=== PATIENT | male | born 1950 | race Caucasian/White ===

== ENCOUNTER 2023-10-15 12:12 | Inpatient (IN) | payer MEDICARE ==
[2023-10-15] MEDS: SUCCINYLCHOLINE CHLORIDE 200 MG/10 ML VIAL IV STA (12:20)
[2023-10-15] MEDS: MIDAZOLAM 1 MG/ML 5 ML VIAL IV STA (12:20)
--- NOTE | 2023-10-15 12:31 | ED ---
General Adult HPI - General Chief complaint: Altered Mental Status Stated complaint: Unresponsive Time Seen by Provider: 10/15/23 12:12 Source: patient, RN notes reviewed, old records reviewed Mode of arrival: EMS - History of Present Illness Initial comments: This is a 72-year-old male who presents emergency department the past medical history significant for diabetes and no further history is currently available at this time. went out for a jog and came back to find her unresponsive with agonal breathing. When EMS arrived the patient continued to have agonal breathing intubated him and did an EKG which they thought showed a STEMI. Patient is unable to give any history and family is not yet here. - Related Data Allergies Allergy/AdvReac Type Severity Reaction Status Date / Time Unable to Assess Allergy Verified 10/15/23 12:22 Review of Systems ROS Statement: Those systems with pertinent positive or pertinent negative responses have been documented in the HPI. ROS Other: All systems not noted in ROS Statement are negative. Past Medical History Past Medical History: No Reported History History of Any Multi-Drug Resistant Organisms: Unobtainable Past Surgical History: No Surgical Hx Reported Past Psychological History: Unable to Obtain Smoking Status: Unknown if ever smoked Past Alcohol Use History: None Reported Past Drug Use History: None Reported General Exam - General Exam Comments Initial Comments: GENERAL: Patient is well-developed and well-nourished. Patient is nontoxic and well- hydrated is currently intubated and occasionally vomiting ENT: Neck is soft and supple. No significant lymphadenopathy is noted. Oropharynx is clear. Moist mucous membranes. Neck has full range of motion without eliciting any pain. EYES: The sclera were anicteric and conjunctiva were pink and moist. Extraocular movements were intact and pupils were equal round and reactive to light. Eyelids were unremarkable. PULMONARY: Patient is occasionally having an agonal breath while being bagged. I listened to the breath sounds they were before and I believe the patient had the esophagus intubated at this point CARDIOVASCULAR: Patient is tachycardic at 120 beats a minute SKIN: Skin is clear with no lesions or rashes and otherwise unremarkable. NEUROLOGIC: Patient is unresponsive MUSCULOSKELETAL: Normal extremities with adequate strength and full range of motion. PSYCHIATRIC: Unable to assess Course Vital Signs 10/15/23 10/15/23 10/15/23 12:19 12:30 12:34 Temperature 97.5 F L Pulse Rate 131 H 110 H Respiratory 14 18 Rate Blood Pressure 168/114 137/90 O2 Sat by Pulse 99 99 Oximetry Procedures - Intubation Sedative: Versed Mg Given: 5 Paralytic: Succinylcholine Mg Given: 100 Laryngoscope: Barnes Size: 4 ET Tube Size: 7.5 ET Tube Uncuffed: No Tube Secured Location: teeth Tube Placement Confirmation: visualized tube passing through cords, equal breath sounds bilaterally, no breath sounds over epigastrium, confirmation by capnometry Intubation Complications: unable to intubate Medical Decision Making - Medical Decision Making Initial EKG was interpreted by myself but EKG shows sinus rhythm at 135 bpm NE interval is 200 QRS is 98 QT interval 374 QTc is 453. There is some ST segment elevation in 1 and aVL as well as V2 possible elevation in V4 V5. Repeat EKG will be done. I had a repeat EKG was done secondary to the noise on the first EKG. EKG is interpreted by myself EKG shows sinus tachycardia 123 bpm parable 164 QRS 106 QT interval 3 4 QTc is 413. Patient has ST segment ovation in 1 and aVL as well as V2 V4 and V5 and V6 Was pt. sent in by a medical professional or institution (, PA, PHYSICIAN UNDERWRITER, urgent care, hospital, or snf...) When possible be specific @ -No Did you speak to anyone other than the patient for history (EMS, parent, family, police, friend...)? What history was obtained from this source @ -EMS gave us all the history patient was unable to give any family was not yet here Did you review nursing and triage notes (agree or disagree)? Why? @ -I reviewed and agree with nursing and triage notes Were old charts reviewed (outside hosp., previous admission, EMS record, old EKG, old radiological studies, urgent care reports/EKG's, snf records)? Report findings @ -No old charts were reviewed Differential Diagnosis (chest pain, altered mental status, abdominal pain women, abdominal pain men, vaginal bleeding, weakness, fever, dyspnea, syncope, headache, dizziness, GI bleed, back pain, seizure, CVA, palpatations, mental health, musculoskeletal)? @ -Differential Dyspnea: Coronary syndrome, arrhythmia, tamponade, asthma, COPD, pulmonary embolism, pneumonia, pneumothorax, pulmonary effusion, anaphylaxis, diabetic ketoacidosis, flailed chest, pulmonary contusion, diaphragmatic rupture, anemia, neuromuscular, this is not meant to be an all-inclusive list. EKG interpreted by me (3pts min.). @ -As above X-rays interpreted by me (1pt min.). @ -X-ray showed placement of the ET tube and some edema more so on the left side of the chest CT interpreted by me (1pt min.). @ -None done U/S interpreted by me (1pt. min.). @ -None done What testing was considered but not performed or refused? (CT, X-rays, U/S, labs)? Why? @ -None What meds were considered but not given or refused? Why? @ -None Did you discuss the management of the patient with other professionals (professionals i.e. , PA, PHYSICIAN UNDERWRITER, lab, RT, psych nurse, psychotherapist social worker, program schedule clerk, teacher, health promotion officer, telehealth case manager)? Give summary @ -I spoke with Dr. Nair and he is going to take the patient to the catheterization lab Was smoking cessation discussed for >3mins.? @ -No Was critical care preformed (if so, how long)? @ -35 minutes Were there social determinants of health that impacted care today? How? (Homelessness, low income, unemployed, alcoholism, drug addiction, transportation, low edu. Level, literacy, decrease access to med. care, detention, rehab)? @ -No Was there de-escalation of care discussed even if they declined (Discuss DNR or withdrawal of care, Hospice)? DNR status @ -No What co-morbidities impacted this encounter? (DM, HTN, Smoking, COPD, CAD, Cancer, CVA, ARF, Chemo, Hep., AIDS, mental health diagnosis, sleep apnea, morbid obesity)? @ -None Was patient admitted / discharged? Hospital course, mention meds given and route, prescriptions, significant lab abnormalities, going to OR and other pertinent info. @ -Arrived unresponsive and being intubated bagged. I listened to what sounds like the patient's tube may became displaced so I reintubated the patient and h is lung sounds are much improved at this point. Family eventually arrived and stated he is a diabetic with interstitial lung disease from RA and he also has infection of the left foot that has recently been closed and has been on antibiotics through PICC line. Patient also vomited while in the emergency department he was suctioned out in the ED. I intubated the patient with Versed and succinylcholine Undiagnosed new problem with uncertain prognosis? @ -No Drug Therapy requiring intensive monitoring for toxicity (Heparin, Nitro, Insulin, Cardizem)? @ -No Were any procedures done? @ -No Diagnosis/symptom? @ -STEMI Acute, or Chronic, or Acute on Chronic? @ -Acute Uncomplicated (without systemic symptoms) or Complicated (systemic symptoms)? @ -Complicated Side effects of treatment? @ -No Exacerbation, Progression, or Severe Exacerbation? @ -No Poses a threat to life or true yes this can lead to poor perfusion and endorgan dysfunction dily function? How? (Chest pain, USA, VT, pneumonia, PE, COPD, DKA, ARF, appy, cholecystitis, CVA, Diverticulitis, Homicidal, Suicidal, threat to staff... and all critical care pts) @ -No Critical Care Time Critical Care Time: Yes Total Critical Care Time: 35 Disposition Clinical Impression: STEMI (ST elevation myocardial infarction) Disposition: ADMITTED IP TO THIS HOSP Referrals: None,Stated [Primary Care Provider] - 1-2 days Time of Disposition: 12:47
[2023-10-15] MEDS ORDERED: HEPARIN SODIUM 1,000 UN/ML (10ML VL) ONE (12:45)
[2023-10-15 12:52] LABS: INR 1.1 (<1.2); Partial Thromboplastin Time 24.5 sec (22.0-30.0); Prothrombin Time 11.5 sec (10.0-12.5)
[2023-10-15 12:59] LABS: ALT 25 U/L (4-49); AST 42 U/L (17-59); African American GFR (CKD) >90 (>60 ml/min/1.73 sqM); Albumin 3.9 g/dL (3.5-5.0); Alkaline Phosphatase 122 U/L (38-126); Anion Gap 10 mmol/L; Blood Urea Nitrogen 26 mg/dL (9-20); Calcium 9.1 mg/dL (8.4-10.2); Carbon Dioxide 21 mmol/L (22-30); Chloride 109 mmol/L (98-107); Glucose 165 mg/dL (74-99); Non-African American GFR(CKD) >90 (>60 ml/min/1.73 sqM); Potassium 3.8 mmol/L (3.5-5.1); Sodium 140 mmol/L (137-145); Total Protein 7.4 g/dL (6.3-8.2)
[2023-10-15] MEDS: LIDOCAINE 2% (PF) 20 MG/ML 10 ML AMP SQ ONE (13:00)
[2023-10-15 13:01] LABS: Basophils # (A) 0.1 k/uL (0-0.2); Basophils % (A) 1 %; Eosinophils # (A) 0.4 k/uL (0-0.7); Eosinophils % (A) 5 %; HCT 49.3 % (39.0-53.0); Lymphocytes % (A) 22 %; MCH 30.5 pg (25.0-35.0); MCHC 34.4 g/dL (31.0-37.0); MCV 88.6 fL (80.0-100.0); Mean Platelet Volume 8.1; Monocytes # (A) 0.7 k/uL (0-1.0); Monocytes % (A) 8 %; Neutrophils # (A) 5.4 k/uL (1.3-7.7); Neutrophils % (A) 61 %; Platelet Count 215 k/uL (150-450); Poikilocytosis Slight; RBC 5.57 m/uL (4.30-5.90); RDW 15.7 % (11.5-15.5); WBC 8.7 k/uL (3.8-10.6)
[2023-10-15] MEDS: ASPIRIN 300 MG SUPP RECTAL STA (13:03)
[2023-10-15] MEDS ORDERED: RX INFO: IV CONTRAST WAS GIVEN 1 EACH MISC MISCELLANE PRN ×2 (13:16→15:31)
--- NOTE | 2023-10-15 13:21 | P.PCN ---
Date of Procedure: 10/15/23 Operative Findings: CARDIAC CATHETERIZATION PERFORMING PHYSICIAN: Sp Nair MD, RPVI PROCEDURE PERFORMED: 1. Selective right and left coronary angiogram 2. Left heart catheterization 3. Ultrasound-guided access of the right radial artery INDICATION: EKG changes concerning for ST segment elevation myocardial infarction in this 72-year-old gentleman who had cardiopulmonary arrest COMPLICATION: None APPROACH: Right radial artery LEVEL OF SEDATION: Moderate with a sedation length of 14 minutes PROCEDURE DESCRIPTION: After obtaining an informed consent, the patient was brought to cardiac cathode builder. Local anesthesia was performed using lidocaine subcutaneously. The right radial artery was cannulated using Seldinger technique, the guidewire passed easily, following that we advanced a 5-Croatian sheath dilator assembly, the wire and dilator were removed and sheath was flushed. Following that, 2 mg of verapamil along with 5000 unit heparin were given. Selective right and left coronary angiogram using a 6-Croatian JR4 and JL 3.5 catheters. Following that we did left heart catheterization using 6-Croatian pigtail catheter. The procedure was completed there was no complication. SELECTIVE CORONARY ANGIOGRAM: The right coronary artery: Large-caliber vessel and a dominant vessel and appears to be angiographically normal Left main: Is angiographically normal The left circumflex: Large-caliber vessel nondominant vessel and appears to be angiographically normal gives rise into a large OM which appears to be normal The left anterior descending artery: Large-caliber vessel. The LAD is angiographically normal and gives rise into a large diagonal branch which seems to be normal HEMODYNAMICS: LVEDP was 10 to 12 mmHg with no gradient was identified across aortic valve CONCLUSION: 1. Normal coronary angiogram 2. Normal left-sided filling pressure POSTPROCEDURE MANAGEMENT: Medical treatment Rule out intracranial bleeding. Please note that the patient was not given heparin during the cardiac procedure Rule out pulmonary embolism Obtain an echocardiogram with Doppler Further recommendation to follow
--- NOTE | 2023-10-15 13:24 | P.CRDCN ---
History of Present Illness Consult date: 10/15/23 History of present illness: The patient is a 72-year-old gentleman who arrived to the emergency department intubated by ambulance after he was found to have agonal breathing by ambulance. The history was taken from the chart. The patient does have diabetes. No history of coronary artery disease or congestive heart failure or cardiac arrhythmia and never seen a head animal trainer before according to the family. The patient was in his usual state of health till this morning when his left home and went outside and came back and found the patient unresponsive. Lj johnston was called and the patient was found to be agonal breathing and he was intubated and brought to the emergency department. The EKG showed finding consistent with ST segment elevation myocardial infarction and with that being said he was brought emergently to the cardiac Human Resources Office Manager where he underwent a heart catheterization and that revealed normal coronaries with normal left-sided filling pressure with the procedure was performed from right radial approach. Please note that the patient was not given any heparin in the cardiac Human Resources Office Manager during the procedure. Stat echo is in process to be done. CT scan of the brain without contrast is in process to be down to rule out intracranial bleeding. D- dimer also was ordered to rule out pulmonary embolism and the patient has been sedentary after recent foot surgery was performed with unknown details at this point. The examination is remarkable for stable vital signs besides tachycardia and diminished breathing sounds bilaterally and no edema was noted in the lower extremities Assessment Change in mental status with unknown etiology at this point Abnormal EKG concerning for ST segment elevation myocardial infarction Normal coronary angiogram on recent heart catheterization Multiple comorbid conditions Plan Rule out intracranial bleeding Rule out pulmonary embolism Obtain a CT scan of the brain Obtain D-dimer and echocardiogram Follow-up with the patient Past Medical History Past Medical History: No Reported History History of Any Multi-Drug Resistant Organisms: Unobtainable Past Surgical History: No Surgical Hx Reported Past Psychological History: Unable to Obtain Smoking Status: Unknown if ever smoked Past Alcohol Use History: None Reported Past Drug Use History: None Reported Medications and Allergies Allergies Allergy/AdvReac Type Severity Reaction Status Date / Time Unable to Assess Allergy Verified 10/15/23 12:22 Physical Exam Vitals: Vital Signs Temp Pulse Resp BP Pulse Ox 10/15/23 12:43 67 16 149/95 98 10/15/23 12:34 97.5 F L 10/15/23 12:30 110 H 18 137/90 99 06/03/24 12:19 131 H 14 168/114 99 Intake and Output 10/14/23 10/15/23 10/15/23 22:59 06:59 14:59 Other: Weight 77.3 kg Results 10/15/23 12:30 10/15/23 12:30 Cardiac Enzymes 10/15/23 Range/Units 12:30 AST 42 (17-59) U/L Coagulation 10/15/23 Range/Units 12:30 PT 11.5 (10.0-12.5) sec APTT 24.5 (22.0-30.0) sec CBC 10/15/23 Range/Units 12:30 WBC 8.7 (3.8-10.6) k/uL RBC 5.57 (4.30-5.90) m/uL Hgb 17.0 (13.0-17.5) gm/dL Hct 49.3 (39.0-53.0) % Plt Count 215 (150-450) k/uL Comprehensive Metabolic Panel 10/15/23 Range/Units 12:30 Sodium 140 (137-145) mmol/L Potassium 3.8 (3.5-5.1) mmol/L Chloride 109 H (98-107) mmol/L Carbon Dioxide 21 L (22-30) mmol/L BUN 26 H (9-20) mg/dL Creatinine 0.57 L (0.66-1.25) mg/dL Glucose 165 H (74-99) mg/dL Calcium 9.1 (8.4-10.2) mg/dL AST 42 (17-59) U/L ALT 25 (4-49) U/L Alkaline Phosphatase 122 (38-126) U/L Total Protein 7.4 (6.3-8.2) g/dL Albumin 3.9 (3.5-5.0) g/dL Current Medications Generic Name Dose Route Start Last Admin Trade Name Freq PRN Reason Stop Dose Admin Sodium Chloride 1,000 mls @ 75 mls/hr 10/15/23 13:30 Saline 0.9% IV 10/15/23 18:31 .[id number] GERARDO Miscellaneous Information 1 each 10/15/23 13:16 Rx Info: Iv Contrast Was Given 1 Each Misc MISCELLANE 10/17/23 13:17 DAILY PRN Per Protocol Intake and Output 10/14/23 10/15/23 10/15/23 22:59 06:59 14:59 Other: Weight 77.3 kg Patient Weight 10/16/23 06:59 Weight 77.3 kg 10/15/23 12:30 10/15/23 12:30
[2023-10-15 13:54] LABS: Glucose,Whole Blood 197 mg/dL (70-110)
[2023-10-15 14:45] LABS: Allen Test Performed? Yes
--- NOTE | 2023-10-15 14:54 | CT ---
EXAMINATION TYPE: CT brain wo con CT DLP: 1069 mGycm, Automated exposure control for dose reduction was used. DATE OF EXAM: 10/15/2023 1:47 PM COMPARISON: None. CLINICAL INDICATION:Male, 72 years old with history of r/o ic bleed, R/O ic BLEED TECHNIQUE: Brain: Axial CT images of the brain were obtained with coronal and sagittal reformats created and rev iewed. Contrast used: None. Oral contrast used: None. FINDINGS: Brain: Extra-axial spaces: No abnormal extra-axial fluid collections. Ventricular system: Within normal limits Cerebral parenchyma: No acute intraparenchymal hemorrhage or mass effect. The jean baptiste-white junction is well differentiated. Scattered hypoattenuating areas are seen within the white matter suggesting chr onic microangiopathy. Cerebellum: Unremarkable. Mass effect: No evidence of midline shift. Intracranial vasculature: unremarkable Soft tissues: Normal. Calvarium/osseous structures: No depressed skull fracture. Paranasal sinuses and mastoid air cells: Mild scattered paranasal sinus disease. Visualized orbits: Orbital contents are intact. IMPRESSION: No acute intracranial process. Age-related chronic microangiopathy
[2023-10-15] MEDS: NITROGLYCERIN OINT 1 INCH/GM PACKET TOPICAL STA (14:56)
[2023-10-15] MEDS: SODIUM CHLORIDE 0.9% 500 ML 500 ML IV STA (14:57)
[2023-10-15 14:58] LABS: ABG HCO3 21 mmol/L (21-25); ABG Oxygen Saturation 99.9 % (94-97); ABG PCO2 35 mmHg (35-45); ABG PH 7.38 (7.35-7.45); ABG TCO2 22 mmol/L (19-24)
[2023-10-15 15:03] LABS: ABG PO2 >420 mmHg (83-108)
[2023-10-15] MEDS ORDERED: NALOXONE 0.4 MG/ML 1 ML VIAL IV PRN (15:06)
--- NOTE | 2023-10-15 15:21 | XR ---
EXAMINATION TYPE: XR chest 1V portable DATE OF EXAM: 10/15/2023 2:46 PM CLINICAL INDICATION:Male, 72 years old with history of post intubation; [facility] COMPARISON: None TECHNIQUE: XR chest 1V portable Frontal view of the chest. FINDINGS: Lungs/Pleura: There is no evidence of pleural effusion, focal consolidation, or pneumothorax. Pulmonary vascularity: Unremarkable. Heart/mediastinum: Cardiomediastinal silhouette is enlarged. Musculoskeletal: No acute osseous pathology. Other findings: None Lines/Tubes: Endotracheal tube in high position consider advancement 6 cm for optimal placement. Nasogastric tube terminating in the distal esophagus. Consider advancement of 8 cm for optimal placem ent. IMPRESSION: 1. Endotracheal tube in high position consider advancement 6 cm for optimal placement. 2. Nasogastric tube terminating in the distal esophagus. Consider advancement of [address] acement. 3. Cardiomegaly.
[2023-10-15] MEDS: SODIUM CHLORIDE 0.9% 1,000 ML IV SCH (15:24)
--- NOTE | 2023-10-15 15:43 | XR ---
EXAMINATION TYPE: XR chest 1V DATE OF EXAM: 10/15/2023 3:35 PM CLINICAL INDICATION:Male, 72 years old with history of ET tube placement; [facility] COMPARISON: Chest radiographs from same day TECHNIQUE: XR chest 1V Frontal view of the chest. FINDINGS: Lungs/Pleura: Prominent interstitial lung markings are seen scattered throughout the lungs with teodoro ening of the diaphragm and increased lucency of the lung apices. No evidence of focal consolidation, pneumothorax or pleural effusion. Pulmonary vascularity: Unremarkable. Heart/mediastinum: Cardiomediastinal silhouette is enlarged and stable. Musculoskeletal: No acute osseous pathology. Other findings: None Lines/Tubes: Endotracheal tube with distal tip 8.8 cm above the alexys. Nasogastric tube with side-port projecting over the distal esophagus. IMPRESSION: Advancement of 5.0 cm endotracheal tuber 9 cm per nasogastric tube recommended.
--- NOTE | 2023-10-15 15:55 | P.CNPUL ---
History of Present Illness Consult date: 10/15/23 Requesting physician: Anthony Javier Reason for consult: other (Ventilator/critical care management) Chief complaint: Unresponsiveness History of present illness: This is a 72-year-old male patient with a history of pulmonary fibrosis maintained on Ofev in the outpatient setting. He was found by his earlier today to be unresponsive and agonal breathing. EMS was called and he was int ubated in the field. EKG showed possible ST segment elevation myocardial infarction. He was brought in through the emergency room and directly to the Face Hardener. He was found to have normal coronary arteries. He was admitted to the intensive care unit. He is currently intubated on the mechanical ventilator and assist-control mode at a rate of 14, tidal volume 600, FiO2 50% and a PEEP of 5. Arterial blood gases revealed a PaO2 of greater than 420, pCO2 of 35 and a pH of 7.38. CT scan of the brain showed no acute abnormalities. Echocardiogram is pending. Chest x-ray revealed endotracheal tube in a high position. Being repositioned. Nasogastric tube in the esophagus. Cardiomegaly. No pleural effusion, focal consolidation or pneumothorax. White count 8.7. Hemoglobin 17.0. Platelets 215. D-dimer 2.58. Sodium 140. Potassium 3.8. Bicarb 21. BUN 26. Creatinine 0.57. Glucose 165. Troponin 0.047. Review of Systems ROS unobtainable: due to endotracheal tube Past Medical History Past Medical History: No Reported History History of Any Multi-Drug Resistant Organisms: Unobtainable Past Surgical History: No Surgical Hx Reported Past Psychological History: Unable to Obtain Smoking Status: Unknown if ever smoked Past Alcohol Use History: None Reported Past Drug Use History: None Reported Medications and Allergies Allergies Allergy/AdvReac Type Severity Reaction Status Date / Time Unable to Assess Allergy Verified 10/15/23 12:22 Physical Exam Vitals: Vital Signs Temp Pulse Resp BP Pulse Ox FiO2 10/15/23 15:18 50 10/15/23 15:16 50 10/15/23 15:05 50 10/15/23 15:00 101 H 20 97 50 10/15/23 14:45 107 H 19 93/66 96 10/15/23 14:30 110 H 20 108/77 98 10/15/23 14:26 100 10/15/23 14:15 112 H 16 117/81 97 10/15/23 14:00 94.5 F L 112 H 20 120/84 98 100 10/15/23 13:50 100 10/15/23 12:43 67 16 149/95 98 10/15/23 12:34 97.5 F L 10/15/23 12:30 110 H 18 137/90 99 10/15/23 12:19 131 H 14 168/114 99 Intake and Output 10/15/23 10/15/23 10/15/23 06:59 14:59 22:59 Other: Weight 77.3 kg GENERAL EXAM: Intubated, sedated 72-year-old male patient, in no apparent distress. HEAD: Normocephalic. EYES: Sluggish reaction of pupils, equal size. NOSE: Clear with pink turbinates. THROAT: No erythema or exudates. NECK: No masses, no JVD. CHEST: No chest wall deformity. LUNGS: Equal air entry with no crackles, wheeze, rhonchi or dullness. CVS: S1 and S2 normal with no audible murmur, regular rhythm. ABDOMEN: No hepatosplenomegaly, normal bowel sounds, no guarding or rigidity. SPINE: No scoliosis or deformity SKIN: No rashes CENTRAL NERVOUS SYSTEM: Sedated, tone is normal in all 4 extremities. EXTREMITIES: There is no peripheral edema. No clubbing, no cyanosis. Peripheral pulses are intact. Results - Laboratory Findings CBC and BMP: 10/15/23 12:30 10/15/23 12:30 ABG ABG pH 7.38 (7.35-7.45) 10/15/23 14:47 ABG pCO2 35 mmHg (35-45) 10/15/23 14:47 ABG pO2 >420 mmHg (83-108) H 10/15/23 14:47 ABG O2 Saturation 99.9 % (94-97) H 10/15/23 14:47 PT/INR, D-dimer PT 11.5 sec (10.0-12.5) 10/15/23 12:30 INR 1.1 (<1.2) 10/15/23 12:30 D-Dimer 2.58 mg/L FEU (<0.60) H 10/15/23 12:30 Abnormal lab findings: Abnormal Labs 10/15/23 10/15/23 10/15/23 12:30 12:30 12:30 RDW 15.7 H D-Dimer ABG pO2 ABG O2 Saturation Chloride 109 H Carbon Dioxide 21 L BUN 26 H Creatinine 0.57 L Glucose 165 H POC Glucose (mg/dL) Troponin I 0.047 H* 10/15/23 10/15/23 10/15/23 12:30 13:52 14:47 RDW D-Dimer 2.58 H ABG pO2 >420 H ABG O2 Saturation 99.9 H Chloride Carbon Dioxide BUN Creatinine Glucose POC Glucose (mg/dL) 197 H Troponin I - Diagnostic Findings Chest x-ray: image reviewed Assessment and Plan Assessment: Unresponsiveness with agonal breathing of unclear etiology, cardiac catheterization revealed normal coronary arteries. Suspect pulmonary embolism with elevated D-dimer History of pulmonary fibrosis on Ofev in the outpatient setting Unable to obtain any other information at this time Plan: The patient was seen and evaluated Chest x-ray, cardiac cath report, ABGs, labs and medications reviewed CT scan of the brain without acute abnormalities Elevated D-dimer, suspect pulmonary embolism Initiate a heparin drip Propofol for sedation Add DuoNeb inhalations every [address] angiogram of the chest tomorrow as the patient had contrast today We will continue to follow and make further recommendations based on his clinical status I have personally seen and examined the patient, performed the documentation and the assessment and plan as written. Number of minutes spent on the visit: 20.
--- NOTE | 2023-10-15 16:56 | P.HPIM ---
History of Present Illness H&P Date: 10/15/23 Chief Complaint: Altered mental status 72-year-old male with medical history of idiopathic pulmonary fibrosis on Ofev, diabetes type 2, osteomyelitis status post recent right toe amputation on Zosyn, hypertension, hyperlipidemia presented for evaluation of altered mental status. Patient's provides history as patient was obtunded and intubated and route to the emergency room. For my understanding, patient has been feeling increased headache over the last couple days, today started to complain of increased weakness and dizziness, then had an episode of unresponsiveness, for which the called the ambulance which brought the patient into the hospital. Accordtyler ng to ER documentation, the patient demonstrated evidence of agonal breathing and therefore was bagged for ventilation on the way to the emergency room. Upon arrival, patient was afebrile, 168/114, heart rate 131, 99% with [id number]. CBC was unremarkable. Basic metabolic panel showed chloride of 109, CO2 of 21, BUN of 26, creatinine 1.57. Liver function test were unremarkable. Troponins 0.047. Coags were unremarkable. D-dimer was elevated 2.58. EKG demonstrated atrial fibrillation with RVR as well as ST elevation in the lateral leads with reciprocal changes in the inferior leads. Based on these findings, cardiology was notified and a code STEMI was called, patient was taken emergently to the [employer] [facility] but was found to have normal coronary arteries. Subsequently was transferred to the intensive care unit, intubated. He underwent brain CT to rule out hemorrhagic stroke which was negative, pulmonology was consulted and neurology was consulted. Review of systems could not be completed due to patient's obtundation General: intubated, sedated HEENT: normocephalic, atraumatic, no tracheal deviation Respiratory: symmetric chest rise, no cyanosis, ventilator dependent CVS: perfusing all extremities, no distal gangrene, no pitting edema GI: soft, ND : no SPT, no CVAT, rutledge is present Neuro: sedated, withdraws to pain in all 4 extremities, more so on the left than right, pupils are equal and reactive to light, gaze is to the left, cough and gag are present Labs and imaging as above Assessment/plan: Acute encephalopathy, etiology is not yet specified Left gaze deviation Elevated D-dimer -Patient was admitted to the intensive care unit, intubated -Pulmonology was consulted -Continue propofol -They would like to rule out pulmonary embolism with a CT angiography of the chest -Neurology was consulted -Brain CT reviewed as above -CT head and neck angiography -Aspirin was started -Discussed with neurology and, pulmonology, Plavix was considered, but not star dae because patient was in atrial fibrillation with RVR and heparin drip was started over concern for pulmonary embolism Elevated troponin Paroxysmal atrial fibrillation with RVR, new onset -Echocardiogram was ordered -Continue heparin drip -Rhythm has returned to sinus without the use of AV rosina blocking agents, rate is controlled Recent right great toe amputation Osteomyelitis -Continue Zosyn 3.375 g every 8 hours per home dosing -ID consult -Blood cultures Idiopathic pulmonary fibrosis -Defer the reinitiation of Rinvoq and Ofev to the pulmonology team Diabetes type 2 -Sliding scale insulin Hypertension Hyperlipidemia Rheumatoid arthritis -Remaining home meds reviewed and reconciled Patient is full code is next of kin Past Medical History Past Medical History: No Reported History Additional Past Medical History / Comment(s): inerstial lung disease History of Any Multi-Drug Resistant Organisms: Unobtainable Past Surgical History: No Surgical Hx Reported Additional Past Surgical History / Comment(s): left total knee. left greater toe amputation 1 month ago-osteomylitis. Past Anesthesia/Blood Transfusion Reactions: No Reported Reaction Past Psychological History: Unable to Obtain Smoking Status: Unknown if ever smoked Past Alcohol Use History: None Reported Past Drug Use History: None Reported Medications and Allergies Home Medications Medication Instructions Recorded Confirmed Type Acetaminophen Tab [Tylenol] 650 mg PO Q8H PRN 10/15/23 10/15/23 History Empagliflozin [Jardiance] 25 mg PO HS 10/15/23 10/15/23 History Glimepiride [Amaryl] 4 mg PO DAILY 10/15/23 10/15/23 History HYDROcodone/APAP 5-325MG [[place] 1 tab PO Q4HR PRN 10/15/23 10/15/23 History 5-325] Insulin Aspart [NovoLOG Flexpen] See Protocol SQ ACHS 10/15/23 10/15/23 History Leflunomide [Arava] 20 mg PO DAILY 10/15/23 10/15/23 History Losartan [Cozaar] 50 mg PO DAILY 10/15/23 10/15/23 History Naproxen [Naprosyn] 500 mg PO BID 10/15/23 10/15/23 History Nintedanib Esylate [Ofev] 150 mg PO BID 10/15/23 10/15/23 History Piperacillin-Tazobactam [Zosyn] 4.5 gm IVPB Q8H 10/15/23 10/15/23 History Simvastatin [Zocor] 40 mg PO HS 10/15/23 10/15/23 History Upadacitinib [Rinvoq] 15 mg PO DAILY 10/15/23 10/15/23 History metFORMIN HCL 1,000 mg PO BID 10/15/23 10/15/23 History Allergies Allergy/AdvReac Type Severity Reaction Status Date / Time No Known Allergies Allergy Unverified 10/15/23 16:41 Physical Exam Osteopathic Statement: *. No significant issues noted on an osteopathic structural exam other than those noted in the History and Physical/Consult. Vitals: Vital Signs Temp Pulse Resp BP Pulse Ox FiO2 10/15/23 15:18 50 10/15/23 15:16 50 10/15/23 15:05 50 10/15/23 15:00 101 H 20 97 50 10/15/23 14:45 107 H 19 93/66 96 10/15/23 14:30 110 H 20 108/77 98 10/15/23 14:26 100 10/15/23 14:15 112 H 16 117/81 97 10/15/23 14:00 94.5 F L 112 H 20 120/84 98 100 10/15/23 13:50 100 10/15/23 12:43 67 16 149/95 98 10/15/23 12:34 97.5 F L 10/15/23 12:30 110 H 18 137/90 99 10/15/23 12:19 131 H 14 168/114 99 Intake and Output 10/15/23 10/15/23 10/15/23 06:59 14:59 22:59 Other: Weight 77.3 kg Results CBC & Chem 7: 10/15/23 12:30 10/15/23 12:30 Labs: Abnormal Lab Results - Last 24 Hours (Table) 10/15/23 10/15/23 10/15/23 Range/Units 12:30 12:30 12:30 RDW 15.7 H (11.5-15.5) % D-Dimer (<0.60) mg/L FEU ABG pO2 (83-108) mmHg ABG O2 Saturation (94-97) % Chloride 109 H (98-107) mmol/L Carbon Dioxide 21 L (22-30) mmol/L BUN 26 H (9-20) mg/dL Creatinine 0.57 L (0.66-1.25) mg/dL Glucose 165 H (74-99) mg/dL POC Glucose (mg/dL) (70-110) mg/dL Troponin I 0.047 H* (0.000-0.034) ng/mL 10/15/23 10/15/23 10/15/23 Range/Units 12:30 13:52 14:47 RDW (11.5-15.5) % D-Dimer 2.58 H (<0.60) mg/L FEU ABG pO2 >420 H (83-108) mmHg ABG O2 Saturation 99.9 H (94-97) % Chloride (98-107) mmol/L Carbon Dioxide (22-30) mmol/L BUN (9-20) mg/dL Creatinine (0.66-1.25) mg/dL Glucose (74-99) mg/dL POC Glucose (mg/dL) 197 H (70-110) mg/dL Troponin I (0.000-0.034) ng/mL Thrombosis Risk Factor Assmnt - Choose All That Apply Each Risk Factor Represents 2 Points: Age 61-74 years Thrombosis Risk Factor Assessment Total Risk Factor Score: 2 Thrombosis Risk Factor Assessment Level: Low Risk
[2023-10-15] MEDS: HEPARIN SOD,PORK IN 0.45% NACL 25,000 UNIT in 0.45% NACL 1 250ML.BAG IV SCH (17:23)
[2023-10-15] MEDS: PIPERACILLIN-TAZOBACTAM 3.375 GM in SODIUM CHLORIDE 0.9% 100 ML IVPB SCH (17:37)
--- NOTE | 2023-10-15 17:45 | CA ---
Transthoracic Echo Report Name: Antonio Quiroz Age: 72 Gender: M : 1950 Exam Date: 10/15/2023 13:39 Exam Location: [facility] Ht (in): 72 Wt (lb): 170 Ordering Physician: Jovi Fish MD Attending/Referring Phys: Senior Clinical Data Coordinator Kari Ceron RDCS Procedure CPT: Indications: r/o PE Cardiac Hx: Technical Quality: Good Contrast 1: Total Dose (mL): Contrast 2: Total Dose (mL): MEASUREMENTS (Male / Female) Normal Values 2D ECHO LV Diastolic Diameter PLAX 4.4 cm 4.2 - 5.9 / 3.9 - 5.3 cm LV Systolic Diameter PLAX 3.5 cm IVS Diastolic Thickness 1.0 cm 0.6 - 1.0 / 0.6 - 0.9 cm LVPW Diastolic Thickness 0.9 cm 0.6 - 1.0 / 0.6 - 0.9 cm LV Relative Wall Thickness 0.4 RV Internal Dim ED PLAX 3.7 cm LA Systolic Diameter LX 3.9 cm 3.0 - 4.0 / 2.7 - 3.8 cm LV Diastolic Volume MOD BP 57.4 cm??? 67 - 155 / 56 - 104 cm??? LV Systolic Volume MOD BP 42.3 cm??? 22 - 58 / 19 - 49 cm??? LV Ejection Fraction MOD BP 26.3 % >= 55 % LV Cardiac Index MOD BP 929.7 cm???/min???m??? LV Diastolic Volume MOD 4C 89.0 cm??? LV Systolic Volume MOD 4C 55.3 cm??? LV Ejection Fraction MOD 4C 37.9 % LV Cardiac Index MOD 4C 2076.4 cm???/min???m??? LV Diastolic Length 4C 7.8 cm LV Systolic Length 4C 7.4 cm LV Diastolic Volume MOD 2C 79.2 cm??? LV Systolic Volume MOD 2C 52.2 cm??? LV Ejection Fraction MOD 2C 34.1 % LV Cardiac Index MOD 2C 1662.9 cm???/min???m??? LV Diastolic Length 2C 7.8 cm LV Systolic Length 2C 7.2 cm LA Volume 41.7 cm??? 18 - 58 / 22 - 52 cm??? LA Volume Index 21.1 cm???/m??? 16 - 28 cm???/m??? M-MODE Aortic Root Diameter MM 3.6 cm MV E Point Septal Separation 1.6 cm AV Cusp Separation MM 1.8 cm DOPPLER AV Peak Velocity 103.1 cm/s AV Peak Gradient 4.3 mmHg TR Peak Velocity 356.0 cm/s TR Peak Gradient 50.7 mmHg Right Ventricular Systolic Press 55.7 mmHg FINDINGS Left Ventricle Left ventricular ejection fraction is estimated at 25-30 %. Severely decreased left ventricular ejection fraction. Left ventricular cavity size normal. Left ventricular wall thickness normal. Only basel campbell jerry. Right Ventricle Mild right ventricular dilatation. Severe pulmonary hypertension. Right ventricular systolic pressure estimated at 56 mm hg. Right Atrium Normal right atrial size. No right atrial thrombus or mass seen. Left Atrium Normal left atrial size. No left atrial thrombus or mass present. Mitral Valve Structurally normal mitral valve. No mitral stenosis, regurgitation or prolapse. Aortic Valve Trileaflet aortic valve. No aortic valve stenosis or regurgitation. Tricuspid Valve Structurally normal tricuspid valve. Mild tricuspid regurgitation. Pulmonic Valve Structurally normal pulmonic valve. No pulmonic regurgitation. Pericardium No pericardial or pleural effusion. Aorta Normal size aortic root and proximal ascending aorta. CONCLUSIONS Severe LV systolic dysfunction with an ejection fraction of 25-30% severe hypokinesis involving the apex only base of the ventricle is moving Severe pulmonary hypertension Previewed by: Dr. Erwin Franco MD (Electronically Signed) Final Date: 15 October 2023 17:44
[2023-10-15] MEDS: INSULIN ASPART (NovoLOG) 100 UNIT/ML VIAL SQ SCH (17:46)
[2023-10-15 17:47] LABS: Glucose,Whole Blood 170 mg/dL (70-110)
[2023-10-15] MEDS: IPRATROPIUM-ALBUTEROL 3 ML NEB INHALATION SCH (17:51)
--- NOTE | 2023-10-15 20:23 | P.CNNES ---
History of Present Illness Consult date: 10/15/23 Requesting physician: Anthony Javier Reason for Consult: ams History of Present Illness: This is a 72-year-old gentleman with history of rheumatoid arthritis, pulmonary fibrosis, diabetes mellitus, osteomyelitis who presented emergency department for unresponsiveness and agonal breathing. Patient's is at bedside who provides some of the history. She stated that today around 1045 patient was sitting and he notified her that he was not feeling well and then all of a sudden he became unresponsive on the chair. She stated that he has been complaining of a headache recently. She denies any history of stroke or seizure that he has in the past. She stated that the patient has leg jerks at nighttime and the assumed that he had restless leg syndrome. No further jerking that the noticed over the head or proximal extremities. This seems EMS as a result of his agonal breathing intubated him in the field. He had EKG which showed possible ST segment elevation myocardial infarction. He was taken directly into the cardiac cath from the ED. He is on IV propofol. To the nurse he had body jerk and was mostly shoulder that she noticed. Initially when he came to our facility. It seems the patient had cardiac cath in our facility and was normal. He was started on drip for concern of pulmonary embolism ruled out According to the she feels he is on new medication for his rheumatoid arthritis, Rinvoq. He had recent left toe amputation since was infected. Some of the workup during this hospital visit consisted of: White blood cells 8.7 thousand Opponent is 0.047 Initial serum glucose is 165. 2D echo is reported as severe left ventricular systolic dysfunction with ejection fraction of 25 to 30%. Severe hypokinesis involving the apex only the base of the ventricle is improving. Severe pulmonary hypertension. Cardiac cath is reported as normal coronary angiogram. Normal left sided filling pressure. Rule out intracranial bleed. Pulmonary embolism. CT of the head is reported as no acute intracranial process. I personally reviewed the CT and agree there is no acute or subacute process. Review of Systems Limited but the positive and negative as per HPI. Past Medical History Past Medical History: No Reported History Additional Past Medical History / Comment(s): inerstial lung disease History of Any Multi-Drug Resistant Organisms: Unobtainable Past Surgical History: No Surgical Hx Reported Additional Past Surgical History / Comment(s): left total knee. left greater toe amputation 1 month ago-osteomylitis. Past Anesthesia/Blood Transfusion Reactions: No Reported Reaction Past Psychological History: Unable to Obtain Smoking Status: Unknown if ever smoked Past Alcohol Use History: None Reported Past Drug Use History: None Reported Medications and Allergies Home Medications Medication Instructions Recorded Confirmed Type Acetaminophen Tab [Tylenol] 650 mg PO Q8H PRN 10/15/23 10/15/23 History Empagliflozin [Jardiance] 25 mg PO HS 10/15/23 10/15/23 History Glimepiride [Amaryl] 4 mg PO DAILY 10/15/23 10/15/23 History HYDROcodone/APAP 5-325MG [[place] 1 tab PO Q4HR PRN 10/15/23 10/15/23 History 5-325] Insulin Aspart [NovoLOG Flexpen] See Protocol SQ ACHS 10/15/23 10/15/23 History Leflunomide [Arava] 20 mg PO DAILY 10/15/23 10/15/23 History Losartan [Cozaar] 50 mg PO DAILY 10/15/23 10/15/23 History Naproxen [Naprosyn] 500 mg PO BID 10/15/23 10/15/23 History Nintedanib Esylate [Ofev] 150 mg PO BID 10/15/23 10/15/23 History Piperacillin-Tazobactam [Zosyn] 4.5 gm IVPB Q8H 10/15/23 10/15/23 History Simvastatin [Zocor] 40 mg PO HS 10/15/23 10/15/23 History Upadacitinib [Rinvoq] 15 mg PO DAILY 10/15/23 10/15/23 History metFORMIN HCL 1,000 mg PO BID 10/15/23 10/15/23 History Allergies Allergy/AdvReac Type Severity Reaction Status Date / Time No Known Allergies Allergy Unverified 10/15/23 16:41 Physical Examination - Vital Signs Vital Signs: Vital Signs Temp Pulse Resp BP Pulse Ox FiO2 10/15/23 19:00 100 19 96/66 98 10/15/23 18:45 99 21 102/68 96 10/15/23 18:30 99 22 107/69 96 10/15/23 18:15 97 20 98/68 98 10/15/23 18:00 98.2 F 96 20 94/59 97 10/15/23 17:51 98 10/15/23 17:45 112 H 18 82/61 97 10/15/23 17:30 113 H 23 97 10/15/23 17:15 111 H 18 75/45 96 10/15/23 17:00 92 19 83/60 96 10/15/23 16:45 99 20 88/62 96 10/15/23 16:30 102 H 18 93/66 95 10/15/23 16:15 104 H 20 100/68 96 10/15/23 16:00 96.8 F L 104 H 14 100/69 96 50 10/15/23 15:45 102 H 15 89/64 95 10/15/23 15:30 102 H 18 83/59 96 10/15/23 15:18 50 10/15/23 15:16 50 10/15/23 15:15 102 H 21 80/48 96 10/15/23 15:05 50 10/15/23 15:00 101 H 20 97 50 10/15/23 14:45 107 H 19 93/66 96 10/15/23 14:30 110 H 20 108/77 98 10/15/23 14:26 100 10/15/23 14:15 112 H 16 117/81 97 10/15/23 14:00 94.5 F L 112 H 20 120/84 98 100 10/15/23 13:50 100 10/15/23 12:43 67 16 149/95 98 10/15/23 12:34 97.5 F L 10/15/23 12:30 110 H 18 137/90 99 10/15/23 12:19 131 H 14 168/114 99 Intake and Output 10/15/23 10/15/23 10/15/23 06:59 14:59 22:59 Intake Total 1440.351 Output Total 750 Balance 690.351 Intake: IV 1400 Piperacillin-Tazobactam 3 100 .375 gm In Sodium Chloride 0.9% 100 ml @ 25 mls/hr IVPB Q8H [facility] Rx#: [id number] Sodium Chloride 0.9% 1, 1300 000 ml @ 75 mls/hr IV . [id number] [facility] Rx#:[id number] Intake, IV Titration 40.351 Amount propofoL 1,000 mg In 40.351 Empty Bag 1 bag @ 15 MCG/ KG/MIN 6.957 mls/hr IV . [id number] [facility] Rx#:[id number] Output: Urine 750 Other: Voiding Method Indwelling Catheter Weight 77.3 kg General: Lying in bed and is not in acute distress. Respiratory: Intubated on ventilator. Neuro: Limited. Is on IV Propofol 30mg/kg/min Patient is comatose. Pupils are 3-4mm and reactive to light. Does not appear to have facial weakness. Strength: Decrease tone throughout. Reflex: Is 1+ Has left foot is wrapped in gauze. Results - Laboratory Findings CBC and BMP: 10/15/23 12:30 10/15/23 12:30 Abnormal Lab Findings: Abnormal Labs 10/15/23 10/15/23 10/15/23 12:30 12:30 12:30 RDW 15.7 H D-Dimer ABG pO2 ABG O2 Saturation Chloride 109 H Carbon Dioxide 21 L BUN 26 H Creatinine 0.57 L Glucose 165 H POC Glucose (mg/dL) Troponin I 0.047 H* 10/15/23 10/15/23 10/15/23 12:30 13:52 14:47 RDW D-Dimer 2.58 H ABG pO2 >420 H ABG O2 Saturation 99.9 H Chloride Carbon Dioxide BUN Creatinine Glucose POC Glucose (mg/dL) 197 H Troponin I 10/15/23 17:45 RDW D-Dimer ABG pO2 ABG O2 Saturation Chloride Carbon Dioxide BUN Creatinine Glucose POC Glucose (mg/dL) 170 H Troponin I Assessment and Plan Assessment: This is a 72-year-old gentleman who was found unresponsive at home by his . Also he was having agonal breathing. He was complaining of not feeling well and headache recently per the . The results EMS arrived and they intubated him because of his respiratory distress. EKG was reported as possible ST segment myocardial infarction with minimal elevated troponin. He was taken for cardiac cath and was normal. CT of the head was unremarkable for any acute process. 2D echo showed severe left ventricular systolic dysfunction with ejection fraction of 25 to 30%. Severe hypokinesis involving the apex only the base of the ventricle is improving. Severe pulmonary hypertension. Nurse she felt the patient is having body jerks. Episode of unresponsiveness unknown exact etiology. Unsure if patient had hypoxic encephalopathy. CT of the head is unremarkable for any acute process Episode of body jerks rule out seizure Heart failure with ejection fraction of 25 to 30% Severe pulmonary hypertension History of pulmonary fibrosis History of rheumatoid arthritis History of diabetes mellitus History of osteomyelitis and had left toe amputation Plan: I started the patient on Keppra 500 mg twice daily because of body jerks. Will obtain an EEG tomorrow CT angiography of the head and neck is ordered by the primary team is pending Patient is on aspirin 81 mg and the patient received aspirin 300 suppository in the ED. Currently on heparin drip for concern of questionable pulmonary embolism Will defer the rest of the medical management to primary and other specialists. Plan discussed with the patient's was at bedside and his nurse. Thank you for the consultation. Time with Patient: Greater than 30
[2023-10-15] MEDS: levETIRAcetam IV 500 MG/5 ML VIAL IVP STA (21:54)
[2023-10-15] MEDS: CHLORHEXIDINE GLUCONATE 15 ML CUP MUCOUS MEM SCH (22:06)
[2023-10-15] MEDS: ATORVASTATIN 80 MG TAB PO SCH (22:07)
[2023-10-15] MEDS: LORazepam 1 MG/0.5 ML VIAL IV STA (22:14)
[2023-10-16 00:07] LABS: Glucose,Whole Blood 174 mg/dL (70-110)
[2023-10-16] MEDS: LORazepam 1 MG/0.5 ML VIAL IV PRN (00:15)
[2023-10-16] MEDS: HYDROmorphone 0.5 MG/0.5 ML SYRINGE IVP STA (01:41)
[2023-10-16] MEDS: NOREPINEPHRINE 4 MG in SODIUM CHLORIDE 0.9% 250 ML IV SCH (04:12)
[2023-10-16 05:15] LABS: ABG HCO3 17 mmol/L (21-25); ABG Oxygen Saturation 94.7 % (94-97); ABG PCO2 40 mmHg (35-45); ABG PH 7.24 (7.35-7.45); ABG PO2 102 mmHg (83-108); ABG TCO2 18 mmol/L (19-24); Allen Test Performed? Yes
[2023-10-16 07:02] LABS: Glucose,Whole Blood 270 mg/dL (70-110)
[2023-10-16 07:20] LABS: Basophils % (A) 0 %; Eosinophils % (A) 0 %; HCT 51.2 % (39.0-53.0); HGB 15.7 gm/dL (13.0-17.5); Hypochromasia Marked; Lymphocytes # (A) 0.4 k/uL (1.0-4.8); Lymphocytes % (A) 2 %; MCH 29.1 pg (25.0-35.0); MCHC 30.6 g/dL (31.0-37.0); Monocytes # (A) 1.5 k/uL (0-1.0); Monocytes % (A) 8 %; Neutrophils # (A) 17.1 k/uL (1.3-7.7); Neutrophils % (A) 89 %; Platelet Count 248 k/uL (150-450); Poikilocytosis Slight; RBC 5.37 m/uL (4.30-5.90); RDW 15.9 % (11.5-15.5); WBC 19.2 k/uL (3.8-10.6)
[2023-10-16 07:23] LABS: MCV 95.3 fL (80.0-100.0)
[2023-10-16 07:34] LABS: African American GFR (CKD) 73 (>60 ml/min/1.73 sqM); Anion Gap 16 mmol/L; Blood Urea Nitrogen 32 mg/dL (9-20); Calcium 8.3 mg/dL (8.4-10.2); Carbon Dioxide 15 mmol/L (22-30); Chloride 112 mmol/L (98-107); Glucose 258 mg/dL (74-99); Non-African American GFR(CKD) 64 (>60 ml/min/1.73 sqM); Potassium 4.3 mmol/L (3.5-5.1); Sodium 143 mmol/L (137-145)
--- NOTE | 2023-10-16 09:11 | XR ---
EXAMINATION TYPE: XR chest 1V portable DATE OF EXAM: 10/16/2023 5:41 AM CLINICAL INDICATION:Male, 72 years old with history of Tube placement; [facility] COMPARISON: Chest radiograph from one day prior. TECHNIQUE: XR chest 1V portable Frontal view of the chest. FINDINGS: Lungs/Pleura: Prominent interstitial lung markings are seen scattered throughout the lungs with teodoro ening of the diaphragm and increased lucency of the lung apices. No evidence of focal consolidation, pneumothorax or pleural effusion. Pulmonary vascularity: Unremarkable. Heart/mediastinum: Cardiomediastinal silhouette is enlarged and stable. Musculoskeletal: No acute osseous pathology. Other findings: None Lines/Tubes: Endotracheal tube with distal tip 8.8 cm above the alexys. Nasogastric tube with side-port projecting over the distal esophagus. IMPRESSION: 1. Satisfactory positioning of the nasogastric and endotracheal tubes. 2. Cardiomegaly with pulmonary vascular congestion.
[2023-10-16] MEDS: levETIRAcetam IV 500 MG/5 ML VIAL IVP SCH (09:21)
[2023-10-16] MEDS: PANTOPRAZOLE 40 MG/10 ML VIAL IV SCH (09:21)
[2023-10-16] MEDS: HYDROmorphone 1 MG/ML 1 ML SYRINGE IVP SCH (09:22)
[2023-10-16] MEDS: ASPIRIN 81 MG PO SCH (09:22)
--- NOTE | 2023-10-16 10:56 | P.PN ---
Subjective Progress Note Date: 10/16/23 This is a 72-year-old male patient with a history of pulmonary fibrosis maintained on Ofev in the outpatient setting. He was found by his earlier today to be unresponsive and agonal breathing. EMS was called and he was intubated in the field. EKG showed possible ST segment elevation myocardial inf arction. He was brought in through the emergency room and directly to the [facility]. He was found to have normal coronary arteries. He was admitted to the intensive care unit. He is currently intubated on the mechanical ventilator and assist-control mode at a rate of 14, tidal volume 600, FiO2 50% and a PEEP of 5. Arterial blood gases revealed a PaO2 of greater than 420, pCO2 of 35 and a pH of 7.38. CT scan of the brain showed no acute abnormalities. Echocardiogram is pending. Chest x-ray revealed endotracheal tube in a high position. Being repositioned. Nasogastric tube in the esophagus. Cardiomegaly. No pleural effusion, focal consolidation or pneumothorax. White count 8.7. Hemoglobin 17.0. Platelets 215. D-dimer 2.58. Sodium 140. Potassium 3.8. Bicarb 21. BUN 26. Creatinine 0.57. Glucose 165. Troponin 0.047. The patient is seen today October 16, 2023 in follow-up on the regular medical floor. He remains intubated on the mechanical ventilator. Currently on assist- control mode with a rate of 14, tidal volume 600, FiO2 50% and a PEEP of 5. Morning blood gases revealed a PaO2 of 102, pCO2 40 and a pH of 7.24. He is on propofol at 40 mcg/kg/min. Norepinephrine at 0.09 mcg/kg/min. Heparin drip per weight-based protocol. Saline at 75 MLS per hour. He is continued on Zosyn via PICC line that he had been receiving at home following a left great toe amputati on. Chest x-ray shows satisfactory position in the nasogastric and endotracheal tubes. There is cardiomegaly with pulmonary vascular congestion. Echocardiogram revealed severely impaired left ventricular systolic function with ejection fraction of 25 to 30%. Severe pulmonary hypertension. White count 19.2. Hemoglobin 15.7. Platelets 248. Sodium 143. Potassium 4.3. Bicarb 15. Anion gap 16. BUN 32. Creatinine 1.16. Glucose 258. His current temperature is 102.1. He is tachycardic 130s. The plan is for CT angiogram of the chest today to rule out pulmonary embolism. CT angiogram of the head and neck is pending as well. Objective - Vital Signs Vital signs: Vital Signs Temp 102.1 F H 10/16/23 08:45 Pulse 125 H 10/16/23 09:45 Resp 23 10/16/23 09:45 BP 108/65 10/16/23 09:45 Pulse Ox 98 10/16/23 09:45 FiO2 50 10/16/23 08:06 Intake & Output 10/15/23 10/16/23 10/16/23 18:59 06:59 18:59 Intake Total 2348.907 0845.989 516.835 Output Total 675 750 280 Balance 690.351 473.989 236.835 Weight 77.3 kg 88.9 kg Intake: IV 1325 1010 235 Invasive Line 5 10 10 Piperacillin-Tazobactam 3 100 100 .375 gm In Sodium Chloride 0.9% 100 ml @ 25 mls/hr IVPB Q8H [facility] Rx#: [id number] Sodium Chloride 0.9% 1, 1225 900 225 000 ml @ 75 mls/hr IV . [id number] [facility] Rx#:[id number] Intake, IV Titration 40.351 213.989 281.835 Amount Heparin Sod,Pork in 0.45% 191.781 NaCl 25,000 unit In 0.45 % NaCl 1 250ml.bag @ 18 UNITS/KG/HR 13.914 mls/hr IV .[id number] [facility] Rx#: [id number] Norepinephrine 4 mg In 56.566 Sodium Chloride 0.9% 250 ml @ 0.03 MCG/KG/MIN 10. 161 mls/hr IV .Q24H [facility] Rx#:[id number] propofoL 1,000 mg In 40.351 157.423 90.054 Empty Bag 1 bag @ 15 MCG/ KG/MIN 6.957 mls/hr IV . [id number] [facility] Rx#:[id number] Output: Urine 675 750 280 Other: Voiding Method Indwelling Catheter Indwelling Catheter Indwelling Catheter - Exam GENERAL EXAM: Intubated, sedated 72-year-old male patient. Febrile. HEAD: Normocephalic. EYES: Sluggish reaction of pupils, equal size. NOSE: Clear with pink turbinates. THROAT: No erythema or exudates. NECK: No masses, no JVD. CHEST: No chest wall deformity. LUNGS: Equal air entry with bilateral scattered rhonchi, crackles in the posterior bases. CVS: S1 and S2 normal with no audible murmur, regular rhythm. Tachycardic ABDOMEN: No hepatosplenomegaly, normal bowel sounds, no guarding or rigidity. SPINE: No scoliosis or deformity SKIN: No rashes CENTRAL NERVOUS SYSTEM: Sedated, tone is normal in all 4 extremities. EXTREMITIES: Amputation of the left great toe, dressing in place, there is no peripheral edema. No clubbing, no cyanosis. Peripheral pulses are intact. - Labs CBC & Chem 7: 10/16/23 06:05 10/16/23 06:05 Labs: Abnormal Lab Results - Last 24 Hours (Table) 10/15/23 10/15/23 10/15/23 Range/Units 12:30 12:30 12:30 WBC (3.8-10.6) k/uL MCHC (31.0-37.0) g/dL RDW 15.7 H (11.5-15.5) % Neutrophils # (1.3-7.7) k/uL Lymphocytes # (1.0-4.8) k/uL Monocytes # (0-1.0) k/uL APTT (22.0-30.0) sec D-Dimer (<0.60) mg/L FEU ABG pH (7.35-7.45) ABG pO2 (83-108) mmHg ABG HCO3 (21-25) mmol/L ABG Total CO2 (19-24) mmol/L ABG O2 Saturation (94-97) % Chloride 109 H (98-107) mmol/L Carbon Dioxide 21 L (22-30) mmol/L BUN 26 H (9-20) mg/dL Creatinine 0.57 L (0.66-1.25) mg/dL Glucose 165 H (74-99) mg/dL POC Glucose (mg/dL) (70-110) mg/dL Plasma Lactic Acid Garcia (0.7-2.0) mmol/L Calcium (8.4-10.2) mg/dL Troponin I 0.047 H* (0.000-0.034) ng/mL 10/15/23 10/15/23 10/15/23 Range/Units 12:30 13:52 14:47 WBC (3.8-10.6) k/uL MCHC (31.0-37.0) g/dL RDW (11.5-15.5) % Neutrophils # (1.3-7.7) k/uL Lymphocytes # (1.0-4.8) k/uL Monocytes # (0-1.0) k/uL APTT (22.0-30.0) sec D-Dimer 2.58 H (<0.60) mg/L FEU ABG pH (7.35-7.45) ABG pO2 >420 H (83-108) mmHg ABG HCO3 (21-25) mmol/L ABG Total CO2 (19-24) mmol/L ABG O2 Saturation 99.9 H (94-97) % Chloride (98-107) mmol/L Carbon Dioxide (22-30) mmol/L BUN (9-20) mg/dL Creatinine (0.66-1.25) mg/dL Glucose (74-99) mg/dL POC Glucose (mg/dL) 197 H (70-110) mg/dL Plasma Lactic Acid Garcia (0.7-2.0) mmol/L Calcium (8.4-10.2) mg/dL Troponin I (0.000-0.034) ng/mL 10/15/23 10/15/23 10/16/23 Range/Units 17:45 23:49 00:05 WBC (3.8-10.6) k/uL MCHC (31.0-37.0) g/dL RDW (11.5-15.5) % Neutrophils # (1.3-7.7) k/uL Lymphocytes # (1.0-4.8) k/uL Monocytes # (0-1.0) k/uL APTT 56.9 H (22.0-30.0) sec D-Dimer (<0.60) mg/L FEU ABG pH (7.35-7.45) ABG pO2 (83-108) mmHg ABG HCO3 (21-25) mmol/L ABG Total CO2 (19-24) mmol/L ABG O2 Saturation (94-97) % Chloride (98-107) mmol/L Carbon Dioxide (22-30) mmol/L BUN (9-20) mg/dL Creatinine (0.66-1.25) mg/dL Glucose (74-99) mg/dL POC Glucose (mg/dL) 170 H 174 H (70-110) mg/dL Plasma Lactic Acid Garcia (0.7-2.0) mmol/L Calcium (8.4-10.2) mg/dL Troponin I (0.000-0.034) ng/mL 10/16/23 10/16/23 10/16/23 Range/Units 04:58 06:05 06:05 WBC 19.2 H (3.8-10.6) k/uL MCHC 30.6 L (31.0-37.0) g/dL RDW 15.9 H (11.5-15.5) % Neutrophils # 17.1 H (1.3-7.7) k/uL Lymphocytes # 0.4 L (1.0-4.8) k/uL Monocytes # 1.5 H (0-1.0) k/uL APTT (22.0-30.0) sec D-Dimer (<0.60) mg/L FEU ABG pH 7.24 L (7.35-7.45) ABG pO2 (83-108) mmHg ABG HCO3 17 L (21-25) mmol/L ABG Total CO2 18 L (19-24) mmol/L ABG O2 Saturation (94-97) % Chloride 112 H (98-107) mmol/L Carbon Dioxide 15 L (22-30) mmol/L BUN 32 H (9-20) mg/dL Creatinine (0.66-1.25) mg/dL Glucose 258 H (74-99) mg/dL POC Glucose (mg/dL) (70-110) mg/dL Plasma Lactic Acid Garcia (0.7-2.0) mmol/L Calcium 8.3 L (8.4-10.2) mg/dL Troponin I (0.000-0.034) ng/mL 10/16/23 10/16/23 10/16/23 Range/Units 06:05 07:01 09:25 WBC (3.8-10.6) k/uL MCHC (31.0-37.0) g/dL RDW (11.5-15.5) % Neutrophils # (1.3-7.7) k/uL Lymphocytes # (1.0-4.8) k/uL Monocytes # (0-1.0) k/uL APTT 82.0 H (22.0-30.0) sec D-Dimer (<0.60) mg/L FEU ABG pH (7.35-7.45) ABG pO2 (83-108) mmHg ABG HCO3 (21-25) mmol/L ABG Total CO2 (19-24) mmol/L ABG O2 Saturation (94-97) % Chloride (98-107) mmol/L Carbon Dioxide (22-30) mmol/L BUN (9-20) mg/dL Creatinine (0.66-1.25) mg/dL Glucose (74-99) mg/dL POC Glucose (mg/dL) 270 H (70-110) mg/dL Plasma Lactic Acid Garcia 5.8 H* (0.7-2.0) mmol/L Calcium (8.4-10.2) mg/dL Troponin I (0.000-0.034) ng/mL Assessment and Plan Assessment: Unresponsiveness with agonal breathing of unclear etiology, cardiac catheterization revealed normal coronary arteries. Suspect pulmonary embolism with elevated D-dimer. Initiated on a heparin drip. CT angiogram pending Hypotension requiring pressor support Severely impaired left ventricular systolic function with ejection fraction 20 to 25% Severe pulmonary hypertension Febrile illness, remains on Zosyn. Procalcitonin pending Leukocytosis Tachycardia History of pulmonary fibrosis on Ofev in the outpatient setting Recent amputation of the left great toe, was on Zosyn via PICC line in the outpatient setting Plan: The patient was seen and evaluated Chest x-ray, ABGs, labs and medications reviewed Decrease tidal volume to 500 Check a procalcitonin Check a proBNP Check lactic acid Continue Zosyn Echocardiogram reviewed CT angiogram of the chest pending CT angiogram of the head and neck pending Continue heparin drip We will continue to follow and make further recommendations based on his clinical status I have personally seen and examined the patient, performed the documentation and the assessment and plan as written. Number of minutes spent on the visit: 15.
--- NOTE | 2023-10-16 11:05 | P.PN ---
Subjective Progress Note Date: 10/16/23 Hospital Course: 72-year-old male with medical history of idiopathic pulmonary fibrosis on Ofev, diabetes type 2, osteomyelitis status post recent right toe amputation on Zosyn, hypertension, hyperlipidemia presented for evaluation of altered mental status. According to ER documentation, the patient demonstrated evidence of agonal breathing and therefore was bagged for ventilation on the way to the emergency room. Upon arrival, patient was afebrile, 168/114, heart rate 131, 99% with [id number]. CBC was unremarkable. Basic metabolic panel showed chloride of 109, CO2 of 21, BUN of 26, creatinine 1.57. Liver function test were unremarkable. Troponins 0.047. Coags were unremarkable. D-dimer was elevated 2.58. EKG demonstrated atrial fibrillation with RVR as well as ST elevation in the lateral leads with reciprocal changes in the inferior leads. Based on these findings, cardiology was notified and a code STEMI was called, patient was taken emergently to the [facility] but was found to have normal coronary arteries. Subsequently was transferred to the intensive care unit, intubated. He underwent brain CT to rule out hemorrhagic stroke which was negative, pulmonology was consulted and neurology was consulted. Patient remains intubated and mechanically ventilated. Also hypotensive, requiring vasopressors as well as broad-spectrum antibiotics. Echocardiogram showed LVEF 25 to 30% with severe hypokinesis involving the apex, severe pulmonary hypertension. Subjective: Patient seen and examined at bedside. No acute events overnight. Remains intubated, mechanically ventilated, sedated on propofol. Maintained on heparin drip. Also on Levophed. Very minimal NG output, making adequate urine, no bowel movements. Pertinent positives and negatives as discussed above, a complete review of systems was performed and all other systems are negative. Vitals Signs Reviewed. General: Intubated and sedated Derm: Warm, dry, left foot covered in dressing Head: Atraumatic, normocephalic, symmetric Eyes: Pupils equal and reactive Mouth: No lip lesion, mucus membranes moist Cardiovascular: S1S2 irregular and tachycardic, no murmur Lungs: Bilateral rhonchi, intubated mechanically ventilated Abdominal: Soft, nondistended Ext: No gross muscle atrophy, no edema, no contractures Neuro: Sedated Psych: Unable to assess Data Reviewed Today: Pertinent Labs: WBC 19.2, hemoglobin 15.7, platelet 248, pH 7.24, pCO2 40, pO2 102, sodium 143, potassium 4.3, bicarb 15, anion gap 16, creatinine 1.16, lactate 5.8, glucose range between 1 74-2 70, proBNP 4800 Imaging: Chest x-ray independently interpreted, interstitial opacities similar to yesterday, indicative of fibrosis. Assessment and Plan: Patient is critically ill, needs close monitoring. Unspecified circulatory shock, sepsis versus obstructive Nonischemic systolic cardiomyopathy, EF 25 to 30% Acute metabolic encephalopathy Acute hypoxic respiratory failure History of pulmonary fibrosis Recent left great toe amputation secondary to osteomyelitis, on Zosyn via PICC line outpatient setting Metabolic acidosis, lactic acidosis Acute kidney injury, likely ATN -Continue to wean vasopressors -Neurology following, pending EEG, currently on Keppra 1000 mg IV every 12 hours for possible seizure-like activity -CTA head and neck and CT angiogram of the chest pending -Pulmonology note reviewed, concern for possible PE, patient currently [place] treated with heparin drip -Also on IV Zosyn 3.375 g every 8 hours, ID has been consulted -Acidosis likely in the setting of circulatory shock -Continue to monitor urine output Elevated troponin Paroxysmal atrial fibrillation with RVR, new onset -Continue aspirin 81 mg, atorvastatin 80 mg -Cardiac cath report showed normal coronary angiogram, normal left-sided filling pressures Type 2 diabetes -Hold oral antidiabetics -Continue sliding scale insulin every 6 hours, monitor for hypoglycemia History of hypertension-hold antihypertensives Dyslipidemia-continue atorvastatin Rheumatoid arthritis DVT ppx: Heparin drip Code status: Full code Anticipated discharge place: Pending clinical course Anticipated discharge time: pending clinical course Objective - Vital Signs Vital signs: Vital Signs Temp 102.1 F H 10/16/23 08:45 Pulse 125 H 10/16/23 10:45 Resp 15 10/16/23 10:45 BP 95/61 10/16/23 10:45 Pulse Ox 96 10/16/23 10:45 FiO2 50 10/16/23 08:06 Intake & Output 10/15/23 10/16/23 10/16/23 18:59 06:59 18:59 Intake Total 2182.482 6591.989 591.835 Output Total 675 750 350 Balance 690.351 473.989 241.835 Weight 77.3 kg 88.9 kg Intake: IV 1325 1010 310 Invasive Line 5 10 10 Piperacillin-Tazobactam 3 100 100 .375 gm In Sodium Chloride 0.9% 100 ml @ 25 mls/hr IVPB Q8H [facility] Rx#: [id number] Sodium Chloride 0.9% 1, 1225 900 300 000 ml @ 75 mls/hr IV . [id number] [facility] Rx#:[id number] Intake, IV Titration 40.351 213.989 281.835 Amount Heparin Sod,Pork in 0.45% 191.781 NaCl 25,000 unit In 0.45 % NaCl 1 250ml.bag @ 18 UNITS/KG/HR 13.914 mls/hr IV .[id number] [facility] Rx#: [id number] Norepinephrine 4 mg In 56.566 Sodium Chloride 0.9% 250 ml @ 0.03 MCG/KG/MIN 10. 161 mls/hr IV .Q24H [facility] Rx#:[id number] propofoL 1,000 mg In 40.351 157.423 90.054 Empty Bag 1 bag @ 15 MCG/ KG/MIN 6.957 mls/hr IV . [id number] [facility] Rx#:[id number] Output: Urine 675 750 350 Other: Voiding Method Indwelling Catheter Indwelling Catheter Indwelling Catheter - Labs CBC & Chem 7: 10/16/23 06:05 10/16/23 06:05 Labs: Abnormal Lab Results - Last 24 Hours (Table) 10/15/23 10/15/23 10/15/23 Range/Units 12:30 12:30 12:30 WBC (3.8-10.6) k/uL MCHC (31.0-37.0) g/dL RDW 15.7 H (11.5-15.5) % Neutrophils # (1.3-7.7) k/uL Lymphocytes # (1.0-4.8) k/uL Monocytes # (0-1.0) k/uL APTT (22.0-30.0) sec D-Dimer (<0.60) mg/L FEU ABG pH (7.35-7.45) ABG pO2 (83-108) mmHg ABG HCO3 (21-25) mmol/L ABG Total CO2 (19-24) mmol/L ABG O2 Saturation (94-97) % Chloride 109 H (98-107) mmol/L Carbon Dioxide 21 L (22-30) mmol/L BUN 26 H (9-20) mg/dL Creatinine 0.57 L (0.66-1.25) mg/dL Glucose 165 H (74-99) mg/dL POC Glucose (mg/dL) (70-110) mg/dL Plasma Lactic Acid Garcia (0.7-2.0) mmol/L Calcium (8.4-10.2) mg/dL Troponin I 0.047 H* (0.000-0.034) ng/mL 10/15/23 10/15/23 10/15/23 Range/Units 12:30 13:52 14:47 WBC (3.8-10.6) k/uL MCHC (31.0-37.0) g/dL RDW (11.5-15.5) % Neutrophils # (1.3-7.7) k/uL Lymphocytes # (1.0-4.8) k/uL Monocytes # (0-1.0) k/uL APTT (22.0-30.0) sec D-Dimer 2.58 H (<0.60) mg/L FEU ABG pH (7.35-7.45) ABG pO2 >420 H (83-108) mmHg ABG HCO3 (21-25) mmol/L ABG Total CO2 (19-24) mmol/L ABG O2 Saturation 99.9 H (94-97) % Chloride (98-107) mmol/L Carbon Dioxide (22-30) mmol/L BUN (9-20) mg/dL Creatinine (0.66-1.25) mg/dL Glucose (74-99) mg/dL POC Glucose (mg/dL) 197 H (70-110) mg/dL Plasma Lactic Acid Garcia (0.7-2.0) mmol/L Calcium (8.4-10.2) mg/dL Troponin I (0.000-0.034) ng/mL 10/15/23 10/15/23 10/16/23 Range/Units 17:45 23:49 00:05 WBC (3.8-10.6) k/uL MCHC (31.0-37.0) g/dL RDW (11.5-15.5) % Neutrophils # (1.3-7.7) k/uL Lymphocytes # (1.0-4.8) k/uL Monocytes # (0-1.0) k/uL APTT 56.9 H (22.0-30.0) sec D-Dimer (<0.60) mg/L FEU ABG pH (7.35-7.45) ABG pO2 (83-108) mmHg ABG HCO3 (21-25) mmol/L ABG Total CO2 (19-24) mmol/L ABG O2 Saturation (94-97) % Chloride (98-107) mmol/L Carbon Dioxide (22-30) mmol/L BUN (9-20) mg/dL Creatinine (0.66-1.25) mg/dL Glucose (74-99) mg/dL POC Glucose (mg/dL) 170 H 174 H (70-110) mg/dL Plasma Lactic Acid Garcia (0.7-2.0) mmol/L Calcium (8.4-10.2) mg/dL Troponin I (0.000-0.034) ng/mL 10/16/23 10/16/23 10/16/23 Range/Units 04:58 06:05 06:05 WBC 19.2 H (3.8-10.6) k/uL MCHC 30.6 L (31.0-37.0) g/dL RDW 15.9 H (11.5-15.5) % Neutrophils # 17.1 H (1.3-7.7) k/uL Lymphocytes # 0.4 L (1.0-4.8) k/uL Monocytes # 1.5 H (0-1.0) k/uL APTT (22.0-30.0) sec D-Dimer (<0.60) mg/L FEU ABG pH 7.24 L (7.35-7.45) ABG pO2 (83-108) mmHg ABG HCO3 17 L (21-25) mmol/L ABG Total CO2 18 L (19-24) mmol/L ABG O2 Saturation (94-97) % Chloride 112 H (98-107) mmol/L Carbon Dioxide 15 L (22-30) mmol/L BUN 32 H (9-20) mg/dL Creatinine (0.66-1.25) mg/dL Glucose 258 H (74-99) mg/dL POC Glucose (mg/dL) (70-110) mg/dL Plasma Lactic Acid Garcia (0.7-2.0) mmol/L Calcium 8.3 L (8.4-10.2) mg/dL Troponin I (0.000-0.034) ng/mL 10/16/23 10/16/23 10/16/23 Range/Units 06:05 07:01 09:25 WBC (3.8-10.6) k/uL MCHC (31.0-37.0) g/dL RDW (11.5-15.5) % Neutrophils # (1.3-7.7) k/uL Lymphocytes # (1.0-4.8) k/uL Monocytes # (0-1.0) k/uL APTT 82.0 H (22.0-30.0) sec D-Dimer (<0.60) mg/L FEU ABG pH (7.35-7.45) ABG pO2 (83-108) mmHg ABG HCO3 (21-25) mmol/L ABG Total CO2 (19-24) mmol/L ABG O2 Saturation (94-97) % Chloride (98-107) mmol/L Carbon Dioxide (22-30) mmol/L BUN (9-20) mg/dL Creatinine (0.66-1.25) mg/dL Glucose (74-99) mg/dL POC Glucose (mg/dL) 270 H (70-110) mg/dL Plasma Lactic Acid Garcia 5.8 H* (0.7-2.0) mmol/L Calcium (8.4-10.2) mg/dL Troponin I (0.000-0.034) ng/mL
[2023-10-16 11:30] LABS: Glucose,Whole Blood 249 mg/dL (70-110)
[2023-10-16] MEDS: ACETAMINOPHEN TAB 325 MG TAB PO PRN (11:34)
[2023-10-16] MEDS: INSULIN ASPART (NovoLOG) 100 UNIT/ML VIAL SQ SCH (14:13)
--- NOTE | 2023-10-16 14:58 | P.PN ---
Subjective Progress Note Date: 10/16/23 I am following-up the patient and yesterday at night, I was notified by the ICU nurse that the patient was having body jerks that were more frequent therefore the patient was given Ativan 2 mg as well as the patient was loaded on Keppra 1500 mg once and Keppra was increased from 500mg bid to 1000mg bid. I was notified by the nurse that patient is not having body jerks but is having agonal breathing. Objective - Vital Signs Vital signs: Vital Signs Temp 102.1 F H 10/16/23 08:45 Pulse 114 H 10/16/23 14:11 Resp 15 10/16/23 10:45 BP 95/61 10/16/23 10:45 Pulse Ox 96 10/16/23 10:45 FiO2 50 10/16/23 11:10 Intake & Output 10/15/23 10/16/23 10/16/23 18:59 06:59 18:59 Intake Total 1431.457 2697.989 750.054 Output Total 675 750 350 Balance 690.351 473.989 400.054 Weight 77.3 kg 88.9 kg 88.9 kg Intake: IV 1325 1010 310 Invasive Line 5 10 10 Piperacillin-Tazobactam 3 100 100 .375 gm In Sodium Chloride 0.9% 100 ml @ 25 mls/hr IVPB Q8H G[facility]ARDO Rx#: [id number] Sodium Chloride 0.9% 1, 1225 900 300 000 ml @ 75 mls/hr IV . [id number] G[facility]O Rx#:[id number] Intake, IV Titration 40.351 213.989 440.054 Amount Heparin Sod,Pork in 0.45% 250.000 NaCl 25,000 unit In 0.45 % NaCl 1 250ml.bag @ 18 UNITS/KG/HR 13.914 mls/hr IV .[id number] G[facility]O Rx#: [id number] Norepinephrine 4 mg In 56.566 Sodium Chloride 0.9% 250 ml @ 0.03 MCG/KG/MIN 10. 161 mls/hr IV .Q24H [facility]O Rx#:[id number] propofoL 1,000 mg In 40.351 157.423 190.054 Empty Bag 1 bag @ 15 MCG/ KG/MIN 6.957 mls/hr IV . [id number] [facility]O Rx#:[id number] Output: Urine 675 750 350 Other: Voiding Method Indwelling Catheter Indwelling Catheter Indwelling Catheter - Exam General: Lying in bed and is not in acute distress. Respiratory: Intubated on ventilator. Neuro: Limited. Is on IV Propofol. Patient is comatose. Pupils are 1mm. Does not appear to have facial weakness. Strength: Decrease tone throughout. Reflex: Is 1+ Has left foot is wrapped in gauze. Some of the workup during this hospital visit consisted of: White blood cells 8.7 thousand Opponent is 0.047 Initial serum glucose is 165. 2D echo is reported as severe left ventricular systolic dysfunction with ejection fraction of 25 to 30%. Severe hypokinesis involving the apex only the base of the ventricle is improving. Severe pulmonary hypertension. Cardiac cath is reported as normal coronary angiogram. Normal left sided filling pressure. Rule out intracranial bleed. Pulmonary embolism. CT of the head is reported as no acute intracranial process. I personally reviewed the CT and agree there is no acute or subacute process. - Labs CBC & Chem 7: 10/16/23 06:05 10/16/23 06:05 Labs: Abnormal Lab Results - Last 24 Hours (Table) 10/15/23 10/15/23 10/15/23 Range/Units 14:47 17:45 23:49 WBC (3.8-10.6) k/uL MCHC (31.0-37.0) g/dL RDW (11.5-15.5) % Neutrophils # (1.3-7.7) k/uL Lymphocytes # (1.0-4.8) k/uL Monocytes # (0-1.0) k/uL APTT 56.9 H (22.0-30.0) sec ABG pH (7.35-7.45) ABG pO2 >420 H (83-108) mmHg ABG HCO3 (21-25) mmol/L ABG Total CO2 (19-24) mmol/L ABG O2 Saturation 99.9 H (94-97) % Chloride (98-107) mmol/L Carbon Dioxide (22-30) mmol/L BUN (9-20) mg/dL Glucose (74-99) mg/dL POC Glucose (mg/dL) 170 H (70-110) mg/dL Plasma Lactic Acid Garcia (0.7-2.0) mmol/L Calcium (8.4-10.2) mg/dL 10/16/23 10/16/23 10/16/23 Range/Units 00:05 04:58 06:05 WBC 19.2 H (3.8-10.6) k/uL MCHC 30.6 L (31.0-37.0) g/dL RDW 15.9 H (11.5-15.5) % Neutrophils # 17.1 H (1.3-7.7) k/uL Lymphocytes # 0.4 L (1.0-4.8) k/uL Monocytes # 1.5 H (0-1.0) k/uL APTT (22.0-30.0) sec ABG pH 7.24 L (7.35-7.45) ABG pO2 (83-108) mmHg ABG HCO3 17 L (21-25) mmol/L ABG Total CO2 18 L (19-24) mmol/L ABG O2 Saturation (94-97) % Chloride (98-107) mmol/L Carbon Dioxide (22-30) mmol/L BUN (9-20) mg/dL Glucose (74-99) mg/dL POC Glucose (mg/dL) 174 H (70-110) mg/dL Plasma Lactic Acid Garcia (0.7-2.0) mmol/L Calcium (8.4-10.2) mg/dL 10/16/23 10/16/23 10/16/23 Range/Units 06:05 06:05 07:01 WBC (3.8-10.6) k/uL MCHC (31.0-37.0) g/dL RDW (11.5-15.5) % Neutrophils # (1.3-7.7) k/uL Lymphocytes # (1.0-4.8) k/uL Monocytes # (0-1.0) k/uL APTT 82.0 H (22.0-30.0) sec ABG pH (7.35-7.45) ABG pO2 (83-108) mmHg ABG HCO3 (21-25) mmol/L ABG Total CO2 (19-24) mmol/L ABG O2 Saturation (94-97) % Chloride 112 H (98-107) mmol/L Carbon Dioxide 15 L (22-30) mmol/L BUN 32 H (9-20) mg/dL Glucose 258 H (74-99) mg/dL POC Glucose (mg/dL) 270 H (70-110) mg/dL Plasma Lactic Acid Garcia (0.7-2.0) mmol/L Calcium 8.3 L (8.4-10.2) mg/dL 10/16/23 10/16/23 10/16/23 Range/Units 09:25 11:27 13:55 WBC (3.8-10.6) k/uL MCHC (31.0-37.0) g/dL RDW (11.5-15.5) % Neutrophils # (1.3-7.7) k/uL Lymphocytes # (1.0-4.8) k/uL Monocytes # (0-1.0) k/uL APTT 82.6 H (22.0-30.0) sec ABG pH (7.35-7.45) ABG pO2 (83-108) mmHg ABG HCO3 (21-25) mmol/L ABG Total CO2 (19-24) mmol/L ABG O2 Saturation (94-97) % Chloride (98-107) mmol/L Carbon Dioxide (22-30) mmol/L BUN (9-20) mg/dL Glucose (74-99) mg/dL POC Glucose (mg/dL) 249 H (70-110) mg/dL Plasma Lactic Acid Garcia 5.8 H* (0.7-2.0) mmol/L Calcium (8.4-10.2) mg/dL 10/16/23 Range/Units 13:55 WBC (3.8-10.6) k/uL MCHC (31.0-37.0) g/dL RDW (11.5-15.5) % Neutrophils # (1.3-7.7) k/uL Lymphocytes # (1.0-4.8) k/uL Monocytes # (0-1.0) k/uL APTT (22.0-30.0) sec ABG pH (7.35-7.45) ABG pO2 (83-108) mmHg ABG HCO3 (21-25) mmol/L ABG Total CO2 (19-24) mmol/L ABG O2 Saturation (94-97) % Chloride (98-107) mmol/L Carbon Dioxide (22-30) mmol/L BUN (9-20) mg/dL Glucose (74-99) mg/dL POC Glucose (mg/dL) (70-110) mg/dL Plasma Lactic Acid Garcia 3.1 H* (0.7-2.0) mmol/L Calcium (8.4-10.2) mg/dL Assessment and Plan Assessment: This is a 72-year-old gentleman who was found unresponsive at home by his . Also he was having agonal breathing. He was complaining of not feeling well and headache recently per the . The results EMS arrived and they intubated him because of his respiratory distress. EKG was reported as possible ST segment myocardial infarction with minimal elevated troponin. He was taken for cardiac cath and was normal. CT of the head was unremarkable for any acute process. 2D echo showed severe left ventricular systolic dysfunction with ejection fraction of 25 to 30%. Severe hypokinesis involving the apex only the base of the ventricle is improving. Severe pulmonary hypertension. Nurse she felt the patient is having body jerks. Episode of unresponsiveness unknown exact etiology. Unsure if patient had hypoxic encephalopathy. CT of the head is unremarkable for any acute process Recurrent Episode of body jerks unsure if due myoclonic jerks from hypoxia. Cannot rule out seizure. Preliminary routine EEG is negative for seizure or discharges. Heart failure with ejection fraction of 25 to 30% Severe pulmonary hypertension History of pulmonary fibrosis History of rheumatoid arthritis History of diabetes mellitus History of osteomyelitis and had left toe amputation Plan: Patient was started on Keppra during this admission and currently on Keppra 1gm bid. Is on Ativan PRN. CT angiography of the head and neck is ordered by the primary team is pending Patient is on aspirin 81 mg and the patient received aspirin 300 suppository in the ED. Currently on heparin drip for concern of questionable pulmonary embolism Will defer the rest of the medical management to primary and other specialists. Plan discussed with the patient's was at bedside, primary team and his nurse. Will continue to follow. Time with Patient: Less than 30
[2023-10-16 15:08] LABS: ABG Base Excess -9.9 mmol/L
--- NOTE | 2023-10-16 15:27 | CT ---
EXAMINATION TYPE: CT angio chest CT DLP: 572.7 mGycm, Automated exposure control for dose reduction was used. DATE OF EXAM: 10/16/2023 2:02 PM COMPARISON: Chest radiograph from same day. CLINICAL INDICATION:Male, 72 years old with history of rule out PE; PE TECHNIQUE/CONTRAST: CTA scan of the thorax is performed with IV Contrast, patient injected with 100 mL of Isovue 370, MIP images are created and reviewed these are created on a separate workstation.. FINDINGS: Pulmonary Artery: There is no evidence for a filling defect within the pulmonary vasculature to sugge st acute pulmonary embolism. The pulmonary artery is of normal size. Lungs/Pleura: Airspace disease most pronounced in the lower lobes and left greater than right. Pulmon kristi vascular congestion with trace bilateral pleural effusions. Airway: Large airways are patent. Endotracheal tube terminating above the alexys. Heart: The heart is mildly enlarged for size. Mild coronary artery atherosclerosis. Vasculature: No evidence of aortic aneurysm. Scattered atherosclerosis of the arterial vasculature. T he ascending and descending thoracic aorta within normal limits for size. Mediastinum: No gross evidence of adenopathy. Musculoskeletal: No acute osseous abnormalities Soft Tissues/lymph nodes: Unremarkable. Lower neck: No significant findings. Upper Abdomen: Nasogastric tube terminating below the diaphragm in the stomach. IMPRESSION: 1. No evidence of pulmonary embolism. 2. Congestive heart failure with pulmonary vascular congestion, cardiomegaly and pulmonary edema. 3. Airspace opacities correlate for superimposed left lower lung airspace disease. 4. Appropriate placement of the endotracheal nasogastric tubes.
--- NOTE | 2023-10-16 15:44 | CT ---
EXAMINATION TYPE: CT angio head neck CT DLP: 1817.2 mGycm, Automated exposure control for dose reduction was used. DATE OF EXAM: 10/16/2023 2:01 PM COMPARISON: 10/15/2023. CLINICAL INDICATION:Male, 72 years old with history of AMS, r/o dissection, LVO; PHH, AMS, r/o dissec tion, LVO TECHNIQUE: Axially acquired helical CT angiogram of the head and neck was obtained with contrast. Axi al images are supplemented with 3D reconstructions and MIP images which were post-processed at an in dependent workstation. NASCET criteria used. Contrast used:65 mL of Isovue 370 with IV Contrast, Oral contrast used: None. FINDINGS: CTA HEAD: No evidence of acute intracranial hemorrhage, mass effect, or midline shift. The ventricles, sulci, a nd cisterns are unremarkable. Vasogenic edema in the posterior aspect of the patient's cerebrum inclu ding the occipital lobes, parietal lobes and to lesser extent the right frontal lobe. Findings are is new from earlier in the day prior. The visualized portions of the internal carotid arteries, middle cerebral arteries, anterior cerebral arteries, and posterior cerebral arteries are patent. Paucity of vessels in the areas of vasogenic e archie described above. The basilar and vertebral arteries are patent. CTA NECK: Right Carotid System: The common carotid artery and external carotid artery are patent. The carotid bifurcation demonstrate s no evidence of hemodynamically significant stenosis. The remaining portions of the internal carotid artery demonstrate normal size without significant narrowing. Left Carotid System: The common carotid artery and external carotid artery are patent. The carotid bifurcation demonstrate s no evidence of hemodynamically significant stenosis. The remaining portions of the internal carotid artery demonstrate normal size without significant narrowing. Vertebral arteries are patent without evidence hemodynamically significant stenosis. There is a three-vessel aortic arch. The origins of the great vessels are patent. No evidence of hemo dynamically significant stenosis. Upper thorax: Airspace disease in the left lung. Cardiomegaly. No evidence of filling defect in pulmo nary arterial vasculature. Please see dedicated CT thorax for findings. Endotracheal nasogastric tube s in appropriate position. IMPRESSION: 1. 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 Not seen on prior C T. 2. No evidence of dissection of the cervical internal carotid arteries or vertebral arteries or any evidence of significant stenosis at the carotid bifurcations. 3. No evidence of intracranial high-grade stenosis or intracranial aneurysm.
[2023-10-16 18:26] LABS: Glucose,Whole Blood 131 mg/dL (70-110)
--- NOTE | 2023-10-16 21:39 | EEG ---
ELECTROENCEPHALOGRAM REPORT CLINICAL HISTORY: This is a 72-year-old gentleman, who was unresponsive at home and is having body jerks. The video EEG is obtained to evaluate for seizure epileptiform activity. RELEVANT MEDICATIONS: 1. IV Keppra. 2. Ativan. 3. IV propofol. EEG TYPE: A routine 21-channel EEG with video using the 10/20 electrode placement system. DESCRIPTION: The patient is intubated on a ventilator. The background consists of low voltage of 0.5 to 1.5 hertz delta activity and is hard to assess the background because of the moderate diffuse myogenic artifact. There is no appreciable focal slowing. As stated above, there is moderate to severe diffuse myogenic artifact. Interictal and ictal is none appreciated, but again there is limitation because of the artifact. ACTIVATION PROCEDURE: Photic stimulation, again, there is limitation, but no appreciable photic driving or abnormality during the photic stimulation. Hyperventilation is not performed. CLINICAL INTERPRETATION: This is an abnormal routine EEG. The background slowing is suggestive of severe encephalopathy. Otherwise, there is no focal slowing, epileptiform discharge, or seizure on the EEG. Clinical correlation is recommended. MMODL / IJN: [id number] /
--- NOTE | 2023-10-16 22:05 | P.CONS ---
History of Present Illness - Reason for Consult Consult date: 10/16/23 Osteomyelitis Requesting physician: Anthony Javier - Chief Complaint Unresponsive x 1 day - History of Present Illness Patient is a 72-year-old male past medical history significant for pulmonary fibrosis, type 2 diabetes mellitus right big toe diabetic foot i nfection with underlying osteomyelitis s/p amputation at [facility] and currently has been on Zosyn patient has been brought into the hospital yesterday however the patient was planing of feeling weak did have an episode of unresponsiveness for the called EMS and the patient was brought in the patient on arrival to the ER was noticed with abdominal breathing he was bagged and intubated and subsequently has been admitted to the ICU patient on presentation to the hospital was afebrile however he did spike a fever of 102.1 F this morning patient was tachycardic currently on the vent to 50% no significant purulent secretions through the ED has been reported by the nursing staff been reported patient to have white count of 8.7 on admission is up to 19.2 today creatinine has been normal liver enzymes are normal patient has been maintained on Zosyn infectious disease was consulted for the management of her by therapy most information has been obtained and the patient is currently intubated on the vent and cannot provide any history Review of Systems Positive points has been mentioned in HPI complete review could not be obtained because patient intubated on the vent Past Medical History Past Medical History: No Reported History Additional Past Medical History / Comment(s): inerstial lung disease History of Any Multi-Drug Resistant Organisms: Unobtainable Past Surgical History: No Surgical Hx Reported Additional Past Surgical History / Comment(s): left total knee. left greater toe amputation 1 month ago-osteomylitis. Past Anesthesia/Blood Transfusion Reactions: No Reported Reaction Past Psychological History: Unable to Obtain Smoking Status: Unknown if ever smoked Past Alcohol Use History: None Reported Past Drug Use History: None Reported Medications and Allergies Home Medications Medication Instructions Recorded Confirmed Type Acetaminophen Tab [Tylenol] 650 mg PO Q8H PRN 10/15/23 10/15/23 History Empagliflozin [Jardiance] 25 mg PO HS 10/15/23 10/15/23 History Glimepiride [Amaryl] 4 mg PO DAILY 10/15/23 10/15/23 History HYDROcodone/APAP 5-325MG [Blue 1 tab PO Q4HR PRN 10/15/23 10/15/23 History 5-325] Insulin Aspart [NovoLOG Flexpen] See Protocol SQ ACHS 10/15/23 10/15/23 History Leflunomide [Arava] 20 mg PO DAILY 10/15/23 10/15/23 History Losartan [Cozaar] 50 mg PO DAILY 10/15/23 10/15/23 History Naproxen [Naprosyn] 500 mg PO BID 10/15/23 10/15/23 History Nintedanib Esylate [Ofev] 150 mg PO BID 10/15/23 10/15/23 History Piperacillin-Tazobactam [Zosyn] 4.5 gm IVPB Q8H 10/15/23 10/15/23 History Simvastatin [Zocor] 40 mg PO HS 10/15/23 10/15/23 History Upadacitinib [Rinvoq] 15 mg PO DAILY 10/15/23 10/15/23 History metFORMIN HCL 1,000 mg PO BID 10/15/23 10/15/23 History Allergies Allergy/AdvReac Type Severity Reaction Status Date / Time No Known Allergies Allergy Unverified 10/15/23 16:41 Physical Exam Vitals: Vital Signs Temp Pulse Resp BP Pulse Ox FiO2 10/16/23 11:10 50 10/16/23 10:45 125 H 15 95/61 96 10/16/23 10:30 126 H 16 91/56 96 10/16/23 10:15 128 H 16 95/56 95 10/16/23 10:00 126 H 14 85/55 95 10/16/23 09:45 125 H 23 108/65 98 10/16/23 09:30 129 H 24 106/63 97 10/16/23 09:15 130 H 19 103/62 97 10/16/23 09:00 130 H 25 H 104/61 98 10/16/23 08:52 128 H 10/16/23 08:45 102.1 F H 129 H 24 92/58 98 10/16/23 08:38 129 H 10/16/23 08:30 129 H 25 H 94/58 97 10/16/23 08:15 130 H 25 H 92/61 97 10/16/23 08:06 50 10/16/23 08:00 129 H 25 H 100/58 97 24 07:56 50 10/16/23 07:55 50 10/16/23 07:45 130 H 23 97/64 98 10/16/23 07:30 130 H 24 101/61 97 10/16/23 07:15 128 H 23 92/58 97 10/16/23 07:00 130 H 20 83/50 94 L 10/16/23 06:45 129 H 23 84/57 96 10/16/23 06:30 129 H 22 86/55 96 10/16/23 06:15 130 H 20 85/56 95 10/16/23 06:00 131 H 22 88/54 97 10/16/23 05:45 130 H 20 80/58 96 10/16/23 05:30 130 H 21 82/52 96 10/16/23 05:15 131 H 20 88/53 96 10/16/23 05:00 131 H 21 70/57 95 10/16/23 04:45 134 H 21 78/53 95 10/16/23 04:30 134 H 20 73/48 95 10/16/23 04:15 133 H 19 78/50 95 10/16/23 04:00 98.8 F 130 H 19 78/49 95 50 10/16/23 03:45 130 H 19 81/52 95 24 03:34 50 10/16/23 03:32 130 H 10/16/23 03:30 131 H 18 79/51 95 10/16/23 03:15 133 H 18 78/52 95 10/16/23 03:00 134 H 20 81/50 94 L 10/16/23 02:45 137 H 19 80/54 95 10/16/23 02:30 137 H 19 84/53 95 10/16/23 02:15 137 H 19 82/53 95 10/16/23 02:00 134 H 20 79/49 95 10/16/23 01:45 135 H 23 90/59 96 10/16/23 01:30 134 H 24 93/59 96 10/16/23 01:15 135 H 24 94/61 96 10/16/23 01:00 135 H 25 H 97/62 96 10/16/23 00:45 134 H 25 H 102/62 97 10/16/23 00:30 130 H 25 H 102/66 97 10/16/23 00:15 126 H 26 H 94/64 95 10/16/23 00:08 124 H 10/16/23 00:02 50 10/16/23 00:00 123 H 37 H 104/64 98 50 10/15/23 23:55 122 H 29 H 98 10/15/23 23:54 122 H 10/15/23 23:45 122 H 27 H 104/66 97 10/15/23 23:30 122 H 27 H 108/64 97 10/15/23 23:15 121 H 23 103/65 97 10/15/23 23:00 117 H 26 H 109/65 96 10/15/23 22:45 117 H 27 H 109/66 95 10/15/23 22:30 116 H 28 H 105/65 97 10/15/23 22:15 111 H 28 H 107/62 97 10/15/23 22:00 111 H 28 H 101/64 96 10/15/23 21:45 111 H 29 H 107/70 97 10/15/23 21:30 109 H 28 H 102/67 97 10/15/23 21:15 107 H 28 H 105/67 97 10/15/23 21:00 106 H 28 H 106/69 98 10/15/23 20:45 105 H 27 H 105/65 97 10/15/23 20:30 102 H 26 H 99/66 97 10/15/23 20:28 101 H 10/15/23 20:21 50 10/15/23 20:17 102 H 10/15/23 20:15 101 H 27 H 111/68 97 10/15/23 20:00 98.2 F 100 28 H 105/63 99 50 10/15/23 19:45 115 H 21 93/66 97 10/15/23 19:30 116 H 26 H 97/63 97 10/15/23 19:15 100 23 103/68 96 10/15/23 19:00 100 19 96/66 98 10/15/23 18:45 99 21 102/68 96 10/15/23 18:30 99 22 107/69 96 10/15/23 18:15 97 20 98/68 98 10/15/23 18:00 98.2 F 96 20 94/59 97 10/15/23 17:51 98 10/15/23 17:45 112 H 18 82/61 97 06/03/24 17:30 113 H 23 97 10/15/23 17:15 111 H 18 75/45 96 10/15/23 17:00 92 19 83/60 96 10/15/23 16:45 99 20 88/62 96 10/15/23 16:30 102 H 18 93/66 95 10/15/23 16:15 104 H 20 100/68 96 10/15/23 16:00 96.8 F L 104 H 14 100/69 96 50 10/15/23 15:45 102 H 15 89/64 95 10/15/23 15:30 102 H 18 83/59 96 10/15/23 15:18 50 10/15/23 15:16 50 10/15/23 15:15 102 H 21 80/48 96 10/15/23 15:05 50 10/15/23 15:00 101 H 20 97 50 10/15/23 14:45 107 H 19 93/66 96 10/15/23 14:30 110 H 20 108/77 98 10/15/23 14:26 100 10/15/23 14:15 112 H 16 117/81 97 10/15/23 14:00 94.5 F L 112 H 20 120/84 98 100 10/15/23 13:50 100 10/15/23 12:43 67 16 149/95 98 10/15/23 12:34 97.5 F L 10/15/23 12:30 110 H 18 137/90 99 10/15/23 12:19 131 H 14 168/114 99 Intake and Output 10/15/23 10/16/23 10/16/23 22:59 06:59 14:59 Intake Total 1703.383 885.957 591.835 Output Total 1000 425 350 Balance 703.383 460.957 241.835 Intake: IV 1625 710 310 Invasive Line 5 10 10 Piperacillin-Tazobactam 3 100 100 .375 gm In Sodium Chloride 0.9% 100 ml @ 25 mls/hr IVPB Q8H [facility] Rx#: [id number] Sodium Chloride 0.9% 1, 1525 600 300 000 ml @ 75 mls/hr IV . [id number] [facility] Rx#:[id number] Intake, IV Titration 78.383 175.957 281.835 Amount Heparin Sod,Pork in 0.45% 191.781 NaCl 25,000 unit In 0.45 % NaCl 1 250ml.bag @ 18 UNITS/KG/HR 13.914 mls/hr IV .[id number] [facility] Rx#: [id number] Norepinephrine 4 mg In 56.566 Sodium Chloride 0.9% 250 ml @ 0.03 MCG/KG/MIN 10. 161 mls/hr IV .Q24H [facility] Rx#:[id number] propofoL 1,000 mg In 78.383 119.391 90.054 Empty Bag 1 bag @ 15 MCG/ KG/MIN 6.957 mls/hr IV . [id number] [facility] Rx#:[id number] Output: Urine 1000 425 350 Other: Voiding Method Indwelling Catheter Indwelling Catheter Indwelling Catheter Weight 88.9 kg GENERAL DESCRIPTION: Elderly male intubated on the vent HEENT: Shows Pallor , no scleral icterus. Oral mucous membrane is dry. NECK: Trachea central, no thyromegaly. LUNGS: Unlabored breathing. Decreased breath sounds at the base HEART: S1, S2, regular rate and rhythm. No loud murmur ABDOMEN: Soft, no tenderness , guarding or rigidity, no organomegaly EXTREMITIES: Left big toe potation site wound is currently healed with no swelling redness or drainage SKIN: No rash, no masses palpable. NEUROLOGICAL: The patient is sedated on the vent Results CBC & Chem 7: 10/24/23 05:35 10/24/23 04:42 Labs: Abnormal Lab Results - Last 24 Hours (Table) 10/15/23 10/15/23 10/15/23 Range/Units 12:30 12:30 12:30 WBC (3.8-10.6) k/uL MCHC (31.0-37.0) g/dL RDW 15.7 H (11.5-15.5) % Neutrophils # (1.3-7.7) k/uL Lymphocytes # (1.0-4.8) k/uL Monocytes # (0-1.0) k/uL APTT (22.0-30.0) sec D-Dimer (<0.60) mg/L FEU ABG pH (7.35-7.45) ABG pO2 (83-108) mmHg ABG HCO3 (21-25) mmol/L ABG Total CO2 (19-24) mmol/L ABG O2 Saturation (94-97) % Chloride 109 H (98-107) mmol/L Carbon Dioxide 21 L (22-30) mmol/L BUN 26 H (9-20) mg/dL Creatinine 0.57 L (0.66-1.25) mg/dL Glucose 165 H (74-99) mg/dL POC Glucose (mg/dL) (70-110) mg/dL Plasma Lactic Acid Garcia (0.7-2.0) mmol/L Calcium (8.4-10.2) mg/dL Troponin I 0.047 H* (0.000-0.034) ng/mL 10/15/23 10/15/23 10/15/23 Range/Units 12:30 13:52 14:47 WBC (3.8-10.6) k/uL MCHC (31.0-37.0) g/dL RDW (11.5-15.5) % Neutrophils # (1.3-7.7) k/uL Lymphocytes # (1.0-4.8) k/uL Monocytes # (0-1.0) k/uL APTT (22.0-30.0) sec D-Dimer 2.58 H (<0.60) mg/L FEU ABG pH (7.35-7.45) ABG pO2 >420 H (83-108) mmHg ABG HCO3 (21-25) mmol/L ABG Total CO2 (19-24) mmol/L ABG O2 Saturation 99.9 H (94-97) % Chloride (98-107) mmol/L Carbon Dioxide (22-30) mmol/L BUN (9-20) mg/dL Creatinine (0.66-1.25) mg/dL Glucose (74-99) mg/dL POC Glucose (mg/dL) 197 H (70-110) mg/dL Plasma Lactic Acid Garcia (0.7-2.0) mmol/L Calcium (8.4-10.2) mg/dL Troponin I (0.000-0.034) ng/mL 10/15/23 10/15/23 10/16/23 Range/Units 17:45 23:49 00:05 WBC (3.8-10.6) k/uL MCHC (31.0-37.0) g/dL RDW (11.5-15.5) % Neutrophils # (1.3-7.7) k/uL Lymphocytes # (1.0-4.8) k/uL Monocytes # (0-1.0) k/uL APTT 56.9 H (22.0-30.0) sec D-Dimer (<0.60) mg/L FEU ABG pH (7.35-7.45) ABG pO2 (83-108) mmHg ABG HCO3 (21-25) mmol/L ABG Total CO2 (19-24) mmol/L ABG O2 Saturation (94-97) % Chloride (98-107) mmol/L Carbon Dioxide (22-30) mmol/L BUN (9-20) mg/dL Creatinine (0.66-1.25) mg/dL Glucose (74-99) mg/dL POC Glucose (mg/dL) 170 H 174 H (70-110) mg/dL Plasma Lactic Acid Garcia (0.7-2.0) mmol/L Calcium (8.4-10.2) mg/dL Troponin I (0.000-0.034) ng/mL 10/16/23 10/16/23 10/16/23 Range/Units 04:58 06:05 06:05 WBC 19.2 H (3.8-10.6) k/uL MCHC 30.6 L (31.0-37.0) g/dL RDW 15.9 H (11.5-15.5) % Neutrophils # 17.1 H (1.3-7.7) k/uL Lymphocytes # 0.4 L (1.0-4.8) k/uL Monocytes # 1.5 H (0-1.0) k/uL APTT (22.0-30.0) sec D-Dimer (<0.60) mg/L FEU ABG pH 7.24 L (7.35-7.45) ABG pO2 (83-108) mmHg ABG HCO3 17 L (21-25) mmol/L ABG Total CO2 18 L (19-24) mmol/L ABG O2 Saturation (94-97) % Chloride 112 H (98-107) mmol/L Carbon Dioxide 15 L (22-30) mmol/L BUN 32 H (9-20) mg/dL Creatinine (0.66-1.25) mg/dL Glucose 258 H (74-99) mg/dL POC Glucose (mg/dL) (70-110) mg/dL Plasma Lactic Acid Garcia (0.7-2.0) mmol/L Calcium 8.3 L (8.4-10.2) mg/dL Troponin I (0.000-0.034) ng/mL 10/16/23 10/16/23 10/16/23 Range/Units 06:05 07:01 09:25 WBC (3.8-10.6) k/uL MCHC (31.0-37.0) g/dL RDW (11.5-15.5) % Neutrophils # (1.3-7.7) k/uL Lymphocytes # (1.0-4.8) k/uL Monocytes # (0-1.0) k/uL APTT 82.0 H (22.0-30.0) sec D-Dimer (<0.60) mg/L FEU ABG pH (7.35-7.45) ABG pO2 (83-108) mmHg ABG HCO3 (21-25) mmol/L ABG Total CO2 (19-24) mmol/L ABG O2 Saturation (94-97) % Chloride (98-107) mmol/L Carbon Dioxide (22-30) mmol/L BUN (9-20) mg/dL Creatinine (0.66-1.25) mg/dL Glucose (74-99) mg/dL POC Glucose (mg/dL) 270 H (70-110) mg/dL Plasma Lactic Acid Garcia 5.8 H* (0.7-2.0) mmol/L Calcium (8.4-10.2) mg/dL Troponin I (0.000-0.034) ng/mL Assessment and Plan (1) Leukocytosis Status: Acute Code(s): D72.829 - ELEVATED WHITE BLOOD CELL COUNT, UNSPECIFIED SNOMED Code(s): 245709722 (2) Pneumonia Status: Acute Code(s): J18.9 - PNEUMONIA, UNSPECIFIED ORGANISM SNOMED Code(s): 303239937 (3) Sepsis Status: Acute Code(s): A41.9 - SEPSIS, UNSPECIFIED ORGANISM SNOMED Code(s): 61193547 Plan: 1patient presented to hospital with sepsis in this patient who did have a fever elevated white count tachycardia with concern for possible aspiration pneumonitis in this patient who currently was getting treatment for the right big toe diabetic foot infection status post amputation with the patient being on a good gram-negative coverage more likely dealing with gram-positive pathogen 2-we will obtain sputum for Gram stain culture 3-continue Zosyn and Zyvox for gram-positive coverage We will follow on clinical condition and cultures to further adjust medication if needed Thank you for this consultation we will follow the patient along with you Dictation was produced using [employer] dictation software. please excuse any grammatical, word or spelling errors. Time with Patient: Greater than 30
[2023-10-16] MEDS: LINEZOLID 600 MG in DEXTROSE/WATER 1 300ML.BAG IVPB SCH (22:28)
[2023-10-16 23:57] LABS: Glucose,Whole Blood 196 mg/dL (70-110)
--- NOTE | 2023-10-17 00:58 | P.PCN ---
Date of Procedure: 10/17/23 Preoperative Diagnosis: Acute hypoxemic ventilator dependent respiratory failure; hypotension Postoperative Diagnosis: Acute hypoxemic ventilator dependent respiratory failure; hypotension Procedure(s) Performed: Insertion of a left wrist radial arterial line Indications for Procedure: Continuous blood pressure monitoring and frequent blood draws Description of Procedure: Informed consent was obtained, and a procedural timeout was performed . The patient was placed in supine position. The left radial region was prepared in a sterile fashion, and a sterile drape was applied. The left radial artery was palpated, easily cannulated, and a guidewire was placed. A Cook catheter was inserted over the guidewire, and the guidewire was removed. There was good arterial blood flow, good arterial waveform, and no complications. The line was secured with using a 3-0 silk suture.
[2023-10-17 05:16] LABS: African American GFR (CKD) >90 (>60 ml/min/1.73 sqM); Anion Gap 6 mmol/L; Blood Urea Nitrogen 28 mg/dL (9-20); Calcium 7.9 mg/dL (8.4-10.2); Carbon Dioxide 21 mmol/L (22-30); Chloride 116 mmol/L (98-107); Glucose 145 mg/dL (74-99); Non-African American GFR(CKD) >90 (>60 ml/min/1.73 sqM); Potassium 3.7 mmol/L (3.5-5.1); Sodium 143 mmol/L (137-145)
[2023-10-17 05:27] LABS: Glucose,Whole Blood 146 mg/dL (70-110)
[2023-10-17 05:33] LABS: Anisocytosis Slight; Basophils # (A) 0.1 k/uL (0-0.2); Basophils % (A) 0 %; Eosinophils % (A) 0 %; HCT 41.6 % (39.0-53.0); HGB 13.3 gm/dL (13.0-17.5); Lymphocytes # (A) 1.7 k/uL (1.0-4.8); Lymphocytes % (A) 11 %; MCH 28.9 pg (25.0-35.0); MCHC 32.1 g/dL (31.0-37.0); Mean Platelet Volume 8.5; Monocytes % (A) 6 %; Neutrophils # (A) 12.7 k/uL (1.3-7.7); Neutrophils % (A) 81 %; Platelet Count 181 k/uL (150-450); Poikilocytosis Slight; RBC 4.61 m/uL (4.30-5.90); RDW 16.1 % (11.5-15.5); WBC 15.6 k/uL (3.8-10.6)
[2023-10-17 05:37] LABS: MCV 90.2 fL (80.0-100.0)
[2023-10-17 05:56] LABS: ABG Base Excess -1.5 mmol/L; ABG HCO3 24 mmol/L (21-25); ABG Oxygen Saturation 99.5 % (94-97); ABG PCO2 41 mmHg (35-45); ABG PH 7.37 (7.35-7.45); ABG PO2 195 mmHg (83-108); ABG TCO2 25 mmol/L (19-24); Allen Test Performed? Yes
--- NOTE | 2023-10-17 08:15 | XR ---
EXAMINATION TYPE: XR chest 1V portable DATE OF EXAM: 10/17/2023 5:19 AM CLINICAL INDICATION:Male, 72 years old with history of Tube placement; COMPARISON: Chest radiographs from 10/16/2023 TECHNIQUE: XR chest 1V portable Frontal view of the chest. FINDINGS: Lungs/Pleura: Multifocal airspace opacities. No evidence of pneumothorax or pleural effusion. Pulmonary vascularity: Unremarkable. Heart/mediastinum: Cardiomediastinal silhouette is enlarged and stable. Musculoskeletal: No acute osseous pathology. Other findings: None Lines/Tubes: Endotracheal tube with distal tip 3.3 cm above the alexys. Nasogastric tube with side-port projecting over the distal esophagus. IMPRESSION: 1. Satisfactory positioning of the nasogastric and endotracheal tubes. 2. Multifocal airspace opacities similar to prior.
[2023-10-17] MEDS ORDERED: Potassium Replacement Protocol 1 EACH MISC MISCELLANE PRN (08:40)
[2023-10-17] MEDS: POTASSIUM BICARBONATE/CIT AC 20 MEQ TABLET.EFF NG-TUBE SCH (08:56)
[2023-10-17] MEDS: ENOXAPARIN 40 MG/0.4 ML SYRINGE SQ SCH (09:43)
[2023-10-17 10:47] LABS: Appearance,Urine Clear (Clear); Bilirubin,Urine Negative (Negative); Blood,Urine Small (Negative); Color,Urine Light Yellow; Glucose,Urine (UA) 4+ (Negative); Leukocyte Esterase,Urine Negative (Negative); Mucus,Urine Rare /hpf; Nitrite,Urine Negative (Negative); PH, Urine 5.5 (5.0-8.0); Protein,Urine Trace (Negative); RBC,Urine 2 /hpf (0-5); Specific Gravity,Urine 1.038 (1.001-1.035); Urobilinogen,Urine <2.0 mg/dL (<2.0); WBC,Urine 2 /hpf (0-5)
--- NOTE | 2023-10-17 11:27 | P.PN ---
Subjective Progress Note Date: 10/17/23 This is a 72-year-old male patient with a history of pulmonary fibrosis maintained on Ofev in the outpatient setting. He was found by his earlier today to be unresponsive and agonal breathing. EMS was called and he was intubated in the field. EKG showed possible ST segment elevation myocardial inf arction. He was brought in through the emergency room and directly to the Practice Advisor. He was found to have normal coronary arteries. He was admitted to the intensive care unit. He is currently intubated on the mechanical ventilator and assist-control mode at a rate of 14, tidal volume 600, FiO2 50% and a PEEP of 5. Arterial blood gases revealed a PaO2 of greater than 420, pCO2 of 35 and a pH of 7.38. CT scan of the brain showed no acute abnormalities. Echocardiogram is pending. Chest x-ray revealed endotracheal tube in a high position. Being repositioned. Nasogastric tube in the esophagus. Cardiomegaly. No pleural effusion, focal consolidation or pneumothorax. White count 8.7. Hemoglobin 17.0. Platelets 215. D-dimer 2.58. Sodium 140. Potassium 3.8. Bicarb 21. BUN 26. Creatinine 0.57. Glucose 165. Troponin 0.047. The patient is seen today October 16, 2023 in follow-up on the regular medical floor. He remains intubated on the mechanical ventilator. Currently on assist- control mode with a rate of 14, tidal volume 600, FiO2 50% and a PEEP of 5. Morning blood gases revealed a PaO2 of 102, pCO2 40 and a pH of 7.24. He is on propofol at 40 mcg/kg/min. Norepinephrine at 0.09 mcg/kg/min. Heparin drip per weight-based protocol. Saline at 75 MLS per hour. He is continued on Zosyn via PICC line that he had been receiving at home following a left great toe amputati on. Chest x-ray shows satisfactory position in the nasogastric and endotracheal tubes. There is cardiomegaly with pulmonary vascular congestion. Echocardiogram revealed severely impaired left ventricular systolic function with ejection fraction of 25 to 30%. Severe pulmonary hypertension. White count 19.2. Hemoglobin 15.7. Platelets 248. Sodium 143. Potassium 4.3. Bicarb 15. Anion gap 16. BUN 32. Creatinine 1.16. Glucose 258. His current temperature is 102.1. He is tachycardic 130s. The plan is for CT angiogram of the chest today to rule out pulmonary embolism. CT angiogram of the head and neck is pending as well. The patient is seen today October 17, 2023 in follow-up on the regular medical floor. He remains intubated on mechanical ventilator. Currently on assist- control mode at a rate of 14, tidal volume 500, FiO2 50% and a PEEP of 5. Peak pressures 37. Plateau pressure 19. Continues with some increased airway resistance. Arterial blood gases revealed a PaO2 of 195, pCO2 41 and a pH of 7.37. He is sedated on propofol at 60 mcg/kg/min. Norepinephrine 90 (micro grams per minute. Normal saline at KVO. He is being nourished with vital AF at 20 MLS per hour with a goal of 47 MLS per hour. He is on antibiotics in the form of Zosyn and Zyvox. CT angiogram ruled out pulmonary embolism. Procalcitonin 0.42. He is continued on bronchodilators. Chest x-ray reveals multifocal airspace opacities. Sputum culture with Ana. Blood cultures pending. White count 15.6. Hemoglobin 13.3. Platelets 181. Sodium 143. Potassium 3.7. Bicarb 21. BUN 28. Creatinine 0.74. Glucose 145. Objective - Vital Signs Vital signs: Vital Signs Temp 101.3 F H 10/17/23 08:00 Pulse 100 10/17/23 10:00 Resp 8 L 10/17/23 10:00 BP 101/52 10/17/23 02:00 Pulse Ox 99 10/17/23 10:00 FiO2 40 10/17/23 09:11 Intake & Output 10/16/23 10/17/23 10/17/23 18:59 06:59 18:59 Intake Total 2357.051 9931.291 286.918 Output Total 1305 970 305 Balance 462.291 203.291 -18.082 Weight 88.9 kg 86.9 kg Intake: IV 935 125 109 Invasive Line 5 10 Piperacillin-Tazobactam 3 175 125 100 .375 gm In Sodium Chloride 0.9% 100 ml @ 25 mls/hr IVPB Q8H [facility] Rx#: [id number] Pressure Bag 9 Sodium Chloride 0.9% 1, 750 000 ml @ 75 mls/hr IV . [id number] [facility] Rx#:[id number] Intake, IV Titration 802.291 808.291 77.918 Amount Heparin Sod,Pork in 0.45% 314.803 NaCl 25,000 unit In 0.45 % NaCl 1 250ml.bag @ 18 UNITS/KG/HR 13.914 mls/hr IV .[id number] [facility] Rx#: [id number] Linezolid 600 mg In 300 Dextrose/Water 1 300ml. bag @ 150 mls/hr IVPB Q12HR [facility] Rx#:[id number] Norepinephrine 4 mg In 197.434 254.000 Sodium Chloride 0.9% 250 ml @ 0.03 MCG/KG/MIN 10. 161 mls/hr IV .Q24H [facility] Rx#:[id number] propofoL 1,000 mg In 290.054 254.291 77.918 Empty Bag 1 bag @ 15 MCG/ KG/MIN 6.957 mls/hr IV . [id number] [facility] Rx#:[id number] Tube Feeding 30 150 100 Other 90 Output: Urine 1305 970 305 Other: Voiding Method Indwelling Catheter Indwelling Catheter Indwelling Catheter ABP, PAP, CO, CI - Last Documented Arterial Blood Pressure 102/52 - Exam GENERAL EXAM: Intubated, sedated 72-year-old male patient. HEAD: Normocephalic. EYES: Sluggish reaction of pupils, equal size. NOSE: Clear with pink turbinates. THROAT: No erythema or exudates. NECK: No masses, no JVD. CHEST: No chest wall deformity. LUNGS: Equal air entry with bilateral scattered rhonchi, crackles in the posterior bases. CVS: S1 and S2 normal with no audible murmur, regular rhythm. Tachycardic ABDOMEN: No hepatosplenomegaly, normal bowel sounds, no guarding or rigidity. SPINE: No scoliosis or deformity SKIN: No rashes CENTRAL NERVOUS SYSTEM: Sedated, tone is normal in all 4 extremities. EXTREMITIES: Amputation of the left great toe, dressing in place, there is no peripheral edema. No clubbing, no cyanosis. Peripheral pulses are intact. - Labs CBC & Chem 7: 10/17/23 04:46 10/17/23 04:46 Labs: Abnormal Lab Results - Last 24 Hours (Table) 10/16/23 10/16/23 10/16/23 Range/Units 09:25 11:27 13:55 WBC (3.8-10.6) k/uL RDW (11.5-15.5) % Neutrophils # (1.3-7.7) k/uL APTT 82.6 H (22.0-30.0) sec ABG pO2 (83-108) mmHg ABG Total CO2 (19-24) mmol/L ABG O2 Saturation (94-97) % Chloride (98-107) mmol/L Carbon Dioxide (22-30) mmol/L BUN (9-20) mg/dL Glucose (74-99) mg/dL POC Glucose (mg/dL) 249 H (70-110) mg/dL Plasma Lactic Acid Garcia (0.7-2.0) mmol/L Calcium (8.4-10.2) mg/dL Procalcitonin 0.42 H (0.02-0.09) ng/mL 10/16/23 10/16/23 10/16/23 Range/Units 13:55 16:53 18:25 WBC (3.8-10.6) k/uL RDW (11.5-15.5) % Neutrophils # (1.3-7.7) k/uL APTT (22.0-30.0) sec ABG pO2 (83-108) mmHg ABG Total CO2 (19-24) mmol/L ABG O2 Saturation (94-97) % Chloride (98-107) mmol/L Carbon Dioxide (22-30) mmol/L BUN (9-20) mg/dL Glucose (74-99) mg/dL POC Glucose (mg/dL) 131 H (70-110) mg/dL Plasma Lactic Acid Garcia 3.1 H* 4.0 H* (0.7-2.0) mmol/L Calcium (8.4-10.2) mg/dL Procalcitonin (0.02-0.09) ng/mL 10/16/23 10/16/23 10/17/23 Range/Units 19:33 23:56 04:46 WBC 15.6 H (3.8-10.6) k/uL RDW 16.1 H (11.5-15.5) % Neutrophils # 12.7 H (1.3-7.7) k/uL APTT (22.0-30.0) sec ABG pO2 (83-108) mmHg ABG Total CO2 (19-24) mmol/L ABG O2 Saturation (94-97) % Chloride (98-107) mmol/L Carbon Dioxide (22-30) mmol/L BUN (9-20) mg/dL Glucose (74-99) mg/dL POC Glucose (mg/dL) 196 H (70-110) mg/dL Plasma Lactic Acid Garcia 3.4 H* (0.7-2.0) mmol/L Calcium (8.4-10.2) mg/dL Procalcitonin (0.02-0.09) ng/mL 10/17/23 10/17/23 10/17/23 Range/Units 04:46 05:26 05:50 WBC (3.8-10.6) k/uL RDW (11.5-15.5) % Neutrophils # (1.3-7.7) k/uL APTT (22.0-30.0) sec ABG pO2 195 H (83-108) mmHg ABG Total CO2 25 H (19-24) mmol/L ABG O2 Saturation 99.5 H (94-97) % Chloride 116 H (98-107) mmol/L Carbon Dioxide 21 L (22-30) mmol/L BUN 28 H (9-20) mg/dL Glucose 145 H (74-99) mg/dL POC Glucose (mg/dL) 146 H (70-110) mg/dL Plasma Lactic Acid Garcia (0.7-2.0) mmol/L Calcium 7.9 L (8.4-10.2) mg/dL Procalcitonin (0.02-0.09) ng/mL Microbiology - Last 24 Hours (Table) 10/16/23 00:05 Gram Stain - Preliminary Sputum Sputum Culture - Preliminary Ana albicans 10/15/23 18:11 Blood Culture - Preliminary Blood Assessment and Plan Assessment: Unresponsiveness with agonal breathing of unclear etiology, cardiac catheterization revealed normal coronary arteries. Pulmonary embolism ruled out. Heparin drip discontinued. Hypotension requiring pressor support Severely impaired left ventricular systolic function with ejection fraction 20 to 25% Severe pulmonary hypertension Febrile illness, suspect underlying pneumonia. Procalcitonin 0.42 Leukocytosis Tachycardia History of pulmonary fibrosis on Ofev in the outpatient setting Recent amputation of the left great toe, was on Zosyn via PICC line in the outpatient setting Plan: The patient was seen and evaluated Chest x-ray, ABGs, labs and medications reviewed Decrease FiO2 to 40% Continue Zosyn and Zyvox Heparin for DVT prophylaxis Continue bronchodilators Plan for daily interruption of sedation and spontaneous breathing trial We will continue to follow and make further recommendations based on his clinical status I have personally seen and examined the patient, performed the documentation and the assessment and plan as written. Number of minutes spent on the visit: 15.
[2023-10-17 11:37] LABS: Ketones,Urine 2+ (Negative)
[2023-10-17 12:03] LABS: Glucose,Whole Blood 205 mg/dL (70-110)
--- NOTE | 2023-10-17 13:57 | P.PN ---
Subjective Progress Note Date: 10/17/23 Hospital Course: 72-year-old male with medical history of idiopathic pulmonary fibrosis on Ofev, diabetes type 2, osteomyelitis status post recent right toe amputation on Zosyn, hypertension, hyperlipidemia presented for evaluation of altered mental status. According to ER documentation, the patient demonstrated evidence of agonal breathing and therefore was bagged for ventilation on the way to the emergency room. Upon arrival, patient was afebrile, 168/114, heart rate 131, 99% with [id number]. CBC was unremarkable. Basic metabolic panel showed chloride of 109, CO2 of 21, BUN of 26, creatinine 1.57. Liver function test were unremarkable. Troponins 0.047. Coags were unremarkable. D-dimer was elevated 2.58. EKG demonstrated atrial fibrillation with RVR as well as ST elevation in the lateral leads with reciprocal changes in the inferior leads. Based on these findings, cardiology was notified and a code STEMI was called, patient was taken emergently to the [facility] but was found to have normal coronary arteries. Subsequently was transferred to the intensive care unit, intubated. He underwent brain CT to rule out hemorrhagic stroke which was negative, pulmonology was consulted and neurology was consulted. Patient remains intubated and mechanically ventilated. Also hypotensive, requiring vasopressors as well as broad-spectrum antibiotics. Echocardiogram showed LVEF 25 to 30% with severe hypokinesis involving the apex, severe pulmonary hypertension. CTA chest did not show any acute PE. Heparin drip discontinued. CTA head showed vasogenic edema in the posterior aspects of occipital lobes and parietal of the lesser extent right frontal lobe concerning for PRES. patient continued on IV antibiotics and on vasopressors. Subjective: Patient seen and examined at bedside. No acute events overnight. Remains intubated, mechanically ventilated, sedated on propofol. Making adequate urine, heparin drip discontinued. Pertinent positives and negatives as discussed above, a complete review of systems was performed and all other systems are negative. Vitals Signs Reviewed. General: Intubated and sedated Derm: Warm, dry, left foot covered in dressing Head: Atraumatic, normocephalic, symmetric Eyes: Pupils equal and reactive Mouth: No lip lesion, mucus membranes moist Cardiovascular: S1S2 irregular and tachycardic, no murmur Lungs: Bilateral rhonchi, intubated mechanically ventilated Abdominal: Soft, nondistended Ext: No gross muscle atrophy, no edema, no contractures Neuro: Sedated Psych: Unable to assess Data Reviewed Today: Pertinent Labs: WBC 15.6, bicarb 21, creatinine 0.74, blood sugars range between 1 45-2 05, urinalysis shows negative nitrites and negative leukocyte esterase Imaging: CTA chest did not show any acute PE. Heparin drip discontinued. CTA head showed vasogenic edema in the posterior aspects of occipital lobes and p arietal of the lesser extent right frontal lobe concerning for PRES Assessment and Plan: Patient is critically ill, needs close monitoring. Unspecified circulatory shock, possibly septic shock Nonischemic systolic cardiomyopathy, EF 25 to 30% Acute metabolic encephalopathy, possible PRES Acute hypoxic respiratory failure History of pulmonary fibrosis Recent left great toe amputation secondary to osteomyelitis Metabolic acidosis, lactic acidosis, improving Acute kidney injury, likely ATN, improved -Continue to wean vasopressors -Neurology following, repeat CT head, currently on Keppra 1000 mg IV every 12 hours for possible seizure-like activity, consider LP -Discussed management with pulmonology, wean propofol, consider spontaneous breathing trial, heparin drip discontinued -ID following, patient on linezolid 600 mg IV every 12 hours, Zosyn 3.375 g IV every 8 hours Elevated troponin Paroxysmal atrial fibrillation with RVR, new onset -Continue aspirin 81 mg, atorvastatin 80 mg -Cardiac cath report showed normal coronary angiogram, normal left-sided filling pressures Type 2 diabetes -Hold oral antidiabetics -Continue sliding scale insulin every 6 hours, monitor for hypoglycemia History of hypertension-hold antihypertensives Dyslipidemia-continue atorvastatin Rheumatoid arthritis DVT ppx: SCDs Code status: Full code Anticipated discharge place: Pending clinical course Anticipated discharge time: pending clinical course Objective - Vital Signs Vital signs: Vital Signs Temp 99.5 F 10/17/23 11:30 Pulse 113 H 10/17/23 12:00 Resp 12 10/17/23 12:00 BP 101/52 10/17/23 02:00 Pulse Ox 99 10/17/23 12:00 FiO2 40 10/17/23 12:00 Intake & Output 10/16/23 10/17/23 10/17/23 18:59 06:59 18:59 Intake Total 3216.855 4404.291 893.257 Output Total 1305 970 530 Balance 462.291 203.291 363.257 Weight 88.9 kg 86.9 kg Intake: IV 935 125 115 Invasive Line 5 10 Piperacillin-Tazobactam 3 175 125 100 .375 gm In Sodium Chloride 0.9% 100 ml @ 25 mls/hr IVPB Q8H [facility] Rx#: [id number] Pressure Bag 15 Sodium Chloride 0.9% 1, 750 000 ml @ 75 mls/hr IV . [id number] [facility] Rx#:[id number] Intake, IV Titration 802.291 808.291 678.257 Amount Heparin Sod,Pork in 0.45% 314.803 NaCl 25,000 unit In 0.45 % NaCl 1 250ml.bag @ 18 UNITS/KG/HR 13.914 mls/hr IV .[id number] [facility] Rx#: [id number] Linezolid 600 mg In 300 300 Dextrose/Water 1 300ml. bag @ 150 mls/hr IVPB Q12HR [facility] Rx#:[id number] Norepinephrine 4 mg In 197.434 254.000 226.595 Sodium Chloride 0.9% 250 ml @ 0.03 MCG/KG/MIN 10. 161 mls/hr IV .Q24H [facility] Rx#:[id number] propofoL 1,000 mg In 290.054 254.291 151.662 Empty Bag 1 bag @ 15 MCG/ KG/MIN 6.957 mls/hr IV . [id number] [facility] Rx#:[id number] Tube Feeding 30 150 100 Other 90 Output: Urine 1305 970 530 Other: Voiding Method Indwelling Catheter Indwelling Catheter Indwelling Catheter ABP, PAP, CO, CI - Last Documented Arterial Blood Pressure 116/55 - Labs CBC & Chem 7: 10/17/23 04:46 10/17/23 04:46 Labs: Abnormal Lab Results - Last 24 Hours (Table) 10/16/23 10/16/23 10/16/23 Range/Units 09:25 13:55 13:55 WBC (3.8-10.6) k/uL RDW (11.5-15.5) % Neutrophils # (1.3-7.7) k/uL APTT 82.6 H (22.0-30.0) sec ABG pO2 (83-108) mmHg ABG Total CO2 (19-24) mmol/L ABG O2 Saturation (94-97) % Chloride (98-107) mmol/L Carbon Dioxide (22-30) mmol/L BUN (9-20) mg/dL Glucose (74-99) mg/dL POC Glucose (mg/dL) (70-110) mg/dL Plasma Lactic Acid Garcia 3.1 H* (0.7-2.0) mmol/L Calcium (8.4-10.2) mg/dL Procalcitonin 0.42 H (0.02-0.09) ng/mL Ur Specific [place] (1.001-1.035) Urine Protein (Negative) Urine Glucose (UA) (Negative) Urine Ketones (Negative) Urine Blood (Negative) Urine Mucus (None) /hpf 10/16/23 10/16/23 10/16/23 Range/Units 16:53 18:25 19:33 WBC (3.8-10.6) k/uL RDW (11.5-15.5) % Neutrophils # (1.3-7.7) k/uL APTT (22.0-30.0) sec ABG pO2 (83-108) mmHg ABG Total CO2 (19-24) mmol/L ABG O2 Saturation (94-97) % Chloride (98-107) mmol/L Carbon Dioxide (22-30) mmol/L BUN (9-20) mg/dL Glucose (74-99) mg/dL POC Glucose (mg/dL) 131 H (70-110) mg/dL Plasma Lactic Acid Garcia 4.0 H* 3.4 H* (0.7-2.0) mmol/L Calcium (8.4-10.2) mg/dL Procalcitonin (0.02-0.09) ng/mL Ur Specific [place] (1.001-1.035) Urine Protein (Negative) Urine Glucose (UA) (Negative) Urine Ketones (Negative) Urine Blood (Negative) Urine Mucus (None) /hpf 10/16/23 10/17/23 10/17/23 Range/Units 23:56 04:46 04:46 WBC 15.6 H (3.8-10.6) k/uL RDW 16.1 H (11.5-15.5) % Neutrophils # 12.7 H (1.3-7.7) k/uL APTT (22.0-30.0) sec ABG pO2 (83-108) mmHg ABG Total CO2 (19-24) mmol/L ABG O2 Saturation (94-97) % Chloride 116 H (98-107) mmol/L Carbon Dioxide 21 L (22-30) mmol/L BUN 28 H (9-20) mg/dL Glucose 145 H (74-99) mg/dL POC Glucose (mg/dL) 196 H (70-110) mg/dL Plasma Lactic Acid Garcia (0.7-2.0) mmol/L Calcium 7.9 L (8.4-10.2) mg/dL Procalcitonin (0.02-0.09) ng/mL Ur Specific [place] (1.001-1.035) Urine Protein (Negative) Urine Glucose (UA) (Negative) Urine Ketones (Negative) Urine Blood (Negative) Urine Mucus (None) /hpf 10/17/23 10/17/23 10/17/23 Range/Units 05:26 05:50 10:30 WBC (3.8-10.6) k/uL RDW (11.5-15.5) % Neutrophils # (1.3-7.7) k/uL APTT (22.0-30.0) sec ABG pO2 195 H (83-108) mmHg ABG Total CO2 25 H (19-24) mmol/L ABG O2 Saturation 99.5 H (94-97) % Chloride (98-107) mmol/L Carbon Dioxide (22-30) mmol/L BUN (9-20) mg/dL Glucose (74-99) mg/dL POC Glucose (mg/dL) 146 H (70-110) mg/dL Plasma Lactic Acid Garcia (0.7-2.0) mmol/L Calcium (8.4-10.2) mg/dL Procalcitonin (0.02-0.09) ng/mL Ur Specific [place] 1.038 H (1.001-1.035) Urine Protein Trace H (Negative) Urine Glucose (UA) 4+ H (Negative) Urine Ketones 2+ H (Negative) Urine Blood Small H (Negative) Urine Mucus Rare H (None) /hpf 10/17/23 Range/Units 12:02 WBC (3.8-10.6) k/uL RDW (11.5-15.5) % Neutrophils # (1.3-7.7) k/uL APTT (22.0-30.0) sec ABG pO2 (83-108) mmHg ABG Total CO2 (19-24) mmol/L ABG O2 Saturation (94-97) % Chloride (98-107) mmol/L Carbon Dioxide (22-30) mmol/L BUN (9-20) mg/dL Glucose (74-99) mg/dL POC Glucose (mg/dL) 205 H (70-110) mg/dL Plasma Lactic Acid Garcia (0.7-2.0) mmol/L Calcium (8.4-10.2) mg/dL Procalcitonin (0.02-0.09) ng/mL Ur Specific [place] (1.001-1.035) Urine Protein (Negative) Urine Glucose (UA) (Negative) Urine Ketones (Negative) Urine Blood (Negative) Urine Mucus (None) /hpf Microbiology - Last 24 Hours (Table) 10/16/23 00:05 Gram Stain - Preliminary Sputum Sputum Culture - Preliminary Ana albicans 10/15/23 18:11 Blood Culture - Preliminary Blood
--- NOTE | 2023-10-17 14:50 | CT ---
EXAMINATION TYPE: CT brain wo con CT DLP: 1122.4 mGycm, Automated exposure control for dose reduction was used. DATE OF EXAM: 10/17/2023 2:24 PM COMPARISON: CTA 10/16/2023 CT 10/15/2023. CLINICAL INDICATION:Male, 72 years old with history of confusion. has edema on recent CTA, ams TECHNIQUE: Brain: Axial CT images of the brain were obtained with coronal and sagittal reformats created and rev iewed. Contrast used: None. Oral contrast used: None. FINDINGS: Brain: Extra-axial spaces: No abnormal extra-axial fluid collections. Ventricular system: Within normal limits Cerebral parenchyma: There is now increasing areas of jean baptiste-white matter loss of differentiation which could be partially due to lack of contrast compared to prior CTA Angio 10/16/2023. No evidence for int racranial hemorrhage. Cerebellum: Unremarkable. Mass effect: No evidence of midline shift. Intracranial vasculature: unremarkable Soft tissues: Normal. Calvarium/osseous structures: No depressed skull fracture. Paranasal sinuses and mastoid air cells: Mild scattered paranasal sinus disease. Visualized orbits: Orbital contents are intact. IMPRESSION: Increasing loss of jean baptiste-white matter differentiation in the area of vasogenic edema the posterior occ ipital lobes and to lesser extent the parietal lobes. Findings could be due to lack of IV contrast. C onsider MRI to rule out stroke.
[2023-10-17 17:12] LABS: Glucose,Whole Blood 173 mg/dL (70-110)
--- NOTE | 2023-10-17 17:53 | P.PN ---
Subjective Progress Note Date: 10/17/23 I am following-up with patient and per nurse he was on IV Propofol 60mcg/kg/min earlier and has been held for 2.3 hours for weaning trial. He is also on Dilaudid for his respiratory issues. He had CTA head which showed possible PRES. He is having fever and spoke with primary team who feels possible aspiration pneumonia, his left toe infection. Objective - Vital Signs Vital signs: Vital Signs Temp 98.6 F 10/17/23 16:00 Pulse 103 H 10/17/23 17:00 Resp 19 10/17/23 17:00 BP 101/52 10/17/23 02:00 Pulse Ox 99 10/17/23 17:00 FiO2 40 10/17/23 16:00 Intake & Output 10/16/23 10/17/23 10/17/23 18:59 06:59 18:59 Intake Total 5334.626 4483.291 1038.257 Output Total 6651 949 2209 Balance 462.291 203.291 -121.743 Weight 88.9 kg 86.9 kg Intake: IV 935 125 260 Invasive Line 5 10 Piperacillin-Tazobactam 3 175 125 200 .375 gm In Sodium Chloride 0.9% 100 ml @ 25 mls/hr IVPB Q8H [facility] Rx#: [id number] Pressure Bag 60 Sodium Chloride 0.9% 1, 750 000 ml @ 75 mls/hr IV . [id number] [facility] Rx#:[id number] Intake, IV Titration 802.291 808.291 678.257 Amount Heparin Sod,Pork in 0.45% 314.803 NaCl 25,000 unit In 0.45 % NaCl 1 250ml.bag @ 18 UNITS/KG/HR 13.914 mls/hr IV .[id number] [facility] Rx#: [id number] Linezolid 600 mg In 300 300 Dextrose/Water 1 300ml. bag @ 150 mls/hr IVPB Q12HR [facility] Rx#:[id number] Norepinephrine 4 mg In 197.434 254.000 226.595 Sodium Chloride 0.9% 250 ml @ 0.03 MCG/KG/MIN 10. 161 mls/hr IV .Q24H [facility] Rx#:[id number] propofoL 1,000 mg In 290.054 254.291 151.662 Empty Bag 1 bag @ 15 MCG/ KG/MIN 6.957 mls/hr IV . [id number] [facility] Rx#:[id number] Tube Feeding 30 150 100 Other 90 Output: Urine 6284 207 8295 Other: Voiding Method Indwelling Catheter Indwelling Catheter Indwelling Catheter ABP, PAP, CO, CI - Last Documented Arterial Blood Pressure 123/60 - Exam General: Lying in bed and is not in acute distress. Respiratory: Intubated on ventilator. Neuro: Limited. IV Propofol 60mcg/kg/min is held for 2.3 hours. Is on Dilaudid Patient is comatose. Pupils are 1mm. Does not appear to have facial weakness. Strength: Decrease tone throughout. Reflex: Is 1+ Has left foot is wrapped in gauze. Some of the workup during this hospital visit consisted of: 2D echo is reported as severe left ventricular systolic dysfunction with ejection fraction of 25 to 30%. Severe hypokinesis involving the apex only the base of the ventricle is improving. Severe pulmonary hypertension. Cardiac cath is reported as normal coronary angiogram. Normal left sided filling pressure. Rule out intracranial bleed. Pulmonary embolism. CT of the head is reported as no acute intracranial process. I personally reviewed the CT and agree there is no acute or subacute process. CTA head and neck: Vasogenic edema in the posterior aspect of the occipital lobe and parietal a lesser extent right frontal concerning for posterior reversible encephalopathy syndrome. Not seen on prior CT. No evidence of dissection of cervical internal carotid artery or vertebral artery or any evidence of significant stenosis at the carotid bifurcation. No evidence of intracranial high-grade stenosis or intracranial aneurysm. I personally reviewed the CT and I do appreciate hypodensity predominantly over the posterior and it is also seen in the frontal and I cannot rule out stroke vs PRES. Routine EEG: Is abnormal. The background slowing is suggestive of severe encephalopathy. Otherwise there is no focal slowing, epileptiform discharges or seizure on the EEG. - Labs CBC & Chem 7: 10/17/23 04:46 10/17/23 04:46 Labs: Abnormal Lab Results - Last 24 Hours (Table) 10/16/23 10/16/23 10/16/23 Range/Units 18:25 19:33 23:56 WBC (3.8-10.6) k/uL RDW (11.5-15.5) % Neutrophils # (1.3-7.7) k/uL ABG pO2 (83-108) mmHg ABG Total CO2 (19-24) mmol/L ABG O2 Saturation (94-97) % Chloride (98-107) mmol/L Carbon Dioxide (22-30) mmol/L BUN (9-20) mg/dL Glucose (74-99) mg/dL POC Glucose (mg/dL) 131 H 196 H (70-110) mg/dL Plasma Lactic Acid Garcia 3.4 H* (0.7-2.0) mmol/L Calcium (8.4-10.2) mg/dL Ur Specific [place] (1.001-1.035) Urine Protein (Negative) Urine Glucose (UA) (Negative) Urine Ketones (Negative) Urine Blood (Negative) Urine Mucus (None) /hpf 10/17/23 10/17/23 10/17/23 Range/Units 04:46 04:46 05:26 WBC 15.6 H (3.8-10.6) k/uL RDW 16.1 H (11.5-15.5) % Neutrophils # 12.7 H (1.3-7.7) k/uL ABG pO2 (83-108) mmHg ABG Total CO2 (19-24) mmol/L ABG O2 Saturation (94-97) % Chloride 116 H (98-107) mmol/L Carbon Dioxide 21 L (22-30) mmol/L BUN 28 H (9-20) mg/dL Glucose 145 H (74-99) mg/dL POC Glucose (mg/dL) 146 H (70-110) mg/dL Plasma Lactic Acid Garcia (0.7-2.0) mmol/L Calcium 7.9 L (8.4-10.2) mg/dL Ur Specific [place] (1.001-1.035) Urine Protein (Negative) Urine Glucose (UA) (Negative) Urine Ketones (Negative) Urine Blood (Negative) Urine Mucus (None) /hpf 10/17/23 10/17/23 10/17/23 Range/Units 05:50 10:30 12:02 WBC (3.8-10.6) k/uL RDW (11.5-15.5) % Neutrophils # (1.3-7.7) k/uL ABG pO2 195 H (83-108) mmHg ABG Total CO2 25 H (19-24) mmol/L ABG O2 Saturation 99.5 H (94-97) % Chloride (98-107) mmol/L Carbon Dioxide (22-30) mmol/L BUN (9-20) mg/dL Glucose (74-99) mg/dL POC Glucose (mg/dL) 205 H (70-110) mg/dL Plasma Lactic Acid Garcia (0.7-2.0) mmol/L Calcium (8.4-10.2) mg/dL Ur Specific [place] 1.038 H (1.001-1.035) Urine Protein Trace H (Negative) Urine Glucose (UA) 4+ H (Negative) Urine Ketones 2+ H (Negative) Urine Blood Small H (Negative) Urine Mucus Rare H (None) /hpf 10/17/23 Range/Units 17:11 WBC (3.8-10.6) k/uL RDW (11.5-15.5) % Neutrophils # (1.3-7.7) k/uL ABG pO2 (83-108) mmHg ABG Total CO2 (19-24) mmol/L ABG O2 Saturation (94-97) % Chloride (98-107) mmol/L Carbon Dioxide (22-30) mmol/L BUN (9-20) mg/dL Glucose (74-99) mg/dL POC Glucose (mg/dL) 173 H (70-110) mg/dL Plasma Lactic Acid Garcia (0.7-2.0) mmol/L Calcium (8.4-10.2) mg/dL Ur Specific [place] (1.001-1.035) Urine Protein (Negative) Urine Glucose (UA) (Negative) Urine Ketones (Negative) Urine Blood (Negative) Urine Mucus (None) /hpf Microbiology - Last 24 Hours (Table) 10/16/23 00:05 Gram Stain - Preliminary Sputum Sputum Culture - Preliminary Ana albicans 10/15/23 18:11 Blood Culture - Preliminary Blood Assessment and Plan Assessment: This is a 72-year-old gentleman who was found unresponsive at home by his . Also he was having agonal breathing. He was complaining of not feeling well and headache recently per the . The results EMS arrived and they intubated him because of his respiratory distress. EKG was reported as possible ST segment myocardial infarction with minimal elevated troponin. He was taken for cardiac cath and was normal. CT of the head was unremarkable for any acute process. 2D echo showed severe left ventricular systolic dysfunction with ejection fraction of 25 to 30%. Severe hypokinesis involving the apex only the base of the ventricle is improving. Severe pulmonary hypertension. Nurse she felt the patient is having body jerks. Episode of unresponsiveness unknown exact etiology. Unsure if patient had hypoxic encephalopathy. CT of the head is unremarkable for any acute process initial presentation but on CTA concern for Posterior Reversible Encephalopathy Syndrome (PRES) but I cannot rule out stroke. Recurrent Episode of body jerks unsure if due myoclonic jerks from hypoxia. Routine EEG is severe encephalopathy but negative for seizure or discharges. His fever with leukocytosis is possible aspiration pneumonia vs ?in addition left toe osteomyelitis. Heart failure with ejection fraction of 25 to 30% Severe pulmonary hypertension History of pulmonary fibrosis History of rheumatoid arthritis History of diabetes mellitus History of osteomyelitis and had left toe amputation Plan: Patient was started on Keppra during this admission and currently on Keppra 1gm bid. Is on Ativan PRN. I will get repeat CT head today. Cannot obtain MRI since vent is not MRI Compatible. I will consult pain speciality team for lumbar puncture to rule out meningoene phalitis. I spoke with primary team and we agreed to hold off any antiviral or modification medication since felt fever could be due to aspiration pneumonia and ?left toe infection. Currently on Zosyn and Linezolid. I.D. on board. Patient is on aspirin 81 mg daily. Is on Lipitor 80mg qhs. Continue neuro checks. Cardiac monitoring Will defer the rest of the medical management to primary and other specialists. Plan discussed with the patient's was at bedside, primary team and his nurse. Will continue to follow. Time with Patient: Less than 30
[2023-10-17 21:37] LABS: Prothrombin Time 10.7 sec (10.0-12.5)
[2023-10-17 23:27] LABS: Glucose,Whole Blood 194 mg/dL (70-110)
[2023-10-18 04:38] LABS: Glucose,Whole Blood 175 mg/dL (70-110)
[2023-10-18 04:46] LABS: Anisocytosis Slight; Basophils % (A) 0 %; Eosinophils # (A) 0.2 k/uL (0-0.7); Eosinophils % (A) 2 %; HCT 38.7 % (39.0-53.0); HGB 12.2 gm/dL (13.0-17.5); Lymphocytes # (A) 0.6 k/uL (1.0-4.8); Lymphocytes % (A) 5 %; MCH 28.6 pg (25.0-35.0); MCHC 31.6 g/dL (31.0-37.0); MCV 90.3 fL (80.0-100.0); Mean Platelet Volume 9.7; Monocytes # (A) 0.8 k/uL (0-1.0); Monocytes % (A) 7 %; Neutrophils # (A) 9.8 k/uL (1.3-7.7); Neutrophils % (A) 85 %; Platelet Count 134 k/uL (150-450); RBC 4.29 m/uL (4.30-5.90); RDW 16.1 % (11.5-15.5); WBC 11.6 k/uL (3.8-10.6)
[2023-10-18 05:02] LABS: African American GFR (CKD) >90 (>60 ml/min/1.73 sqM); Anion Gap 4 mmol/L; Blood Urea Nitrogen 24 mg/dL (9-20); Carbon Dioxide 25 mmol/L (22-30); Chloride 113 mmol/L (98-107); Glucose 178 mg/dL (74-99); Magnesium 2.3 mg/dL (1.6-2.3); Non-African American GFR(CKD) >90 (>60 ml/min/1.73 sqM); Potassium 3.9 mmol/L (3.5-5.1); Sodium 142 mmol/L (137-145)
[2023-10-18] MEDS: POTASSIUM BICARBONATE/CIT AC 20 MEQ TABLET.EFF NG-TUBE SCH (06:13)
[2023-10-18 06:38] LABS: ABG Base Excess 3.5 mmol/L; ABG HCO3 28 mmol/L (21-25); ABG Oxygen Saturation 97.4 % (94-97); ABG PCO2 41 mmHg (35-45); ABG PH 7.44 (7.35-7.45); ABG PO2 176 mmHg (83-108); ABG TCO2 29 mmol/L (19-24); Allen Test Performed? Yes
--- NOTE | 2023-10-18 08:11 | XR ---
EXAMINATION TYPE: XR chest 1V portable DATE OF EXAM: 10/18/2023 4:57 AM CLINICAL INDICATION:Male, 72 years old with history of Tube placement; [facility] COMPARISON: Chest radiograph from one day prior. TECHNIQUE: XR chest 1V portable Frontal view of the chest. FINDINGS: Lungs/Pleura: Multifocal airspace opacities. No evidence of pneumothorax or pleural effusion. Pulmonary vascularity: Unremarkable. Heart/mediastinum: Cardiomediastinal silhouette is enlarged and stable. Musculoskeletal: No acute osseous pathology. Other findings: None Lines/Tubes: Endotracheal tube with distal tip 3.3 cm above the alexys. Nasogastric tube with side-port projecting over the distal esophagus. Right-sided PICC line with distal tip at the cavoatrial junction. IMPRESSION: 1. Satisfactory positioning of the nasogastric and endotracheal tubes. Appropriate placement of righ t PICC. Multifocal airspace opacities similar to prior. Correlate with serum BNP for pulmonary vascular conge stion.
--- NOTE | 2023-10-18 11:07 | P.PN ---
Subjective Progress Note Date: 10/18/23 This is a 72-year-old male patient with a history of pulmonary fibrosis maintained on Ofev in the outpatient setting. He was found by his earlier today to be unresponsive and agonal breathing. EMS was called and he was intubated in the field. EKG showed possible ST segment elevation myocardial inf arction. He was brought in through the emergency room and directly to the Visual [facility]. He was found to have normal coronary arteries. He was admitted to the intensive care unit. He is currently intubated on the mechanical ventilator and assist-control mode at a rate of 14, tidal volume 600, FiO2 50% and a PEEP of 5. Arterial blood gases revealed a PaO2 of greater than 420, pCO2 of 35 and a pH of 7.38. CT scan of the brain showed no acute abnormalities. Echocardiogram is pending. Chest x-ray revealed endotracheal tube in a high position. Being repositioned. Nasogastric tube in the esophagus. Cardiomegaly. No pleural effusion, focal consolidation or pneumothorax. White count 8.7. Hemoglobin 17.0. Platelets 215. D-dimer 2.58. Sodium 140. Potassium 3.8. Bicarb 21. BUN 26. Creatinine 0.57. Glucose 165. Troponin 0.047. The patient is seen today October 16, 2023 in follow-up on the regular medical floor. He remains intubated on the mechanical ventilator. Currently on assist- control mode with a rate of 14, tidal volume 600, FiO2 50% and a PEEP of 5. Morning blood gases revealed a PaO2 of 102, pCO2 40 and a pH of 7.24. He is on propofol at 40 mcg/kg/min. Norepinephrine at 0.09 mcg/kg/min. Heparin drip per weight-based protocol. Saline at 75 MLS per hour. He is continued on Zosyn via PICC line that he had been receiving at home following a left great toe amputati on. Chest x-ray shows satisfactory position in the nasogastric and endotracheal tubes. There is cardiomegaly with pulmonary vascular congestion. Echocardiogram revealed severely impaired left ventricular systolic function with ejection fraction of 25 to 30%. Severe pulmonary hypertension. White count 19.2. Hemoglobin 15.7. Platelets 248. Sodium 143. Potassium 4.3. Bicarb 15. Anion gap 16. BUN 32. Creatinine 1.16. Glucose 258. His current temperature is 102.1. He is tachycardic 130s. The plan is for CT angiogram of the chest today to rule out pulmonary embolism. CT angiogram of the head and neck is pending as well. The patient is seen today October 17, 2023 in follow-up on the regular medical floor. He remains intubated on mechanical ventilator. Currently on assist- control mode at a rate of 14, tidal volume 500, FiO2 50% and a PEEP of 5. Peak pressures 37. Plateau pressure 19. Continues with some increased airway resistance. Arterial blood gases revealed a PaO2 of 195, pCO2 41 and a pH of 7.37. He is sedated on propofol at 60 mcg/kg/min. Norepinephrine 90 (micro grams per minute. Normal saline at KVO. He is being nourished with vital AF at 20 MLS per hour with a goal of 47 MLS per hour. He is on antibiotics in the form of Zosyn and Zyvox. CT angiogram ruled out pulmonary embolism. Procalcitonin 0.42. He is continued on bronchodilators. Chest x-ray reveals multifocal airspace opacities. Sputum culture with Ana. Blood cultures pending. White count 15.6. Hemoglobin 13.3. Platelets 181. Sodium 143. Potassium 3.7. Bicarb 21. BUN 28. Creatinine 0.74. Glucose 145. The patient is seen today October 18, 2023 in follow-up on the regular medical floor. He remains intubated on the mechanical ventilator with current settings of assist-control mode at a rate of 14, tidal volume 500, FiO2 40% and a PEEP of 5. Morning blood gases revealed a PaO2 of 176, pCO2 41 and a pH of 7.44. He is being nourished with vital AF at 47 MLS per hour which is goal. Normal saline at KVO. He has been off sedation for approximately 24 hours now. He has very minimal response. He does grimace to painful stimuli. Follow-up CT scan of the brain revealed increasing loss of jean baptiste-white matter differentiation in the area of vasogenic edema the posterior occipital lobes and to a lesser extent the parietal lobes. The plan is for a lumbar puncture today. He remains on Zosyn and Zyvox. White count 11.6. Hemoglobin 12.2. Platelets 134. Sodium 142. Potassium 3.9. Bicarb 25. BUN 24. Creatinine 0.55. Glucose 178. Chest x-ray reveals multifocal airspace opacities. No evidence of pneumothorax or pleural effusion. PICC line in place. Endotracheal and nasogastric tubes in place. Lovenox for DVT prophylaxis, on hold for lumbar puncture. Objective - Vital Signs Vital signs: Vital Signs Temp 99.3 F 10/18/23 08:00 Pulse 103 H 10/18/23 10:00 Resp 26 H 10/18/23 10:00 BP 142/75 10/18/23 06:00 Pulse Ox 99 10/18/23 10:00 FiO2 30 10/18/23 10:00 Intake & Output 10/17/23 10/18/23 10/18/23 18:59 06:59 18:59 Intake Total 2676.949 2899 830 Output Total 1310 1425 670 Balance -216.824 -417 160 Weight 86 kg Intake: IV 263 436 612 Linezolid 600 mg In 300 500 Dextrose/Water 1 300ml. bag @ 150 mls/hr IVPB Q12HR [facility] Rx#:[id number] Piperacillin-Tazobactam 3 200 100 100 .375 gm In Sodium Chloride 0.9% 100 ml @ 25 mls/hr IVPB Q8H [facility] Rx#: [id number] Pressure Bag 63 36 12 Intake, IV Titration 730.176 Amount Linezolid 600 mg In 300 Dextrose/Water 1 300ml. bag @ 150 mls/hr IVPB Q12HR [facility] Rx#:[id number] Norepinephrine 4 mg In 322.111 Sodium Chloride 0.9% 250 ml @ 0.03 MCG/KG/MIN 10. 161 mls/hr IV .Q24H [facility] Rx#:[id number] propofoL 1,000 mg In 108.065 Empty Bag 1 bag @ 15 MCG/ KG/MIN 6.957 mls/hr IV . [id number] [facility] Rx#:[id number] Tube Feeding 100 482 188 Other 90 30 Output: Urine 1310 1425 670 Other: Voiding Method Indwelling Catheter Indwelling Catheter # Bowel Movements 1 ABP, PAP, CO, CI - Last Documented Arterial Blood Pressure 144/67 - Exam GENERAL EXAM: Intubated, 72-year-old male patient off sedation x 24 hours. Very minimal response to painful stimuli, grimaces. HEAD: Normocephalic. EYES: Sluggish reaction of pupils, equal size. NOSE: Clear with pink turbinates. THROAT: No erythema or exudates. NECK: No masses, no JVD. CHEST: No chest wall deformity. LUNGS: Equal air entry with bilateral scattered rhonchi, crackles in the posterior bases. CVS: S1 and S2 normal with no audible murmur, regular rhythm. Tachycardic ABDOMEN: No hepatosplenomegaly, normal bowel sounds, no guarding or rigidity. SPINE: No scoliosis or deformity SKIN: No rashes CENTRAL NERVOUS SYSTEM: Unresponsive, tone is normal in all 4 extremities. EXTREMITIES: Amputation of the left great toe, dressing in place, there is no peripheral edema. No clubbing, no cyanosis. Peripheral pulses are intact. - Labs CBC & Chem 7: 10/18/23 04:38 10/18/23 04:38 Labs: Abnormal Lab Results - Last 24 Hours (Table) 10/17/23 10/17/23 10/17/23 Range/Units 10:30 12:02 17:11 WBC (3.8-10.6) k/uL RBC (4.30-5.90) m/uL Hgb (13.0-17.5) gm/dL Hct (39.0-53.0) % RDW (11.5-15.5) % Plt Count (150-450) k/uL Neutrophils # (1.3-7.7) k/uL Lymphocytes # (1.0-4.8) k/uL ABG pO2 (83-108) mmHg ABG HCO3 (21-25) mmol/L ABG Total CO2 (19-24) mmol/L ABG O2 Saturation (94-97) % Chloride (98-107) mmol/L BUN (9-20) mg/dL Creatinine (0.66-1.25) mg/dL Glucose (74-99) mg/dL POC Glucose (mg/dL) 205 H 173 H (70-110) mg/dL Calcium (8.4-10.2) mg/dL Ur Specific [place] 1.038 H (1.001-1.035) Urine Protein Trace H (Negative) Urine Glucose (UA) 4+ H (Negative) Urine Ketones 2+ H (Negative) Urine Blood Small H (Negative) Urine Mucus Rare H (None) /hpf 10/17/23 10/18/23 10/18/23 Range/Units 23:25 04:37 04:38 WBC 11.6 H (3.8-10.6) k/uL RBC 4.29 L (4.30-5.90) m/uL Hgb 12.2 L (13.0-17.5) gm/dL Hct 38.7 L (39.0-53.0) % RDW 16.1 H (11.5-15.5) % Plt Count 134 L (150-450) k/uL Neutrophils # 9.8 H (1.3-7.7) k/uL Lymphocytes # 0.6 L (1.0-4.8) k/uL ABG pO2 (83-108) mmHg ABG HCO3 (21-25) mmol/L ABG Total CO2 (19-24) mmol/L ABG O2 Saturation (94-97) % Chloride (98-107) mmol/L BUN (9-20) mg/dL Creatinine (0.66-1.25) mg/dL Glucose (74-99) mg/dL POC Glucose (mg/dL) 194 H 175 H (70-110) mg/dL Calcium (8.4-10.2) mg/dL Ur Specific [place] (1.001-1.035) Urine Protein (Negative) Urine Glucose (UA) (Negative) Urine Ketones (Negative) Urine Blood (Negative) Urine Mucus (None) /hpf 10/18/23 10/18/23 Range/Units 04:38 06:37 WBC (3.8-10.6) k/uL RBC (4.30-5.90) m/uL Hgb (13.0-17.5) gm/dL Hct (39.0-53.0) % RDW (11.5-15.5) % Plt Count (150-450) k/uL Neutrophils # (1.3-7.7) k/uL Lymphocytes # (1.0-4.8) k/uL ABG pO2 176 H (83-108) mmHg ABG HCO3 28 H (21-25) mmol/L ABG Total CO2 29 H (19-24) mmol/L ABG O2 Saturation 97.4 H (94-97) % Chloride 113 H (98-107) mmol/L BUN 24 H (9-20) mg/dL Creatinine 0.55 L (0.66-1.25) mg/dL Glucose 178 H (74-99) mg/dL POC Glucose (mg/dL) (70-110) mg/dL Calcium 8.0 L (8.4-10.2) mg/dL Ur Specific [place] (1.001-1.035) Urine Protein (Negative) Urine Glucose (UA) (Negative) Urine Ketones (Negative) Urine Blood (Negative) Urine Mucus (None) /hpf Microbiology - Last 24 Hours (Table) 10/15/23 18:11 Blood Culture - Preliminary Blood 10/16/23 00:05 Gram Stain - Preliminary Sputum Sputum Culture - Preliminary Ana albicans Assessment and Plan Assessment: Unresponsiveness with agonal breathing of unclear etiology, cardiac catheterization revealed normal coronary arteries. Pulmonary embolism ruled out. Heparin drip discontinued. Off sedation and remains unresponsive. Lumbar puncture pending for today. Hypotension requiring pressor support, recovered Severely impaired left ventricular systolic function with ejection fraction 20 to 25% Severe pulmonary hypertension Febrile illness, suspect underlying pneumonia. Procalcitonin 0.42. Remains on Zosyn and Zyvox Leukocytosis Tachycardia History of pulmonary fibrosis on Ofev in the outpatient setting Recent amputation of the left great toe, was on Zosyn via PICC line in the outpatient setting Plan: The patient was seen and evaluated Chest x-ray, ABGs, labs and medications reviewed Decrease FiO2 to 30% Continue Zosyn and Zyvox Lovenox for DVT prophylaxis Continue bronchodilators Patient has been minimally responsive and off sedation x 24 hours Plan is for lumbar puncture today Prognosis is guarded We will continue to follow I have personally seen and examined the patient, performed the documentation and the assessment and plan as written. Number of minutes spent on the visit: 15.
--- NOTE | 2023-10-18 11:43 | P.PN ---
Subjective Progress Note Date: 10/18/23 Hospital Course: 72-year-old male with medical history of idiopathic pulmonary fibrosis on Ofev, diabetes type 2, osteomyelitis status post recent right toe amputation on Zosyn, hypertension, hyperlipidemia presented for evaluation of altered mental status. According to ER documentation, the patient demonstrated evidence of agonal breathing and therefore was bagged for ventilation on the way to the emergency room. Upon arrival, patient was afebrile, 168/114, heart rate 131, 99% with [id number]. CBC was unremarkable. Basic metabolic panel showed chloride of 109, CO2 of 21, BUN of 26, creatinine 1.57. Liver function test were unremarkable. Troponins 0.047. Coags were unremarkable. D-dimer was elevated 2.58. EKG demonstrated atrial fibrillation with RVR as well as ST elevation in the lateral leads with reciprocal changes in the inferior leads. Based on these findings, cardiology was notified and a code STEMI was called, patient was taken emergently to the [facility] but was found to have normal coronary arteries. Subsequently was transferred to the intensive care unit, intubated. He underwent brain CT to rule out hemorrhagic stroke which was negative, pulmonology was consulted and neurology was consulted. Patient remains intubated and mechanically ventilated. Also hypotensive, requiring vasopressors as well as broad-spectrum antibiotics. Echocardiogram showed LVEF 25 to 30% with severe hypokinesis involving the apex, severe pulmonary hypertension. CTA chest did not show any acute PE. Heparin drip discontinued. CTA head showed vasogenic edema in the posterior aspects of occipital lobes and parietal of the lesser extent right frontal lobe concerning for PRES. patient continued on IV antibiotics. Off of sedation, minimally responsive. Off of vasopressors. Subjective: Patient seen and examined at bedside. No acute events overnight. Remains intub ated, mechanically ventilated. Off of propofol, minimally responsive. Off of vasopressors. Pertinent positives and negatives as discussed above, a complete review of systems was performed and all other systems are negative. Vitals Signs Reviewed. General: Intubated and sedated Derm: Warm, dry, left foot covered in dressing Head: Atraumatic, normocephalic, symmetric Eyes: Pupils equal and reactive Mouth: No lip lesion, mucus membranes moist Cardiovascular: S1S2 irregular, no murmur Lungs: Bilateral rhonchi, intubated mechanically ventilated Abdominal: Soft, nondistended Ext: No gross muscle atrophy, no edema, no contractures Neuro: Does not respond to painful stimuli Psych: Unable to assess Data Reviewed Today: Pertinent Labs: WBC 11.6, hemoglobin 12.2, platelet 134, creatinine 0.55, magnesium 2.3, glucose range between 1 73-1 94 Imaging: Chest x-ray shows multifocal opacities, independently interpreted Assessment and Plan: Patient is critically ill, needs close monitoring. 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% Acute hypoxic respiratory failure History of pulmonary fibrosis Recent left great toe amputation secondary to osteomyelitis Metabolic acidosis, lactic acidosis, resolved Acute kidney injury, likely ATN, resolved -Neurology following, pending LP, currently on Keppra 1000 mg IV every 12 hours for possible seizure-like activity -Pulmonology note reviewed, continue current therapy -ID following, patient on linezolid 600 mg IV every 12 hours, Zosyn 3.375 g IV every 8 hours Elevated troponin Paroxysmal atrial fibrillation with RVR, new onset -Continue aspirin 81 mg, atorvastatin 80 mg -Cardiac cath report showed normal coronary angiogram, normal left-sided filling pressures Type 2 diabetes -Hold oral antidiabetics -Continue sliding scale insulin every 6 hours, monitor for hypoglycemia History of hypertension-hold antihypertensives Dyslipidemia-continue atorvastatin Rheumatoid arthritis DVT ppx: SCDs Code status: Full code Anticipated discharge place: Pending clinical course Anticipated discharge time: pending clinical course Objective - Vital Signs Vital signs: Vital Signs Temp 99.3 F 10/18/23 08:00 Pulse 103 H 10/18/23 10:00 Resp 26 H 10/18/23 10:00 BP 142/75 10/18/23 06:00 Pulse Ox 99 10/18/23 10:00 FiO2 30 10/18/23 10:00 Intake & Output 10/17/23 10/18/23 10/18/23 18:59 06:59 18:59 Intake Total 2159.631 9335 830 Output Total 1310 1425 670 Balance -216.824 -417 160 Weight 86 kg Intake: IV 263 436 612 Linezolid 600 mg In 300 500 Dextrose/Water 1 300ml. bag @ 150 mls/hr IVPB Q12HR [facility] Rx#:[id number] Piperacillin-Tazobactam 3 200 100 100 .375 gm In Sodium Chloride 0.9% 100 ml @ 25 mls/hr IVPB Q8H [facility] Rx#: [id number] Pressure Bag 63 36 12 Intake, IV Titration 730.176 Amount Linezolid 600 mg In 300 Dextrose/Water 1 300ml. bag @ 150 mls/hr IVPB Q12HR [facility] Rx#:[id number] Norepinephrine 4 mg In 322.111 Sodium Chloride 0.9% 250 ml @ 0.03 MCG/KG/MIN 10. 161 mls/hr IV .Q24H [facility] Rx#:[id number] propofoL 1,000 mg In 108.065 Empty Bag 1 bag @ 15 MCG/ KG/MIN 6.957 mls/hr IV . [id number] [facility] Rx#:[id number] Tube Feeding 100 482 188 Other 90 30 Output: Urine 1310 1425 670 Other: Voiding Method Indwelling Catheter Indwelling Catheter # Bowel Movements 1 ABP, PAP, CO, CI - Last Documented Arterial Blood Pressure 144/67 - Labs CBC & Chem 7: 10/18/23 04:38 10/18/23 04:38 Labs: Abnormal Lab Results - Last 24 Hours (Table) 10/17/23 10/17/23 10/17/23 Range/Units 12:02 17:11 23:25 WBC (3.8-10.6) k/uL RBC (4.30-5.90) m/uL Hgb (13.0-17.5) gm/dL Hct (39.0-53.0) % RDW (11.5-15.5) % Plt Count (150-450) k/uL Neutrophils # (1.3-7.7) k/uL Lymphocytes # (1.0-4.8) k/uL ABG pO2 (83-108) mmHg ABG HCO3 (21-25) mmol/L ABG Total CO2 (19-24) mmol/L ABG O2 Saturation (94-97) % Chloride (98-107) mmol/L BUN (9-20) mg/dL Creatinine (0.66-1.25) mg/dL Glucose (74-99) mg/dL POC Glucose (mg/dL) 205 H 173 H 194 H (70-110) mg/dL Calcium (8.4-10.2) mg/dL 10/18/23 10/18/23 10/18/23 Range/Units 04:37 04:38 04:38 WBC 11.6 H (3.8-10.6) k/uL RBC 4.29 L (4.30-5.90) m/uL Hgb 12.2 L (13.0-17.5) gm/dL Hct 38.7 L (39.0-53.0) % RDW 16.1 H (11.5-15.5) % Plt Count 134 L (150-450) k/uL Neutrophils # 9.8 H (1.3-7.7) k/uL Lymphocytes # 0.6 L (1.0-4.8) k/uL ABG pO2 (83-108) mmHg ABG HCO3 (21-25) mmol/L ABG Total CO2 (19-24) mmol/L ABG O2 Saturation (94-97) % Chloride 113 H (98-107) mmol/L BUN 24 H (9-20) mg/dL Creatinine 0.55 L (0.66-1.25) mg/dL Glucose 178 H (74-99) mg/dL POC Glucose (mg/dL) 175 H (70-110) mg/dL Calcium 8.0 L (8.4-10.2) mg/dL 10/18/23 Range/Units 06:37 WBC (3.8-10.6) k/uL RBC (4.30-5.90) m/uL Hgb (13.0-17.5) gm/dL Hct (39.0-53.0) % RDW (11.5-15.5) % Plt Count (150-450) k/uL Neutrophils # (1.3-7.7) k/uL Lymphocytes # (1.0-4.8) k/uL ABG pO2 176 H (83-108) mmHg ABG HCO3 28 H (21-25) mmol/L ABG Total CO2 29 H (19-24) mmol/L ABG O2 Saturation 97.4 H (94-97) % Chloride (98-107) mmol/L BUN (9-20) mg/dL Creatinine (0.66-1.25) mg/dL Glucose (74-99) mg/dL POC Glucose (mg/dL) (70-110) mg/dL Calcium (8.4-10.2) mg/dL Microbiology - Last 24 Hours (Table) 10/15/23 18:11 Blood Culture - Preliminary Blood 10/16/23 00:05 Gram Stain - Preliminary Sputum Sputum Culture - Preliminary Ana albicans
[2023-10-18 11:49] LABS: Glucose,Whole Blood 198 mg/dL (70-110)
[2023-10-18] MEDS: INSULIN ASPART (NovoLOG) 100 UNIT/ML VIAL SQ SCH (13:01)
--- NOTE | 2023-10-18 13:16 | P.PN ---
Subjective Progress Note Date: 10/18/23 I am following-up with patient and he is about the same. No improvement in his condition. Objective - Vital Signs Vital signs: Vital Signs Temp 99.3 F 10/18/23 08:00 Pulse 101 H 10/18/23 12:28 Resp 26 H 10/18/23 10:00 BP 142/75 10/18/23 06:00 Pulse Ox 99 10/18/23 10:00 FiO2 40 10/18/23 12:22 Intake & Output 10/17/23 10/18/23 10/18/23 18:59 06:59 18:59 Intake Total 7446.800 4898 1010 Output Total 1310 1425 1095 Balance -216.824 -417 -85 Weight 86 kg Intake: IV 263 436 621 Linezolid 600 mg In 300 500 Dextrose/Water 1 300ml. bag @ 150 mls/hr IVPB Q12HR [facility] Rx#:[id number] Piperacillin-Tazobactam 3 200 100 100 .375 gm In Sodium Chloride 0.9% 100 ml @ 25 mls/hr IVPB Q8H [facility] Rx#: [id number] Pressure Bag 63 36 21 Intake, IV Titration 730.176 Amount Linezolid 600 mg In 300 Dextrose/Water 1 300ml. bag @ 150 mls/hr IVPB Q12HR [facility] Rx#:[id number] Norepinephrine 4 mg In 322.111 Sodium Chloride 0.9% 250 ml @ 0.03 MCG/KG/MIN 10. 161 mls/hr IV .Q24H [facility] Rx#:[id number] propofoL 1,000 mg In 108.065 Empty Bag 1 bag @ 15 MCG/ KG/MIN 6.957 mls/hr IV . [id number] [facility] Rx#:[id number] Tube Feeding 100 482 329 Other 90 60 Output: Urine 1310 1425 1095 Other: Voiding Method Indwelling Catheter Indwelling Catheter # Bowel Movements 1 ABP, PAP, CO, CI - Last Documented Arterial Blood Pressure 144/67 - Exam General: Lying in bed and is not in acute distress. Respiratory: Intubated on ventilator. Neuro: Limited. Patient is comatose. Pupils are 1-2mm. Does not appear to have facial weakness. Strength: Decrease tone throughout. Reflex: Is 1+ Has left foot is wrapped in gauze. Some of the workup during this hospital visit consisted of: 2D echo is reported as severe left ventricular systolic dysfunction with ejection fraction of 25 to 30%. Severe hypokinesis involving the apex only the base of the ventricle is improving. Severe pulmonary hypertension. Cardiac cath is reported as normal coronary angiogram. Normal left sided filling pressure. Rule out intracranial bleed. Pulmonary embolism. CT of the head is reported as no acute intracranial process. I personally reviewed the CT and agree there is no acute or subacute process. CTA head and neck: Vasogenic edema in the posterior aspect of the occipital lobe and parietal a lesser extent right frontal concerning for posterior reversible encephalopathy syndrome. Not seen on prior CT. No evidence of dissection of cervical internal carotid artery or vertebral artery or any evidence of sig nificant stenosis at the carotid bifurcation. No evidence of intracranial high- grade stenosis or intracranial aneurysm. I personally reviewed the CT and I do appreciate hypodensity predominantly over the posterior and it is also seen in the frontal and I cannot rule out stroke vs PRES. Routine EEG: Is abnormal. The background slowing is suggestive of severe encephalopathy. Otherwise there is no focal slowing, epileptiform discharges or seizure on the EEG. Repeat CT head on 10/17/2023: Increasing loss of jean baptiste-white matter differentiation in area of vasogenic edema in the posterior occipital lobes and to lesser extent the parietal lobes. Finding could be due to lack of IV contrast. - Labs CBC & Chem 7: 10/18/23 04:38 10/18/23 04:38 Labs: Abnormal Lab Results - Last 24 Hours (Table) 10/17/23 10/17/23 10/18/23 Range/Units 17:11 23:25 04:37 WBC (3.8-10.6) k/uL RBC (4.30-5.90) m/uL Hgb (13.0-17.5) gm/dL Hct (39.0-53.0) % RDW (11.5-15.5) % Plt Count (150-450) k/uL Neutrophils # (1.3-7.7) k/uL Lymphocytes # (1.0-4.8) k/uL ABG pO2 (83-108) mmHg ABG HCO3 (21-25) mmol/L ABG Total CO2 (19-24) mmol/L ABG O2 Saturation (94-97) % Chloride (98-107) mmol/L BUN (9-20) mg/dL Creatinine (0.66-1.25) mg/dL Glucose (74-99) mg/dL POC Glucose (mg/dL) 173 H 194 H 175 H (70-110) mg/dL Calcium (8.4-10.2) mg/dL 10/18/23 10/18/23 10/18/23 Range/Units 04:38 04:38 06:37 WBC 11.6 H (3.8-10.6) k/uL RBC 4.29 L (4.30-5.90) m/uL Hgb 12.2 L (13.0-17.5) gm/dL Hct 38.7 L (39.0-53.0) % RDW 16.1 H (11.5-15.5) % Plt Count 134 L (150-450) k/uL Neutrophils # 9.8 H (1.3-7.7) k/uL Lymphocytes # 0.6 L (1.0-4.8) k/uL ABG pO2 176 H (83-108) mmHg ABG HCO3 28 H (21-25) mmol/L ABG Total CO2 29 H (19-24) mmol/L ABG O2 Saturation 97.4 H (94-97) % Chloride 113 H (98-107) mmol/L BUN 24 H (9-20) mg/dL Creatinine 0.55 L (0.66-1.25) mg/dL Glucose 178 H (74-99) mg/dL POC Glucose (mg/dL) (70-110) mg/dL Calcium 8.0 L (8.4-10.2) mg/dL 10/18/23 Range/Units 11:47 WBC (3.8-10.6) k/uL RBC (4.30-5.90) m/uL Hgb (13.0-17.5) gm/dL Hct (39.0-53.0) % RDW (11.5-15.5) % Plt Count (150-450) k/uL Neutrophils # (1.3-7.7) k/uL Lymphocytes # (1.0-4.8) k/uL ABG pO2 (83-108) mmHg ABG HCO3 (21-25) mmol/L ABG Total CO2 (19-24) mmol/L ABG O2 Saturation (94-97) % Chloride (98-107) mmol/L BUN (9-20) mg/dL Creatinine (0.66-1.25) mg/dL Glucose (74-99) mg/dL POC Glucose (mg/dL) 198 H (70-110) mg/dL Calcium (8.4-10.2) mg/dL Microbiology - Last 24 Hours (Table) 10/17/23 01:05 Blood Culture - Preliminary Blood 10/17/23 01:05 Blood Culture - Preliminary Blood 10/15/23 18:11 Blood Culture - Preliminary Blood 10/16/23 00:05 Gram Stain - Preliminary Sputum Sputum Culture - Preliminary Ana albicans Assessment and Plan Assessment: This is a 72-year-old gentleman who was found unresponsive at home by his . Also he was having agonal breathing. He was complaining of not feeling well and headache recently per the . The results EMS arrived and they intubated him because of his respiratory distress. EKG was reported as possible ST segment myocardial infarction with minimal elevated troponin. He was taken for cardiac cath and was normal. CT of the head was unremarkable for any acute process. 2D echo showed severe left ventricular systolic dysfunction with ejection fraction of 25 to 30%. Severe hypokinesis involving the apex only the base of the ventricle is improving. Severe pulmonary hypertension. Nurse she felt the patient is having body jerks. Episode of unresponsiveness unknown exact etiology. Unsure if patient had hypoxic encephalopathy. CT of the head is unremarkable for any acute process initial presentation but on CTA concern for Posterior Reversible Encephalopathy Syndrome (PRES) but I cannot rule out stroke. Recurrent Episode of body jerks unsure if due myoclonic jerks from hypoxia. Routine EEG is severe encephalopathy but negative for seizure or discharges. His fever with leukocytosis is possible aspiration pneumonia vs ?in addition left toe osteomyelitis. Heart failure with ejection fraction of 25 to 30% Severe pulmonary hypertension History of pulmonary fibrosis History of rheumatoid arthritis History of diabetes mellitus History of osteomyelitis and had left toe amputation Plan: Patient was started on Keppra during this admission and currently on Keppra 1gm bid. Is on Ativan PRN. Cannot obtain MRI since vent is not MRI Compatible. Pain specialist team is consulted for lumbar puncture to rule out meningo enephalitis. I spoke with primary team and we agreed to hold off any antiviral or modification medication since felt fever could be due to aspiration pneumonia and ?left toe infection. I spoke with I.D. team and feel seems more pneumonitis. Currently on Zosyn and Linezolid. I.D. on board. Patient is on aspirin 81 mg daily. Is on Lipitor 80mg qhs. Continue neuro checks. Cardiac monitoring Will defer the rest of the medical management to primary and other specialists. The primary team and myself had a lengthy discussion with patient and her sister about patient's condition and all questions were answered. Will continue to follow. I spent a total of 50 minutes patient's care. Time with Patient: Greater than 30
[2023-10-18] MEDS: levETIRAcetam IV 500 MG/5 ML VIAL IVP SCH (13:36)
[2023-10-18] MEDS: CLOPIDOGREL 75 MG TAB PO SCH (13:36)
--- NOTE | 2023-10-18 15:49 | P.PN ---
Subjective Progress Note Date: 10/17/23 Principal diagnosis: Reason for follow-up is sepsis, recent foot infection and osteomyelitis Patient is a 72-year-old male past medical history significant for pulmonary fibrosis, type 2 diabetes mellitus right big toe diabetic foot infection with underlying osteomyelitis s/p amputation at [facility] and currently has been on Zosyn patient has been brought into the hospital for evaluation of weakness unresponsiveness patient got intubated admitted to ICU ID consulted concerning for sepsis. On today's evaluation that is 10/17/2023, the patient did have a fever of 101.3 F this morning, patient remains to be intubated on the vent FiO2 currently at 40% no significant purulent secretions through the ET has been reported patient is requiring, patient requiring less pressor support since yesterday no diarrhea any other changes reported by the nursing staff. Patient white count is down to 15.6, creatinine 0.74 Objective - Vital Signs Vital signs: Vital Signs Temp 101.3 F H 10/17/23 08:00 Pulse 100 10/17/23 11:42 Resp 12 10/17/23 11:00 BP 101/52 10/17/23 02:00 Pulse Ox 99 10/17/23 11:00 FiO2 40 10/17/23 11:33 Intake & Output 10/16/23 10/17/23 10/17/23 18:59 06:59 18:59 Intake Total 5600.334 3408.291 593.257 Output Total 1305 970 530 Balance 462.291 203.291 63.257 Weight 88.9 kg 86.9 kg Intake: IV 935 125 115 Invasive Line 5 10 Piperacillin-Tazobactam 3 175 125 100 .375 gm In Sodium Chloride 0.9% 100 ml @ 25 mls/hr IVPB Q8H [facility] Rx#: [id number] Pressure Bag 15 Sodium Chloride 0.9% 1, 750 000 ml @ 75 mls/hr IV . [id number] [facility] Rx#:[id number] Intake, IV Titration 802.291 808.291 378.257 Amount Heparin Sod,Pork in 0.45% 314.803 NaCl 25,000 unit In 0.45 % NaCl 1 250ml.bag @ 18 UNITS/KG/HR 13.914 mls/hr IV .[id number] [facility] Rx#: [id number] Linezolid 600 mg In 300 Dextrose/Water 1 300ml. bag @ 150 mls/hr IVPB Q12HR [facility] Rx#:[id number] Norepinephrine 4 mg In 197.434 254.000 226.595 Sodium Chloride 0.9% 250 ml @ 0.03 MCG/KG/MIN 10. 161 mls/hr IV .Q24H [facility] Rx#:[id number] propofoL 1,000 mg In 290.054 254.291 151.662 Empty Bag 1 bag @ 15 MCG/ KG/MIN 6.957 mls/hr IV . [id number] [facility] Rx#:[id number] Tube Feeding 30 150 100 Other 90 Output: Urine 1305 970 530 Other: Voiding Method Indwelling Catheter Indwelling Catheter Indwelling Catheter ABP, PAP, CO, CI - Last Documented Arterial Blood Pressure 108/54 - Exam GENERAL DESCRIPTION: An elderly male intubated on the vent RESPIRATORY SYSTEM: Unlabored breathing , decreased breath sounds at bases HEART: S1 S2 regular rate and rhythm , ABDOMEN: Soft , no tenderness EXTREMITIES: Left foot is currently dressed no drainage on the dressing - Labs CBC & Chem 7: 10/18/23 04:38 10/18/23 04:38 Labs: Abnormal Lab Results - Last 24 Hours (Table) 10/16/23 10/16/23 10/16/23 Range/Units 09:25 13:55 13:55 WBC (3.8-10.6) k/uL RDW (11.5-15.5) % Neutrophils # (1.3-7.7) k/uL APTT 82.6 H (22.0-30.0) sec ABG pO2 (83-108) mmHg ABG Total CO2 (19-24) mmol/L ABG O2 Saturation (94-97) % Chloride (98-107) mmol/L Carbon Dioxide (22-30) mmol/L BUN (9-20) mg/dL Glucose (74-99) mg/dL POC Glucose (mg/dL) (70-110) mg/dL Plasma Lactic Acid Garcia 3.1 H* (0.7-2.0) mmol/L Calcium (8.4-10.2) mg/dL Procalcitonin 0.42 H (0.02-0.09) ng/mL Ur Specific [place] (1.001-1.035) Urine Protein (Negative) Urine Glucose (UA) (Negative) Urine Ketones (Negative) Urine Blood (Negative) Urine Mucus (None) /hpf 10/16/23 10/16/23 10/16/23 Range/Units 16:53 18:25 19:33 WBC (3.8-10.6) k/uL RDW (11.5-15.5) % Neutrophils # (1.3-7.7) k/uL APTT (22.0-30.0) sec ABG pO2 (83-108) mmHg ABG Total CO2 (19-24) mmol/L ABG O2 Saturation (94-97) % Chloride (98-107) mmol/L Carbon Dioxide (22-30) mmol/L BUN (9-20) mg/dL Glucose (74-99) mg/dL POC Glucose (mg/dL) 131 H (70-110) mg/dL Plasma Lactic Acid Garcia 4.0 H* 3.4 H* (0.7-2.0) mmol/L Calcium (8.4-10.2) mg/dL Procalcitonin (0.02-0.09) ng/mL Ur Specific [place] (1.001-1.035) Urine Protein (Negative) Urine Glucose (UA) (Negative) Urine Ketones (Negative) Urine Blood (Negative) Urine Mucus (None) /hpf 10/16/23 10/17/23 10/17/23 Range/Units 23:56 04:46 04:46 WBC 15.6 H (3.8-10.6) k/uL RDW 16.1 H (11.5-15.5) % Neutrophils # 12.7 H (1.3-7.7) k/uL APTT (22.0-30.0) sec ABG pO2 (83-108) mmHg ABG Total CO2 (19-24) mmol/L ABG O2 Saturation (94-97) % Chloride 116 H (98-107) mmol/L Carbon Dioxide 21 L (22-30) mmol/L BUN 28 H (9-20) mg/dL Glucose 145 H (74-99) mg/dL POC Glucose (mg/dL) 196 H (70-110) mg/dL Plasma Lactic Acid Garcia (0.7-2.0) mmol/L Calcium 7.9 L (8.4-10.2) mg/dL Procalcitonin (0.02-0.09) ng/mL Ur Specific [place] (1.001-1.035) Urine Protein (Negative) Urine Glucose (UA) (Negative) Urine Ketones (Negative) Urine Blood (Negative) Urine Mucus (None) /hpf 10/17/23 10/17/23 10/17/23 Range/Units 05:26 05:50 10:30 WBC (3.8-10.6) k/uL RDW (11.5-15.5) % Neutrophils # (1.3-7.7) k/uL APTT (22.0-30.0) sec ABG pO2 195 H (83-108) mmHg ABG Total CO2 25 H (19-24) mmol/L ABG O2 Saturation 99.5 H (94-97) % Chloride (98-107) mmol/L Carbon Dioxide (22-30) mmol/L BUN (9-20) mg/dL Glucose (74-99) mg/dL POC Glucose (mg/dL) 146 H (70-110) mg/dL Plasma Lactic Acid Garcia (0.7-2.0) mmol/L Calcium (8.4-10.2) mg/dL Procalcitonin (0.02-0.09) ng/mL Ur Specific [place] 1.038 H (1.001-1.035) Urine Protein Trace H (Negative) Urine Glucose (UA) 4+ H (Negative) Urine Ketones 2+ H (Negative) Urine Blood Small H (Negative) Urine Mucus Rare H (None) /hpf Microbiology - Last 24 Hours (Table) 10/16/23 00:05 Gram Stain - Preliminary Sputum Sputum Culture - Preliminary Naa albicans 10/15/23 18:11 Blood Culture - Preliminary Blood Assessment and Plan (1) Sepsis Current Visit: Yes Status: Acute Code(s): A41.9 - SEPSIS, UNSPECIFIED ORGANISM SNOMED Code(s): 82882999 (2) Leukocytosis Current Visit: Yes Status: Acute Code(s): D72.829 - ELEVATED WHITE BLOOD CELL COUNT, UNSPECIFIED SNOMED Code(s): 946300017 (3) Pneumonia Current Visit: Yes Status: Acute Code(s): J18.9 - PNEUMONIA, UNSPECIFIED O RGANISM SNOMED Code(s): 428225298 Plan: 1patient presented to hospital with sepsis in this patient who did have a fever elevated white count tachycardia with concern for possible aspiration pneumonitis in this patient who currently was getting treatment for the right big toe diabetic foot infection status post amputation with the patient being on a good gram-negative coverage more likely dealing with gram-positive pathogen 2-sputum culture currently growing Ana which is more likely colonizer 3-patient did have some improvement in the white count, to continue Zosyn and Zyvox while waiting for the culture to finalize Dictation was produced using [employer] dictation software. please excuse any grammatical, word or spelling errors. Time with Patient: Less than 30
--- NOTE | 2023-10-18 15:50 | P.PN ---
Subjective Progress Note Date: 10/18/23 Principal diagnosis: Reason for follow-up is sepsis, recent foot infection and osteomyelitis Patient is a 72-year-old male past medical history significant for pulmonary fibrosis, type 2 diabetes mellitus right big toe diabetic foot infection with underlying osteomyelitis s/p amputation at [facility] and currently has been on Zosyn patient has been brought into the hospital for evaluation of weakness unresponsiveness patient got intubated admitted to ICU ID consulted concerning for sepsis. On today's evaluation that is 10/18/2023, Patient did have resolution of his fever and is afebrile this morning, patient remains to be debated on the vent FiO2 stable at 40% no significant purulent secretions through the ET patient is currently off the pressor support since 2 PM yesterday, patient was noticed to have 2 large loose stool this morning by the nursing staff and stool for significant been sent. Patient white count is down to 11.6, creatinine 0.55 blood cultures so far pending sputum is growing Ana Objective - Vital Signs Vital signs: Vital Signs Temp 99.3 F 10/18/23 08:00 Pulse 101 H 10/18/23 13:00 Resp 26 H 10/18/23 10:00 BP 142/75 10/18/23 06:00 Pulse Ox 99 10/18/23 13:00 FiO2 40 10/18/23 12:22 Intake & Output 10/17/23 10/18/23 10/18/23 18:59 06:59 18:59 Intake Total 8256.770 2091 1010 Output Total 1310 1425 1095 Balance -216.824 -417 -85 Weight 86 kg Intake: IV 263 436 621 Linezolid 600 mg In 300 500 Dextrose/Water 1 300ml. bag @ 150 mls/hr IVPB Q12HR [facility] Rx#:[id number] Piperacillin-Tazobactam 3 200 100 100 .375 gm In Sodium Chloride 0.9% 100 ml @ 25 mls/hr IVPB Q8H [facility] Rx#: [id number] Pressure Bag 63 36 21 Intake, IV Titration 730.176 Amount Linezolid 600 mg In 300 Dextrose/Water 1 300ml. bag @ 150 mls/hr IVPB Q12HR [facility] Rx#:[id number] Norepinephrine 4 mg In 322.111 Sodium Chloride 0.9% 250 ml @ 0.03 MCG/KG/MIN 10. 161 mls/hr IV .Q24H [facility] Rx#:[id number] propofoL 1,000 mg In 108.065 Empty Bag 1 bag @ 15 MCG/ KG/MIN 6.957 mls/hr IV . [id number] [facility] Rx#:[id number] Tube Feeding 100 482 329 Other 90 60 Output: Urine 1310 1425 1095 Other: Voiding Method Indwelling Catheter Indwelling Catheter # Bowel Movements 1 ABP, PAP, CO, CI - Last Documented Arterial Blood Pressure 121/57 - Exam GENERAL DESCRIPTION: An elderly male intubated on the vent RESPIRATORY SYSTEM: Unlabored breathing , decreased breath sounds at bases HEART: S1 S2 regular rate and rhythm , ABDOMEN: Soft , no tenderness EXTREMITIES: Left foot is currently dressed no drainage on the dressing - Labs CBC & Chem 7: 10/18/23 04:38 10/18/23 04:38 Labs: Abnormal Lab Results - Last 24 Hours (Table) 10/17/23 10/17/23 10/18/23 Range/Units 17:11 23:25 04:37 WBC (3.8-10.6) k/uL RBC (4.30-5.90) m/uL Hgb (13.0-17.5) gm/dL Hct (39.0-53.0) % RDW (11.5-15.5) % Plt Count (150-450) k/uL Neutrophils # (1.3-7.7) k/uL Lymphocytes # (1.0-4.8) k/uL ABG pO2 (83-108) mmHg ABG HCO3 (21-25) mmol/L ABG Total CO2 (19-24) mmol/L ABG O2 Saturation (94-97) % Chloride (98-107) mmol/L BUN (9-20) mg/dL Creatinine (0.66-1.25) mg/dL Glucose (74-99) mg/dL POC Glucose (mg/dL) 173 H 194 H 175 H (70-110) mg/dL Calcium (8.4-10.2) mg/dL 10/18/23 10/18/23 10/18/23 Range/Units 04:38 04:38 06:37 WBC 11.6 H (3.8-10.6) k/uL RBC 4.29 L (4.30-5.90) m/uL Hgb 12.2 L (13.0-17.5) gm/dL Hct 38.7 L (39.0-53.0) % RDW 16.1 H (11.5-15.5) % Plt Count 134 L (150-450) k/uL Neutrophils # 9.8 H (1.3-7.7) k/uL Lymphocytes # 0.6 L (1.0-4.8) k/uL ABG pO2 176 H (83-108) mmHg ABG HCO3 28 H (21-25) mmol/L ABG Total CO2 29 H (19-24) mmol/L ABG O2 Saturation 97.4 H (94-97) % Chloride 113 H (98-107) mmol/L BUN 24 H (9-20) mg/dL Creatinine 0.55 L (0.66-1.25) mg/dL Glucose 178 H (74-99) mg/dL POC Glucose (mg/dL) (70-110) mg/dL Calcium 8.0 L (8.4-10.2) mg/dL 10/18/23 Range/Units 11:47 WBC (3.8-10.6) k/uL RBC (4.30-5.90) m/uL Hgb (13.0-17.5) gm/dL Hct (39.0-53.0) % RDW (11.5-15.5) % Plt Count (150-450) k/uL Neutrophils # (1.3-7.7) k/uL Lymphocytes # (1.0-4.8) k/uL ABG pO2 (83-108) mmHg ABG HCO3 (21-25) mmol/L ABG Total CO2 (19-24) mmol/L ABG O2 Saturation (94-97) % Chloride (98-107) mmol/L BUN (9-20) mg/dL Creatinine (0.66-1.25) mg/dL Glucose (74-99) mg/dL POC Glucose (mg/dL) 198 H (70-110) mg/dL Calcium (8.4-10.2) mg/dL Microbiology - Last 24 Hours (Table) 10/17/23 01:05 Blood Culture - Preliminary Blood 10/17/23 01:05 Blood Culture - Preliminary Blood 10/15/23 18:11 Blood Culture - Preliminary Blood 10/16/23 00:05 Gram Stain - Preliminary Sputum Sputum Culture - Preliminary Ana albicans Assessment and Plan (1) Diarrhea Current Visit: Yes Status: Acute Code(s): R19.7 - DIARRHEA, UNSPECIFIED SNOMED Code(s): 36683208 (2) Leukocytosis Current Visit: Yes Status: Acute Code(s): D72.829 - ELEVATED WHITE BLOOD CELL COUNT, UNSPECIFIED SNOMED Code(s): 520295947 (3) Pneumonia Current Visit: Yes Status: Acute Code(s): J18.9 - PNEUMONIA, UNSPECIFIED ORGANISM SNOMED Code(s): 198056791 Plan: 1patient presented to hospital with sepsis in this patient who did have a fever elevated white count tachycardia with concern for possible aspiration pneumonitis in this patient who currently was getting treatment for the right big toe diabetic foot infection status post amputation with the patient being on a good gram-negative coverage more likely dealing with gram-positive pathogen 2-sputum culture currently growing Ana which is more likely colonizer 3-patient did have some diarrhea stool for C. difficile has been requested clinically doubt C. difficile colitis and the patient white count improved results will be followed 3-patient did have resolution of the fever and improvement in the white count, to continue Zosyn and Zyvox at the bedside multiple question concern answered Dictation was produced using [email or web address] dictation software. please excuse any grammatical, word or spelling errors. Time with Patient: Less than 30
[2023-10-18 16:46] LABS: Glucose,Whole Blood 164 mg/dL (70-110)
--- NOTE | 2023-10-18 17:05 | XR ---
EXAMINATION TYPE: XR chest 1V portable DATE OF EXAM: 10/18/2023 Comparison: 10/18/2023 Clinical History: 72-year-old male post et tube exchange and OG placement Findings: ET tube satisfactory. NG tube courses below the diaphragm. Consider slight further advancement as the sidehole is above the GE junction level. Heart borderline in size. Diffuse interstitial opacities an d patchy opacities in the periphery of the mid and lower lung persists. Aeration may be slightly impr dulce at the lower lungs. Impression: 1. Consider slight further advancement of the NG tube as the side hole is at the GE junction level. 2. Diffuse interstitial opacities are similar. Patchy opacities in the periphery of the mid and lower lungs persist but with slightly improving aeration in the lower lungs.
[2023-10-18 18:22] LABS: Glucose,CSF 111 mg/dL (40-70)
[2023-10-18 18:36] LABS: Total Protein,CSF >600 mg/dL (12-60)
--- NOTE | 2023-10-18 18:37 | P.PN ---
Progress Note - Text Progress Note Date: 10/18/23 Date: 10/18/2023 Indication: Confusion, rule out meningoencephalitis Attending : Aba Palomo M.D. The procedure was described to the patient's . All the indications and potential side effects of the procedure were discussed in details (including but not limited to risk of bleeding, infection, nerve injury and post LP headache). Patient's was understanding, agreeable and all questions were answered. The patient was placed in the Left lateral decubitus position in a semi- position with help from the nursing staff. The area was cleansed and draped in usual sterile fashion. 1% lidocaine was used anesthetize the surrounding skin area. A 3.5-inch spinal needle was placed in the L3-L4 interspace. The first two tube were somewhat bloody but was much clearer on third tube. The opening pressure was noted to be 26cm H2O and closing pressure was 26cm H2O. Three tubes were filled with 2 mL of CSF. Total CSF taken out is 8ml. Estimated Blood Loss: 1ml. I was accompanied with the ICU nurse during this procedure.
[2023-10-18 19:53] LABS: Appearance,CSF Hazy; CSF Tube Number 3
[2023-10-18 19:58] LABS: Nucleated Cells, CSF 56 u/L (0-5); Red Blood Cell,CSF 5778 u/L (0-10)
[2023-10-18 20:11] LABS: Red Blood Cell, CSF Fresh 100 %
[2023-10-18 20:26] LABS: Glucose,Whole Blood 137 mg/dL (70-110)
--- NOTE | 2023-10-18 20:36 | PCN ---
PROCEDURE NOTE PROCEDURE: Intubation. PREOPERATIVE DIAGNOSIS: Failed endotracheal tube. POSTOPERATIVE DIAGNOSIS: Failed endotracheal tube. [employer] MANAGER: Dr. Palomo. DESCRIPTION OF PROCEDURE: The patient's procedure took place in room 256. We replaced the #7-1/2 defective endotracheal tube with a 7-1/2 endotracheal tube. We used the endotracheal tube stylet changer. The patient was placed on 100% oxygen while on the ventilator. He was adequately sedated. This stylet was placed through the old endotracheal tube. The balloon on the endotracheal tube was deflated. The old endotracheal tube was removed over the stylet. The new endotracheal tube 7-1/2 was placed over the stylet. There were excellent exhaled tidal volumes. The stylet was removed. The balloon on the new endotracheal tube was inflated. The patient was reconnected to the ventilator. Everything occurred without incident. There were no immediate problems or complications. A chest x-ray will be ordered just to check placement. MMODL / IJN: [id number] /
[2023-10-18] MEDS: ACYCLOVIR SODIUM 850 MG in SODIUM CHLORIDE 0.9% 250 ML IVPB SCH (21:28)
[2023-10-18] MEDS: ACYCLOVIR SODIUM IVPB SCH (22:16)
[2023-10-18] MEDS: SODIUM CHLORIDE 0.9% IVPB SCH (22:16)
[2023-10-18 23:27] LABS: T4, Free (Free Thyroxine) 2.68 ng/dL (0.78-2.19)
[2023-10-19 00:04] LABS: Glucose,Whole Blood 151 mg/dL (70-110)
[2023-10-19 05:10] LABS: Anisocytosis Slight; Basophils % (A) 0 %; Eosinophils # (A) 0.4 k/uL (0-0.7); Eosinophils % (A) 4 %; HCT 36.9 % (39.0-53.0); HGB 11.7 gm/dL (13.0-17.5); Lymphocytes # (A) 0.7 k/uL (1.0-4.8); Lymphocytes % (A) 8 %; MCHC 31.7 g/dL (31.0-37.0); MCV 91.3 fL (80.0-100.0); Mean Platelet Volume 9.2; Monocytes # (A) 0.7 k/uL (0-1.0); Monocytes % (A) 7 %; Neutrophils # (A) 7.2 k/uL (1.3-7.7); Neutrophils % (A) 79 %; Platelet Count 117 k/uL (150-450); RBC 4.05 m/uL (4.30-5.90); RDW 16.1 % (11.5-15.5); WBC 9.1 k/uL (3.8-10.6)
[2023-10-19 05:19] LABS: African American GFR (CKD) >90 (>60 ml/min/1.73 sqM); Blood Urea Nitrogen 25 mg/dL (9-20); Calcium 7.9 mg/dL (8.4-10.2); Carbon Dioxide 27 mmol/L (22-30); Glucose 138 mg/dL (74-99); Non-African American GFR(CKD) >90 (>60 ml/min/1.73 sqM)
[2023-10-19 05:31] LABS: Anion Gap 3 mmol/L; Chloride 112 mmol/L (98-107); Potassium 4.3 mmol/L (3.5-5.1); Sodium 142 mmol/L (137-145)
[2023-10-19 05:33] LABS: Glucose,Whole Blood 147 mg/dL (70-110)
[2023-10-19 06:13] LABS: ABG Base Excess 5.1 mmol/L; ABG HCO3 31 mmol/L (21-25); ABG Oxygen Saturation 96.2 % (94-97); ABG PCO2 48 mmHg (35-45); ABG PH 7.41 (7.35-7.45); ABG PO2 106 mmHg (83-108); ABG TCO2 32 mmol/L (19-24); Allen Test Performed? Yes
--- NOTE | 2023-10-19 08:26 | XR ---
EXAMINATION TYPE: XR chest 1V portable DATE OF EXAM: 10/19/2023 5:24 AM CLINICAL INDICATION:Male, 72 years old with history of vent; [facility] COMPARISON: Chest radiograph from one day prior. TECHNIQUE: XR chest 1V portable Frontal view of the chest. FINDINGS: Lungs/Pleura: Prominent interstitial lung markings are seen scattered throughout the lungs with teodoro ening of the diaphragm and increased lucency of the lung apices. No evidence of focal consolidation, pneumothorax or pleural effusion. Pulmonary vascularity: Pulmonary vascular congestion. Heart/mediastinum: Cardiomediastinal silhouette is enlarged and stable. Musculoskeletal: No acute osseous pathology. Other findings: None Lines/Tubes: Endotracheal tube with distal tip 4.7 cm above the alexys. Nasogastric tube with side-port projecting over the distal esophagus. Right-sided PICC line with distal tip at the cavoatrial junction. IMPRESSION: * Endotracheal nasogastric tubes in satisfactory position. * Right PICC in appropriate position. * cardiomegaly and pulmonary vascular congestion.
--- NOTE | 2023-10-19 10:56 | P.PN ---
Subjective Progress Note Date: 10/19/23 This is a 72-year-old male patient with a history of pulmonary fibrosis maintained on Ofev in the outpatient setting. He was found by his earlier today to be unresponsive and agonal breathing. EMS was called and he was intubated in the field. EKG showed possible ST segment elevation myocardial inf arction. He was brought in through the emergency room and directly to the [facility]. He was found to have normal coronary arteries. He was admitted to the intensive care unit. He is currently intubated on the mechanical ventilator and assist-control mode at a rate of 14, tidal volume 600, FiO2 50% and a PEEP of 5. Arterial blood gases revealed a PaO2 of greater than 420, pCO2 of 35 and a pH of 7.38. CT scan of the brain showed no acute abnormalities. Echocardiogram is pending. Chest x-ray revealed endotracheal tube in a high position. Being repositioned. Nasogastric tube in the esophagus. Cardiomegaly. No pleural effusion, focal consolidation or pneumothorax. White count 8.7. Hemoglobin 17.0. Platelets 215. D-dimer 2.58. Sodium 140. Potassium 3.8. Bicarb 21. BUN 26. Creatinine 0.57. Glucose 165. Troponin 0.047. The patient is seen today October 16, 2023 in follow-up on the regular medical floor. He remains intubated on the mechanical ventilator. Currently on assist- control mode with a rate of 14, tidal volume 600, FiO2 50% and a PEEP of 5. Morning blood gases revealed a PaO2 of 102, pCO2 40 and a pH of 7.24. He is on propofol at 40 mcg/kg/min. Norepinephrine at 0.09 mcg/kg/min. Heparin drip per weight-based protocol. Saline at 75 MLS per hour. He is continued on Zosyn via PICC line that he had been receiving at home following a left great toe amputati on. Chest x-ray shows satisfactory position in the nasogastric and endotracheal tubes. There is cardiomegaly with pulmonary vascular congestion. Echocardiogram revealed severely impaired left ventricular systolic function with ejection fraction of 25 to 30%. Severe pulmonary hypertension. White count 19.2. Hemoglobin 15.7. Platelets 248. Sodium 143. Potassium 4.3. Bicarb 15. Anion gap 16. BUN 32. Creatinine 1.16. Glucose 258. His current temperature is 102.1. He is tachycardic 130s. The plan is for CT angiogram of the chest today to rule out pulmonary embolism. CT angiogram of the head and neck is pending as well. The patient is seen today October 17, 2023 in follow-up on the regular medical floor. He remains intubated on mechanical ventilator. Currently on assist- control mode at a rate of 14, tidal volume 500, FiO2 50% and a PEEP of 5. Peak pressures 37. Plateau pressure 19. Continues with some increased airway resistance. Arterial blood gases revealed a PaO2 of 195, pCO2 41 and a pH of 7.37. He is sedated on propofol at 60 mcg/kg/min. Norepinephrine 90 (micro grams per minute. Normal saline at KVO. He is being nourished with vital AF at 20 MLS per hour with a goal of 47 MLS per hour. He is on antibiotics in the form of Zosyn and Zyvox. CT angiogram ruled out pulmonary embolism. Procalcitonin 0.42. He is continued on bronchodilators. Chest x-ray reveals multifocal airspace opacities. Sputum culture with Ana. Blood cultures pending. White count 15.6. Hemoglobin 13.3. Platelets 181. Sodium 143. Potassium 3.7. Bicarb 21. BUN 28. Creatinine 0.74. Glucose 145. The patient is seen today October 18, 2023 in follow-up on the regular medical floor. He remains intubated on the mechanical ventilator with current settings of assist-control mode at a rate of 14, tidal volume 500, FiO2 40% and a PEEP of 5. Morning blood gases revealed a PaO2 of 176, pCO2 41 and a pH of 7.44. He is being nourished with vital AF at 47 MLS per hour which is goal. Normal saline at KVO. He has been off sedation for approximately 24 hours now. He has very minimal response. He does grimace to painful stimuli. Follow-up CT scan of the brain revealed increasing loss of jean baptiste-white matter differentiation in the area of vasogenic edema the posterior occipital lobes and to a lesser extent the parietal lobes. The plan is for a lumbar puncture today. He remains on Zosyn and Zyvox. White count 11.6. Hemoglobin 12.2. Platelets 134. Sodium 142. Potassium 3.9. Bicarb 25. BUN 24. Creatinine 0.55. Glucose 178. Chest x-ray reveals multifocal airspace opacities. No evidence of pneumothorax or pleural effusion. PICC line in place. Endotracheal and nasogastric tubes in place. Lovenox for DVT prophylaxis, on hold for lumbar puncture. The patient is seen today October 19, 2023 in the intensive care unit. He remains intubated on the mechanical ventilator on assist-control mode of 14, tidal volume 500, FiO2 30% and a PEEP of 5. Morning blood gases revealed a PaO2 of 106, pCO2 of 48 and a pH of 7.4. Yesterday he was pressure support and CPAP 5/5 for approximately 6 hours. He he is being nourished with vital AF at 30 MLS per hour. He remains off sedation. Remains unresponsive. Previous EEG revealed background slowing suggestive of severe encephalopathy. No focal slowing, epileptiform discharge or seizure on EEG. A follow-up EEG is pending from today. He did undergo a lumbar puncture yesterday. RBCs were 5778, total nucleated cells 56, glucose 111, total protein greater than 600. C. difficile screen was negative. Viral screen is negative. Count 9.1. Hemoglobin 11.7. Platelets 117. Sodium 142. Potassium 4.3. Bicarb 27. BUN 25. Creatinine 0.49. Glucose 147. He remains on acyclovir, Zyvox, Zosyn. PICC line in place. Chest x-ray reveals endotracheal and nasogastric tubes in good place. There is evidence of cardiomegaly and pulmonary vascular congestion. Cerebrospinal fluid cultures are pending. Objective - Vital Signs Vital signs: Vital Signs Temp 98.2 F 10/19/23 08:00 Pulse 87 10/19/23 10:00 Resp 17 10/19/23 10:00 BP 126/70 10/19/23 10:00 Pulse Ox 98 10/19/23 10:00 FiO2 30 10/19/23 10:00 Intake & Output 10/18/23 10/19/23 10/19/23 18:59 06:59 18:59 Intake Total 1222 873 682 Output Total 1905 855 300 Balance -683 18 382 Weight 86.7 kg Intake: IV 739 133 622 Invasive Line 8 10 Linezolid 600 mg In 500 500 Dextrose/Water 1 300ml. bag @ 150 mls/hr IVPB Q12HR [facility] Rx#:[id number] Piperacillin-Tazobactam 3 200 100 100 .375 gm In Sodium Chloride 0.9% 100 ml @ 25 mls/hr IVPB Q8H [facility] Rx#: [id number] Pressure Bag 39 33 12 Intake, IV Titration 550 Amount Acyclovir Sodium 850 mg 250 In Sodium Chloride 0.9% 250 ml @ 270 mls/hr IVPB Q8H [facility] Rx#:[id number] Linezolid 600 mg In 300 Dextrose/Water 1 300ml. bag @ 150 mls/hr IVPB Q12HR [facility] Rx#:[id number] Tube Feeding 423 190 60 Other 60 Output: Urine 1905 855 300 Other: Voiding Method Indwelling Catheter Indwelling Catheter Indwelling Catheter # Bowel Movements 1 ABP, PAP, CO, CI - Last Documented Arterial Blood Pressure 112/54 - Exam GENERAL EXAM: Intubated, 72-year-old male patient off sedation x 48 hours. Very minimal response to painful stimuli, grimaces. HEAD: Normocephalic. EYES: Sluggish reaction of pupils, equal size. NOSE: Clear with pink turbinates. THROAT: No erythema or exudates. NECK: No masses, no JVD. CHEST: No chest wall deformity. LUNGS: Equal air entry with bilateral scattered rhonchi, crackles in the posterior bases. CVS: S1 and S2 normal with no audible murmur, regular rhythm. Tachycardic ABDOMEN: No hepatosplenomegaly, normal bowel sounds, no guarding or rigidity. SPINE: No scoliosis or deformity SKIN: No rashes CENTRAL NERVOUS SYSTEM: Unresponsive, tone is normal in all 4 extremities. EXTREMITIES: Amputation of the left great toe, dressing in place, there is no peripheral edema. No clubbing, no cyanosis. Peripheral pulses are intact. - Labs CBC & Chem 7: 10/19/23 04:30 10/19/23 04:30 Labs: Abnormal Lab Results - Last 24 Hours (Table) 10/18/23 10/18/23 10/18/23 Range/Units 04:38 11:47 16:45 RBC (4.30-5.90) m/uL Hgb (13.0-17.5) gm/dL Hct (39.0-53.0) % RDW (11.5-15.5) % Plt Count (150-450) k/uL Lymphocytes # (1.0-4.8) k/uL ESR 61 H (0-20) mm/Hr ABG pCO2 (35-45) mmHg ABG HCO3 (21-25) mmol/L ABG Total CO2 (19-24) mmol/L Chloride (98-107) mmol/L BUN (9-20) mg/dL Creatinine (0.66-1.25) mg/dL Glucose (74-99) mg/dL POC Glucose (mg/dL) 198 H 164 H (70-110) mg/dL Calcium (8.4-10.2) mg/dL Ammonia (<30) umol/L TSH (0.465-4.680) mIU/L Free T4 (0.78-2.19) ng/dL CSF RBC (0-10) u/L CSF Tot Nucleated Cells (0-5) u/L CSF Glucose (40-70) mg/dL CSF Total Protein (12-60) mg/dL 10/18/23 10/18/23 10/18/23 Range/Units 17:20 20:24 21:20 RBC (4.30-5.90) m/uL Hgb (13.0-17.5) gm/dL Hct (39.0-53.0) % RDW (11.5-15.5) % Plt Count (150-450) k/uL Lymphocytes # (1.0-4.8) k/uL ESR (0-20) mm/Hr ABG pCO2 (35-45) mmHg ABG HCO3 (21-25) mmol/L ABG Total CO2 (19-24) mmol/L Chloride (98-107) mmol/L BUN (9-20) mg/dL Creatinine (0.66-1.25) mg/dL Glucose (74-99) mg/dL POC Glucose (mg/dL) 137 H (70-110) mg/dL Calcium (8.4-10.2) mg/dL Ammonia (<30) umol/L TSH 0.037 L (0.465-4.680) mIU/L Free T4 2.68 H (0.78-2.19) ng/dL CSF RBC 5778 H (0-10) u/L CSF Tot Nucleated Cells 56 H* (0-5) u/L CSF Glucose 111 H (40-70) mg/dL CSF Total Protein >600 H (12-60) mg/dL 10/18/23 10/19/23 10/19/23 Range/Units 21:20 00:03 04:30 RBC 4.05 L (4.30-5.90) m/uL Hgb 11.7 L (13.0-17.5) gm/dL Hct 36.9 L (39.0-53.0) % RDW 16.1 H (11.5-15.5) % Plt Count 117 L (150-450) k/uL Lymphocytes # 0.7 L (1.0-4.8) k/uL ESR (0-20) mm/Hr ABG pCO2 (35-45) mmHg ABG HCO3 (21-25) mmol/L ABG Total CO2 (19-24) mmol/L Chloride (98-107) mmol/L BUN (9-20) mg/dL Creatinine (0.66-1.25) mg/dL Glucose (74-99) mg/dL POC Glucose (mg/dL) 151 H (70-110) mg/dL Calcium (8.4-10.2) mg/dL Ammonia 32 H (<30) umol/L TSH (0.465-4.680) mIU/L Free T4 (0.78-2.19) ng/dL CSF RBC (0-10) u/L CSF Tot Nucleated Cells (0-5) u/L CSF Glucose (40-70) mg/dL CSF Total Protein (12-60) mg/dL 10/19/23 10/19/23 10/19/23 Range/Units 04:30 05:32 06:10 RBC (4.30-5.90) m/uL Hgb (13.0-17.5) gm/dL Hct (39.0-53.0) % RDW (11.5-15.5) % Plt Count (150-450) k/uL Lymphocytes # (1.0-4.8) k/uL ESR (0-20) mm/Hr ABG pCO2 48 H (35-45) mmHg ABG HCO3 31 H (21-25) mmol/L ABG Total CO2 32 H (19-24) mmol/L Chloride 112 H (98-107) mmol/L BUN 25 H (9-20) mg/dL Creatinine 0.49 L (0.66-1.25) mg/dL Glucose 138 H (74-99) mg/dL POC Glucose (mg/dL) 147 H (70-110) mg/dL Calcium 7.9 L (8.4-10.2) mg/dL Ammonia (<30) umol/L TSH (0.465-4.680) mIU/L Free T4 (0.78-2.19) ng/dL CSF RBC (0-10) u/L CSF Tot Nucleated Cells (0-5) u/L CSF Glucose (40-70) mg/dL CSF Total Protein (12-60) mg/dL Microbiology - Last 24 Hours (Table) 10/16/23 00:05 Gram Stain - Final Sputum Sputum Culture - Final Ana albicans 10/15/23 18:11 Blood Culture - Preliminary Blood 10/18/23 17:20 CSF Gram Stain - Preliminary Cerebral Spinal Fluid 10/17/23 01:05 Blood Culture - Preliminary Blood 10/17/23 01:05 Blood Culture - Preliminary Blood Assessment and Plan Assessment: Unresponsiveness with agonal breathing of unclear etiology, cardiac catheterization revealed normal coronary arteries. Pulmonary embolism ruled out. Heparin drip discontinued. Off sedation and remains unresponsive. Lumbar puncture done 10/18/2023. Cultures pending. Hypotension requiring pressor support, recovered Severely impaired left ventricular systolic function with ejection fraction 20 to 25% Severe pulmonary hypertension Febrile illness, suspect underlying pneumonia. Procalcitonin 0.42. Remains on Zosyn and Zyvox Leukocytosis Tachycardia History of pulmonary fibrosis on Ofev in the outpatient setting Recent amputation of the left great toe, was on Zosyn via PICC line in the outpatient setting Plan: The patient was seen and evaluated Chest x-ray, ABGs, labs and medications reviewed Continue Zosyn, Zyvox, acyclovir Lumbar puncture performed yesterday Cultures are pending Plan is for repeat EEG today. Repeat CT scan of the brain Patient has been minimally responsive and off sedation x 48 hours Prognosis is guarded We will continue to follow I have personally seen and examined the patient, performed the documentation and the assessment and plan as written. Number of minutes spent on the visit: 15.
--- NOTE | 2023-10-19 11:09 | P.PN ---
Subjective Progress Note Date: 10/19/23 Hospital Course: 72-year-old male with medical history of idiopathic pulmonary fibrosis on Ofev, diabetes type 2, osteomyelitis status post recent right toe amputation on Zosyn, hypertension, hyperlipidemia presented for evaluation of altered mental status. According to ER documentation, the patient demonstrated evidence of agonal breathing and therefore was bagged for ventilation on the way to the emergency room. Upon arrival, patient was afebrile, 168/114, heart rate 131, 99% with [id number]. CBC was unremarkable. Basic metabolic panel showed chloride of 109, CO2 of 21, BUN of 26, creatinine 1.57. Liver function test were unremarkable. Troponins 0.047. Coags were unremarkable. D-dimer was elevated 2.58. EKG demonstrated atrial fibrillation with RVR as well as ST elevation in the lateral leads with reciprocal changes in the inferior leads. Based on these findings, cardiology was notified and a code STEMI was called, patient was taken emergently to the [facility] but was found to have normal coronary arteries. Subsequently was transferred to the intensive care unit, intubated. He underwent brain CT to rule out hemorrhagic stroke which was negative, pulmonology was consulted and neurology was consulted. Patient remains intubated and mechanically ventilated. Also hypotensive, requiring vasopressors as well as broad-spectrum antibiotics. Echocardiogram showed LVEF 25 to 30% with severe hypokinesis involving the apex, severe pulmonary hypertension. CTA chest did not show any acute PE. Heparin drip discontinued. CTA head showed vasogenic edema in the posterior aspects of occipital lobes and parietal of the lesser extent right frontal lobe concerning for PRES. patient continued on IV antibiotics. Off of sedation, minimally responsive. Off of vasopressors. LP completed. Patient also started on acyclovir. Subjective: Patient seen and examined at bedside. No acute events overnight. Remains intubated, mechanically ventilated. Off sedation and vasopressors. Receiving Dilaudid. Minimally responsive. Pertinent positives and negatives as discussed above, a complete review of systems was performed and all other systems are negative. Vitals Signs Reviewed. General: Intubated and sedated Derm: Warm, dry, left foot covered in dressing Head: Atraumatic, normocephalic, symmetric Eyes: Pupils equal and reactive Mouth: No lip lesion, mucus membranes moist Cardiovascular: S1S2 irregular, no murmur Lungs: Bilateral rhonchi, intubated mechanically ventilated Abdominal: Soft, nondistended Ext: No gross muscle atrophy, no edema, no contractures Neuro: Does not respond to painful stimuli Psych: Unable to assess Data Reviewed Today: Pertinent Labs: WBC 9.1, hemoglobin 11.7, platelet 117, BUN 25, creatinine 0.49, magnesium 2, blood sugars range between 1 38-1 51, blood cultures and CSF cultures negative growth to date, CSF showed total nucleated cells 56, greater than 600 protein, 111 glucose, TSH 0.037, free T42.68 Imaging: Chest x-ray shows multifocal opacities, independently interpreted Assessment and Plan: Patient is critically ill, needs close monitoring. 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%, possibly [place] ca rdiomyopathy Acute hypoxic respiratory failure Suspected aspiration pneumonia History of pulmonary fibrosis Recent left great toe amputation secondary to osteomyelitis Metabolic acidosis, lactic acidosis, resolved Acute kidney injury, likely ATN, resolved -Discussed management with neurology, acyclovir IV added, LP was slightly traumatic, [employer] infection not completely ruled out, repeat CT brain and EEG pending -Pulmonology note reviewed, continue current therapy -ID following, patient on linezolid 600 mg IV every 12 hours, Zosyn 3.375 g IV every 8 hours Elevated troponin Paroxysmal atrial fibrillation with RVR, new onset -Continue aspirin 81 mg, atorvastatin 80 mg -Cardiac cath report showed normal coronary angiogram, normal left-sided filling pressures Type 2 diabetes -Hold oral antidiabetics -Continue sliding scale insulin every 6 hours, monitor for hypoglycemia History of hypertension-hold antihypertensives Dyslipidemia-continue atorvastatin Rheumatoid arthritis DVT ppx: SCDs Code status: Full code Anticipated discharge place: Pending clinical course Anticipated discharge time: pending clinical course Objective - Vital Signs Vital signs: Vital Signs Temp 98.2 F 10/19/23 08:00 Pulse 87 10/19/23 10:00 Resp 17 10/19/23 10:00 BP 126/70 10/19/23 10:00 Pulse Ox 98 10/19/23 10:00 FiO2 30 10/19/23 10:00 Intake & Output 10/18/23 10/19/23 10/19/23 18:59 06:59 18:59 Intake Total 9591 373 682 Output Total 6677 855 300 Balance -683 18 382 Weight 86.7 kg Intake: IV 739 133 622 Invasive Line 8 10 Linezolid 600 mg In 500 500 Dextrose/Water 1 300ml. bag @ 150 mls/hr IVPB Q12HR [facility] Rx#:[id number] Piperacillin-Tazobactam 3 200 100 100 .375 gm In Sodium Chloride 0.9% 100 ml @ 25 mls/hr IVPB Q8H [facility] Rx#: [id number] Pressure Bag 39 33 12 Intake, IV Titration 550 Amount Acyclovir Sodium 850 mg 250 In Sodium Chloride 0.9% 250 ml @ 270 mls/hr IVPB Q8H [facility] Rx#:[id number] Linezolid 600 mg In 300 Dextrose/Water 1 300ml. bag @ 150 mls/hr IVPB Q12HR [facility] Rx#:[id number] Tube Feeding 423 190 60 Other 60 Output: Urine 1905 855 300 Other: Voiding Method Indwelling Catheter Indwelling Catheter Indwelling Catheter # Bowel Movements 1 ABP, PAP, CO, CI - Last Documented Arterial Blood Pressure 112/54 - Labs CBC & Chem 7: 10/19/23 04:30 10/19/23 04:30 Labs: Abnormal Lab Results - Last 24 Hours (Table) 10/18/23 10/18/23 10/18/23 Range/Units 04:38 11:47 16:45 RBC (4.30-5.90) m/uL Hgb (13.0-17.5) gm/dL Hct (39.0-53.0) % RDW (11.5-15.5) % Plt Count (150-450) k/uL Lymphocytes # (1.0-4.8) k/uL ESR 61 H (0-20) mm/Hr ABG pCO2 (35-45) mmHg ABG HCO3 (21-25) mmol/L ABG Total CO2 (19-24) mmol/L Chloride (98-107) mmol/L BUN (9-20) mg/dL Creatinine (0.66-1.25) mg/dL Glucose (74-99) mg/dL POC Glucose (mg/dL) 198 H 164 H (70-110) mg/dL Calcium (8.4-10.2) mg/dL Ammonia (<30) umol/L TSH (0.465-4.680) mIU/L Free T4 (0.78-2.19) ng/dL CSF RBC (0-10) u/L CSF Tot Nucleated Cells (0-5) u/L CSF Glucose (40-70) mg/dL CSF Total Protein (12-60) mg/dL 10/18/23 10/18/23 10/18/23 Range/Units 17:20 20:24 21:20 RBC (4.30-5.90) m/uL Hgb (13.0-17.5) gm/dL Hct (39.0-53.0) % RDW (11.5-15.5) % Plt Count (150-450) k/uL Lymphocytes # (1.0-4.8) k/uL ESR (0-20) mm/Hr ABG pCO2 (35-45) mmHg ABG HCO3 (21-25) mmol/L ABG Total CO2 (19-24) mmol/L Chloride (98-107) mmol/L BUN (9-20) mg/dL Creatinine (0.66-1.25) mg/dL Glucose (74-99) mg/dL POC Glucose (mg/dL) 137 H (70-110) mg/dL Calcium (8.4-10.2) mg/dL Ammonia (<30) umol/L TSH 0.037 L (0.465-4.680) mIU/L Free T4 2.68 H (0.78-2.19) ng/dL CSF RBC 5778 H (0-10) u/L CSF Tot Nucleated Cells 56 H* (0-5) u/L CSF Glucose 111 H (40-70) mg/dL CSF Total Protein >600 H (12-60) mg/dL 10/18/23 10/19/23 10/19/23 Range/Units 21:20 00:03 04:30 RBC 4.05 L (4.30-5.90) m/uL Hgb 11.7 L (13.0-17.5) gm/dL Hct 36.9 L (39.0-53.0) % RDW 16.1 H (11.5-15.5) % Plt Count 117 L (150-450) k/uL Lymphocytes # 0.7 L (1.0-4.8) k/uL ESR (0-20) mm/Hr ABG pCO2 (35-45) mmHg ABG HCO3 (21-25) mmol/L ABG Total CO2 (19-24) mmol/L Chloride (98-107) mmol/L BUN (9-20) mg/dL Creatinine (0.66-1.25) mg/dL Glucose (74-99) mg/dL POC Glucose (mg/dL) 151 H (70-110) mg/dL Calcium (8.4-10.2) mg/dL Ammonia 32 H (<30) umol/L TSH (0.465-4.680) mIU/L Free T4 (0.78-2.19) ng/dL CSF RBC (0-10) u/L CSF Tot Nucleated Cells (0-5) u/L CSF Glucose (40-70) mg/dL CSF Total Protein (12-60) mg/dL 10/19/23 10/19/23 10/19/23 Range/Units 04:30 05:32 06:10 RBC (4.30-5.90) m/uL Hgb (13.0-17.5) gm/dL Hct (39.0-53.0) % RDW (11.5-15.5) % Plt Count (150-450) k/uL Lymphocytes # (1.0-4.8) k/uL ESR (0-20) mm/Hr ABG pCO2 48 H (35-45) mmHg ABG HCO3 31 H (21-25) mmol/L ABG Total CO2 32 H (19-24) mmol/L Chloride 112 H (98-107) mmol/L BUN 25 H (9-20) mg/dL Creatinine 0.49 L (0.66-1.25) mg/dL Glucose 138 H (74-99) mg/dL POC Glucose (mg/dL) 147 H (70-110) mg/dL Calcium 7.9 L (8.4-10.2) mg/dL Ammonia (<30) umol/L TSH (0.465-4.680) mIU/L Free T4 (0.78-2.19) ng/dL CSF RBC (0-10) u/L CSF Tot Nucleated Cells (0-5) u/L CSF Glucose (40-70) mg/dL CSF Total Protein (12-60) mg/dL Microbiology - Last 24 Hours (Table) 10/16/23 00:05 Gram Stain - Final Sputum Sputum Culture - Final Ana albicans 10/15/23 18:11 Blood Culture - Preliminary Blood 10/18/23 17:20 CSF Gram Stain - Preliminary Cerebral Spinal Fluid 10/17/23 01:05 Blood Culture - Preliminary Blood 10/17/23 01:05 Blood Culture - Preliminary Blood
[2023-10-19] MEDS: ENOXAPARIN 40 MG/0.4 ML SYRINGE SQ SCH (11:50)
--- NOTE | 2023-10-19 11:57 | P.PN ---
Subjective Progress Note Date: 10/19/23 Yesterday I performed Lumbar puncture and it was traumatic tap. CSF is red, hazy, rbc 5779, fresh rbc 100, nucleated cells are 56, glucose 111 and protein >600. CSF gram stain: No organism seen. As result I started the patient on Acylovir yesterday. He continues to be afebrile and his wbc has improved. Patient continue to be about the same and no improvement in condition. He is getting Dilaudid schedule per the nurse to the respiratory in synchrony per nurse. Objective - Vital Signs Vital signs: Vital Signs Temp 98.2 F 10/19/23 08:00 Pulse 86 10/19/23 11:32 Resp 17 10/19/23 10:00 BP 126/70 10/19/23 10:00 Pulse Ox 98 10/19/23 10:00 FiO2 30 10/19/23 11:33 Intake & Output 10/18/23 10/19/23 10/19/23 18:59 06:59 18:59 Intake Total 1222 873 682 Output Total 1905 855 300 Balance -683 18 382 Weight 86.7 kg Intake: IV 739 133 622 Invasive Line 8 10 Linezolid 600 mg In 500 500 Dextrose/Water 1 300ml. bag @ 150 mls/hr IVPB Q12HR [facility] Rx#:[id number] Piperacillin-Tazobactam 3 200 100 100 .375 gm In Sodium Chloride 0.9% 100 ml @ 25 mls/hr IVPB Q8H [facility] Rx#: [id number] Pressure Bag 39 33 12 Intake, IV Titration 550 Amount Acyclovir Sodium 850 mg 250 In Sodium Chloride 0.9% 250 ml @ 270 mls/hr IVPB Q8H [facility] Rx#:[id number] Linezolid 600 mg In 300 Dextrose/Water 1 300ml. bag @ 150 mls/hr IVPB Q12HR [facility] Rx#:[id number] Tube Feeding 423 190 60 Other 60 Output: Urine 1905 855 300 Other: Voiding Method Indwelling Catheter Indwelling Catheter Indwelling Catheter # Bowel Movements 1 ABP, PAP, CO, CI - Last Documented Arterial Blood Pressure 112/54 - Exam General: Lying in bed and is not in acute distress. Respiratory: Intubated on ventilator. Neuro: Limited. Is getting Daulid Patient is comatose. Pupils are 1-2mm. Does not appear to have facial weakness. Is on spontaneous breathing. Has intact gag/cough reflex Strength: With painful stimuli not withdrawaling. Decrease tone throughout. Reflex: Is 1+ Has left foot is wrapped in gauze. Some of the workup during this hospital visit consisted of: TSH: 0.037 and Free T4: 2.68 Ammonia 32 ESR: 61 B12: 704 2D echo is reported as severe left ventricular systolic dysfunction with ejection fraction of 25 to 30%. Severe hypokinesis involving the apex only the base of the ventricle is improving. Severe pulmonary hypertension. Cardiac cath is reported as normal coronary angiogram. Normal left sided filling pressure. Rule out intracranial bleed. Influenza A/B, RSV and SARS-CoV-2 PCR are not detected. CT of the head is reported as no acute intracranial process. I personally reviewed the CT and agree there is no acute or subacute process. CTA head and neck: Vasogenic edema in the posterior aspect of the occipital lobe and parietal a lesser extent right frontal concerning for posterior reversible encephalopathy syndrome. Not seen on prior CT. No evidence of dissection of cervical internal carotid artery or vertebral artery or any evidence of significant stenosis at the carotid bifurcation. No evidence of intracranial high-grade stenosis or intracranial aneurysm. I personally reviewed the CT and I do appreciate hypodensity predominantly over the posterior and it is also seen in the frontal and I cannot rule out stroke vs PRES. Routine EEG: Is abnormal. The background slowing is suggestive of severe encephalopathy. Otherwise there is no focal slowing, epileptiform discharges or seizure on the EEG. Repeat CT head on 10/17/2023: Increasing loss of jean baptiste-white matter differentiation in area of vasogenic edema in the posterior occipital lobes and to lesser extent the parietal lobes. Finding could be due to lack of IV contrast. Yesterday I performed Lumbar puncture and it was traumatic tap. CSF is red, hazy, rbc 5779, fresh rbc 100, nucleated cells are 56, glucose 111 and protein >600. CSF gram stain: No organism seen. - Labs CBC & Chem 7: 10/19/23 04:30 10/19/23 04:30 Labs: Abnormal Lab Results - Last 24 Hours (Table) 10/18/23 10/18/23 10/18/23 Range/Units 04:38 11:47 16:45 RBC (4.30-5.90) m/uL Hgb (13.0-17.5) gm/dL Hct (39.0-53.0) % RDW (11.5-15.5) % Plt Count (150-450) k/uL Lymphocytes # (1.0-4.8) k/uL ESR 61 H (0-20) mm/Hr ABG pCO2 (35-45) mmHg ABG HCO3 (21-25) mmol/L ABG Total CO2 (19-24) mmol/L Chloride (98-107) mmol/L BUN (9-20) mg/dL Creatinine (0.66-1.25) mg/dL Glucose (74-99) mg/dL POC Glucose (mg/dL) 198 H 164 H (70-110) mg/dL Calcium (8.4-10.2) mg/dL Ammonia (<30) umol/L TSH (0.465-4.680) mIU/L Free T4 (0.78-2.19) ng/dL CSF RBC (0-10) u/L CSF Tot Nucleated Cells (0-5) u/L CSF Glucose (40-70) mg/dL CSF Total Protein (12-60) mg/dL 10/18/23 10/18/23 10/18/23 Range/Units 17:20 20:24 21:20 RBC (4.30-5.90) m/uL Hgb (13.0-17.5) gm/dL Hct (39.0-53.0) % RDW (11.5-15.5) % Plt Count (150-450) k/uL Lymphocytes # (1.0-4.8) k/uL ESR (0-20) mm/Hr ABG pCO2 (35-45) mmHg ABG HCO3 (21-25) mmol/L ABG Total CO2 (19-24) mmol/L Chloride (98-107) mmol/L BUN (9-20) mg/dL Creatinine (0.66-1.25) mg/dL Glucose (74-99) mg/dL POC Glucose (mg/dL) 137 H (70-110) mg/dL Calcium (8.4-10.2) mg/dL Ammonia (<30) umol/L TSH 0.037 L (0.465-4.680) mIU/L Free T4 2.68 H (0.78-2.19) ng/dL CSF RBC 5778 H (0-10) u/L CSF Tot Nucleated Cells 56 H* (0-5) u/L CSF Glucose 111 H (40-70) mg/dL CSF Total Protein >600 H (12-60) mg/dL 10/18/23 10/19/23 10/19/23 Range/Units 21:20 00:03 04:30 RBC 4.05 L (4.30-5.90) m/uL Hgb 11.7 L (13.0-17.5) gm/dL Hct 36.9 L (39.0-53.0) % RDW 16.1 H (11.5-15.5) % Plt Count 117 L (150-450) k/uL Lymphocytes # 0.7 L (1.0-4.8) k/uL ESR (0-20) mm/Hr ABG pCO2 (35-45) mmHg ABG HCO3 (21-25) mmol/L ABG Total CO2 (19-24) mmol/L Chloride (98-107) mmol/L BUN (9-20) mg/dL Creatinine (0.66-1.25) mg/dL Glucose (74-99) mg/dL POC Glucose (mg/dL) 151 H (70-110) mg/dL Calcium (8.4-10.2) mg/dL Ammonia 32 H (<30) umol/L TSH (0.465-4.680) mIU/L Free T4 (0.78-2.19) ng/dL CSF RBC (0-10) u/L CSF Tot Nucleated Cells (0-5) u/L CSF Glucose (40-70) mg/dL CSF Total Protein (12-60) mg/dL 10/19/23 10/19/23 10/19/23 Range/Units 04:30 05:32 06:10 RBC (4.30-5.90) m/uL Hgb (13.0-17.5) gm/dL Hct (39.0-53.0) % RDW (11.5-15.5) % Plt Count (150-450) k/uL Lymphocytes # (1.0-4.8) k/uL ESR (0-20) mm/Hr ABG pCO2 48 H (35-45) mmHg ABG HCO3 31 H (21-25) mmol/L ABG Total CO2 32 H (19-24) mmol/L Chloride 112 H (98-107) mmol/L BUN 25 H (9-20) mg/dL Creatinine 0.49 L (0.66-1.25) mg/dL Glucose 138 H (74-99) mg/dL POC Glucose (mg/dL) 147 H (70-110) mg/dL Calcium 7.9 L (8.4-10.2) mg/dL Ammonia (<30) umol/L TSH (0.465-4.680) mIU/L Free T4 (0.78-2.19) ng/dL CSF RBC (0-10) u/L CSF Tot Nucleated Cells (0-5) u/L CSF Glucose (40-70) mg/dL CSF Total Protein (12-60) mg/dL Microbiology - Last 24 Hours (Table) 10/16/23 00:05 Gram Stain - Final Sputum Sputum Culture - Final Ana albicans 10/15/23 18:11 Blood Culture - Preliminary Blood 10/18/23 17:20 CSF Gram Stain - Preliminary Cerebral Spinal Fluid 10/17/23 01:05 Blood Culture - Preliminary Blood 10/17/23 01:05 Blood Culture - Preliminary Blood Assessment and Plan Assessment: This is a 72-year-old gentleman who was found unresponsive at home by his . Also he was having agonal breathing. He was complaining of not feeling well and headache recently per the . The results EMS arrived and they intubated him because of his respiratory distress. EKG was reported as possible ST segment myocardial infarction with minimal elevated troponin. He was taken for cardiac cath and was normal. CT of the head was unremarkable for any acute process. 2D echo showed severe left ventricular systolic dysfunction with ejection fraction of 25 to 30%. Severe hypokinesis involving the apex only the base of the ventricle is improving. Severe pulmonary hypertension. Nurse she felt the patient is having body jerks. Episode of unresponsiveness unknown exact etiology. Unsure if patient had hypoxic encephalopathy. CT of the head is unremarkable for any acute process initial presentation but on CTA concern for Posterior Reversible Encephalopathy Syndrome (PRES) but I cannot rule out stroke. The patient presented afebrile and normal wbc then during this hospital a day later he become febrile with elevated wbc and initially it was felt he has aspiration pneumonitis. CSF study was traumatic but had elevated nucleated cells of 56 (corrected would be 46 nucleated cells) with elevated protein >600. Unsure if elevated nucleated cell and protein is due to viral encephalitis vs result of distrubtion of brain blood barrier from brain edema. Recurrent Episode of body jerks unsure if due myoclonic jerks from hypoxia. Routine EEG is severe encephalopathy but negative for seizure or discharges---resolved. Heart failure with ejection fraction of 25 to 30% Severe pulmonary hypertension History of pulmonary fibrosis History of rheumatoid arthritis History of diabetes mellitus History of osteomyelitis and had left toe amputation Plan: Patient was started on Keppra during this admission and currently on Keppra 1gm bid. Is on Ativan PRN. Cannot obtain MRI since vent is not MRI Compatible. Pending repeat CT head and will obtain CT cervical spine w/ and w/o. Will obtain repeat EEG. Continue Acylovir 10mg/kg every 8 hours. I.D. is on board. Patient is on Zosyn and Linezolid. Pending CSF viral, HSV1/2, Cryptococcal CSF. Patient is on aspirin 81 mg daily. Is on Lipitor 80mg qhs. Continue neuro checks. Cardiac monitoring Please avoid any sedation. He is getting Dilaudid scheduled for synchrony of respiration per nurse and I notified her if possible to avoid for better neurological examination Will defer the rest of the medical management to primary and other specialists. Patient condition is critical and overall prognosis appears poor. The plan is discussed with primary team and his nurse. Dr. Wahl will resume neurology service tomorrow A.M. Time with Patient: Less than 30
[2023-10-19 12:00] LABS: Glucose,Whole Blood 165 mg/dL (70-110)
--- NOTE | 2023-10-19 12:21 | CT ---
EXAMINATION TYPE: CT brain wo/w con CT DLP: 2156 mGycm, Automated exposure control for dose reduction was used. DATE OF EXAM: 10/19/2023 11:35 AM COMPARISON: . CLINICAL INDICATION:Male, 72 years old with history of confusion; PHH, confusion, weakness, pt vented TECHNIQUE: Axial CT images of the brain were obtained with coronal and sagittal reformats created and reviewed. Contrast used:100 mL of Isovue 300 with IV Contrast, Oral contrast used: none. FINDINGS: Extra-axial spaces: No abnormal extra-axial fluid collections. Ventricular system: Within normal limits Cerebral parenchyma: No acute intraparenchymal hemorrhage or mass effect. The jean baptiste-white junction di fferentiation has been lost. Diffuse abnormal hypodensity is seen throughout most of the brain sugges ting severe progressive anoxic injury. . No abnormal enhancement is seen after the administration of intravenous contrast. Cerebellum: Unremarkable. Mass effect: No evidence of midline shift. Intracranial vasculature: unremarkable Soft tissues: Normal. Calvarium/osseous structures: No depressed skull fracture. Paranasal sinuses and mastoid air cells: Clear. Visualized orbits: Orbital contents are intact. IMPRESSION: Diffuse edema suggesting diffuse anoxic injury which correlates with the patient's prehospitalization history.
--- NOTE | 2023-10-19 15:03 | P.PN ---
Subjective Progress Note Date: 10/19/23 Principal diagnosis: Reason for follow-up is sepsis, recent foot infection and osteomyelitis Patient is a 72-year-old male past medical history significant for pulmonary fibrosis, type 2 diabetes mellitus right big toe diabetic foot infection with underlying osteomyelitis s/p amputation at [facility] and currently has been on Zosyn patient has been brought into the hospital for evaluation of weakness unresponsiveness patient got intubated admitted to ICU ID consulted concerning for sepsis. On today's evaluation that is 10/19/2023, patient has been afebrile, patient is on the vent FiO2 is currently stable at 30% no significant purulent secretions from the ET patient is hemodynamic stable not requiring any pressor support no other changes reported by the at the bedside. Patient white count normalized to 9.1 this morning, creatinine 0.49 blood cul ture has been negative so far patient did have LP yesterday which was traumatic with 5778 RBC, only 56 WBC glucose was 05/24/1938 was more than 600 Objective - Vital Signs Vital signs: Vital Signs Temp 98.8 F 10/19/23 11:53 Pulse 87 10/19/23 11:44 Resp 17 10/19/23 10:00 BP 126/70 10/19/23 10:00 Pulse Ox 98 10/19/23 10:00 FiO2 30 10/19/23 11:33 Intake & Output 10/18/23 10/19/23 10/19/23 18:59 06:59 18:59 Intake Total 1222 873 682 Output Total 1905 855 300 Balance -683 18 382 Weight 86.7 kg 86.7 kg Intake: IV 739 133 622 Invasive Line 8 10 Linezolid 600 mg In 500 500 Dextrose/Water 1 300ml. bag @ 150 mls/hr IVPB Q12HR [facility] Rx#:[id number] Piperacillin-Tazobactam 3 200 100 100 .375 gm In Sodium Chloride 0.9% 100 ml @ 25 mls/hr IVPB Q8H [facility] Rx#: [id number] Pressure Bag 39 33 12 Intake, IV Titration 550 Amount Acyclovir Sodium 850 mg 250 In Sodium Chloride 0.9% 250 ml @ 270 mls/hr IVPB Q8H [facility] Rx#:[id number] Linezolid 600 mg In 300 Dextrose/Water 1 300ml. bag @ 150 mls/hr IVPB Q12HR COUNTS INCLUDE 234 BEDS AT THE [facility] Rx#:[id number] Tube Feeding 423 190 60 Other 60 Output: Urine 1905 855 300 Other: Voiding Method Indwelling Catheter Indwelling Catheter Indwelling Catheter # Bowel Movements 1 ABP, PAP, CO, CI - Last Documented Arterial Blood Pressure 112/54 - Exam GENERAL DESCRIPTION: An elderly male intubated on the vent RESPIRATORY SYSTEM: Unlabored breathing , decreased breath sounds at bases HEART: S1 S2 regular rate and rhythm , ABDOMEN: Soft , no tenderness EXTREMITIES: Left foot is currently dressed no drainage on the dressing - Labs CBC & Chem 7: 10/19/23 04:30 10/19/23 04:30 Labs: Abnormal Lab Results - Last 24 Hours (Table) 10/18/23 10/18/23 10/18/23 Range/Units 04:38 16:45 17:20 RBC (4.30-5.90) m/uL Hgb (13.0-17.5) gm/dL Hct (39.0-53.0) % RDW (11.5-15.5) % Plt Count (150-450) k/uL Lymphocytes # (1.0-4.8) k/uL ESR 61 H (0-20) mm/Hr ABG pCO2 (35-45) mmHg ABG HCO3 (21-25) mmol/L ABG Total CO2 (19-24) mmol/L Chloride (98-107) mmol/L BUN (9-20) mg/dL Creatinine (0.66-1.25) mg/dL Glucose (74-99) mg/dL POC Glucose (mg/dL) 164 H (70-110) mg/dL Calcium (8.4-10.2) mg/dL Ammonia (<30) umol/L TSH (0.465-4.680) mIU/L Free T4 (0.78-2.19) ng/dL CSF RBC 5778 H (0-10) u/L CSF Tot Nucleated Cells 56 H* (0-5) u/L CSF Glucose 111 H (40-70) mg/dL CSF Total Protein >600 H (12-60) mg/dL 10/18/23 10/18/23 10/18/23 Range/Units 20:24 21:20 21:20 RBC (4.30-5.90) m/uL Hgb (13.0-17.5) gm/dL Hct (39.0-53.0) % RDW (11.5-15.5) % Plt Count (150-450) k/uL Lymphocytes # (1.0-4.8) k/uL ESR (0-20) mm/Hr ABG pCO2 (35-45) mmHg ABG HCO3 (21-25) mmol/L ABG Total CO2 (19-24) mmol/L Chloride (98-107) mmol/L BUN (9-20) mg/dL Creatinine (0.66-1.25) mg/dL Glucose (74-99) mg/dL POC Glucose (mg/dL) 137 H (70-110) mg/dL Calcium (8.4-10.2) mg/dL Ammonia 32 H (<30) umol/L TSH 0.037 L (0.465-4.680) mIU/L Free T4 2.68 H (0.78-2.19) ng/dL CSF RBC (0-10) u/L CSF Tot Nucleated Cells (0-5) u/L CSF Glucose (40-70) mg/dL CSF Total Protein (12-60) mg/dL 10/19/23 10/19/23 10/19/23 Range/Units 00:03 04:30 04:30 RBC 4.05 L (4.30-5.90) m/uL Hgb 11.7 L (13.0-17.5) gm/dL Hct 36.9 L (39.0-53.0) % RDW 16.1 H (11.5-15.5) % Plt Count 117 L (150-450) k/uL Lymphocytes # 0.7 L (1.0-4.8) k/uL ESR (0-20) mm/Hr ABG pCO2 (35-45) mmHg ABG HCO3 (21-25) mmol/L ABG Total CO2 (19-24) mmol/L Chloride 112 H (98-107) mmol/L BUN 25 H (9-20) mg/dL Creatinine 0.49 L (0.66-1.25) mg/dL Glucose 138 H (74-99) mg/dL POC Glucose (mg/dL) 151 H (70-110) mg/dL Calcium 7.9 L (8.4-10.2) mg/dL Ammonia (<30) umol/L TSH (0.465-4.680) mIU/L Free T4 (0.78-2.19) ng/dL CSF RBC (0-10) u/L CSF Tot Nucleated Cells (0-5) u/L CSF Glucose (40-70) mg/dL CSF Total Protein (12-60) mg/dL 10/19/23 10/19/23 10/19/23 Range/Units 05:32 06:10 11:58 RBC (4.30-5.90) m/uL Hgb (13.0-17.5) gm/dL Hct (39.0-53.0) % RDW (11.5-15.5) % Plt Count (150-450) k/uL Lymphocytes # (1.0-4.8) k/uL ESR (0-20) mm/Hr ABG pCO2 48 H (35-45) mmHg ABG HCO3 31 H (21-25) mmol/L ABG Total CO2 32 H (19-24) mmol/L Chloride (98-107) mmol/L BUN (9-20) mg/dL Creatinine (0.66-1.25) mg/dL Glucose (74-99) mg/dL POC Glucose (mg/dL) 147 H 165 H (70-110) mg/dL Calcium (8.4-10.2) mg/dL Ammonia (<30) umol/L TSH (0.465-4.680) mIU/L Free T4 (0.78-2.19) ng/dL CSF RBC (0-10) u/L CSF Tot Nucleated Cells (0-5) u/L CSF Glucose (40-70) mg/dL CSF Total Protein (12-60) mg/dL Microbiology - Last 24 Hours (Table) 10/16/23 00:05 Gram Stain - Final Sputum Sputum Culture - Final Ana albicans 10/15/23 18:11 Blood Culture - Preliminary Blood 10/18/23 17:20 CSF Gram Stain - Preliminary Cerebral Spinal Fluid 10/17/23 01:05 Blood Culture - Preliminary Blood 10/17/23 01:05 Blood Culture - Preliminary Blood Assessment and Plan (1) Diarrhea Current Visit: Yes Status: Acute Code(s): R19.7 - DIARRHEA, UNSPECIFIED SNOMED Code(s): 02777250 (2) Leukocytosis Current Visit: Yes Status: Acute Code(s): D72.829 - ELEVATED WHITE BLOOD CELL COUNT, UNSPECIFIED SNOMED Code(s): 918043350 (3) Pneumonia Current Visit: Yes Status: Acute Code(s): J18.9 - PNEUMONIA, UNSPECIFIED ORGANISM SNOMED Code(s): 142114739 Plan: 1patient presented to hospital with sepsis in this patient who did have a fever elevated white count tachycardia with concern for possible aspiration pneumonitis in this patient who currently was getting treatment for the right big toe diabetic foot infection status post amputation with the patient being on a good gram-negative coverage more likely dealing with gram-positive pathogen 2-sputum culture currently growing Ana which is more likely colonizer 3-patient did have some diarrhea stool for C. difficile has been negative 4patient did have LP which was traumatic clinically not behaving as encephalitis currently waiting for HSV DNA by PCR to be completed acyclovir has been added empirically by neurology 5patient did have resolution of severe white count and normal lites culture negative so far patient to continue Zosyn and Zyvox at the bedside multiple question concern answered Dictation was produced using [employer]encia dictation software. please excuse any grammatical, word or spelling errors.
--- NOTE | 2023-10-19 17:26 | CT ---
EXAMINATION TYPE: CT cervical spine wo/w con CT DLP: 650.3 mGycm, Automated exposure control for dose reduction was used. DATE OF EXAM: 10/19/2023 11:35 AM COMPARISON: None. CLINICAL INDICATION:Male, 72 years old with history of weakness;, confusion, weakness, pt vented TECHNIQUE: Axial CT images from the skull base to the inferior aspect of T2 we obtained without intra venous contrast. Coronal and sagittal reformatted images were also reviewed. Contrast used:100 mL of Isovue 300 with IV Contrast, (if blank None) Oral contrast used: (if blank None) FINDINGS: Fracture: None. Osseous structures: Multilevel degenerative disc disease changes with endplate spurring and disc oste ophyte complex's. Vertebral alignment: Alignment within normal limits. Spinal canal/Neural Foramina: No evidence of significant spinal canal narrowing. No evidence for sign ificant neural foraminal stenosis. Neck soft tissues: Prevertebral soft tissues are within normal limits. Endotracheal tube and nasogast kaleb tube partially visualized. Other: The airway is patent. The lung apices are clear. Atherosclerosis of the carotid bifurcations. No abnormal organizing fluid collections or abnormal fat stranding definitively visualized. IMPRESSION: 1. No evidence of cervical spine fracture. 2. Mild multilevel degenerative disc disease. 3. No abnormal organizing fluid collections or fat stranding identified.
[2023-10-19 18:15] LABS: Glucose,Whole Blood 154 mg/dL (70-110)
--- NOTE | 2023-10-19 21:34 | EEG ---
ELECTROENCEPHALOGRAM REPORT CLINICAL HISTORY: This is a 72-year-old gentleman with altered mental status. The video EEG is obtained to evaluate for seizure epileptiform activity. RELEVANT MEDICATIONS: 1. Dilaudid. 2. Keppra. EEG TYPE: A routine 21-channel EEG with video using the 10/20 electrode placement system. DESCRIPTION: The patient is intubated on a ventilator. The background consists of [id number] voltage of 5 to 6 hertz activity intermixed with delta activity. There is no physiological stage 2 sleep architecture. There is moderate diffuse myogenic artifact during the study. There is no focal slowing. Interictal and ictal is none. ACTIVATION PROCEDURE: Photic stimulation did not evoke a posterior driving response. There is no abnormality during the photic stimulation. Hyperventilation is not performed. CLINICAL INTERPRETATION: This is an abnormal routine EEG. The background slowing is suggestive of moderate encephalopathy. There is no focal slowing, epileptiform discharge, or seizure on the EEG. Clinical correlation is recommended. LANA / BENEDICT: [id number] / TAIWO
[2023-10-20 01:25] LABS: Glucose,Whole Blood 197 mg/dL (70-110)
[2023-10-20 05:52] LABS: Basophils % (A) 0 %; Eosinophils # (A) 0.5 k/uL (0-0.7); Eosinophils % (A) 5 %; HCT 37.9 % (39.0-53.0); HGB 11.9 gm/dL (13.0-17.5); Lymphocytes # (A) 0.6 k/uL (1.0-4.8); Lymphocytes % (A) 7 %; MCH 28.8 pg (25.0-35.0); MCHC 31.5 g/dL (31.0-37.0); MCV 91.4 fL (80.0-100.0); Mean Platelet Volume 8.9; Monocytes # (A) 0.6 k/uL (0-1.0); Monocytes % (A) 6 %; Neutrophils # (A) 7.3 k/uL (1.3-7.7); Neutrophils % (A) 81 %; Platelet Count 125 k/uL (150-450); RBC 4.14 m/uL (4.30-5.90); RDW 15.8 % (11.5-15.5); WBC 9.1 k/uL (3.8-10.6)
[2023-10-20 05:54] LABS: ABG Base Excess 5.7 mmol/L; ABG HCO3 30 mmol/L (21-25); ABG PCO2 39 mmHg (35-45); ABG PH 7.49 (7.35-7.45); ABG PO2 118 mmHg (83-108); ABG TCO2 31 mmol/L (19-24); Allen Test Performed? Yes
[2023-10-20 05:55] LABS: Glucose,Whole Blood 184 mg/dL (70-110)
[2023-10-20 06:07] LABS: African American GFR (CKD) >90 (>60 ml/min/1.73 sqM); Anion Gap 4 mmol/L; Blood Urea Nitrogen 23 mg/dL (9-20); Calcium 8.3 mg/dL (8.4-10.2); Carbon Dioxide 26 mmol/L (22-30); Chloride 110 mmol/L (98-107); Glucose 195 mg/dL (74-99); Magnesium 1.9 mg/dL (1.6-2.3); Non-African American GFR(CKD) >90 (>60 ml/min/1.73 sqM); Sodium 140 mmol/L (137-145)
--- NOTE | 2023-10-20 07:21 | XR ---
EXAMINATION TYPE: XR chest 1V portable DATE OF EXAM: 10/20/2023 5:17 AM CLINICAL INDICATION:Male, 72 years old with history of vent; PHH COMPARISON: 10/19/2023 TECHNIQUE: XR chest 1V portable Frontal view of the chest. FINDINGS: Lungs/Pleura: No evidence of focal consolidation or pneumothorax. Blunting of the costophrenic angles is present. Pulmonary vascularity: Pulmonary vascular congestion. Heart/mediastinum: Cardiomediastinal silhouette is unremarkable. Musculoskeletal: No acute osseous pathology. Other findings: None Lines/Tubes: Endotracheal tube with distal tip 4.8 cm above the alexys. Nasogastric tube with its distal tip and side-port projecting under the diaphragm. Right-sided PICC line with distal tip at the cavoatrial junction. IMPRESSION: Cardiomegaly and pulmonary vascular congestion. Correlate with BNP for congestive heart failure. Support tubes in appropriate position.
--- NOTE | 2023-10-20 11:45 | P.PN ---
Subjective Progress Note Date: 10/20/23 This is a 72-year-old male patient with a history of pulmonary fibrosis maintained on Ofev in the outpatient setting. He was found by his earlier today to be unresponsive and agonal breathing. EMS was called and he was intubated in the field. EKG showed possible ST segment elevation myocardial inf arction. He was brought in through the emergency room and directly to the [facility]. He was found to have normal coronary arteries. He was admitted to the intensive care unit. He is currently intubated on the mechanical ventilator and assist-control mode at a rate of 14, tidal volume 600, FiO2 50% and a PEEP of 5. Arterial blood gases revealed a PaO2 of greater than 420, pCO2 of 35 and a pH of 7.38. CT scan of the brain showed no acute abnormalities. Echocardiogram is pending. Chest x-ray revealed endotracheal tube in a high position. Being repositioned. Nasogastric tube in the esophagus. Cardiomegaly. No pleural effusion, focal consolidation or pneumothorax. White count 8.7. Hemoglobin 17.0. Platelets 215. D-dimer 2.58. Sodium 140. Potassium 3.8. Bicarb 21. BUN 26. Creatinine 0.57. Glucose 165. Troponin 0.047. The patient is seen today October 16, 2023 in follow-up on the regular medical floor. He remains intubated on the mechanical ventilator. Currently on assist- control mode with a rate of 14, tidal volume 600, FiO2 50% and a PEEP of 5. Morning blood gases revealed a PaO2 of 102, pCO2 40 and a pH of 7.24. He is on propofol at 40 mcg/kg/min. Norepinephrine at 0.09 mcg/kg/min. Heparin drip per weight-based protocol. Saline at 75 MLS per hour. He is continued on Zosyn via PICC line that he had been receiving at home following a left great toe amputati on. Chest x-ray shows satisfactory position in the nasogastric and endotracheal tubes. There is cardiomegaly with pulmonary vascular congestion. Echocardiogram revealed severely impaired left ventricular systolic function with ejection fraction of 25 to 30%. Severe pulmonary hypertension. White count 19.2. Hemoglobin 15.7. Platelets 248. Sodium 143. Potassium 4.3. Bicarb 15. Anion gap 16. BUN 32. Creatinine 1.16. Glucose 258. His current temperature is 102.1. He is tachycardic 130s. The plan is for CT angiogram of the chest today to rule out pulmonary embolism. CT angiogram of the head and neck is pending as well. The patient is seen today October 17, 2023 in follow-up on the regular medical floor. He remains intubated on mechanical ventilator. Currently on assist- control mode at a rate of 14, tidal volume 500, FiO2 50% and a PEEP of 5. Peak pressures 37. Plateau pressure 19. Continues with some increased airway resistance. Arterial blood gases revealed a PaO2 of 195, pCO2 41 and a pH of 7.37. He is sedated on propofol at 60 mcg/kg/min. Norepinephrine 90 (micro grams per minute. Normal saline at KVO. He is being nourished with vital AF at 20 MLS per hour with a goal of 47 MLS per hour. He is on antibiotics in the form of Zosyn and Zyvox. CT angiogram ruled out pulmonary embolism. Procalcitonin 0.42. He is continued on bronchodilators. Chest x-ray reveals multifocal airspace opacities. Sputum culture with Ana. Blood cultures pending. White count 15.6. Hemoglobin 13.3. Platelets 181. Sodium 143. Potassium 3.7. Bicarb 21. BUN 28. Creatinine 0.74. Glucose 145. The patient is seen today October 18, 2023 in follow-up on the regular medical floor. He remains intubated on the mechanical ventilator with current settings of assist-control mode at a rate of 14, tidal volume 500, FiO2 40% and a PEEP of 5. Morning blood gases revealed a PaO2 of 176, pCO2 41 and a pH of 7.44. He is being nourished with vital AF at 47 MLS per hour which is goal. Normal saline at KVO. He has been off sedation for approximately 24 hours now. He has very minimal response. He does grimace to painful stimuli. Follow-up CT scan of the brain revealed increasing loss of jean baptiste-white matter differentiation in the area of vasogenic edema the posterior occipital lobes and to a lesser extent the parietal lobes. The plan is for a lumbar puncture today. He remains on Zosyn and Zyvox. White count 11.6. Hemoglobin 12.2. Platelets 134. Sodium 142. Potassium 3.9. Bicarb 25. BUN 24. Creatinine 0.55. Glucose 178. Chest x-ray reveals multifocal airspace opacities. No evidence of pneumothorax or pleural effusion. PICC line in place. Endotracheal and nasogastric tubes in place. Lovenox for DVT prophylaxis, on hold for lumbar puncture. The patient is seen today October 19, 2023 in the intensive care unit. He remains intubated on the mechanical ventilator on assist-control mode of 14, tidal volume 500, FiO2 30% and a PEEP of 5. Morning blood gases revealed a PaO2 of 106, pCO2 of 48 and a pH of 7.4. Yesterday he was pressure support and CPAP 5/5 for approximately 6 hours. He he is being nourished with vital AF at 30 MLS per hour. He remains off sedation. Remains unresponsive. Previous EEG revealed background slowing suggestive of severe encephalopathy. No focal slowing, epileptiform discharge or seizure on EEG. A follow-up EEG is pending from today. He did undergo a lumbar puncture yesterday. RBCs were 5778, total nucleated cells 56, glucose 111, total protein greater than 600. C. difficile screen was negative. Viral screen is negative. Count 9.1. Hemoglobin 11.7. Platelets 117. Sodium 142. Potassium 4.3. Bicarb 27. BUN 25. Creatinine 0.49. Glucose 147. He remains on acyclovir, Zyvox, Zosyn. PICC line in place. Chest x-ray reveals endotracheal and nasogastric tubes in good place. There is evidence of cardiomegaly and pulmonary vascular congestion. Cerebrospinal fluid cultures are pending. The patient is seen today October 20, 2023 in follow-up in the intensive care unit. He remains intubated on mechanical ventilator. Currently on assist-control mode at a rate of 14, tidal volume 500, FiO2 of 30% and a PEEP of 5. He has been off sedation for several days now. He remains unresponsive. He is on normal saline at KVO. He has being nourished with vital AF at 60 MLS per hour which is goal. He remains on Zyvox, Zosyn and acyclovir. Lumbar puncture cultures are pending. White count 9.1. Hemoglobin 11.9. Platelets 125. Sodium 140. Potassium 4.0. Bicarb 26. BUN 23. Creatinine 0.51. Glucose 195. Arterial blood gases revealed a PaO2 of 118, pCO2 79 and a pH of 7.49. Counseling suggestive of moderate encephalopathy. No epileptiform discharge or seizures. X-ray reveals cardiomegaly and pulmonary vascular congestion. Endotracheal tube, nasogastric tube and right-sided PICC lines are in place. CT scan of the brain revealed diffuse edema suggesting diffuse anoxic injury. Objective - Vital Signs Vital signs: Vital Signs Temp 97.9 F 10/20/23 08:00 Pulse 97 10/20/23 11:13 Resp 15 10/20/23 11:00 BP 126/70 10/19/23 10:00 Pulse Ox 100 10/20/23 11:00 FiO2 30 10/20/23 11:04 Intake & Output 10/19/23 10/20/23 10/20/23 18:59 06:59 18:59 Intake Total 1637 1383 705 Output Total 1350 950 400 Balance 287 433 305 Weight 86.7 kg 84.6 kg Intake: IV 889 473 425 Acyclovir Sodium 850 mg 100 In Sodium Chloride 0.9% 100 ml @ 100 mls/hr IVPB Q8HR [facility] Rx#:[id number] Invasive Line 4 20 30 10 Invasive Line 8 30 10 Linezolid 600 mg In 500 300 300 Dextrose/Water 1 300ml. bag @ 150 mls/hr IVPB Q12HR [facility] Rx#:[id number] Piperacillin-Tazobactam 3 200 100 100 .375 gm In Sodium Chloride 0.9% 100 ml @ 25 mls/hr IVPB Q8H [facility] Rx#: [id number] Pressure Bag 39 33 15 Intake, IV Titration 250 Amount Acyclovir Sodium 850 mg 250 In Sodium Chloride 0.9% 250 ml @ 270 mls/hr IVPB Q8H [facility] Rx#:[id number] Tube Feeding 658 660 240 Other 90 40 Output: Urine 1350 950 400 Other: Voiding Method Indwelling Catheter Indwelling Catheter # Bowel Movements 0 1 ABP, PAP, CO, CI - Last Documented Arterial Blood Pressure 119/51 - Exam GENERAL EXAM: Intubated, 72-year-old male patient off sedation x 72 hours. Breathing over the ventilator. Very minimal response to painful stimuli, gr imaces. HEAD: Normocephalic. EYES: Sluggish reaction of pupils, equal size. NOSE: Clear with pink turbinates. THROAT: No erythema or exudates. NECK: No masses, no JVD. CHEST: No chest wall deformity. LUNGS: Equal air entry with bilateral scattered rhonchi, crackles in the posterior bases. CVS: S1 and S2 normal with no audible murmur, regular rhythm. Tachycardic ABDOMEN: No hepatosplenomegaly, normal bowel sounds, no guarding or rigidity. SPINE: No scoliosis or deformity SKIN: No rashes CENTRAL NERVOUS SYSTEM: Unresponsive, tone is normal in all 4 extremities. EXTREMITIES: Right upper extremity PICC line in place. Amputation of the left great toe, dressing in place. Peripheral pulses are intact. - Labs CBC & Chem 7: 10/20/23 05:30 10/20/23 05:30 Labs: Abnormal Lab Results - Last 24 Hours (Table) 10/19/23 10/19/23 10/20/23 Range/Units 11:58 18:12 01:23 RBC (4.30-5.90) m/uL Hgb (13.0-17.5) gm/dL Hct (39.0-53.0) % RDW (11.5-15.5) % Plt Count (150-450) k/uL Lymphocytes # (1.0-4.8) k/uL ABG pH (7.35-7.45) ABG pO2 (83-108) mmHg ABG HCO3 (21-25) mmol/L ABG Total CO2 (19-24) mmol/L Chloride (98-107) mmol/L BUN (9-20) mg/dL Creatinine (0.66-1.25) mg/dL Glucose (74-99) mg/dL POC Glucose (mg/dL) 165 H 154 H 197 H (70-110) mg/dL Calcium (8.4-10.2) mg/dL 10/20/23 10/20/23 10/20/23 Range/Units 05:30 05:30 05:49 RBC 4.14 L (4.30-5.90) m/uL Hgb 11.9 L (13.0-17.5) gm/dL Hct 37.9 L (39.0-53.0) % RDW 15.8 H (11.5-15.5) % Plt Count 125 L (150-450) k/uL Lymphocytes # 0.6 L (1.0-4.8) k/uL ABG pH 7.49 H (7.35-7.45) ABG pO2 118 H (83-108) mmHg ABG HCO3 30 H (21-25) mmol/L ABG Total CO2 31 H (19-24) mmol/L Chloride 110 H (98-107) mmol/L BUN 23 H (9-20) mg/dL Creatinine 0.51 L (0.66-1.25) mg/dL Glucose 195 H (74-99) mg/dL POC Glucose (mg/dL) (70-110) mg/dL Calcium 8.3 L (8.4-10.2) mg/dL 10/20/23 Range/Units 05:54 RBC (4.30-5.90) m/uL Hgb (13.0-17.5) gm/dL Hct (39.0-53.0) % RDW (11.5-15.5) % Plt Count (150-450) k/uL Lymphocytes # (1.0-4.8) k/uL ABG pH (7.35-7.45) ABG pO2 (83-108) mmHg ABG HCO3 (21-25) mmol/L ABG Total CO2 (19-24) mmol/L Chloride (98-107) mmol/L BUN (9-20) mg/dL Creatinine (0.66-1.25) mg/dL Glucose (74-99) mg/dL POC Glucose (mg/dL) 184 H (70-110) mg/dL Calcium (8.4-10.2) mg/dL Microbiology - Last 24 Hours (Table) 10/18/23 17:20 CSF Gram Stain - Preliminary Cerebral Spinal Fluid CSF Culture - Preliminary 10/17/23 01:05 Blood Culture - Preliminary Blood 10/17/23 01:05 Blood Culture - Preliminary Blood 10/16/23 00:05 Gram Stain - Final Sputum Sputum Culture - Final Ana albicans Assessment and Plan Assessment: Unresponsiveness with agonal breathing of unclear etiology, cardiac catheterization revealed normal coronary arteries. Pulmonary embolism ruled o ut. Heparin drip discontinued. Off sedation and remains unresponsive. Lumbar puncture done 10/18/2023. Cultures pending. Acyclovir was added. Hypotension requiring pressor support, recovered Severely impaired left ventricular systolic function with ejection fraction 20 to 25% Severe pulmonary hypertension Febrile illness, suspect underlying pneumonia. Procalcitonin 0.42. Remains on Zosyn and Zyvox Leukocytosis Tachycardia History of pulmonary fibrosis on Ofev in the outpatient setting Recent amputation of the left great toe, was on Zosyn via PICC line in the outpatient setting Plan: The patient was seen and evaluated Chest x-ray, ABGs, labs and medications reviewed EEG, CT scan of the brain reviewed Continue Zosyn, Zyvox, acyclovir Lumbar puncture cultures pending Patient has been minimally responsive and off sedation x 72 hours Family may choose comfort care on 10/22/2023 We will continue to follow I have personally seen and examined the patient, performed the documentation and the assessment and plan as written. Number of minutes spent on the visit: 15.
--- NOTE | 2023-10-20 11:50 | P.PN ---
Subjective Progress Note Date: 10/20/23 Hospital Course: 72-year-old male with medical history of idiopathic pulmonary fibrosis on Ofev, diabetes type 2, osteomyelitis status post recent right toe amputation on Zosyn, hypertension, hyperlipidemia presented for evaluation of altered mental status. According to ER documentation, the patient demonstrated evidence of agonal breathing and therefore was bagged for ventilation on the way to the emergency room. Upon arrival, patient was afebrile, 168/114, heart rate 131, 99% with [id number]. CBC was unremarkable. Basic metabolic panel showed chloride of 109, CO2 of 21, BUN of 26, creatinine 1.57. Liver function test were unremarkable. Troponins 0.047. Coags were unremarkable. D-dimer was elevated 2.58. EKG demonstrated atrial fibrillation with RVR as well as ST elevation in the lateral leads with reciprocal changes in the inferior leads. Based on these findings, cardiology was notified and a code STEMI was called, patient was taken emergently to the [facility] but was found to have normal coronary arteries. Subsequently was transferred to the intensive care unit, intubated. He underwent brain CT to rule out hemorrhagic stroke which was negative, pulmonology was consulted and neurology was consulted. Patient remains intubated and mechanically ventilated. Also hypotensive, requiring vasopressors as well as broad-spectrum antibiotics. Echocardiogram showed LVEF 25 to 30% with severe hypokinesis involving the apex, severe pulmonary hypertension. CTA chest did not show any acute PE. Heparin drip discontinued. CTA head showed vasogenic edema in the posterior aspects of occipital lobes and parietal of the lesser extent right frontal lobe concerning for PRES. patient continued on IV antibiotics. Off of sedation, minimally responsive. Off of vasopressors. LP completed. Patient also started on acyclovir. Prognosis remains poor. Family considering end-of-life/comfort care. Subjective: Patient seen and examined at bedside. No acute events overnight. Remains intubated, mechanically ventilated. Off sedation and vasopressors. Receiving Dilaudid. Minimally responsive. Pertinent positives and negatives as discussed above, a complete review of systems was performed and all other systems are negative. Vitals Signs Reviewed. General: Intubated and sedated Derm: Warm, dry, left foot covered in dressing Head: Atraumatic, normocephalic, symmetric Eyes: Pupils equal and reactive Mouth: No lip lesion, mucus membranes moist Cardiovascular: S1S2 irregular, no murmur Lungs: Bilateral rhonchi, intubated mechanically ventilated Abdominal: Soft, nondistended Ext: No gross muscle atrophy, no edema, no contractures Neuro: Does not respond to painful stimuli Psych: Unable to assess Data Reviewed Today: Pertinent Labs: WBC 9.1, hemoglobin 11.9, platelet 125, pH 7.49, pCO2 39, creatinine 0.51, blood sugars range between 1 54-1 797, magnesium 1.9 Imaging: Chest x-ray shows multifocal opacities, independently interpreted, similar to yesterday Assessment and Plan: Patient is critically ill, needs close monitoring. Acute metabolic encephalopathy, possible PRES versus stroke versus [employer] infection Shock, resolved Nonischemic systolic cardiomyopathy, EF 25 to 30%, possibly Takotsubo cardiomyopathy Acute hypoxic respiratory failure, ventilator dependent Suspected aspiration pneumonia History of pulmonary fibrosis Recent left great toe amputation secondary to osteomyelitis Metabolic acidosis, lactic acidosis, resolved Acute kidney injury, likely ATN, resolved Euthyroid sick syndrome -Neurology following, continued on acyclovir 850 IV every 8 hours, IV Keppra 1000 every 12 hours -CT brain imaging concerning for edema/anoxic injury -Pulmonology note reviewed, continue current therapy, patient's family may consider comfort care on Sunday -ID following, patient on linezolid 600 mg IV every 12 hours, Zosyn 3.375 g IV every 8 hours Elevated troponin Paroxysmal atrial fibrillation with RVR, new onset -Continue aspirin 81 mg, atorvastatin 80 mg -Cardiac cath showed normal coronary angiogram, normal left-sided filling pressures Type 2 diabetes -Hold oral antidiabetics -Continue sliding scale insulin every 6 hours, monitor for hypoglycemia History of hypertension-hold antihypertensives Dyslipidemia-continue atorvastatin Rheumatoid arthritis DVT ppx: SCDs Code status: DNR Anticipated discharge place: Pending clinical course Anticipated discharge time: pending clinical course Objective - Vital Signs Vital signs: Vital Signs Temp 97.9 F 10/20/23 08:00 Pulse 99 10/20/23 11:23 Resp 15 10/20/23 11:00 BP 126/70 10/19/23 10:00 Pulse Ox 100 10/20/23 11:00 FiO2 30 10/20/23 11:04 Intake & Output 10/19/23 10/20/23 10/20/23 18:59 06:59 18:59 Intake Total 1637 1383 705 Output Total 1350 950 400 Balance 287 433 305 Weight 86.7 kg 84.6 kg Intake: IV 889 473 425 Acyclovir Sodium 850 mg 100 In Sodium Chloride 0.9% 100 ml @ 100 mls/hr IVPB Q8HR [facility] Rx#:[id number] Invasive Line 4 20 30 10 Invasive Line 8 30 10 Linezolid 600 mg In 500 300 300 Dextrose/Water 1 300ml. bag @ 150 mls/hr IVPB Q12HR [facility] Rx#:[id number] Piperacillin-Tazobactam 3 200 100 100 .375 gm In Sodium Chloride 0.9% 100 ml @ 25 mls/hr IVPB Q8H [facility] Rx#: [id number] Pressure Bag 39 33 15 Intake, IV Titration 250 Amount Acyclovir Sodium 850 mg 250 In Sodium Chloride 0.9% 250 ml @ 270 mls/hr IVPB Q8H [facility] Rx#:[id number] Tube Feeding 658 660 240 Other 90 40 Output: Urine 1350 950 400 Other: Voiding Method Indwelling Catheter Indwelling Catheter # Bowel Movements 0 1 ABP, PAP, CO, CI - Last Documented Arterial Blood Pressure 119/51 - Labs CBC & Chem 7: 10/20/23 05:30 10/20/23 05:30 Labs: Abnormal Lab Results - Last 24 Hours (Table) 10/19/23 10/19/23 10/20/23 Range/Units 11:58 18:12 01:23 RBC (4.30-5.90) m/uL Hgb (13.0-17.5) gm/dL Hct (39.0-53.0) % RDW (11.5-15.5) % Plt Count (150-450) k/uL Lymphocytes # (1.0-4.8) k/uL ABG pH (7.35-7.45) ABG pO2 (83-108) mmHg ABG HCO3 (21-25) mmol/L ABG Total CO2 (19-24) mmol/L Chloride (98-107) mmol/L BUN (9-20) mg/dL Creatinine (0.66-1.25) mg/dL Glucose (74-99) mg/dL POC Glucose (mg/dL) 165 H 154 H 197 H (70-110) mg/dL Calcium (8.4-10.2) mg/dL 10/20/23 10/20/23 10/20/23 Range/Units 05:30 05:30 05:49 RBC 4.14 L (4.30-5.90) m/uL Hgb 11.9 L (13.0-17.5) gm/dL Hct 37.9 L (39.0-53.0) % RDW 15.8 H (11.5-15.5) % Plt Count 125 L (150-450) k/uL Lymphocytes # 0.6 L (1.0-4.8) k/uL ABG pH 7.49 H (7.35-7.45) ABG pO2 118 H (83-108) mmHg ABG HCO3 30 H (21-25) mmol/L ABG Total CO2 31 H (19-24) mmol/L Chloride 110 H (98-107) mmol/L BUN 23 H (9-20) mg/dL Creatinine 0.51 L (0.66-1.25) mg/dL Glucose 195 H (74-99) mg/dL POC Glucose (mg/dL) (70-110) mg/dL Calcium 8.3 L (8.4-10.2) mg/dL 10/20/23 Range/Units 05:54 RBC (4.30-5.90) m/uL Hgb (13.0-17.5) gm/dL Hct (39.0-53.0) % RDW (11.5-15.5) % Plt Count (150-450) k/uL Lymphocytes # (1.0-4.8) k/uL ABG pH (7.35-7.45) ABG pO2 (83-108) mmHg ABG HCO3 (21-25) mmol/L ABG Total CO2 (19-24) mmol/L Chloride (98-107) mmol/L BUN (9-20) mg/dL Creatinine (0.66-1.25) mg/dL Glucose (74-99) mg/dL POC Glucose (mg/dL) 184 H (70-110) mg/dL Calcium (8.4-10.2) mg/dL Microbiology - Last 24 Hours (Table) 10/18/23 17:20 CSF Gram Stain - Preliminary Cerebral Spinal Fluid CSF Culture - Preliminary 10/17/23 01:05 Blood Culture - Preliminary Blood 10/17/23 01:05 Blood Culture - Preliminary Blood 10/16/23 00:05 Gram Stain - Final Sputum Sputum Culture - Final Ana albicans
[2023-10-20 12:26] LABS: Glucose,Whole Blood 209 mg/dL (70-110)
--- NOTE | 2023-10-20 18:27 | P.PN ---
Subjective Progress Note Date: 10/20/23 Patient was initially seen by Dr. Aba Palomo. Please refer to his note for details. Patient is a 72-year-old male who presented with unresponsiveness. Patient had extensive workup and initial CT was normal then later, and then now possible anoxia in different brain territories. Most recent EEG showed moderate encephalopathy. Patient is on Keppra for tremors which has resolved. LP was traumatic but nucleated cells corrected is 46 but feels possible due to distribution of blood brain barrier, but still he was placed on acyclovir pending viral culture results. Patient was seen for a follow-up. Patient is intubated, not on any sedation. Patient is getting Zosyn. No obvious seizure-like activity noted. Some of the workup during this hospital visit consisted of: TSH: 0.037 and Free T4: 2.68 Ammonia 32 ESR: 61 B12: 704 2D echo is reported as severe left ventricular systolic dysfunction with ejection fraction of 25 to 30%. Severe hypokinesis involving the apex only the base of the ventricle is improving. Severe pulmonary hypertension. Cardiac cath is reported as normal coronary angiogram. Normal left sided filling pressure. Rule out intracranial bleed. Influenza A/B, RSV and SARS-CoV-2 PCR are not detected. CT of the head is reported as no acute intracranial process. I personally reviewed the CT and agree there is no acute or subacute process. CTA head and neck: Vasogenic edema in the posterior aspect of the occipital lobe and parietal a lesser extent right frontal concerning for posterior reversible encephalopathy syndrome. Not seen on prior CT. No evidence of dissection of cervical internal carotid artery or vertebral artery or any evidence of significant stenosis at the carotid bifurcation. No evidence of intracranial high-grade stenosis or intracranial aneurysm. I personally reviewed the CT and I do appreciate hypodensity predominantly over the posterior and it is also seen in the frontal and I cannot rule out stroke vs PRES. Routine EEG: Is abnormal. The background slowing is suggestive of severe encephalopathy. Otherwise there is no focal slowing, epileptiform discharges or seizure on the EEG. Repeat CT head on 10/17/2023: Increasing loss of jean baptiste-white matter differentiation in area of vasogenic edema in the posterior occipital lobes and to lesser extent the parietal lobes. Finding could be due to lack of IV contrast. CSF is red, hazy, rbc 5779, fresh rbc 100, nucleated cells are 56, glucose 111 and protein >600. CSF gram stain: No organism seen. Objective - Vital Signs Vital signs: Vital Signs Temp 99.5 F 10/20/23 16:00 Pulse 102 H 10/20/23 17:00 Resp 14 10/20/23 17:00 BP 126/70 10/19/23 10:00 Pulse Ox 100 10/20/23 17:00 FiO2 30 10/20/23 17:01 Intake & Output 10/19/23 10/20/23 10/20/23 18:59 06:59 18:59 Intake Total 1637 1383 1573 Output Total 6560 681 9446 Balance 287 433 223 Weight 86.7 kg 84.6 kg Intake: IV 889 473 693 Acyclovir Sodium 850 mg 100 100 In Sodium Chloride 0.9% 100 ml @ 100 mls/hr IVPB Q8HR [facility] Rx#:[id number] Invasive Line 4 20 30 30 Invasive Line 8 30 10 Invasive Line 9 30 Linezolid 600 mg In 500 300 300 Dextrose/Water 1 300ml. bag @ 150 mls/hr IVPB Q12HR [facility] Rx#:[id number] Piperacillin-Tazobactam 3 200 100 200 .375 gm In Sodium Chloride 0.9% 100 ml @ 25 mls/hr IVPB Q8H [facility] Rx#: [id number] Pressure Bag 39 33 33 Intake, IV Titration 250 Amount Acyclovir Sodium 850 mg 250 In Sodium Chloride 0.9% 250 ml @ 270 mls/hr IVPB Q8H [facility] Rx#:[id number] Tube Feeding 658 660 780 Other 90 100 Output: Urine 4672 119 3212 Other: Voiding Method Indwelling Catheter Indwelling Catheter Indwelling Catheter # Bowel Movements 0 0 ABP, PAP, CO, CI - Last Documented Arterial Blood Pressure 140/62 - Exam Patient is intubated, comatose. Patient's GCS is 3. No obvious seizure-like activity noted. On manually opening the eyes, the gaze was slightly to the right, but then came to the midline. Pupils are equal about 3 mm, round and minimally reacting to light. Gaze is midline. Corneals are slightly present. Oculocephalics are present. Patient is breathing slightly over the ventilator. Per nurse report, patient has been CPAP being most of the day. He does have gag and cough. Patient not responding to any painful stimuli. Reflexes are absent. No obvious seizure-like activity noted. Patient has amputated left big toe. Nurse has not noticed any movement of the extremities either. - Labs CBC & Chem 7: 10/20/23 05:30 10/20/23 05:30 Labs: Abnormal Lab Results - Last 24 Hours (Table) 10/19/23 10/20/23 10/20/23 Range/Units 18:12 01:23 05:30 RBC 4.14 L (4.30-5.90) m/uL Hgb 11.9 L (13.0-17.5) gm/dL Hct 37.9 L (39.0-53.0) % RDW 15.8 H (11.5-15.5) % Plt Count 125 L (150-450) k/uL Lymphocytes # 0.6 L (1.0-4.8) k/uL ABG pH (7.35-7.45) ABG pO2 (83-108) mmHg ABG HCO3 (21-25) mmol/L ABG Total CO2 (19-24) mmol/L Chloride (98-107) mmol/L BUN (9-20) mg/dL Creatinine (0.66-1.25) mg/dL Glucose (74-99) mg/dL POC Glucose (mg/dL) 154 H 197 H (70-110) mg/dL Calcium (8.4-10.2) mg/dL 10/20/23 10/20/23 10/20/23 Range/Units 05:30 05:49 05:54 RBC (4.30-5.90) m/uL Hgb (13.0-17.5) gm/dL Hct (39.0-53.0) % RDW (11.5-15.5) % Plt Count (150-450) k/uL Lymphocytes # (1.0-4.8) k/uL ABG pH 7.49 H (7.35-7.45) ABG pO2 118 H (83-108) mmHg ABG HCO3 30 H (21-25) mmol/L ABG Total CO2 31 H (19-24) mmol/L Chloride 110 H (98-107) mmol/L BUN 23 H (9-20) mg/dL Creatinine 0.51 L (0.66-1.25) mg/dL Glucose 195 H (74-99) mg/dL POC Glucose (mg/dL) 184 H (70-110) mg/dL Calcium 8.3 L (8.4-10.2) mg/dL 10/20/23 Range/Units 12:22 RBC (4.30-5.90) m/uL Hgb (13.0-17.5) gm/dL Hct (39.0-53.0) % RDW (11.5-15.5) % Plt Count (150-450) k/uL Lymphocytes # (1.0-4.8) k/uL ABG pH (7.35-7.45) ABG pO2 (83-108) mmHg ABG HCO3 (21-25) mmol/L ABG Total CO2 (19-24) mmol/L Chloride (98-107) mmol/L BUN (9-20) mg/dL Creatinine (0.66-1.25) mg/dL Glucose (74-99) mg/dL POC Glucose (mg/dL) 209 H (70-110) mg/dL Calcium (8.4-10.2) mg/dL Microbiology - Last 24 Hours (Table) 10/17/23 01:05 Blood Culture - Preliminary Blood 10/17/23 01:05 Blood Culture - Preliminary Blood 10/18/23 17:20 CSF Gram Stain - Preliminary Cerebral Spinal Fluid CSF Culture - Preliminary Assessment and Plan Assessment: This is a 72-year-old gentleman who was found unresponsive at home by his . Also he was having agonal breathing. He was complaining of not feeling well and headache recently per the . The results EMS arrived and they intubated him because of his respiratory distress. EKG was reported as possible ST segment myocardial infarction with minimal elevated troponin. He was taken for cardiac cath and was normal. CT of the head was unremarkable for any acute process. 2D echo showed severe left ventricular systolic dysfunction with ejection fraction of 25 to 30%. Severe hypokinesis involving the apex only the base of the ventricle is improving. Severe pulmonary hypertension. Nurse she felt the patient is having body jerks. Episode of unresponsiveness unknown exact etiology. Unsure if patient had hypoxic encephalopathy. CT of the head is unremarkable for any acute process initial presentation but on CTA concern for Posterior Reversible Encephalopathy Syndrome (PRES) but I cannot rule out stroke. The patient presented afebrile and normal wbc then during this hospital a day later he become febrile with elevated wbc and initially it was felt he has aspiration pneumonitis. CSF study was traumatic but had elevated nucleated cells of 56 (corrected would be 46 nucleated cells) with elevated protein >600. Unsure if elevated nucleated cell and protein is due to viral encephalitis vs result of distrubtion of brain blood barrier from brain edema. Recurrent Episode of body jerks unsure if due myoclonic jerks from hypoxia. Routine EEG is severe encephalopathy but negative for seizure or discharges---resolved. Heart failure with ejection fraction of 25 to 30% Severe pulmonary hypertension History of pulmonary fibrosis History of rheumatoid arthritis History of diabetes mellitus History of osteomyelitis and had left toe amputation Plan: Patient was started on Keppra during this admission and currently on Keppra 1gm bid. Is on Ativan PRN. Cannot obtain MRI since vent is not MRI Compatible. Repeat CT of the head is reported as diffuse edema suggesting diffuse anoxic injury which correlates with the patient prehospitalization history. I myself also personally reviewed the CT of the head and the patient does have bilateral hemispheric hypodensity involving bilateral occipital region, but also somewhat involving the watershed territories, particularly on the right side between MCA/ENA. Routine EEG preliminary: There is moderate encephalopathy but no seizure or discharges. Continue Acylovir 10mg/kg every 8 hours. I.D. is on board. Patient is on Zosyn and Linezolid. Pending CSF viral, HSV1/2, Cryptococcal CSF. Patient is on aspirin 81 mg daily. Is on Lipitor 80mg qhs. Continue neuro checks. Cardiac monitoring Please avoid any sedation. He is getting Dilaudid scheduled for synchrony of respiration per nurse and I notified her if possible to avoid for better neurological examination Will defer the rest of the medical management to primary and other specialists. Dr. Palomo has felt the patient had hypoxia due to his interstitial disease/fibrosis as a result he had the hypoattenuation seen on the CT versus is a possibility he had a stroke bilateral hemisphere at different territories as a result of a clot that showered to the brain and it is not seen on echo. 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 The patient does not want the patient to pursue with a transesophageal echocardiogram and the patient's sister is in agreement. Dr. Palomo felt the patient's condition is very critical and overall prognosis is very poor. I also agree with it. Family wants to wait till Sunday to make any decision. Discussed with patient's nurse.
[2023-10-20 18:53] LABS: Glucose,Whole Blood 207 mg/dL (70-110)
[2023-10-21 00:49] LABS: Glucose,Whole Blood 198 mg/dL (70-110)
[2023-10-21 04:27] LABS: Basophils % (A) 0 %; Eosinophils # (A) 0.4 k/uL (0-0.7); Eosinophils % (A) 5 %; HGB 11.5 gm/dL (13.0-17.5); Lymphocytes # (A) 0.7 k/uL (1.0-4.8); Lymphocytes % (A) 7 %; MCH 28.8 pg (25.0-35.0); MCHC 31.1 g/dL (31.0-37.0); MCV 92.5 fL (80.0-100.0); Mean Platelet Volume 9.7; Monocytes # (A) 0.7 k/uL (0-1.0); Monocytes % (A) 8 %; Neutrophils # (A) 7.3 k/uL (1.3-7.7); Neutrophils % (A) 79 %; Platelet Count 116 k/uL (150-450); RDW 15.7 % (11.5-15.5); WBC 9.2 k/uL (3.8-10.6)
[2023-10-21 04:38] LABS: African American GFR (CKD) >90 (>60 ml/min/1.73 sqM); Anion Gap 3 mmol/L; Blood Urea Nitrogen 22 mg/dL (9-20); Calcium 8.2 mg/dL (8.4-10.2); Carbon Dioxide 29 mmol/L (22-30); Chloride 107 mmol/L (98-107); Glucose 203 mg/dL (74-99); Magnesium 1.8 mg/dL (1.6-2.3); Non-African American GFR(CKD) >90 (>60 ml/min/1.73 sqM); Potassium 3.7 mmol/L (3.5-5.1); Sodium 139 mmol/L (137-145)
[2023-10-21] MEDS ORDERED: Magnesium Replacement Protocol 1 EACH MISC MISCELLANE PRN (05:17)
[2023-10-21 05:40] LABS: Glucose,Whole Blood 203 mg/dL (70-110)
[2023-10-21] MEDS: MAGNESIUM SULFATE-D5W PMX 1 GM in DEXTROSE/WATER 1 100ML.BAG IVPB ONE (05:46)
[2023-10-21] MEDS: POTASSIUM BICARBONATE/CIT AC 20 MEQ TABLET.EFF NG-TUBE SCH ×2 (05:46→12:34)
[2023-10-21 06:00] LABS: ABG Base Excess 5.3 mmol/L; ABG HCO3 30 mmol/L (21-25); ABG Oxygen Saturation 96.7 % (94-97); ABG PCO2 46 mmHg (35-45); ABG PH 7.43 (7.35-7.45); ABG PO2 112 mmHg (83-108); ABG TCO2 32 mmol/L (19-24); Allen Test Performed? Yes
--- NOTE | 2023-10-21 07:10 | XR ---
EXAMINATION TYPE: XR chest 1V portable DATE OF EXAM: 10/21/2023 5:27 AM CLINICAL INDICATION:Male, 72 years old with history of intubated; H COMPARISON: Chest radiograph from one day prior. TECHNIQUE: XR chest 1V portable Frontal view of the chest. FINDINGS: Lungs/Pleura: No evidence of focal consolidation or pneumothorax. Blunting of the costophrenic angles is present. Pulmonary vascularity: Pulmonary vascular congestion. Heart/mediastinum: Cardiomediastinal silhouette is unremarkable. Musculoskeletal: No acute osseous pathology. Other findings: None Lines/Tubes: Endotracheal tube with distal tip 4.8 cm above the alexys. Nasogastric tube with its distal tip and side-port projecting under the diaphragm. Right-sided PICC line with distal tip at the cavoatrial junction. IMPRESSION: 1. Cardiomegaly and pulmonary vascular congestion. Correlate with BNP for congestive heart failure. 2. Support tubes in appropriate position. 3.
[2023-10-21 10:12] LABS: Potassium 3.9 mmol/L (3.5-5.1)
--- NOTE | 2023-10-21 10:23 | P.PN ---
Subjective Progress Note Date: 10/21/23 Hospital Course: 72-year-old male with medical history of idiopathic pulmonary fibrosis on Ofev, diabetes type 2, osteomyelitis status post recent right toe amputation on Zosyn, hypertension, hyperlipidemia presented for evaluation of altered mental status. According to ER documentation, the patient demonstrated evidence of agonal breathing and therefore was bagged for ventilation on the way to the emergency room. Upon arrival, patient was afebrile, 168/114, heart rate 131, 99% with [id number]. CBC was unremarkable. Basic metabolic panel showed chloride of 109, CO2 of 21, BUN of 26, creatinine 1.57. Liver function test were unremarkable. Troponins 0.047. Coags were unremarkable. D-dimer was elevated 2.58. EKG demonstrated atrial fibrillation with RVR as well as ST elevation in the lateral leads with reciprocal changes in the inferior leads. Based on these findings, cardiology was notified and a code STEMI was called, patient was taken emergently to the [facility] but was found to have normal coronary arteries. Subsequently was transferred to the intensive care unit, intubated. He underwent brain CT to rule out hemorrhagic stroke which was negative, pulmonology was consulted and neurology was consulted. Patient remains intubated and mechanically ventilated. Also hypotensive, requiring vasopressors as well as broad-spectrum antibiotics. Echocardiogram showed LVEF 25 to 30% with severe hypokinesis involving the apex, severe pulmonary hypertension. CTA chest did not show any acute PE. Heparin drip discontinued. CTA head showed vasogenic edema in the posterior aspects of occipital lobes and parietal of the lesser extent right frontal lobe concerning for PRES. patient continued on IV antibiotics. Off of sedation, minimally responsive. Off of vasopressors. LP completed. Patient also started on acyclovir. Prognosis remains poor. Family considering end-of-life/comfort care likely tomorrow. Subjective: Patient seen and examined at bedside. No acute events overnight. Remains intubated, mechanically ventilated. Off sedation and vasopressors. Receiving Dilaudid. Minimally responsive. Pertinent positives and negatives as discussed above, a complete review of systems was performed and all other systems are negative. Vitals Signs Reviewed. General: Intubated and sedated Derm: Warm, dry, left foot covered in dressing Head: Atraumatic, normocephalic, symmetric Eyes: Pupils equal and reactive Mouth: No lip lesion, mucus membranes moist Cardiovascular: S1S2 irregular, no murmur Lungs: Bilateral rhonchi, intubated mechanically ventilated Abdominal: Soft, nondistended Ext: No gross muscle atrophy, no edema, no contractures Neuro: Does not respond to painful stimuli Psych: Unable to assess Data Reviewed Today: Pertinent Labs: WBC 9.2, hemoglobin 11.5, platelet 116, pH 7.43, pCO2 46, potassium 3.9, creatinine 0.47, blood sugars range between 203 to 198, magnesium 1.8 Imaging: Chest x-ray shows multifocal opacities, independently interpreted, similar to yesterday Assessment and Plan: Patient is critically ill, needs close monitoring. 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%, possibly Takotsubo cardiomyopathy Acute hypoxic respiratory failure, ventilator dependent Suspected aspiration pneumonia History of pulmonary fibrosis Recent left great toe amputation secondary to osteomyelitis Metabolic acidosis, lactic acidosis, resolved Acute kidney injury, likely ATN, resolved Euthyroid sick syndrome -Neurology following, continued on acyclovir 850 IV every 8 hours, IV Keppra 1000 every 12 hours -CT brain imaging concerning for edema/anoxic injury -Pulmonology following, continue current therapy, patient's family may consider comfort care on Sunday -ID following, patient on linezolid 600 mg IV every 12 hours, Zosyn 3.375 g IV every 8 hours Elevated troponin Paroxysmal atrial fibrillation with RVR, new onset -Continue aspirin 81 mg, atorvastatin 80 mg -Cardiac cath showed normal coronary angiogram, normal left-sided filling p ressures Type 2 diabetes -Hold oral antidiabetics -Continue sliding scale insulin every 6 hours, monitor for hypoglycemia History of hypertension-hold antihypertensives Dyslipidemia-continue atorvastatin Rheumatoid arthritis DVT ppx: SCDs Code status: DNR Anticipated discharge place: Pending clinical course Anticipated discharge time: pending clinical course Objective - Vital Signs Vital signs: Vital Signs Temp 99.6 F 10/21/23 04:00 Pulse 96 10/21/23 07:47 Resp 15 10/21/23 07:00 BP 142/82 10/21/23 02:00 Pulse Ox 99 10/21/23 07:00 FiO2 30 10/21/23 07:37 Intake & Output 10/20/23 10/21/23 10/21/23 18:59 06:59 18:59 Intake Total 1756 1703 63 Output Total 1625 1150 150 Balance 131 553 -87 Weight 86 kg Intake: IV 696 893 3 Acyclovir Sodium 850 mg 100 100 In Sodium Chloride 0.9% 100 ml @ 100 mls/hr IVPB Q8HR [facility] Rx#:[id number] Invasive Line 4 30 30 Invasive Line 9 30 30 Linezolid 600 mg In 300 600 Dextrose/Water 1 300ml. bag @ 150 mls/hr IVPB Q12HR [facility] Rx#:[id number] Piperacillin-Tazobactam 3 200 100 .375 gm In Sodium Chloride 0.9% 100 ml @ 25 mls/hr IVPB Q8H [facility] Rx#: [id number] Pressure Bag 36 33 3 Tube Feeding 960 720 60 Other 100 90 Output: Urine 1625 1150 150 Other: Voiding Method Indwelling Catheter Indwelling Catheter # Bowel Movements 0 1 1 ABP, PAP, CO, CI - Last Documented Arterial Blood Pressure 114/55 - Labs CBC & Chem 7: 10/21/23 04:12 10/21/23 09:11 Labs: Abnormal Lab Results - Last 24 Hours (Table) 10/20/23 10/20/23 10/21/23 Range/Units 12:22 18:52 00:48 RBC (4.30-5.90) m/uL Hgb (13.0-17.5) gm/dL Hct (39.0-53.0) % RDW (11.5-15.5) % Plt Count (150-450) k/uL Lymphocytes # (1.0-4.8) k/uL ABG pCO2 (35-45) mmHg ABG pO2 (83-108) mmHg ABG HCO3 (21-25) mmol/L ABG Total CO2 (19-24) mmol/L BUN (9-20) mg/dL Creatinine (0.66-1.25) mg/dL Glucose (74-99) mg/dL POC Glucose (mg/dL) 209 H 207 H 198 H (70-110) mg/dL Calcium (8.4-10.2) mg/dL 10/21/23 10/21/23 10/21/23 Range/Units 04:12 04:12 05:39 RBC 4.00 L (4.30-5.90) m/uL Hgb 11.5 L (13.0-17.5) gm/dL Hct 37.0 L (39.0-53.0) % RDW 15.7 H (11.5-15.5) % Plt Count 116 L (150-450) k/uL Lymphocytes # 0.7 L (1.0-4.8) k/uL ABG pCO2 (35-45) mmHg ABG pO2 (83-108) mmHg ABG HCO3 (21-25) mmol/L ABG Total CO2 (19-24) mmol/L BUN 22 H (9-20) mg/dL Creatinine 0.47 L (0.66-1.25) mg/dL Glucose 203 H (74-99) mg/dL POC Glucose (mg/dL) 203 H (70-110) mg/dL Calcium 8.2 L (8.4-10.2) mg/dL 10/21/23 Range/Units 05:56 RBC (4.30-5.90) m/uL Hgb (13.0-17.5) gm/dL Hct (39.0-53.0) % RDW (11.5-15.5) % Plt Count (150-450) k/uL Lymphocytes # (1.0-4.8) k/uL ABG pCO2 46 H (35-45) mmHg ABG pO2 112 H (83-108) mmHg ABG HCO3 30 H (21-25) mmol/L ABG Total CO2 32 H (19-24) mmol/L BUN (9-20) mg/dL Creatinine (0.66-1.25) mg/dL Glucose (74-99) mg/dL POC Glucose (mg/dL) (70-110) mg/dL Calcium (8.4-10.2) mg/dL Microbiology - Last 24 Hours (Table) 10/15/23 18:11 Blood Culture - Final Blood 10/18/23 17:20 CSF Gram Stain - Preliminary Cerebral Spinal Fluid CSF Culture - Preliminary 10/17/23 01:05 Blood Culture - Preliminary Blood 10/17/23 01:05 Blood Culture - Preliminary Blood
--- NOTE | 2023-10-21 11:47 | P.PN ---
Subjective Progress Note Date: 10/21/23 This is a 72-year-old male patient with a history of pulmonary fibrosis maintained on Ofev in the outpatient setting. He was found by his earlier today to be unresponsive and agonal breathing. EMS was called and he was intubated in the field. EKG showed possible ST segment elevation myocardial inf arction. He was brought in through the emergency room and directly to the [employer] [facility]. He was found to have normal coronary arteries. He was admitted to the intensive care unit. He is currently intubated on the mechanical ventilator and assist-control mode at a rate of 14, tidal volume 600, FiO2 50% and a PEEP of 5. Arterial blood gases revealed a PaO2 of greater than 420, pCO2 of 35 and a pH of 7.38. CT scan of the brain showed no acute abnormalities. Echocardiogram is pending. Chest x-ray revealed endotracheal tube in a high position. Being repositioned. Nasogastric tube in the esophagus. Cardiomegaly. No pleural effusion, focal consolidation or pneumothorax. White count 8.7. Hemoglobin 17.0. Platelets 215. D-dimer 2.58. Sodium 140. Potassium 3.8. Bicarb 21. BUN 26. Creatinine 0.57. Glucose 165. Troponin 0.047. The patient is seen today October 16, 2023 in follow-up on the regular medical floor. He remains intubated on the mechanical ventilator. Currently on assist- control mode with a rate of 14, tidal volume 600, FiO2 50% and a PEEP of 5. Morning blood gases revealed a PaO2 of 102, pCO2 40 and a pH of 7.24. He is on propofol at 40 mcg/kg/min. Norepinephrine at 0.09 mcg/kg/min. Heparin drip per weight-based protocol. Saline at 75 MLS per hour. He is continued on Zosyn via PICC line that he had been receiving at home following a left great toe amputati on. Chest x-ray shows satisfactory position in the nasogastric and endotracheal tubes. There is cardiomegaly with pulmonary vascular congestion. Echocardiogram revealed severely impaired left ventricular systolic function with ejection fraction of 25 to 30%. Severe pulmonary hypertension. White count 19.2. Hemoglobin 15.7. Platelets 248. Sodium 143. Potassium 4.3. Bicarb 15. Anion gap 16. BUN 32. Creatinine 1.16. Glucose 258. His current temperature is 102.1. He is tachycardic 130s. The plan is for CT angiogram of the chest today to rule out pulmonary embolism. CT angiogram of the head and neck is pending as well. The patient is seen today October 17, 2023 in follow-up on the regular medical floor. He remains intubated on mechanical ventilator. Currently on assist- control mode at a rate of 14, tidal volume 500, FiO2 50% and a PEEP of 5. Peak pressures 37. Plateau pressure 19. Continues with some increased airway resistance. Arterial blood gases revealed a PaO2 of 195, pCO2 41 and a pH of 7.37. He is sedated on propofol at 60 mcg/kg/min. Norepinephrine 90 (micro grams per minute. Normal saline at KVO. He is being nourished with vital AF at 20 MLS per hour with a goal of 47 MLS per hour. He is on antibiotics in the form of Zosyn and Zyvox. CT angiogram ruled out pulmonary embolism. Procalcitonin 0.42. He is continued on bronchodilators. Chest x-ray reveals multifocal airspace opacities. Sputum culture with Ana. Blood cultures pending. White count 15.6. Hemoglobin 13.3. Platelets 181. Sodium 143. Potassium 3.7. Bicarb 21. BUN 28. Creatinine 0.74. Glucose 145. The patient is seen today October 18, 2023 in follow-up on the regular medical floor. He remains intubated on the mechanical ventilator with current settings of assist-control mode at a rate of 14, tidal volume 500, FiO2 40% and a PEEP of 5. Morning blood gases revealed a PaO2 of 176, pCO2 41 and a pH of 7.44. He is being nourished with vital AF at 47 MLS per hour which is goal. Normal saline at KVO. He has been off sedation for approximately 24 hours now. He has very minimal response. He does grimace to painful stimuli. Follow-up CT scan of the brain revealed increasing loss of jean baptiste-white matter differentiation in the area of vasogenic edema the posterior occipital lobes and to a lesser extent the parietal lobes. The plan is for a lumbar puncture today. He remains on Zosyn and Zyvox. White count 11.6. Hemoglobin 12.2. Platelets 134. Sodium 142. Potassium 3.9. Bicarb 25. BUN 24. Creatinine 0.55. Glucose 178. Chest x-ray reveals multifocal airspace opacities. No evidence of pneumothorax or pleural effusion. PICC line in place. Endotracheal and nasogastric tubes in place. Lovenox for DVT prophylaxis, on hold for lumbar puncture. The patient is seen today October 19, 2023 in the intensive care unit. He remains intubated on the mechanical ventilator on assist-control mode of 14, tidal volume 500, FiO2 30% and a PEEP of 5. Morning blood gases revealed a PaO2 of 106, pCO2 of 48 and a pH of 7.4. Yesterday he was pressure support and CPAP 5/5 for approximately 6 hours. He he is being nourished with vital AF at 30 MLS per hour. He remains off sedation. Remains unresponsive. Previous EEG revealed background slowing suggestive of severe encephalopathy. No focal slowing, epileptiform discharge or seizure on EEG. A follow-up EEG is pending from today. He did undergo a lumbar puncture yesterday. RBCs were 5778, total nucleated cells 56, glucose 111, total protein greater than 600. C. difficile screen was negative. Viral screen is negative. Count 9.1. Hemoglobin 11.7. Platelets 117. Sodium 142. Potassium 4.3. Bicarb 27. BUN 25. Creatinine 0.49. Glucose 147. He remains on acyclovir, Zyvox, Zosyn. PICC line in place. Chest x-ray reveals endotracheal and nasogastric tubes in good place. There is evidence of cardiomegaly and pulmonary vascular congestion. Cerebrospinal fluid cultures are pending. The patient is seen today October 20, 2023 in follow-up in the intensive care unit. He remains intubated on mechanical ventilator. Currently on assist-control mode at a rate of 14, tidal volume 500, FiO2 of 30% and a PEEP of 5. He has been off sedation for several days now. He remains unresponsive. He is on normal saline at KVO. He has being nourished with vital AF at 60 MLS per hour which is goal. He remains on Zyvox, Zosyn and acyclovir. Lumbar puncture cultures are pending. White count 9.1. Hemoglobin 11.9. Platelets 125. Sodium 140. Potassium 4.0. Bicarb 26. BUN 23. Creatinine 0.51. Glucose 195. Arterial blood gases revealed a PaO2 of 118, pCO2 79 and a pH of 7.49. Counseling suggestive of moderate encephalopathy. No epileptiform discharge or seizures. X-ray reveals cardiomegaly and pulmonary vascular congestion. Endotracheal tube, nasogastric tube and right-sided PICC lines are in place. CT scan of the brain revealed diffuse edema suggesting diffuse anoxic injury. The patient is seen today October 21, 2023 in follow-up in the intensive care unit. He remains intubated and on mechanical ventilator. Currently settings are assist-control mode at a rate of 14, tidal volume 450, FiO2 30% and a PEEP of 5. Morning blood gases revealed a PaO2 of 112, pCO2 46 and a pH of 7.43. He remains off sedation. He is being nourished with vital AF at 60 MLS per hour which is goal. He is continued on Zosyn, Zyvox, acyclovir. He remains unresponsive. He has some positive reflexes. Chest x-ray reveals cardiomegaly with pulmonary vascular congestion. Endotracheal tube, nasogastric tube and right-sided PICC line remain in place. Sputum positive for Ana. Blood cultures revealed no growth. Cerebrospinal fluid cultures revealed no growth. White count 9.2. Hemoglobin 11.5. Platelets 116. Sodium 139. Potassium 3.7. Bicarb 29. BUN 22. Creatinine 0.47. Glucose 203. He remains on Lovenox for DVT prophylaxis. Objective - Vital Signs Vital signs: Vital Signs Temp 99.5 F 10/21/23 08:00 Pulse 99 10/21/23 11:21 Resp 14 10/21/23 11:00 BP 142/82 10/21/23 02:00 Pulse Ox 100 10/21/23 11:00 FiO2 30 10/21/23 11:00 Intake & Output 10/20/23 10/21/23 10/21/23 18:59 06:59 18:59 Intake Total 1756 1703 825 Output Total 1625 1150 540 Balance 131 553 285 Weight 86 kg Intake: IV 696 893 435 Acyclovir Sodium 850 mg 100 100 In Sodium Chloride 0.9% 100 ml @ 100 mls/hr IVPB Q8HR [facility] Rx#:[id number] Invasive Line 4 30 30 10 Invasive Line 9 30 30 10 Linezolid 600 mg In 300 600 300 Dextrose/Water 1 300ml. bag @ 150 mls/hr IVPB Q12HR [facility] Rx#:[id number] Piperacillin-Tazobactam 3 200 100 100 .375 gm In Sodium Chloride 0.9% 100 ml @ 25 mls/hr IVPB Q8H [facility] Rx#: [id number] Pressure Bag 36 33 15 Tube Feeding 960 720 360 Other 100 90 30 Output: Urine 1625 1150 540 Other: Voiding Method Indwelling Catheter Indwelling Catheter # Bowel Movements 0 1 0 ABP, PAP, CO, CI - Last Documented Arterial Blood Pressure 128/52 - Exam GENERAL EXAM: Intubated, 72-year-old male patient remains off sedation for several days. Unresponsive. HEAD: Normocephalic. EYES: Sluggish reaction of pupils, equal size. NOSE: Clear with pink turbinates. THROAT: No erythema or exudates. NECK: No masses, no JVD. CHEST: No chest wall deformity. LUNGS: Equal air entry with bilateral scattered rhonchi, crackles in the p osterior bases. CVS: S1 and S2 normal with no audible murmur, regular rhythm. Tachycardic ABDOMEN: No hepatosplenomegaly, normal bowel sounds, no guarding or rigidity. SPINE: No scoliosis or deformity SKIN: No rashes CENTRAL NERVOUS SYSTEM: Unresponsive, tone is normal in all 4 extremities. EXTREMITIES: Right upper extremity PICC line in place. Amputation of the left great toe, dressing in place. Peripheral pulses are intact. - Labs CBC & Chem 7: 10/21/23 04:12 10/21/23 09:11 Labs: Abnormal Lab Results - Last 24 Hours (Table) 10/20/23 10/20/23 10/21/23 Range/Units 12:22 18:52 00:48 RBC (4.30-5.90) m/uL Hgb (13.0-17.5) gm/dL Hct (39.0-53.0) % RDW (11.5-15.5) % Plt Count (150-450) k/uL Lymphocytes # (1.0-4.8) k/uL ABG pCO2 (35-45) mmHg ABG pO2 (83-108) mmHg ABG HCO3 (21-25) mmol/L ABG Total CO2 (19-24) mmol/L BUN (9-20) mg/dL Creatinine (0.66-1.25) mg/dL Glucose (74-99) mg/dL POC Glucose (mg/dL) 209 H 207 H 198 H (70-110) mg/dL Calcium (8.4-10.2) mg/dL 10/21/23 10/21/23 10/21/23 Range/Units 04:12 04:12 05:39 RBC 4.00 L (4.30-5.90) m/uL Hgb 11.5 L (13.0-17.5) gm/dL Hct 37.0 L (39.0-53.0) % RDW 15.7 H (11.5-15.5) % Plt Count 116 L (150-450) k/uL Lymphocytes # 0.7 L (1.0-4.8) k/uL ABG pCO2 (35-45) mmHg ABG pO2 (83-108) mmHg ABG HCO3 (21-25) mmol/L ABG Total CO2 (19-24) mmol/L BUN 22 H (9-20) mg/dL Creatinine 0.47 L (0.66-1.25) mg/dL Glucose 203 H (74-99) mg/dL POC Glucose (mg/dL) 203 H (70-110) mg/dL Calcium 8.2 L (8.4-10.2) mg/dL 10/21/23 Range/Units 05:56 RBC (4.30-5.90) m/uL Hgb (13.0-17.5) gm/dL Hct (39.0-53.0) % RDW (11.5-15.5) % Plt Count (150-450) k/uL Lymphocytes # (1.0-4.8) k/uL ABG pCO2 46 H (35-45) mmHg ABG pO2 112 H (83-108) mmHg ABG HCO3 30 H (21-25) mmol/L ABG Total CO2 32 H (19-24) mmol/L BUN (9-20) mg/dL Creatinine (0.66-1.25) mg/dL Glucose (74-99) mg/dL POC Glucose (mg/dL) (70-110) mg/dL Calcium (8.4-10.2) mg/dL Microbiology - Last 24 Hours (Table) 10/15/23 18:11 Blood Culture - Final Blood 10/18/23 17:20 CSF Gram Stain - Preliminary Cerebral Spinal Fluid CSF Culture - Preliminary 10/17/23 01:05 Blood Culture - Preliminary Blood 10/17/23 01:05 Blood Culture - Preliminary Blood Assessment and Plan Assessment: Unresponsiveness with agonal breathing of unclear etiology, cardiac catheterization revealed normal coronary arteries. Pulmonary embolism ruled out. Heparin drip discontinued. Off sedation and remains unresponsive. Lumbar puncture done 10/18/2023. Cultures pending. Acyclovir was added. Hypotension requiring pressor support, recovered Severely impaired left ventricular systolic function with ejection fraction 20 to 25% Severe pulmonary hypertension Febrile illness, suspect underlying pneumonia. Procalcitonin 0.42. Remains on Zosyn and Zyvox Leukocytosis Tachycardia History of pulmonary fibrosis on Ofev in the outpatient setting Recent amputation of the left great toe, was on Zosyn via PICC line in the outpatient setting Plan: The patient was seen and evaluated Chest x-ray, ABGs, labs and medications reviewed Continue Zosyn, Zyvox, acyclovir Lumbar puncture cultures no growth x 48 hours Patient has been unresponsive and off sedation Family may choose comfort care tomorrow We will continue to follow I have personally seen and examined the patient, performed the documentation and the assessment and plan as written. Number of minutes spent on the visit: 15.
[2023-10-21 12:26] LABS: Glucose,Whole Blood 247 mg/dL (70-110)
[2023-10-21] MEDS: CHOLESTYRAMINE (WITH SUGAR) 4 GM PACKET PO SCH (12:35)
--- NOTE | 2023-10-21 16:47 | P.PN ---
Subjective Progress Note Date: 10/21/23 Principal diagnosis: Reason for follow-up is sepsis, recent foot infection and osteomyelitis Patient is a 72-year-old male past medical history significant for pulmonary fibrosis, type 2 diabetes mellitus right big toe diabetic foot infection with underlying osteomyelitis s/p amputation at [facility] and currently has been on Zosyn patient has been brought into the hospital for evaluation of weakness unresponsiveness patient got intubated admitted to ICU ID consulted concerning for sepsis. On today's evaluation that is 10/21/2023,the patient did have a low-grade fever 100.3 at midnight patient is afebrile this morning patient remains to be intubated on the vent FiO2 is currently stable at 30% no significant purulent secretions through the ET reported at the patient not requiring any pressor support,did have diarrhea with 2 large bowel movements reported by the nursing staff. Patient white count is 9.1, creatinine 0.47 Objective - Vital Signs Vital signs: Vital Signs Temp 99.6 F 10/21/23 04:00 Pulse 96 10/21/23 07:47 Resp 15 10/21/23 07:00 BP 142/82 10/21/23 02:00 Pulse Ox 99 10/21/23 07:00 FiO2 30 10/21/23 07:37 Intake & Output 10/20/23 10/21/23 10/21/23 18:59 06:59 18:59 Intake Total 1756 1703 63 Output Total 1625 1150 150 Balance 131 553 -87 Weight 86 kg Intake: IV 696 893 3 Acyclovir Sodium 850 mg 100 100 In Sodium Chloride 0.9% 100 ml @ 100 mls/hr IVPB Q8HR [facility] Rx#:[id number] Invasive Line 4 30 30 Invasive Line 9 30 30 Linezolid 600 mg In 300 600 Dextrose/Water 1 300ml. bag @ 150 mls/hr IVPB Q12HR [facility] Rx#:[id number] Piperacillin-Tazobactam 3 200 100 .375 gm In Sodium Chloride 0.9% 100 ml @ 25 mls/hr IVPB Q8H [facility] Rx#: [id number] Pressure Bag 36 33 3 Tube Feeding 960 720 60 Other 100 90 Output: Urine 1625 1150 150 Other: Voiding Method Indwelling Catheter Indwelling Catheter # Bowel Movements 0 1 1 ABP, PAP, CO, CI - Last Documented Arterial Blood Pressure 114/55 - Exam Elderly male intubated on the vent Respiratory system unlabored breathing on the vent Patient is sedated - Labs CBC & Chem 7: 10/21/23 04:12 10/21/23 09:11 Labs: Abnormal Lab Results - Last 24 Hours (Table) 10/20/23 10/20/23 10/21/23 Range/Units 12:22 18:52 00:48 RBC (4.30-5.90) m/uL Hgb (13.0-17.5) gm/dL Hct (39.0-53.0) % RDW (11.5-15.5) % Plt Count (150-450) k/uL Lymphocytes # (1.0-4.8) k/uL ABG pCO2 (35-45) mmHg ABG pO2 (83-108) mmHg ABG HCO3 (21-25) mmol/L ABG Total CO2 (19-24) mmol/L BUN (9-20) mg/dL Creatinine (0.66-1.25) mg/dL Glucose (74-99) mg/dL POC Glucose (mg/dL) 209 H 207 H 198 H (70-110) mg/dL Calcium (8.4-10.2) mg/dL 10/21/23 10/21/23 10/21/23 Range/Units 04:12 04:12 05:39 RBC 4.00 L (4.30-5.90) m/uL Hgb 11.5 L (13.0-17.5) gm/dL Hct 37.0 L (39.0-53.0) % RDW 15.7 H (11.5-15.5) % Plt Count 116 L (150-450) k/uL Lymphocytes # 0.7 L (1.0-4.8) k/uL ABG pCO2 (35-45) mmHg ABG pO2 (83-108) mmHg ABG HCO3 (21-25) mmol/L ABG Total CO2 (19-24) mmol/L BUN 22 H (9-20) mg/dL Creatinine 0.47 L (0.66-1.25) mg/dL Glucose 203 H (74-99) mg/dL POC Glucose (mg/dL) 203 H (70-110) mg/dL Calcium 8.2 L (8.4-10.2) mg/dL 10/21/23 Range/Units 05:56 RBC (4.30-5.90) m/uL Hgb (13.0-17.5) gm/dL Hct (39.0-53.0) % RDW (11.5-15.5) % Plt Count (150-450) k/uL Lymphocytes # (1.0-4.8) k/uL ABG pCO2 46 H (35-45) mmHg ABG pO2 112 H (83-108) mmHg ABG HCO3 30 H (21-25) mmol/L ABG Total CO2 32 H (19-24) mmol/L BUN (9-20) mg/dL Creatinine (0.66-1.25) mg/dL Glucose (74-99) mg/dL POC Glucose (mg/dL) (70-110) mg/dL Calcium (8.4-10.2) mg/dL Microbiology - Last 24 Hours (Table) 10/15/23 18:11 Blood Culture - Final Blood 10/18/23 17:20 CSF Gram Stain - Preliminary Cerebral Spinal Fluid CSF Culture - Preliminary 10/17/23 01:05 Blood Culture - Preliminary Blood 10/17/23 01:05 Blood Culture - Preliminary Blood Assessment and Plan (1) Diarrhea Current Visit: Yes Status: Acute Code(s): R19.7 - DIARRHEA, UNSPECIFIED SNOMED Code(s): 55733061 (2) Leukocytosis Current Visit: Yes Status: Acute Code(s): D72.829 - ELEVATED WHITE BLOOD CELL COUNT, UNSPECIFIED SNOMED Code(s): 224390171 (3) Pneumonia Current Visit: Yes Status: Acute Code(s): J18.9 - PNEUMONIA, UNSPECIFIED ORGANISM SNOMED Code(s): 072831239 Plan: This is a telehealth visit 1patient presented to hospital with sepsis in this patient who did have a fever elevated white count tachycardia with concern for possible aspiration pneumonitis in this patient who currently was getting treatment for the right big toe diabetic foot infection status post amputation with the patient being on a good gram-negative coverage more likely dealing with gram-positive pathogen 2-sputum culture currently growing Ana which is more likely colonizer 3-patient did have some diarrhea stool for C. difficile has been negative 4patient did have LP which was traumatic clinically not behaving as encephalitis currently waiting for HSV DNA by PCR to be completed acyclovir has been added empirically by neurology awaiting finalization of the HSV DNA by PCR 5patient did have resolution of fever and the patient white count normalized, patient culture negative so far patient to continue Zosyn and Zyvox possible hospice/comfort care as per review of the pulmonary and admitting team Dictation was produced using [employer] dictation software. please excuse any grammatical, word or spelling errors. Time with Patient: Less than 30
--- NOTE | 2023-10-21 16:48 | P.PN ---
Subjective Progress Note Date: 10/20/23 Principal diagnosis: Reason for follow-up is sepsis, recent foot infection and osteomyelitis Patient is a 72-year-old male past medical history significant for pulmonary fibrosis, type 2 diabetes mellitus right big toe diabetic foot infection with underlying osteomyelitis s/p amputation at and currently has been on Zosyn patient has been brought into the hospital for evaluation of weakness unresponsiveness patient got intubated admitted to ICU ID consulted concerning for sepsis. On today's evaluation that is 10/20/2023, Patient is afebrile this morning patient remains to be intubated on the vent FiO2 is currently at 30% no purulent secretions through the ED and the patient not requiring any pressor support, no other changes reported by nursing staff Patient did have white count of 9.1 creatinine 0.51 Objective - Vital Signs Vital signs: Vital Signs Temp 97.9 F 10/20/23 08:00 Pulse 101 H 10/20/23 09:00 Resp 21 10/20/23 09:00 BP 126/70 10/19/23 10:00 Pulse Ox 100 10/20/23 09:00 FiO2 30 10/20/23 09:00 Intake & Output 10/19/23 10/20/23 10/20/23 18:59 06:59 18:59 Intake Total 1637 1383 699 Output Total 1350 950 275 Balance 287 433 424 Weight 86.7 kg 84.6 kg Intake: IV 889 473 419 Acyclovir Sodium 850 mg 100 In Sodium Chloride 0.9% 100 ml @ 100 mls/hr IVPB Q8HR [facility] Rx#:[id number] Invasive Line 4 20 30 10 Invasive Line 8 30 10 Linezolid 600 mg In 500 300 300 Dextrose/Water 1 300ml. bag @ 150 mls/hr IVPB Q12HR [facility] Rx#:[id number] Piperacillin-Tazobactam 3 200 100 100 .375 gm In Sodium Chloride 0.9% 100 ml @ 25 mls/hr IVPB Q8H [facility] Rx#: [id number] Pressure Bag 39 33 9 Intake, IV Titration 250 Amount Acyclovir Sodium 850 mg 250 In Sodium Chloride 0.9% 250 ml @ 270 mls/hr IVPB Q8H [facility] Rx#:[id number] Tube Feeding 658 660 240 Other 90 40 Output: Urine 1350 950 275 Other: Voiding Method Indwelling Catheter Indwelling Catheter # Bowel Movements 0 1 ABP, PAP, CO, CI - Last Documented Arterial Blood Pressure 132/57 - Exam Elderly male intubated on the vent Respiratory system unlabored breathing on the vent Patient is sedated - Labs CBC & Chem 7: 10/21/23 04:12 10/21/23 09:11 Labs: Abnormal Lab Results - Last 24 Hours (Table) 10/19/23 10/19/23 10/20/23 Range/Units 11:58 18:12 01:23 RBC (4.30-5.90) m/uL Hgb (13.0-17.5) gm/dL Hct (39.0-53.0) % RDW (11.5-15.5) % Plt Count (150-450) k/uL Lymphocytes # (1.0-4.8) k/uL ABG pH (7.35-7.45) ABG pO2 (83-108) mmHg ABG HCO3 (21-25) mmol/L ABG Total CO2 (19-24) mmol/L Chloride (98-107) mmol/L BUN (9-20) mg/dL Creatinine (0.66-1.25) mg/dL Glucose (74-99) mg/dL POC Glucose (mg/dL) 165 H 154 H 197 H (70-110) mg/dL Calcium (8.4-10.2) mg/dL 10/20/23 10/20/23 10/20/23 Range/Units 05:30 05:30 05:49 RBC 4.14 L (4.30-5.90) m/uL Hgb 11.9 L (13.0-17.5) gm/dL Hct 37.9 L (39.0-53.0) % RDW 15.8 H (11.5-15.5) % Plt Count 125 L (150-450) k/uL Lymphocytes # 0.6 L (1.0-4.8) k/uL ABG pH 7.49 H (7.35-7.45) ABG pO2 118 H (83-108) mmHg ABG HCO3 30 H (21-25) mmol/L ABG Total CO2 31 H (19-24) mmol/L Chloride 110 H (98-107) mmol/L BUN 23 H (9-20) mg/dL Creatinine 0.51 L (0.66-1.25) mg/dL Glucose 195 H (74-99) mg/dL POC Glucose (mg/dL) (70-110) mg/dL Calcium 8.3 L (8.4-10.2) mg/dL 10/20/23 Range/Units 05:54 RBC (4.30-5.90) m/uL Hgb (13.0-17.5) gm/dL Hct (39.0-53.0) % RDW (11.5-15.5) % Plt Count (150-450) k/uL Lymphocytes # (1.0-4.8) k/uL ABG pH (7.35-7.45) ABG pO2 (83-108) mmHg ABG HCO3 (21-25) mmol/L ABG Total CO2 (19-24) mmol/L Chloride (98-107) mmol/L BUN (9-20) mg/dL Creatinine (0.66-1.25) mg/dL Glucose (74-99) mg/dL POC Glucose (mg/dL) 184 H (70-110) mg/dL Calcium (8.4-10.2) mg/dL Microbiology - Last 24 Hours (Table) 10/18/23 17:20 CSF Gram Stain - Preliminary Cerebral Spinal Fluid CSF Culture - Preliminary 10/17/23 01:05 Blood Culture - Preliminary Blood 10/17/23 01:05 Blood Culture - Preliminary Blood 10/16/23 00:05 Gram Stain - Final Sputum Sputum Culture - Final Ana albicans Assessment and Plan (1) Diarrhea Current Visit: Yes Status: Acute Code(s): R19.7 - DIARRHEA, UNSPECIFIED SNOMED Code(s): 25865149 (2) Leukocytosis Current Visit: Yes Status: Acute Code(s): D72.829 - ELEVATED WHITE BLOOD CELL COUNT, UNSPECIFIED SNOMED Code(s): 568079488 (3) Pneumonia Current Visit: Yes Status: Acute Code(s): J18.9 - PNEUMONIA, UNSPECIFIED ORGANISM SNOMED Code(s): 329659135 Plan: This is a telehealth visit 1patient presented to hospital with sepsis in this patient who did have a fever elevated white count tachycardia with concern for possible aspiration pneumonitis in this patient who currently was getting treatment for the right big toe diabetic foot infection status post amputation with the patient being on a good gram-negative coverage more likely dealing with gram-positive pathogen 2-sputum culture currently growing Ana which is more likely colonizer 3-patient did have some diarrhea stool for C. difficile has been negative 4patient did have LP which was traumatic clinically not behaving as encephalitis currently waiting for HSV DNA by PCR to be completed acyclovir has been added empirically by neurology awaiting finalization of the HSV DNA by PCR 5patient did have resolution of fever and the patient white count normalized, patient to continue Zosyn and Zyvox and monitor clinical course closely Dictation was produced using [employer] dictation software. please excuse any grammatical, word or spelling errors. Time with Patient: Less than 30
[2023-10-21 17:13] LABS: Glucose,Whole Blood 209 mg/dL (70-110)
[2023-10-21] MEDS: IPRATROPIUM-ALBUTEROL 3 ML NEB ONE (20:13)
[2023-10-22 00:28] LABS: Glucose,Whole Blood 243 mg/dL (70-110)
[2023-10-22 05:08] LABS: Basophils % (A) 0 %; Eosinophils # (A) 0.4 k/uL (0-0.7); Eosinophils % (A) 6 %; HCT 34.8 % (39.0-53.0); HGB 11.1 gm/dL (13.0-17.5); Lymphocytes # (A) 0.5 k/uL (1.0-4.8); Lymphocytes % (A) 7 %; MCH 29.2 pg (25.0-35.0); MCHC 31.8 g/dL (31.0-37.0); MCV 91.7 fL (80.0-100.0); Mean Platelet Volume 8.8; Monocytes # (A) 0.7 k/uL (0-1.0); Monocytes % (A) 9 %; Neutrophils # (A) 5.7 k/uL (1.3-7.7); Neutrophils % (A) 77 %; Platelet Count 116 k/uL (150-450); RDW 15.6 % (11.5-15.5); WBC 7.5 k/uL (3.8-10.6)
[2023-10-22 05:15] LABS: ALT 26 U/L (4-49); AST 34 U/L (17-59); African American GFR (CKD) >90 (>60 ml/min/1.73 sqM); Albumin 2.6 g/dL (3.5-5.0); Alkaline Phosphatase 101 U/L (38-126); Anion Gap 4 mmol/L; Blood Urea Nitrogen 20 mg/dL (9-20); Calcium 8.2 mg/dL (8.4-10.2); Carbon Dioxide 27 mmol/L (22-30); Chloride 105 mmol/L (98-107); Glucose 217 mg/dL (74-99); Magnesium 1.8 mg/dL (1.6-2.3); Non-African American GFR(CKD) >90 (>60 ml/min/1.73 sqM); Potassium 3.8 mmol/L (3.5-5.1); Sodium 136 mmol/L (137-145); Total Bilirubin 0.6 mg/dL (0.2-1.3); Total Protein 5.2 g/dL (6.3-8.2)
[2023-10-22 05:21] LABS: ABG Base Excess 5.4 mmol/L; ABG HCO3 30 mmol/L (21-25); ABG Oxygen Saturation 97.3 % (94-97); ABG PCO2 44 mmHg (35-45); ABG PH 7.45 (7.35-7.45); ABG PO2 123 mmHg (83-108); ABG TCO2 32 mmol/L (19-24); Allen Test Performed? Yes
[2023-10-22 05:40] LABS: Glucose,Whole Blood 226 mg/dL (70-110)
[2023-10-22] MEDS: POTASSIUM BICARBONATE/CIT AC 20 MEQ TABLET.EFF NG-TUBE SCH (05:41)
[2023-10-22 06:03] LABS: Glucose,Whole Blood 218 mg/dL (70-110)
--- NOTE | 2023-10-22 07:27 | XR ---
EXAMINATION TYPE: XR chest 1V portable DATE OF EXAM: 10/22/2023 COMPARISON: 10/21/2023 HISTORY: Shortness of breath TECHNIQUE: Single frontal view of the chest is obtained. FINDINGS: ET tube is approximately 1.5 cm above alexys. NG tube seen coursing in the abdomen. Diffus e bilateral pleural-parenchymal changes with pleural effusion and consolidation stable. No pneumothor ax. Arthropathy of the shoulders and degenerative change of the spine. IMPRESSION: Stable bilateral diffuse airspace disease.
--- NOTE | 2023-10-22 10:36 | CT ---
EXAMINATION TYPE: CT brain wo con DATE OF EXAM: 10/22/2023 COMPARISON: 10/19/2023 HISTORY: 72-year-old male confusion, altered mentation, edema TECHNIQUE: Examination was done in axial plane without intravenous contrast. Coronal and sagittal r econstructions performed. CT DLP: 1211.4 mGycm Automated exposure control for dose reduction was used. FINDINGS: Redemonstrated multifocal areas of cortical and subcortical hypodensity throughout the posterior righ t frontal region, bilateral parietal regions, parieto-occipital junctions. Additional changes anterior right frontal lobe adjacent to the frontal horn of the lateral ventricle. No evidence for acute intracranial hemorrhage. There may be development of minimal 3 mm of leftward midline shift but no herniation seen. No hydroce phalus. Moderate mucosal thickening throughout the ethmoid air cells. Complete opacification right sphenoid s inus. Mastoid air cells well pneumatized and leftward nasal septal deviation. Orbits and globes are i ntact. IMPRESSION: 1. Multifocal areas of subacute cerebral ischemia, similar pattern as compared to 10/19/2023. Slight gr eater degree of hypodensity of the brain parenchyma now suggesting ongoing evolution. No acute intrac ranial hemorrhage. 2. There may be development of trace 3 mm leftward midline shift. No herniation or hydrocephalus.
[2023-10-22] MEDS ORDERED: Magnesium Replacement Protocol 1 EACH MISC MISCELLANE PRN (11:19)
--- NOTE | 2023-10-22 11:37 | P.PN ---
Subjective Progress Note Date: 10/22/23 Hospital Course: 72-year-old male with medical history of idiopathic pulmonary fibrosis on Ofev, diabetes type 2, osteomyelitis status post recent right toe amputation on Zosyn, hypertension, hyperlipidemia presented for evaluation of altered mental status. According to ER documentation, the patient demonstrated evidence of agonal breathing and therefore was bagged for ventilation on the way to the emergency room. Upon arrival, patient was afebrile, 168/114, heart rate 131, 99% with [id number]-nait. CBC was unremarkable. Basic metabolic panel showed chloride of 109, CO2 of 21, BUN of 26, creatinine 1.57. Liver function test were unremarkable. Troponins 0.047. Coags were unremarkable. D-dimer was elevated 2.58. EKG demonstrated atrial fibrillation with RVR as well as ST elevation in the lateral leads with reciprocal changes in the inferior leads. Based on these findings, cardiology was notified and a code STEMI was called, patient was taken emergently to the [facility] but was found to have normal coronary arteries. Subsequently was transferred to the intensive care unit, intubated. He underwent brain CT to rule out hemorrhagic stroke which was negative, pulmonology was consulted and neurology was consulted. Patient remains intubated and mechanically ventilated. Also hypotensive, requiring vasopressors as well as broad-spectrum antibiotics. Echocardiogram showed LVEF 25 to 30% with severe hypokinesis involving the apex, severe pulmonary hypertension. CTA chest did not show any acute PE. Heparin drip discontinued. CTA head showed vasogenic edema in the posterior aspects of occipital lobes and parietal of the lesser extent right frontal lobe concerning for PRES. patient continued on IV antibiotics. Off of sedation, minimally responsive. Off of vasopressors. LP completed. Patient also started on acyclovir. Prognosis remains poor. Patient was considering comfort care. However, patient mental status slightly improved. Subjective: Patient seen and examined at bedside. No acute events overnight. Remains intubated, mechanically ventilated. Off sedation and vasopressors. Responding to some commands. Pertinent positives and negatives as discussed above, a complete review of systems was performed and all other systems are negative. Vitals Signs Reviewed. General: Intubated Derm: Warm, dry, left foot covered in dressing Head: Atraumatic, normocephalic, symmetric Eyes: Pupils equal and reactive Mouth: No lip lesion, mucus membranes moist Cardiovascular: S1S2 irregular, no murmur Lungs: Bilateral rhonchi, intubated mechanically ventilated Abdominal: Soft, nondistended Ext: No gross muscle atrophy, no edema, no contractures Neuro: Follows some commands, spontaneously opening eyes Psych: Unable to assess Data Reviewed Today: Pertinent Labs: WBC 7.5, hemoglobin 11.1, platelet 116, sodium 136, creatinine 0.42, glucose range between 2 17-2 43, magnesium 1.8 Imaging: CT head shows multiple areas of subacute cerebral ischemia, development of trace 3 mm leftward midline shift, no herniation or hydrocephalus, chest x- ray independently interpreted, similar to yesterday Assessment and Plan: Patient is critically ill, needs close monitoring. 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%, possibly Takotsubo cardiomyopathy Acute hypoxic respiratory failure, ventilator dependent Suspected aspiration pneumonia History of pulmonary fibrosis Recent left great toe amputation secondary to osteomyelitis Metabolic acidosis, lactic acidosis, resolved Acute kidney injury, likely ATN, resolved Euthyroid sick syndrome -Neurology following, continued on acyclovir 850 IV every 8 hours, IV Keppra 1000 every 12 hours -CT brain imaging concerning for edema/anoxic injury -Discussed management with pulmonology, needs further goals of care discussion, hold Dilaudid -ID following, patient on linezolid 600 mg IV every 12 hours, Zosyn 3.375 g IV every 8 hours Elevated troponin Paroxysmal atrial fibrillation with RVR, new onset -Continue aspirin 81 mg, atorvastatin 80 mg -Cardiac cath showed normal coronary angiogram, normal left-sided filling pressures -no AC at the moment Type 2 diabetes -Hold oral antidiabetics -Continue sliding scale insulin every 6 hours, monitor for hypoglycemia -started on levemir 10 daily History of hypertension-hold antihypertensives Dyslipidemia-continue atorvastatin Rheumatoid arthritis DVT ppx: lovenox Code status: DNR Anticipated discharge place: Pending clinical course Anticipated discharge time: pending clinical course Objective - Vital Signs Vital signs: Vital Signs Temp 98.5 F 10/22/23 08:00 Pulse 98 10/22/23 11:14 Resp 20 10/22/23 11:00 BP 140/80 10/22/23 11:00 Pulse Ox 100 10/22/23 11:00 FiO2 30 10/22/23 11:15 Intake & Output 10/21/23 10/22/23 10/22/23 18:59 06:59 18:59 Intake Total 1716 856 845 Output Total 1430 1080 565 Balance 286 -224 280 Weight 85.4 kg Intake: IV 726 106 515 0.9 Sodium Chloride 80 Acyclovir Sodium 850 mg 100 In Sodium Chloride 0.9% 100 ml @ 100 mls/hr IVPB Q8HR [facility] Rx#:[id number] Invasive Line 4 40 30 10 Invasive Line 8 10 10 Invasive Line 9 40 30 10 Linezolid 600 mg In 300 300 Dextrose/Water 1 300ml. bag @ 150 mls/hr IVPB Q12HR [facility] Rx#:[id number] Piperacillin-Tazobactam 3 200 100 .375 gm In Sodium Chloride 0.9% 100 ml @ 25 mls/hr IVPB Q8H [facility] Rx#: [id number] Pressure Bag 36 36 15 Tube Feeding 900 720 300 Other 90 30 30 Output: Urine 1430 1080 565 Other: Voiding Method Indwelling Catheter Indwelling Catheter # Bowel Movements 0 1 ABP, PAP, CO, CI - Last Documented Arterial Blood Pressure 151/68 - Labs CBC & Chem 7: 10/22/23 04:46 10/22/23 04:46 Labs: Abnormal Lab Results - Last 24 Hours (Table) 10/21/23 10/21/23 10/22/23 Range/Units 12:24 17:11 00:26 RBC (4.30-5.90) m/uL Hgb (13.0-17.5) gm/dL Hct (39.0-53.0) % RDW (11.5-15.5) % Plt Count (150-450) k/uL Lymphocytes # (1.0-4.8) k/uL ABG pO2 (83-108) mmHg ABG HCO3 (21-25) mmol/L ABG Total CO2 (19-24) mmol/L ABG O2 Saturation (94-97) % Sodium (137-145) mmol/L Creatinine (0.66-1.25) mg/dL Glucose (74-99) mg/dL POC Glucose (mg/dL) 247 H 209 H 243 H (70-110) mg/dL Calcium (8.4-10.2) mg/dL Total Protein (6.3-8.2) g/dL Albumin (3.5-5.0) g/dL 10/22/23 10/22/2324 Range/Units 04:46 04:46 05:07 RBC 3.80 L (4.30-5.90) m/uL Hgb 11.1 L (13.0-17.5) gm/dL Hct 34.8 L (39.0-53.0) % RDW 15.6 H (11.5-15.5) % Plt Count 116 L (150-450) k/uL Lymphocytes # 0.5 L (1.0-4.8) k/uL ABG pO2 123 H (83-108) mmHg ABG HCO3 30 H (21-25) mmol/L ABG Total CO2 32 H (19-24) mmol/L ABG O2 Saturation 97.3 H (94-97) % Sodium 136 L (137-145) mmol/L Creatinine 0.42 L (0.66-1.25) mg/dL Glucose 217 H (74-99) mg/dL POC Glucose (mg/dL) (70-110) mg/dL Calcium 8.2 L (8.4-10.2) mg/dL Total Protein 5.2 L (6.3-8.2) g/dL Albumin 2.6 L (3.5-5.0) g/dL 10/22/23 10/22/23 Range/Units 05:38 06:02 RBC (4.30-5.90) m/uL Hgb (13.0-17.5) gm/dL Hct (39.0-53.0) % RDW (11.5-15.5) % Plt Count (150-450) k/uL Lymphocytes # (1.0-4.8) k/uL ABG pO2 (83-108) mmHg ABG HCO3 (21-25) mmol/L ABG Total CO2 (19-24) mmol/L ABG O2 Saturation (94-97) % Sodium (137-145) mmol/L Creatinine (0.66-1.25) mg/dL Glucose (74-99) mg/dL POC Glucose (mg/dL) 226 H 218 H (70-110) mg/dL Calcium (8.4-10.2) mg/dL Total Protein (6.3-8.2) g/dL Albumin (3.5-5.0) g/dL Microbiology - Last 24 Hours (Table) 10/21/23 08:15 Gram Stain - Preliminary Sputum 10/18/23 17:20 CSF Gram Stain - Preliminary Cerebral Spinal Fluid CSF Culture - Preliminary
[2023-10-22 11:43] LABS: Glucose,Whole Blood 218 mg/dL (70-110)
[2023-10-22] MEDS: MAGNESIUM SULFATE-D5W PMX 1 GM in DEXTROSE/WATER 1 100ML.BAG IVPB ONE (11:48)
[2023-10-22] MEDS: INSULIN DETEMIR (LEVEMIR) 100 UNIT/ML SYR SQ ONE (13:30)
[2023-10-22] MEDS ORDERED: SODIUM CHLORIDE 3%(HYPERTONIC) 500 ML IV ONE (13:40)
[2023-10-22] MEDS ORDERED: DEXAMETHASONE SOD PHOSPHATE 10 MG/ML 1 ML VIAL IVP STA (13:58)
--- NOTE | 2023-10-22 14:04 | P.PN ---
Subjective Progress Note Date: 10/22/23 This is a 72-year-old male patient with a history of pulmonary fibrosis maintained on Ofev in the outpatient setting. He was found by his earlier today to be unresponsive and agonal breathing. EMS was called and he was intubated in the field. EKG showed possible ST segment elevation myocardial i nfarction. He was brought in through the emergency room and directly to the [facility]. He was found to have normal coronary arteries. He was admitted to the intensive care unit. He is currently intubated on the mechanical ventilator and assist-control mode at a rate of 14, tidal volume 600, FiO2 50% and a PEEP of 5. Arterial blood gases revealed a PaO2 of greater than 420, pCO2 of 35 and a pH of 7.38. CT scan of the brain showed no acute abnormalities. Echocardiogram is pending. Chest x-ray revealed endotracheal tube in a high position. Being repositioned. Nasogastric tube in the esophagus. Cardiomegaly. No pleural effusion, focal consolidation or pneumothorax. White count 8.7. Hemoglobin 17.0. Platelets 215. D-dimer 2.58. Sodium 140. Potassium 3.8. Bicarb 21. BUN 26. Creatinine 0.57. Glucose 165. Troponin 0.047. The patient is seen today October 16, 2023 in follow-up on the regular medical floor. He remains intubated on the mechanical ventilator. Currently on assist- control mode with a rate of 14, tidal volume 600, FiO2 50% and a PEEP of 5. Morning blood gases revealed a PaO2 of 102, pCO2 40 and a pH of 7.24. He is on propofol at 40 mcg/kg/min. Norepinephrine at 0.09 mcg/kg/min. Heparin drip per weight-based protocol. Saline at 75 MLS per hour. He is continued on Zosyn via PICC line that he had been receiving at home following a left great toe amputa tion. Chest x-ray shows satisfactory position in the nasogastric and endotracheal tubes. There is cardiomegaly with pulmonary vascular congestion. Echocardiogram revealed severely impaired left ventricular systolic function with ejection fraction of 25 to 30%. Severe pulmonary hypertension. White count 19.2. Hemoglobin 15.7. Platelets 248. Sodium 143. Potassium 4.3. Bicarb 15. Anion gap 16. BUN 32. Creatinine 1.16. Glucose 258. His current temperature is 102.1. He is tachycardic 130s. The plan is for CT angiogram of the chest today to rule out pulmonary embolism. CT angiogram of the head and neck is pending as well. The patient is seen today October 17, 2023 in follow-up on the regular medical floor. He remains intubated on mechanical ventilator. Currently on assist-control mode at a rate of 14, tidal volume 500, FiO2 50% and a PEEP of 5. Peak pressures 37. Plateau pressure 19. Continues with some increased airway resistance. Arterial blood gases revealed a PaO2 of 195, pCO2 41 and a pH of 7.37. He is sedated on propofol at 60 mcg/kg/min. Norepinephrine 90 (anabell rograms per minute. Normal saline at KVO. He is being nourished with vital AF at 20 MLS per hour with a goal of 47 MLS per hour. He is on antibiotics in the form of Zosyn and Zyvox. CT angiogram ruled out pulmonary embolism. Procalcitonin 0.42. He is continued on bronchodilators. Chest x-ray reveals multifocal airspace opacities. Sputum culture with Ana. Blood cultures pending. White count 15.6. Hemoglobin 13.3. Platelets 181. Sodium 143. Potassium 3.7. Bicarb 21. BUN 28. Creatinine 0.74. Glucose 145. The patient is seen today October 18, 2023 in follow-up on the regular medical floor. He remains intubated on the mechanical ventilator with current settings of assist-control mode at a rate of 14, tidal volume 500, FiO2 40% and a PEEP of 5. Morning blood gases revealed a PaO2 of 176, pCO2 41 and a pH of 7.44. He is being nourished with vital AF at 47 MLS per hour which is goal. Normal saline at KVO. He has been off sedation for approximately 24 hours now. He has very minimal response. He does grimace to painful stimuli. Follow-up CT scan of the brain revealed increasing loss of jean baptiste-white matter differentiation in the area of vasogenic edema the posterior occipital lobes and to a lesser extent the parietal lobes. The plan is for a lumbar puncture today. He remains on Zosyn and Zyvox. White count 11.6. Hemoglobin 12.2. Platelets 134. Sodium 142. P otassium 3.9. Bicarb 25. BUN 24. Creatinine 0.55. Glucose 178. Chest x-ray reveals multifocal airspace opacities. No evidence of pneumothorax or pleural effusion. PICC line in place. Endotracheal and nasogastric tubes in place. Lovenox for DVT prophylaxis, on hold for lumbar puncture. The patient is seen today October 19, 2023 in the intensive care unit. He remains intubated on the mechanical ventilator on assist-control mode of 14, tidal volume 500, FiO2 30% and a PEEP of 5. Morning blood gases revealed a PaO2 of 106, pCO2 of 48 and a pH of 7.4. Yesterday he was pressure support and CPAP 5/5 for approximately 6 hours. He he is being nourished with vital AF at 30 MLS per hour. He remains off sedation. Remains unresponsive. Previous EEG revealed background slowing suggestive of severe encephalopathy. No focal slowing, epileptiform discharge or seizure on EEG. A follow-up EEG is pending from today. He did undergo a lumbar puncture yesterday. RBCs were 5778, total nucleated cells 56, glucose 111, total protein greater than 600. C. difficile screen was negative. Viral screen is negative. Count 9.1. Hemoglobin 11.7. Platelets 117. Sodium 142. Potassium 4.3. Bicarb 27. BUN 25. Creatinine 0.49. Glucose 147. He remains on acyclovir, Zyvox, Zosyn. PICC line in place. Chest x-ray reveals endotracheal and nasogastric tubes in good place. There is evidence of cardiomegaly and pulmonary vascular congestion. Cerebrospinal fluid cultures are pending. The patient is seen today October 20, 2023 in follow-up in the intensive care unit. He remains intubated on mechanical ventilator. Currently on assist-control mode at a rate of 14, tidal volume 500, FiO2 of 30% and a PEEP of 5. He has been off sedation for several days now. He remains unresponsive. He is on normal saline at KVO. He has being nourished with vital AF at 60 MLS per hour which is goal. He remains on Zyvox, Zosyn and acyclovir. Lumbar puncture cultures are pending. White count 9.1. Hemoglobin 11.9. Platelets 125. Sodium 140. Potassium 4.0. Bicarb 26. BUN 23. Creatinine 0.51. Glucose 195. Arterial blood gases revealed a PaO2 of 118, pCO2 79 and a pH of 7.49. Counseling suggestive of moderate encephalopathy. No epileptiform discharge or seizures. X-ray reveals cardiomegaly and pulmonary vascular congestion. Endotracheal tube, nasogastric tube and right-sided PICC lines are in place. CT scan of the brain revealed diffuse edema suggesting diffuse anoxic injury. The patient is seen today October 21, 2023 in follow-up in the intensive care unit. He remains intubated and on mechanical ventilator. Currently settings are assist-control mode at a rate of 14, tidal volume 450, FiO2 30% and a PEEP of 5. Morning blood gases revealed a PaO2 of 112, pCO2 46 and a pH of 7.43. He remains off sedation. He is being nourished with vital AF at 60 MLS per hour which is goal. He is continued on Zosyn, Zyvox, acyclovir. He remains unresponsive. He has some positive reflexes. Chest x-ray reveals cardiomegaly with pulmonary vascular congestion. Endotracheal tube, nasogastric tube and right-sided PICC line remain in place. Sputum positive for Ana. Blood cultures revealed no growth. Cerebrospinal fluid cultures revealed no growth. White count 9.2. Hemoglobin 11.5. Platelets 116. Sodium 139. Potassium 3.7. Bicarb 29. BUN 22. Creatinine 0.47. Glucose 203. He remains on Lovenox for DVT prophylaxis. 10/22/2023, the patient is being seen for a follow-up. The patient has been off sedation since 10/17/2023. The patient has been off propofol. On today's evaluation, responses essentially sluggish. Upon repeated stimulation, the patient was able to grimace to deep painful stimulation. Still unresponsive although some minimal response to verbal commands has been elicited by the nursing staff. Based on that, repeat CAT scan of the brain was ordered to reevaluate the previously described brain edema. The repeat CAT scan was completed today and it showed multifocal areas of subacute 3020 ischemia similar to the ones as well as noted on 10/19/2023. There is slight degree of decrease of the hypodensity of the brain parenchyma. No evidence of any intracranial bleeding. There is minimal development of a shift in the order of 3 mm leftward to the midline but there is no evidence of any herniation. The patient remains intubated on mechanical ventilator. On today's evaluation is on assist-control mode at a rate of 14, tidal volume of 450, FiO2 30% with a PEEP of 5. Blood gas showed pH of 7.45 with a pCO2 of 44 and pO2 of 123. Chest x-ray findings are essentially unchanged and it is consistent with diffuse bilateral airspace disease and background pulmonary fibrosis. The patient is on IV fluids at [facility]. The overall fluid balance over the past 24 hours has been +62 cc and the patient remains on vital AF at the rate of 67 hours as the patient receiving enteral feeding for nutritional support. The patient has a PICC line in his right upper extremity and the patient also has a arterial line in place. The patient remains on IV acyclovir. The patient remains on IV Zosyn/daptomycin.. The is CSF cultures are negative. CSF by PCR for HSV is still pending. He is having liquidy loose bowel movements. Fecal management system in place. On today's blood work, the white cell count is 7.0 with a hemoglobin 11.1 and a platelet c ount of 116. BUN is at 20 with a creatinine of 0.4 and sodium levels at 136. Potassium levels of 3.8. Patient was also started on Levemir insulin 10 units daily along with a sign scale coverage. Family is at the bedside. Family is updated on the [facility] abnormalities. Hemodynamically stable, currently on no pressors. Objective - Vital Signs Vital signs: Vital Signs Temp 98.9 F 10/22/23 04:00 Pulse 100 10/22/23 08:15 Resp 16 10/22/23 07:00 BP 128/71 10/21/23 20:00 Pulse Ox 99 10/22/23 07:00 FiO2 30 10/22/23 07:54 Intake & Output 10/21/23 10/22/23 10/22/23 18:59 06:59 18:59 Intake Total 1716 856 63 Output Total 1430 1080 75 Balance 286 -224 -12 Weight 85.4 kg Intake: IV 726 106 3 Acyclovir Sodium 850 mg 100 In Sodium Chloride 0.9% 100 ml @ 100 mls/hr IVPB Q8HR [facility] Rx#:[id number] Invasive Line 4 40 30 Invasive Line 8 10 10 Invasive Line 9 40 30 Linezolid 600 mg In 300 Dextrose/Water 1 300ml. bag @ 150 mls/hr IVPB Q12HR [facility] Rx#:[id number] Piperacillin-Tazobactam 3 200 .375 gm In Sodium Chloride 0.9% 100 ml @ 25 mls/hr IVPB Q8H [facility] Rx#: [id number] Pressure Bag 36 36 3 Tube Feeding 900 720 60 Other 90 30 Output: Urine 1430 1080 75 Other: Voiding Method Indwelling Catheter Indwelling Catheter # Bowel Movements 0 1 ABP, PAP, CO, CI - Last Documented Arterial Blood Pressure 110/47 - Exam GENERAL EXAM: Intubated, 72-year-old male patient remains off sedation for several days. Unresponsive to any verbal stimulation, grimaces to deep painful stimulation at this point in time. HEAD: Normocephalic. EYES: Sluggish reaction of pupils, equal size. NOSE: Clear with pink turbinates. THROAT: No erythema or exudates. NECK: No masses, no JVD. CHEST: No chest wall deformity. LUNGS: Equal air entry with bilateral scattered rhonchi, crackles in the posterior bases. CVS: S1 and S2 normal with no audible murmur, regular rhythm. Tachycardic ABDOMEN: No hepatosplenomegaly, normal bowel sounds, no guarding or rigidity. SPINE: No scoliosis or deformity SKIN: No rashes CENTRAL NERVOUS SYSTEM: Unresponsive, tone is normal in all 4 extremities. EXTREMITIES: Right upper extremity PICC line in place. Amputation of the left great toe, dressing in place. Peripheral pulses are intact. - Labs CBC & Chem 7: 10/22/23 04:46 10/22/23 04:46 Labs: Abnormal Lab Results - Last 24 Hours (Table) 10/21/23 10/21/23 10/22/23 Range/Units 12:24 17:11 00:26 RBC (4.30-5.90) m/uL Hgb (13.0-17.5) gm/dL Hct (39.0-53.0) % RDW (11.5-15.5) % Plt Count (150-450) k/uL Lymphocytes # (1.0-4.8) k/uL ABG pO2 (83-108) mmHg ABG HCO3 (21-25) mmol/L ABG Total CO2 (19-24) mmol/L ABG O2 Saturation (94-97) % Sodium (137-145) mmol/L Creatinine (0.66-1.25) mg/dL Glucose (74-99) mg/dL POC Glucose (mg/dL) 247 H 209 H 243 H (70-110) mg/dL Calcium (8.4-10.2) mg/dL Total Protein (6.3-8.2) g/dL Albumin (3.5-5.0) g/dL 10/22/23 10/22/23 10/22/23 Range/Units 04:46 04:46 05:07 RBC 3.80 L (4.30-5.90) m/uL Hgb 11.1 L (13.0-17.5) gm/dL Hct 34.8 L (39.0-53.0) % RDW 15.6 H (11.5-15.5) % Plt Count 116 L (150-450) k/uL Lymphocytes # 0.5 L (1.0-4.8) k/uL ABG pO2 123 H (83-108) mmHg ABG HCO3 30 H (21-25) mmol/L ABG Total CO2 32 H (19-24) mmol/L ABG O2 Saturation 97.3 H (94-97) % Sodium 136 L (137-145) mmol/L Creatinine 0.42 L (0.66-1.25) mg/dL Glucose 217 H (74-99) mg/dL POC Glucose (mg/dL) (70-110) mg/dL Calcium 8.2 L (8.4-10.2) mg/dL Total Protein 5.2 L (6.3-8.2) g/dL Albumin 2.6 L (3.5-5.0) g/dL 10/22/23 10/22/23 Range/Units 05:38 06:02 RBC (4.30-5.90) m/uL Hgb (13.0-17.5) gm/dL Hct (39.0-53.0) % RDW (11.5-15.5) % Plt Count (150-450) k/uL Lymphocytes # (1.0-4.8) k/uL ABG pO2 (83-108) mmHg ABG HCO3 (21-25) mmol/L ABG Total CO2 (19-24) mmol/L ABG O2 Saturation (94-97) % Sodium (137-145) mmol/L Creatinine (0.66-1.25) mg/dL Glucose (74-99) mg/dL POC Glucose (mg/dL) 226 H 218 H (70-110) mg/dL Calcium (8.4-10.2) mg/dL Total Protein (6.3-8.2) g/dL Albumin (3.5-5.0) g/dL Microbiology - Last 24 Hours (Table) 10/21/23 08:15 Gram Stain - Preliminary Sputum 10/18/23 17:20 CSF Gram Stain - Preliminary Cerebral Spinal Fluid CSF Culture - Preliminary 10/15/23 18:11 Blood Culture - Final Blood Assessment and Plan Plan: Acute mental status change and the patient presented with unresponsiveness, intubated placed on mechanical ventilator. CAT scan of the brain revealed diffuse edema which obviously raises the suspicion for diffuse anoxic encephalopathy. Lumbar puncture was done. The CSF was slightly bloody, normal glucose, protein was also elevated at 600, nucleated white cell count was 56 and the cultures were negative pending HSV by PCR. Currently on acyclovir. LP was done on 10/18/2023. The patient is currently off sedation, propofol has been off since 10/17/2023. EEG done on 10/19/2023 revealed background slowing suggestive of moderate degree of encephalopathy without any seizure activity. Repeat CAT scan of the brain was noted and findings are essentially similar and neurology is on the case. Acute on chronic hypoxic respiratory failure. The patient is known to have pul monary fibrosis. Currently intubated on mechanical ventilator, assist-control mode with an FiO2 of 30% and a PEEP of 5, chest x-ray showed diffuse bilateral pulmonary filtrates, stable with ET tube being above the alexys. Hypotension requiring pressor support, recovered Chronic systolic heart failure the patient has severely impaired left ventricular systolic function with ejection fraction 20 to 25% Severe pulmonary hypertension, echocardiogram from 10/15/2023 showed severe pulm hypertension with an estimated PA pressure of 57. Febrile illness, suspect underlying pneumonia. Procalcitonin 0.42. Remains on Zosyn and Zyvox, currently afebrile Leukocytosis, recovered Tachycardia, sinus History of pulmonary fibrosis on Ofev in the outpatient setting Recent amputation of the left great toe, was on Zosyn/Zyvox via PICC line in the outpatient setting Diabetes mellitus type 2, maintained on a combination of Amaryl, Jardiance and metformin. History of rheumatoid arthritis maintained on a combination of Arava and Rinvoq on outpatient basis History of osteomyelitis of the left great toe post amputation of the patient has been receiving IV Zosyn on outpatient basis via PICC line in his right upper extremity. Cultures were positive for Pseudomonas Arm twitching, maintained on Keppra, EEG was negative for any seizure activity. Plan: Results of the follow-up CAT scan of the brain was noted. The patient will be started on hypertonic saline The patient was started on Decadron After having a discussion with the family, we decided to continue the supportive care for another 24 to 48 hours and assess the mental status and decide on further plan accordingly Continue Keppra Continue Zosyn and daptomycin as empiric antibiotic coverage Continue IV acyclovir pending CSF by PCR for HSV Continue enteral feeding for nutritional support Continue ventilator support Case was discussed with the various consultants Lantus insulin for blood sugar control 10 units daily along with a sign scale coverage Will continue to follow and make further recommendations based on the progress. This evaluation was done more than 30 minutes. Time with Patient: Greater than 30
[2023-10-22] MEDS: DEXAMETHASONE SOD PHOSPHATE 10 MG/ML 1 ML VIAL IVP STA (14:13)
[2023-10-22] MEDS: ASPIRIN 325 MG TAB PO SCH (14:14)
[2023-10-22] MEDS: SODIUM CHLORIDE 3%(HYPERTONIC) 500 ML IV SCH (14:42)
--- NOTE | 2023-10-22 14:48 | P.PN ---
Subjective Progress Note Date: 10/22/23 Principal diagnosis: Reason for follow-up is sepsis, recent foot infection and osteomyelitis Patient is a 72-year-old male past medical history significant for pulmonary fibrosis, type 2 diabetes mellitus right big toe diabetic foot infection with underlying osteomyelitis s/p amputation at [facility] and currently has been on Zosyn patient has been brought into the hospital for evaluation of weakness unresponsiveness patient got intubated admitted to ICU ID consulted concerning for sepsis. On today's evaluation that is 10/22/2023,the patient remains to be afebrile, patient is on on the ventilator FiO2 is currently stable at 30% no significant purulent secretions through the ET, patient is hemodynamically stable not requiring any pressor support, patient seem to respond to commands per the nursing staff, patient did have a diarrhea requiring fecal management system. Patient white count is 7.5 creatinine 0.42 culture has been negative so far repeat sputum cultures breast pending CSF viral PCR is currently pending Objective - Vital Signs Vital signs: Vital Signs Temp 98.9 F 10/22/23 04:00 Pulse 100 10/22/23 08:15 Resp 16 10/22/23 07:00 BP 128/71 10/21/23 20:00 Pulse Ox 99 10/22/23 07:00 FiO2 30 10/22/23 07:54 Intake & Output 10/21/23 10/22/23 10/22/23 18:59 06:59 18:59 Intake Total 1716 856 63 Output Total 1430 1080 75 Balance 286 -224 -12 Weight 85.4 kg Intake: IV 726 106 3 Acyclovir Sodium 850 mg 100 In Sodium Chloride 0.9% 100 ml @ 100 mls/hr IVPB Q8HR [facility] Rx#:[id number] Invasive Line 4 40 30 Invasive Line 8 10 10 Invasive Line 9 40 30 Linezolid 600 mg In 300 Dextrose/Water 1 300ml. bag @ 150 mls/hr IVPB Q12HR [facility] Rx#:[id number] Piperacillin-Tazobactam 3 200 .375 gm In Sodium Chloride 0.9% 100 ml @ 25 mls/hr IVPB Q8H [facility] Rx#: [id number] Pressure Bag 36 36 3 Tube Feeding 900 720 60 Other 90 30 Output: Urine 1430 1080 75 Other: Voiding Method Indwelling Catheter Indwelling Catheter # Bowel Movements 0 1 ABP, PAP, CO, CI - Last Documented Arterial Blood Pressure 110/47 - Exam Elderly male intubated on the vent Respiratory system unlabored breathing decreased intensity breath sounds Abdominal soft no tenderness Patient is sedated Exam completed with help of [facility] [facility] - Labs CBC & Chem 7: 10/22/23 04:46 10/22/23 04:46 Labs: Abnormal Lab Results - Last 24 Hours (Table) 10/21/23 10/21/23 10/22/23 Range/Units 12:24 17:11 00:26 RBC (4.30-5.90) m/uL Hgb (13.0-17.5) gm/dL Hct (39.0-53.0) % RDW (11.5-15.5) % Plt Count (150-450) k/uL Lymphocytes # (1.0-4.8) k/uL ABG pO2 (83-108) mmHg ABG HCO3 (21-25) mmol/L ABG Total CO2 (19-24) mmol/L ABG O2 Saturation (94-97) % Sodium (137-145) mmol/L Creatinine (0.66-1.25) mg/dL Glucose (74-99) mg/dL POC Glucose (mg/dL) 247 H 209 H 243 H (70-110) mg/dL Calcium (8.4-10.2) mg/dL Total Protein (6.3-8.2) g/dL Albumin (3.5-5.0) g/dL 10/22/23 10/22/23 10/22/23 Range/Units 04:46 04:46 05:07 RBC 3.80 L (4.30-5.90) m/uL Hgb 11.1 L (13.0-17.5) gm/dL Hct 34.8 L (39.0-53.0) % RDW 15.6 H (11.5-15.5) % Plt Count 116 L (150-450) k/uL Lymphocytes # 0.5 L (1.0-4.8) k/uL ABG pO2 123 H (83-108) mmHg ABG HCO3 30 H (21-25) mmol/L ABG Total CO2 32 H (19-24) mmol/L ABG O2 Saturation 97.3 H (94-97) % Sodium 136 L (137-145) mmol/L Creatinine 0.42 L (0.66-1.25) mg/dL Glucose 217 H (74-99) mg/dL POC Glucose (mg/dL) (70-110) mg/dL Calcium 8.2 L (8.4-10.2) mg/dL Total Protein 5.2 L (6.3-8.2) g/dL Albumin 2.6 L (3.5-5.0) g/dL 10/22/23 10/22/23 Range/Units 05:38 06:02 RBC (4.30-5.90) m/uL Hgb (13.0-17.5) gm/dL Hct (39.0-53.0) % RDW (11.5-15.5) % Plt Count (150-450) k/uL Lymphocytes # (1.0-4.8) k/uL ABG pO2 (83-108) mmHg ABG HCO3 (21-25) mmol/L ABG Total CO2 (19-24) mmol/L ABG O2 Saturation (94-97) % Sodium (137-145) mmol/L Creatinine (0.66-1.25) mg/dL Glucose (74-99) mg/dL POC Glucose (mg/dL) 226 H 218 H (70-110) mg/dL Calcium (8.4-10.2) mg/dL Total Protein (6.3-8.2) g/dL Albumin (3.5-5.0) g/dL Microbiology - Last 24 Hours (Table) 10/21/23 08:15 Gram Stain - Preliminary Sputum 10/18/23 17:20 CSF Gram Stain - Preliminary Cerebral Spinal Fluid CSF Culture - Preliminary Assessment and Plan (1) Diarrhea Current Visit: Yes Status: Acute Code(s): R19.7 - DIARRHEA, UNSPECIFIED SNOMED Code(s): 31700871 (2) Leukocytosis Current Visit: Yes Status: Acute Code(s): D72.829 - ELEVATED WHITE BLOOD CELL COUNT, UNSPECIFIED SNOMED Code(s): 756170261 (3) Pneumonia Current Visit: Yes Status: Acute Code(s): J18.9 - PNEUMONIA, UNSPECIFIED ORGANISM SNOMED Code(s): 953368572 Plan: This is a telehealth visit 1patient presented to hospital with sepsis in this patient who did have a fever elevated white count tachycardia with concern for possible aspiration pneumonitis in this patient who currently was getting treatment for the right big toe diabetic foot infection status post amputation with the patient being on a good gram-negative coverage more likely dealing with gram-positive pathogen 2-sputum culture currently growing Ana which is more likely colonizer 3-patient did have some diarrhea stool for C. difficile has been negative, did have a fecal management system no worsening output reported patient on Questran 4patient did have LP which was traumatic clinically not behaving as encephalitis currently waiting for HSV DNA by PCR to be completed acyclovir has been added empirically by neurology currently waiting for the HSV DNA by PCR 5patient did have resolution of fever and the patient white count normalized, patient did have repeat sputum culture obtained results will be followed if negative will narrow down antibiotics Dictation was produced using [employer] dictation software. please excuse any grammatical, word or spelling errors. Time with Patient: Less than 30
[2023-10-22] MEDS ORDERED: ZINC OXIDE PASTE (Z-GUARD) 1 APPLIC TOPICAL PRN (16:39)
[2023-10-22 17:27] LABS: Glucose,Whole Blood 248 mg/dL (70-110)
--- NOTE | 2023-10-22 18:58 | P.PN ---
Subjective Progress Note Date: 10/22/23 10/22/2023: Patient was seen for a follow-up. Patient is currently not on any sedatives. He is receiving Zosyn and magnesium. Patient's and patient's daughter from [place] were present. I asked him about history. It appears that on the day of arrival 10/15/2023, patient and his were talking, and he was eating soup. He mentioned that he was feeling nervous, not feeling well. He was still talking very coherent. She left him for an hour to do some errands, and when she came back, he apparently was laying down in the wheelchair, about to check his blood sugar, very shaky, complaining of dizziness like he was "wohrling", complaining like will pass out. About 5 minutes later, he leaned to the left and passed out. Patient's called 911, and when they arrived about 10 minutes later, he was in agonal respiration. EMS flowsheet not available in the chart. His blood sugar was 170 at that time. Patient was intubated, brought to the hospital. Patient also has history of severe rheumatoid arthritis, also interstitial lung disease. Recently he was started on a new medication Rinvoq. 10/20/2023: Patient was initially seen by Dr. Aba Palomo on 10/15/2023 followed up till 10/19/2023. Please refer to his notes for details. Patient is a 72-year-old male who presented with unresponsiveness. Patient had extensive workup and initial CT was normal then later, and then now possible anoxia in different brain territories. Most recent EEG showed moderate encephalopathy. Patient is on Keppra for tremors which has resolved. LP was traumatic but nucleated cells corrected is 46 but feels possible due to distribution of blood brain barrier, but still he was placed on acyclovir pending viral culture results. Patient was seen for a follow-up. Patient is intubated, not on any sedation. Patient is getting Zosyn. No obvious seizure-like activity noted. Some of the workup during this hospital visit consisted of: TSH: 0.037 and Free T4: 2.68 Ammonia 32 ESR: 61 B12: 704 2D echo is reported as severe left ventricular systolic dysfunction with ejection fraction of 25 to 30%. Severe hypokinesis involving the apex only the base of the ventricle is improving. Severe pulmonary hypertension. Cardiac cath is reported as normal coronary angiogram. Normal left sided filling pressure. Rule out intracranial bleed. Influenza A/B, RSV and SARS-CoV-2 PCR are not detected. CT of the head is reported as no acute intracranial process. I personally reviewed the CT and agree there is no acute or subacute process. CTA head and neck: Vasogenic edema in the posterior aspect of the occipital lobe and parietal a lesser extent right frontal concerning for posterior reversible encephalopathy syndrome. Not seen on prior CT. No evidence of dissection of cervical internal carotid artery or vertebral artery or any evidence of significant stenosis at the carotid bifurcation. No evidence of intracranial high-grade stenosis or intracranial aneurysm. I personally reviewed the CT and I do appreciate hypodensity predominantly over the posterior and it is also seen in the frontal and I cannot rule out stroke vs PRES. Routine EEG: Is abnormal. The background slowing is suggestive of severe encephalopathy. Otherwise there is no focal slowing, epileptiform discharges or seizure on the EEG. Repeat CT head on 10/17/2023: Increasing loss of jean baptiste-white matter differentiation in area of vasogenic edema in the posterior occipital lobes and to lesser extent the parietal lobes. Finding could be due to lack of IV contrast. CSF is red, hazy, rbc 5779, fresh rbc 100, nucleated cells are 56, glucose 111 and protein >600. CSF gram stain: No organism seen. Objective - Vital Signs Vital signs: Vital Signs Temp 98.5 F 10/22/23 12:00 Pulse 103 H 10/22/23 12:00 Resp 23 10/22/23 12:00 BP 144/85 10/22/23 12:00 Pulse Ox 100 10/22/23 12:00 FiO2 30 10/22/23 12:00 Intake & Output 10/21/23 10/22/23 10/22/23 18:59 06:59 18:59 Intake Total 1393 396 8963 Output Total 1430 1080 665 Balance 286 -224 493 Weight 85.4 kg Intake: IV 726 106 638 0.9 Sodium Chloride 100 Acyclovir Sodium 850 mg 100 In Sodium Chloride 0.9% 100 ml @ 100 mls/hr IVPB Q8HR [facility] Rx#:[id number] Invasive Line 4 40 30 10 Invasive Line 8 10 10 Invasive Line 9 40 30 10 Linezolid 600 mg In 300 300 Dextrose/Water 1 300ml. bag @ 150 mls/hr IVPB Q12HR [facility] Rx#:[id number] Magnesium Sulfate-D5w Pmx 100 1 gm In Dextrose/Water 1 100ml.bag @ 100 mls/hr IVPB ONCE ONE Rx#: [id number] Piperacillin-Tazobactam 3 200 100 .375 gm In Sodium Chloride 0.9% 100 ml @ 25 mls/hr IVPB Q8H [facility] Rx#: [id number] Pressure Bag 36 36 18 Tube Feeding 900 720 370 Other 90 30 150 Output: Urine 1430 1080 665 Other: Voiding Method Indwelling Catheter Indwelling Catheter Indwelling Catheter # Bowel Movements 0 1 ABP, PAP, CO, CI - Last Documented Arterial Blood Pressure 155/67 - Exam Patient is intubated, not on any sedation. No obvious seizure-like activity noted. Patient is keeping his eyes closed. Patient has a very good gag and cough reflex. Pupils are equal about 4 mm, round and very clearly reacting to light. Gaze is midline. Corneals are present. Oculocephalics are present. Patient is breathing over the ventilator. With painful stimuli, patient slightly shrugs his arms on the side tested. On deep sternal rub, patient does follow command, with voluntarily moving his right foot up and down. However he is not moving his left foot, or his arms to command. He Patient has amputated left big toe. - Labs CBC & Chem 7: 10/22/23 04:46 10/22/23 04:46 Labs: Abnormal Lab Results - Last 24 Hours (Table) 10/21/23 10/22/23 10/22/23 Range/Units 17:11 00:26 04:46 RBC 3.80 L (4.30-5.90) m/uL Hgb 11.1 L (13.0-17.5) gm/dL Hct 34.8 L (39.0-53.0) % RDW 15.6 H (11.5-15.5) % Plt Count 116 L (150-450) k/uL Lymphocytes # 0.5 L (1.0-4.8) k/uL ABG pO2 (83-108) mmHg ABG HCO3 (21-25) mmol/L ABG Total CO2 (19-24) mmol/L ABG O2 Saturation (94-97) % Sodium (137-145) mmol/L Creatinine (0.66-1.25) mg/dL Glucose (74-99) mg/dL POC Glucose (mg/dL) 209 H 243 H (70-110) mg/dL Calcium (8.4-10.2) mg/dL Total Protein (6.3-8.2) g/dL Albumin (3.5-5.0) g/dL 10/22/23 10/22/23 10/22/23 Range/Units 04:46 05:07 05:38 RBC (4.30-5.90) m/uL Hgb (13.0-17.5) gm/dL Hct (39.0-53.0) % RDW (11.5-15.5) % Plt Count (150-450) k/uL Lymphocytes # (1.0-4.8) k/uL ABG pO2 123 H (83-108) mmHg ABG HCO3 30 H (21-25) mmol/L ABG Total CO2 32 H (19-24) mmol/L ABG O2 Saturation 97.3 H (94-97) % Sodium 136 L (137-145) mmol/L Creatinine 0.42 L (0.66-1.25) mg/dL Glucose 217 H (74-99) mg/dL POC Glucose (mg/dL) 226 H (70-110) mg/dL Calcium 8.2 L (8.4-10.2) mg/dL Total Protein 5.2 L (6.3-8.2) g/dL Albumin 2.6 L (3.5-5.0) g/dL 10/22/23 10/22/23 Range/Units 06:02 11:41 RBC (4.30-5.90) m/uL Hgb (13.0-17.5) gm/dL Hct (39.0-53.0) % RDW (11.5-15.5) % Plt Count (150-450) k/uL Lymphocytes # (1.0-4.8) k/uL ABG pO2 (83-108) mmHg ABG HCO3 (21-25) mmol/L ABG Total CO2 (19-24) mmol/L ABG O2 Saturation (94-97) % Sodium (137-145) mmol/L Creatinine (0.66-1.25) mg/dL Glucose (74-99) mg/dL POC Glucose (mg/dL) 218 H 218 H (70-110) mg/dL Calcium (8.4-10.2) mg/dL Total Protein (6.3-8.2) g/dL Albumin (3.5-5.0) g/dL Microbiology - Last 24 Hours (Table) 10/17/23 01:05 Blood Culture - Final Blood 10/17/23 01:05 Blood Culture - Final Blood 10/21/23 08:15 Gram Stain - Preliminary Sputum Sputum Culture - Preliminary 10/18/23 17:20 CSF Gram Stain - Preliminary Cerebral Spinal Fluid CSF Culture - Preliminary Assessment and Plan Assessment: This is a 72-year-old gentleman who became unresponsive at home with agonal breathing. He was complaining of not feeling well and headache recently per the . The results EMS arrived and they intubated him because of his respiratory distress. EKG was reported as possible ST segment myocardial infarction with minimal elevated troponin. He was taken for cardiac cath and was normal. Initial CT of the head was unremarkable for any acute process. 2D echo showed severe left ventricular systolic dysfunction with ejection fraction of 25 to 30%. Severe hypokinesis involving the apex only the base of the ventricle is improving. Severe pulmonary hypertension. * Abnormal CT head, with evidence of multifocal areas of subacute cerebral ischemia, similar as compared to CT head from 10/19/2023. Exact cause is uncertain. Differential diagnosis includes multifocal embolic ischemic CVA from cardiac source, or related to prolonged hypoperfusion with watershed ischemia from hypotension. Patient has prolonged hypotension for several hours off and on, on 10/15/2023 and 10/16/2023. PRES appears very unlikely due to the extent of involvement. Inflammatory process less likely. * Abnormal CSF, with significantly elevated white cells 46, and CSF proteins > 600. Exact cause is uncertain. Patient being treated empirically with acyclovir. * Recurrent episodes of body jerks noted initially, now seems to have resolved. EEG showed no epileptiform activity. Patient on Keppra. * Heart failure with ejection fraction of 25 to 30% * Severe pulmonary hypertension * History of pulmonary fibrosis * History of rheumatoid arthritis * History of interstitial lung disease due to RA. * History of diabetes mellitus * History of osteomyelitis and had left toe amputation Plan: CT of the head #4 performed today revealed multifocal areas of subacute cerebral ischemia, similar pattern as compared to 10/19/2023. Slight greater degree of hypodensity of the brain parenchyma, now suggesting ongoing evolution. No acute intracranial hemorrhage. There may be development of trace 3 mm leftward midline shift. No herniation or hydrocephalus. Patient's initial insult occurred on 10/15/2023. Today is day #8. CT head showing significant areas of ischemia bilaterally, right more than left. Mainly involves the right posterior MCA territory, watershed region between the right MCA/ENA, and also involving bilateral parieto-occipital junction. This same distribution of ischemia with edema has been present since 10/16/2023. However on the current study, there is very mild, 2 to 3 mm midline shift. There is no herniation or hydrocephalus. Although the cerebral edema typically worsens, during the first few days and usually reaches its peak at 72 hours postevent. However as the current CT (performed 8 days after admission) still shows worsening of edema, therefore, we will start hypertonic saline 3% at 50 cc/h for 24 to 48 hours. Although steroids are typically indicated for vasogenic edema related to brain tumor, but because of patient's history of rheumatoid arthritis, and ILD, we will empirically start Decadron 10 mg x 1 dose, followed by 6 mg IV every 6 hours. Patient showing very limited response with moving his right foot to commands. Otherwise no response in the other 3 extremities. Patient does have intact brainstem functions. Repeat CT head #3 on 10/19/2023 (96 hours after admission) reported as diffuse edema suggesting diffuse anoxic injury which correlates with the patient prehospitalization history. No midline shift. I myself also personally reviewed the CT of the head and the patient does have bilateral hemispheric hypodensity involving bilateral occipital region, R>>L, but also somewhat involving the watershed territories, particularly on the right side between MCA/ENA. Routine EEG preliminary: There is moderate encephalopathy but no seizure or discharges. Continue Acylovir 10mg/kg every 8 hours. I.D. is on board. Patient is on Zosyn and Linezolid. Pending CSF viral, HSV1/2, Cryptococcal CSF. Resume aspirin 325 mg daily. Also on Lipitor 80mg qhs. Continue neuro checks. Cardiac monitoring Will defer the rest of the medical management to primary and other specialists. Patient was started on Keppra during this admission and currently on Keppra 1gm bid. Is on Ativan PRN. Cannot obtain MRI since vent is not MRI Compatible. Dr. Palomo has felt the patient had hypoxia due to his interstitial disease/fibrosis as a result he had the hypoattenuation seen on the CT versus is a possibility he had a stroke bilateral hemisphere at different territories as a result of a clot that showered to the brain and it is not seen on echo. 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 Dr. Palomo has discussed with the patient's and patient's sister they did not want the patient to pursue with a transesophageal echocardiogram. Overall patient's condition is very critical and overall prognosis for meaningful recovery remains poor. Patient's mentions that patient has expressed wishes for not prolonging his life, if he has significant disability from any condition. Did not prefer to undergo tracheostomy or other measures to prolong the life. Based upon the extent of cerebral ischemia, it does appear that patient will have significant residual deficits, particularly with complete left hemiplegia, some deficits in the right arm, cognitive functions involvement and perhaps some involvement of the visual henson. However we will observe in the next 24 hours, if there is remarkable change in the condition with above treatment. Discussed with patient's family in detail, and also the primary physician, and registered nurse step down.
[2023-10-22] MEDS: HYDROmorphone 0.5 MG/0.5 ML SYRINGE IVP PRN (19:15)
[2023-10-22] MEDS: DEXAMETHASONE SOD PHOSPHATE 10 MG/ML 1 ML VIAL IVP SCH (20:33)
[2023-10-22 23:33] LABS: Glucose,Whole Blood 278 mg/dL (70-110)
[2023-10-23 04:00] LABS: Basophils % (A) 0 %; Eosinophils % (A) 0 %; HCT 36.9 % (39.0-53.0); HGB 11.5 gm/dL (13.0-17.5); Lymphocytes # (A) 0.2 k/uL (1.0-4.8); Lymphocytes % (A) 5 %; MCH 28.6 pg (25.0-35.0); MCHC 31.3 g/dL (31.0-37.0); MCV 91.4 fL (80.0-100.0); Mean Platelet Volume 8.9; Monocytes # (A) 0.3 k/uL (0-1.0); Monocytes % (A) 7 %; Neutrophils # (A) 4.1 k/uL (1.3-7.7); Neutrophils % (A) 88 %; Platelet Count 138 k/uL (150-450); RBC 4.04 m/uL (4.30-5.90); RDW 15.4 % (11.5-15.5); WBC 4.6 k/uL (3.8-10.6)
[2023-10-23 04:12] LABS: African American GFR (CKD) >90 (>60 ml/min/1.73 sqM); Anion Gap 5 mmol/L; Blood Urea Nitrogen 24 mg/dL (9-20); Calcium 8.2 mg/dL (8.4-10.2); Carbon Dioxide 25 mmol/L (22-30); Chloride 112 mmol/L (98-107); Glucose 299 mg/dL (74-99); Magnesium 2.1 mg/dL (1.6-2.3); Non-African American GFR(CKD) >90 (>60 ml/min/1.73 sqM); Potassium 4.3 mmol/L (3.5-5.1); Sodium 142 mmol/L (137-145)
[2023-10-23 05:32] LABS: ABG Base Excess 2.2 mmol/L; ABG HCO3 27 mmol/L (21-25); ABG Oxygen Saturation 97.4 % (94-97); ABG PCO2 39 mmHg (35-45); ABG PH 7.44 (7.35-7.45); ABG PO2 140 mmHg (83-108); ABG TCO2 28 mmol/L (19-24); Allen Test Performed? Yes
[2023-10-23 05:34] LABS: Glucose,Whole Blood 287 mg/dL (70-110)
[2023-10-23] MEDS: INSULIN DETEMIR (LEVEMIR) 100 UNIT/ML SYR SQ SCH ×2 (06:19→21:44)
--- NOTE | 2023-10-23 07:40 | XR ---
EXAMINATION TYPE: XR chest 1V portable DATE OF EXAM: 10/23/2023 COMPARISON: NONE HISTORY: Mechanical ventilation TECHNIQUE: Single frontal view of the chest is obtained. FINDINGS: ET tube is approximately 4.1 cm above alexys. NG tube seen coursing in the abdomen. Diffus e bilateral pleural-parenchymal changes with pleural effusion and consolidation stable. No pneumothor ax. Arthropathy of the shoulders and degenerative change of the spine. Right-sided PICC line noted. IMPRESSION: Bilateral consolidation and small effusion stable to be in the basis of CHF or pneumonia .
[2023-10-23 11:44] LABS: Glucose,Whole Blood 195 mg/dL (70-110)
--- NOTE | 2023-10-23 11:47 | P.PN ---
Subjective Progress Note Date: 10/23/23 This is a 72-year-old male patient with a history of pulmonary fibrosis maintained on Ofev in the outpatient setting. He was found by his earlier today to be unresponsive and agonal breathing. EMS was called and he was intubated in the field. EKG showed possible ST segment elevation myocardial i nfarction. He was brought in through the emergency room and directly to the Mycologist. He was found to have normal coronary arteries. He was admitted to the intensive care unit. He is currently intubated on the mechanical ventilator and assist-control mode at a rate of 14, tidal volume 600, FiO2 50% and a PEEP of 5. Arterial blood gases revealed a PaO2 of greater than 420, pCO2 of 35 and a pH of 7.38. CT scan of the brain showed no acute abnormalities. Echocardiogram is pending. Chest x-ray revealed endotracheal tube in a high position. Being repositioned. Nasogastric tube in the esophagus. Cardiomegaly. No pleural effusion, focal consolidation or pneumothorax. White count 8.7. Hemoglobin 17.0. Platelets 215. D-dimer 2.58. Sodium 140. Potassium 3.8. Bicarb 21. BUN 26. Creatinine 0.57. Glucose 165. Troponin 0.047. The patient is seen today October 16, 2023 in follow-up on the regular medical floor. He remains intubated on the mechanical ventilator. Currently on assist- control mode with a rate of 14, tidal volume 600, FiO2 50% and a PEEP of 5. Morning blood gases revealed a PaO2 of 102, pCO2 40 and a pH of 7.24. He is on propofol at 40 mcg/kg/min. Norepinephrine at 0.09 mcg/kg/min. Heparin drip per weight-based protocol. Saline at 75 MLS per hour. He is continued on Zosyn via PICC line that he had been receiving at home following a left great toe amputa tion. Chest x-ray shows satisfactory position in the nasogastric and endotracheal tubes. There is cardiomegaly with pulmonary vascular congestion. Echocardiogram revealed severely impaired left ventricular systolic function with ejection fraction of 25 to 30%. Severe pulmonary hypertension. White count 19.2. Hemoglobin 15.7. Platelets 248. Sodium 143. Potassium 4.3. Bicarb 15. Anion gap 16. BUN 32. Creatinine 1.16. Glucose 258. His current temperature is 102.1. He is tachycardic 130s. The plan is for CT angiogram of the chest today to rule out pulmonary embolism. CT angiogram of the head and neck is pending as well. The patient is seen today October 17, 2023 in follow-up on the regular medical floor. He remains intubated on mechanical ventilator. Currently on assist-control mode at a rate of 14, tidal volume 500, FiO2 50% and a PEEP of 5. Peak pressures 37. Plateau pressure 19. Continues with some increased airway resistance. Arterial blood gases revealed a PaO2 of 195, pCO2 41 and a pH of 7.37. He is sedated on propofol at 60 mcg/kg/min. Norepinephrine 90 (anabell rograms per minute. Normal saline at KVO. He is being nourished with vital AF at 20 MLS per hour with a goal of 47 MLS per hour. He is on antibiotics in the form of Zosyn and Zyvox. CT angiogram ruled out pulmonary embolism. Procalcitonin 0.42. He is continued on bronchodilators. Chest x-ray reveals multifocal airspace opacities. Sputum culture with Ana. Blood cultures pending. White count 15.6. Hemoglobin 13.3. Platelets 181. Sodium 143. Potassium 3.7. Bicarb 21. BUN 28. Creatinine 0.74. Glucose 145. The patient is seen today October 18, 2023 in follow-up on the regular medical floor. He remains intubated on the mechanical ventilator with current settings of assist-control mode at a rate of 14, tidal volume 500, FiO2 40% and a PEEP of 5. Morning blood gases revealed a PaO2 of 176, pCO2 41 and a pH of 7.44. He is being nourished with vital AF at 47 MLS per hour which is goal. Normal saline at KVO. He has been off sedation for approximately 24 hours now. He has very minimal response. He does grimace to painful stimuli. Follow-up CT scan of the brain revealed increasing loss of jean baptiste-white matter differentiation in the area of vasogenic edema the posterior occipital lobes and to a lesser extent the parietal lobes. The plan is for a lumbar puncture today. He remains on Zosyn and Zyvox. White count 11.6. Hemoglobin 12.2. Platelets 134. Sodium 142. P otassium 3.9. Bicarb 25. BUN 24. Creatinine 0.55. Glucose 178. Chest x-ray reveals multifocal airspace opacities. No evidence of pneumothorax or pleural effusion. PICC line in place. Endotracheal and nasogastric tubes in place. Lovenox for DVT prophylaxis, on hold for lumbar puncture. The patient is seen today October 19, 2023 in the intensive care unit. He remains intubated on the mechanical ventilator on assist-control mode of 14, tidal volume 500, FiO2 30% and a PEEP of 5. Morning blood gases revealed a PaO2 of 106, pCO2 of 48 and a pH of 7.4. Yesterday he was pressure support and CPAP 5/5 for approximately 6 hours. He he is being nourished with vital AF at 30 MLS per hour. He remains off sedation. Remains unresponsive. Previous EEG revealed background slowing suggestive of severe encephalopathy. No focal slowing, epileptiform discharge or seizure on EEG. A follow-up EEG is pending from today. He did undergo a lumbar puncture yesterday. RBCs were 5778, total nucleated cells 56, glucose 111, total protein greater than 600. C. difficile screen was negative. Viral screen is negative. Count 9.1. Hemoglobin 11.7. Platelets 117. Sodium 142. Potassium 4.3. Bicarb 27. BUN 25. Creatinine 0.49. Glucose 147. He remains on acyclovir, Zyvox, Zosyn. PICC line in place. Chest x-ray reveals endotracheal and nasogastric tubes in good place. There is evidence of cardiomegaly and pulmonary vascular congestion. Cerebrospinal fluid cultures are pending. The patient is seen today October 20, 2023 in follow-up in the intensive care unit. He remains intubated on mechanical ventilator. Currently on assist-control mode at a rate of 14, tidal volume 500, FiO2 of 30% and a PEEP of 5. He has been off sedation for several days now. He remains unresponsive. He is on normal saline at KVO. He has being nourished with vital AF at 60 MLS per hour which is goal. He remains on Zyvox, Zosyn and acyclovir. Lumbar puncture cultures are pending. White count 9.1. Hemoglobin 11.9. Platelets 125. Sodium 140. Potassium 4.0. Bicarb 26. BUN 23. Creatinine 0.51. Glucose 195. Arterial blood gases revealed a PaO2 of 118, pCO2 79 and a pH of 7.49. Counseling suggestive of moderate encephalopathy. No epileptiform discharge or seizures. X-ray reveals cardiomegaly and pulmonary vascular congestion. Endotracheal tube, nasogastric tube and right-sided PICC lines are in place. CT scan of the brain revealed diffuse edema suggesting diffuse anoxic injury. The patient is seen today October 21, 2023 in follow-up in the intensive care unit. He remains intubated and on mechanical ventilator. Currently settings are assist-control mode at a rate of 14, tidal volume 450, FiO2 30% and a PEEP of 5. Morning blood gases revealed a PaO2 of 112, pCO2 46 and a pH of 7.43. He remains off sedation. He is being nourished with vital AF at 60 MLS per hour which is goal. He is continued on Zosyn, Zyvox, acyclovir. He remains unresponsive. He has some positive reflexes. Chest x-ray reveals cardiomegaly with pulmonary vascular congestion. Endotracheal tube, nasogastric tube and right-sided PICC line remain in place. Sputum positive for Ana. Blood cultures revealed no growth. Cerebrospinal fluid cultures revealed no growth. White count 9.2. Hemoglobin 11.5. Platelets 116. Sodium 139. Potassium 3.7. Bicarb 29. BUN 22. Creatinine 0.47. Glucose 203. He remains on Lovenox for DVT prophylaxis. 10/22/2023, the patient is being seen for a follow-up. The patient has been off sedation since 10/17/2023. The patient has been off propofol. On today's evaluation, responses essentially sluggish. Upon repeated stimulation, the patient was able to grimace to deep painful stimulation. Still unresponsive although some minimal response to verbal commands has been elicited by the nursing staff. Based on that, repeat CAT scan of the brain was ordered to reevaluate the previously described brain edema. The repeat CAT scan was completed today and it showed multifocal areas of subacute 3020 ischemia similar to the ones as well as noted on 10/19/2023. There is slight degree of decrease of the hypodensity of the brain parenchyma. No evidence of any intracranial bleeding. There is minimal development of a shift in the order of 3 mm leftward to the midline but there is no evidence of any herniation. The patient remains intubated on mechanical ventilator. On today's evaluation is on assist-control mode at a rate of 14, tidal volume of 450, FiO2 30% with a PEEP of 5. Blood gas showed pH of 7.45 with a pCO2 of 44 and pO2 of 123. Chest x-ray findings are essentially unchanged and it is consistent with diffuse bilateral airspace disease and background pulmonary fibrosis. The patient is on IV fluids at [facility]. The overall fluid balance over the past 24 hours has been +62 cc and the patient remains on vital AF at the rate of 67 hours as the patient receiving enteral feeding for nutritional support. The patient has a PICC line in his right upper extremity and the patient also has a arterial line in place. The patient remains on IV acyclovir. The patient remains on IV Zosyn/daptomycin.. The is CSF cultures are negative. CSF by PCR for HSV is still pending. He is having liquidy loose bowel movements. Fecal management system in place. On today's blood work, the white cell count is 7.0 with a hemoglobin 11.1 and a platelet c ount of 116. BUN is at 20 with a creatinine of 0.4 and sodium levels at 136. Potassium levels of 3.8. Patient was also started on Levemir insulin 10 units daily along with a sign scale coverage. Family is at the bedside. Family is updated on the [employer] abnormalities. Hemodynamically stable, currently on no pressors. , patient is being seen for a follow-up. Family is at the bedside and I gave them a detailed update on his condition. In summary, the patient remains off propofol. No meaningful neurologic recovery at this point in time. CAT scan of the brain from yesterday was noted and there was evidence of brain edema and the patient was started on Decadron 6 mg IV every 6 hours and the patient is on 3% saline running at a rate of 50 cc an hour. The patient is not following any commands. He does cough. He does trigger the mechanical ventilator. He is also having some occasional body twitches. Previous EEG had showed no evidence of any seizure activity and the patient remains on Keppra 1 g every 12 hours. The patient remains on mechanical ventilator assist-control mode with rate of 14, tidal volume of 450, FiO2 30% with a PEEP of 5. Blood gas showed a pH of 7. 44 with a pCO2 of 39 and a pO2 of 140. Chest x-ray from today shows adequate positioning of the orotracheal tube. The patient has evidence of basilar consolidation and small effusions that are essentially stable compared to yesterday and is back on pulmonary fibrosis. White cell count is 4.6 with a hemoglobin 11.5 and a platelet count of 138. Sodium is at 142, potassium levels at 4.3, BUN 24 with a creatinine of 0.41 and a serum bicarb is at 25. Fluid balance is +757 cc over the past 24 hours. Patient is on vital AF running at the rate of 70 cc an hour. Afebrile. Hemodynamically stable on no pressors. Objective - Vital Signs Vital signs: Vital Signs Temp 97.9 F 10/23/23 04:00 Pulse 114 H 10/23/23 07:40 Resp 17 10/23/23 07:00 BP 145/80 10/23/23 07:00 Pulse Ox 97 10/23/23 07:00 FiO2 30 10/23/23 07:57 Intake & Output 10/22/23 10/23/23 10/23/23 18:59 06:59 18:59 Intake Total 2236 2186 143 Output Total 1665 2000 100 Balance 571 186 43 Weight 85.4 kg 90.1 kg Intake: IV 916 1256 73 0.9 Sodium Chloride 220 240 20 Acyclovir Sodium 850 mg 270 In Sodium Chloride 0.9% 250 ml @ 270 mls/hr IVPB Q8H [facility] Rx#:[id number] Invasive Line 4 30 30 Invasive Line 9 30 30 Linezolid 600 mg In 300 150 Dextrose/Water 1 300ml. bag @ 150 mls/hr IVPB Q12HR [facility] Rx#:[id number] Magnesium Sulfate-D5w Pmx 100 1 gm In Dextrose/Water 1 100ml.bag @ 100 mls/hr IVPB ONCE ONE Rx#: [id number] Piperacillin-Tazobactam 3 200 .375 gm In Sodium Chloride 0.9% 100 ml @ 25 mls/hr IVPB Q8H [facility] Rx#: [id number] Pressure Bag 36 36 3 Sodium Chloride 3%( 500 50 Hypertonic) 500 ml @ 50 mls/hr IV .Q10H [facility] Rx#: [id number] Intake, IV Titration 350 Amount Acyclovir Sodium 850 mg 250 In Sodium Chloride 0.9% 250 ml @ 270 mls/hr IVPB Q8H [facility] Rx#:[id number] Sodium Chloride 3%( 100 Hypertonic) 500 ml @ 50 mls/hr IV .Q10H [facility] Rx#: [id number] Tube Feeding 790 840 70 Other 180 90 Output: Urine 1665 1750 100 Stool 250 Other: Voiding Method Indwelling Catheter Indwelling Catheter ABP, PAP, CO, CI - Last Documented Arterial Blood Pressure 135/58 - Exam GENERAL EXAM: Intubated, 72-year-old male patient remains off sedation for several days. Unresponsive to any verbal stimulation, grimaces to deep painful stimulation at this point in time. HEAD: Normocephalic. EYES: Sluggish reaction of pupils, equal size. NOSE: Clear with pink turbinates. THROAT: No erythema or exudates. NECK: No masses, no JVD. CHEST: No chest wall deformity. LUNGS: Equal air entry with bilateral scattered rhonchi, crackles in the posterior bases. CVS: S1 and S2 normal with no audible murmur, regular rhythm. Tachycardic ABDOMEN: No hepatosplenomegaly, normal bowel sounds, no guarding or rigidity. SPINE: No scoliosis or deformity SKIN: No rashes CENTRAL NERVOUS SYSTEM: Unresponsive, tone is normal in all 4 extremities., He is able to trigger the mechanical ventilator. Has occasional body twitches. P ositive cough and gag. No facial asymmetry. Pupils are symmetric and sluggishly reactive to light around 4 mm in size. No nystagmus. EXTREMITIES: Right upper extremity PICC line in place. Amputation of the left great toe, dressing in place. Peripheral pulses are intact. - Labs CBC & Chem 7: 10/23/23 03:39 10/23/23 09:23 Labs: Abnormal Lab Results - Last 24 Hours (Table) 10/22/23 10/22/23 10/22/23 Range/Units 11:41 17:27 23:30 RBC (4.30-5.90) m/uL Hgb (13.0-17.5) gm/dL Hct (39.0-53.0) % Plt Count (150-450) k/uL Lymphocytes # (1.0-4.8) k/uL ABG pO2 (83-108) mmHg ABG HCO3 (21-25) mmol/L ABG Total CO2 (19-24) mmol/L ABG O2 Saturation (94-97) % Chloride (98-107) mmol/L BUN (9-20) mg/dL Creatinine (0.66-1.25) mg/dL Glucose (74-99) mg/dL POC Glucose (mg/dL) 218 H 248 H 278 H (70-110) mg/dL Calcium (8.4-10.2) mg/dL 10/23/23 10/23/23 10/23/23 Range/Units 03:39 03:39 05:29 RBC 4.04 L (4.30-5.90) m/uL Hgb 11.5 L (13.0-17.5) gm/dL Hct 36.9 L (39.0-53.0) % Plt Count 138 L (150-450) k/uL Lymphocytes # 0.2 L (1.0-4.8) k/uL ABG pO2 140 H (83-108) mmHg ABG HCO3 27 H (21-25) mmol/L ABG Total CO2 28 H (19-24) mmol/L ABG O2 Saturation 97.4 H (94-97) % Chloride 112 H (98-107) mmol/L BUN 24 H (9-20) mg/dL Creatinine 0.41 L (0.66-1.25) mg/dL Glucose 299 H (74-99) mg/dL POC Glucose (mg/dL) (70-110) mg/dL Calcium 8.2 L (8.4-10.2) mg/dL 10/23/23 Range/Units 05:33 RBC (4.30-5.90) m/uL Hgb (13.0-17.5) gm/dL Hct (39.0-53.0) % Plt Count (150-450) k/uL Lymphocytes # (1.0-4.8) k/uL ABG pO2 (83-108) mmHg ABG HCO3 (21-25) mmol/L ABG Total CO2 (19-24) mmol/L ABG O2 Saturation (94-97) % Chloride (98-107) mmol/L BUN (9-20) mg/dL Creatinine (0.66-1.25) mg/dL Glucose (74-99) mg/dL POC Glucose (mg/dL) 287 H (70-110) mg/dL Calcium (8.4-10.2) mg/dL Microbiology - Last 24 Hours (Table) 10/18/23 17:20 CSF Gram Stain - Final Cerebral Spinal Fluid CSF Culture - Final 10/17/23 01:05 Blood Culture - Final Blood 10/17/23 01:05 Blood Culture - Final Blood 10/21/23 08:15 Gram Stain - Preliminary Sputum Sputum Culture - Preliminary Assessment and Plan Plan: Acute mental status change and the patient presented with unresponsiveness, intubated placed on mechanical ventilator. CAT scan of the brain revealed diffuse edema which obviously raises the suspicion for diffuse anoxic encephalopathy. The patient probably became hypoxic prior to his hospital admission. He was intubated in the house and he was brought into send he does remain unresponsive over the past several days while being off propofol. Lumbar puncture was done. The CSF was slightly bloody, normal glucose, protein was also elevated at 600, nucleated white cell count was 56 and the cultures were negative pending HSV by PCR. Currently on acyclovir. LP was done on 10/18/2023. The patient is currently off sedation, propofol has been off since 10/17/2023. EE G done on 10/19/2023 revealed background slowing suggestive of moderate degree of encephalopathy without any seizure activity. Repeat CAT scan of the brain on 10/22/2023 was noted and findings are essentially similar and neurology is on the case. The patient is currently on Decadron and hypertonic saline. Neurology remains on the case. EEG showed no evidence of any seizure activity. Acute on chronic hypoxic respiratory failure. The patient is known to have pulmonary fibrosis. Currently intubated on mechanical ventilator, assist- control mode with an FiO2 of 30% and a PEEP of 5, chest x-ray showed diffuse bilateral pulmonary filtrates, stable with ET tube being above the alexys. Chest x-ray findings remained stable. Hypotension requiring pressor support, recovered Chronic systolic heart failure the patient has severely impaired left ventricular systolic function with ejection fraction 20 to 25% Severe pulmonary hypertension, echocardiogram from 10/15/2023 showed severe pulm hypertension with an estimated PA pressure of 57. Febrile illness, suspect underlying pneumonia. Procalcitonin 0.42. Remains on Zosyn and Zyvox, currently afebrile Leukocytosis, recovered Tachycardia, sinus History of pulmonary fibrosis on Ofev in the outpatient setting Recent amputation of the left great toe, was on Zosyn/Zyvox via PICC line in the outpatient setting Diabetes mellitus type 2, maintained on a combination of Amaryl, Jardiance and metformin. History of rheumatoid arthritis maintained on a combination of Arava and Rinvoq on outpatient basis History of osteomyelitis of the left great toe post amputation of the patient has been receiving IV Zosyn on outpatient basis via PICC line in his right upper extremity. Cultures were positive for Pseudomonas Arm twitching, maintained on Keppra, EEG was negative for any seizure activity. Plan: Results of the follow-up CAT scan of the brain was noted. Neurologically unchanged. Recommended follow-up CAT scan of the brain. Continue hypertonic saline Continue Decadron Increase Levemir insulin to 10 units twice a day Continue Keppra Continue Zosyn and daptomycin as empiric antibiotic coverage Continue IV acyclovir pending CSF by PCR for HSV Continue enteral feeding for nutritional support Continue ventilator support Case was discussed with the various consultants and also discussed with the family Would like to give another 24 to 48 hours of monitoring. Consult again with neurology. Obtain a follow-up CAT scan of the brain. Family is considering hospice care. Will continue to follow and make further recommendations based on the progress. This evaluation was done more than 30 minutes. Time with Patient: Greater than 30
--- NOTE | 2023-10-23 12:01 | P.PN ---
Subjective Progress Note Date: 10/23/23 Hospital Course: 72-year-old male with medical history of idiopathic pulmonary fibrosis on Ofev, diabetes type 2, osteomyelitis status post recent right toe amputation on Zosyn, hypertension, hyperlipidemia presented for evaluation of altered mental status. According to ER documentation, the patient demonstrated evidence of agonal breathing and therefore was bagged for ventilation on the way to the emergency room. Upon arrival, patient was afebrile, 168/114, heart rate 131, 99% with [id number]. CBC was unremarkable. Basic metabolic panel showed chloride of 109, CO2 of 21, BUN of 26, creatinine 1.57. Liver function test were unremarkable. Troponins 0.047. Coags were unremarkable. D-dimer was elevated 2.58. EKG demonstrated atrial fibrillation with RVR as well as ST elevation in the lateral leads with reciprocal changes in the inferior leads. Based on these findings, cardiology was notified and a code STEMI was called, patient was taken emergently to the [facility] but was found to have normal coronary arteries. Subsequently was transferred to the intensive care unit, intubated. He underwent brain CT to rule out hemorrhagic stroke which was negative, p ulmonology was consulted and neurology was consulted. Patient remains intubated and mechanically ventilated. Also hypotensive, requiring vasopressors as well as broad-spectrum antibiotics. Echocardiogram showed LVEF 25 to 30% with severe hypokinesis involving the apex, severe pulmonary hypertension. CTA chest did not show any acute PE. Heparin drip discontinued. CTA head showed vasogenic edema in the posterior aspects of occipital lobes and parietal of the lesser extent right frontal lobe concerning for PRES. patient continued on IV antibiotics. Off of sedation, minimally responsive. Off of vasopressors. LP completed. Patient also started on acyclovir. Prognosis remains poor. Patient was considering comfort care. However, patient mental status slightly improved. Subjective: Patient's daughter was at bedside. She states that she just came in [place] of state yesterday. I discussed the case with the ICU nurse. Patient did have some pain this morning and was given some pain medications. Currently patient appears comfortable. Vitals Signs Reviewed. General examination -intubated Heart - + S1S2 no murmurs Lungs -diminished breath sounds bilaterally, ET tube in place Abdomen soft NT ND +ve BS Extremities -trace bilateral pitting edema [employer] -patient currently intubated and sedated with pain medications so unable to assess Psych -unable to assess at this time Assessment and Plan: 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%, possibly Takotsubo cardiomyopathy Acute hypoxic respiratory failure, ventilator dependent Suspected aspiration pneumonia History of pulmonary fibrosis Recent left great toe amputation secondary to osteomyelitis Metabolic acidosis, lactic acidosis, resolved Acute kidney injury, likely ATN, resolved Euthyroid sick syndrome -Neurology following, continued on acyclovir 850 IV every 8 hours, IV Keppra 100 0 every 12 hours -Repeat CT head pending today -Discussed with the nurse who said that family is waiting for results from repeat CT head and then will likely make decision -ID following, on linezolid 600 mg IV every 12 hours, Zosyn 3.375 g IV every 8 hours -Patient is off sedation. Patient on IV Dilaudid 0.5 mg every 4 hours as needed for pain control -WBC this morning is 4.6, hemoglobin 11.5, creatinine 0.41 -I reviewed patient's chest x-ray done today at 10/23/2023 that showed bilateral consolidation and small effusion that appears stable. Elevated troponin Paroxysmal atrial fibrillation with RVR, new onset -Continue aspirin 81 mg, atorvastatin 80 mg -Cardiac cath showed normal coronary angiogram, normal left-sided filling pressures -no AC at the moment Type 2 diabetes -Hold oral antidiabetics -Continue sliding scale insulin every 6 hours, monitor for hypoglycemia -started on levemir 10 daily History of hypertension-hold antihypertensives Dyslipidemia-continue atorvastatin Rheumatoid arthritis DVT ppx: lovenox Code status: DNR Anticipated discharge place: Pending clinical course Anticipated discharge time: pending clinical course Objective - Vital Signs Vital signs: Vital Signs Temp 98.7 F 10/23/23 09:00 Pulse 128 H 10/23/23 11:00 Resp 27 H 10/23/23 11:00 BP 145/80 10/23/23 07:00 Pulse Ox 97 10/23/23 11:00 FiO2 30 10/23/23 10:53 Intake & Output 10/22/23 10/23/23 10/23/23 18:59 06:59 18:59 Intake Total 2236 2186 1122 Output Total 1665 4779 725 Balance 571 186 397 Weight 85.4 kg 90.1 kg Intake: IV 916 1256 812 0.9 Sodium Chloride 220 240 100 Acyclovir Sodium 850 mg 270 In Sodium Chloride 0.9% 250 ml @ 270 mls/hr IVPB Q8H [facility] Rx#:[id number] Invasive Line 4 30 30 10 Invasive Line 9 30 30 10 Linezolid 600 mg In 300 150 300 Dextrose/Water 1 300ml. bag @ 150 mls/hr IVPB Q12HR [facility] Rx#:[id number] Magnesium Sulfate-D5w Pmx 100 1 gm In Dextrose/Water 1 100ml.bag @ 100 mls/hr IVPB ONCE ONE Rx#: [id number] Piperacillin-Tazobactam 3 200 100 .375 gm In Sodium Chloride 0.9% 100 ml @ 25 mls/hr IVPB Q8H [facility] Rx#: [id number] Pressure Bag 36 36 42 Sodium Chloride 3%( 500 250 Hypertonic) 500 ml @ 50 mls/hr IV .Q10H [facility] Rx#: [id number] Intake, IV Titration 350 Amount Acyclovir Sodium 850 mg 250 In Sodium Chloride 0.9% 250 ml @ 270 mls/hr IVPB Q8H [facility] Rx#:[id number] Sodium Chloride 3%( 100 Hypertonic) 500 ml @ 50 mls/hr IV .Q10H [facility] Rx#: [id number] Tube Feeding 790 840 280 Other 180 90 30 Output: Urine 1665 1750 725 Stool 250 Other: Voiding Method Indwelling Catheter Indwelling Catheter Indwelling Catheter ABP, PAP, CO, CI - Last Documented Arterial Blood Pressure 157/66 - Labs CBC & Chem 7: 10/23/23 03:39 10/23/23 09:23 Labs: Abnormal Lab Results - Last 24 Hours (Table) 10/22/23 10/22/23 10/23/23 Range/Units 17:27 23:30 03:39 RBC (4.30-5.90) m/uL Hgb (13.0-17.5) gm/dL Hct (39.0-53.0) % Plt Count (150-450) k/uL Lymphocytes # (1.0-4.8) k/uL ABG pO2 (83-108) mmHg ABG HCO3 (21-25) mmol/L ABG Total CO2 (19-24) mmol/L ABG O2 Saturation (94-97) % Chloride 112 H (98-107) mmol/L BUN 24 H (9-20) mg/dL Creatinine 0.41 L (0.66-1.25) mg/dL Glucose 299 H (74-99) mg/dL POC Glucose (mg/dL) 248 H 278 H (70-110) mg/dL Calcium 8.2 L (8.4-10.2) mg/dL 10/23/23 10/23/23 10/23/23 Range/Units 03:39 05:29 05:33 RBC 4.04 L (4.30-5.90) m/uL Hgb 11.5 L (13.0-17.5) gm/dL Hct 36.9 L (39.0-53.0) % Plt Count 138 L (150-450) k/uL Lymphocytes # 0.2 L (1.0-4.8) k/uL ABG pO2 140 H (83-108) mmHg ABG HCO3 27 H (21-25) mmol/L ABG Total CO2 28 H (19-24) mmol/L ABG O2 Saturation 97.4 H (94-97) % Chloride (98-107) mmol/L BUN (9-20) mg/dL Creatinine (0.66-1.25) mg/dL Glucose (74-99) mg/dL POC Glucose (mg/dL) 287 H (70-110) mg/dL Calcium (8.4-10.2) mg/dL 10/23/23 Range/Units 11:42 RBC (4.30-5.90) m/uL Hgb (13.0-17.5) gm/dL Hct (39.0-53.0) % Plt Count (150-450) k/uL Lymphocytes # (1.0-4.8) k/uL ABG pO2 (83-108) mmHg ABG HCO3 (21-25) mmol/L ABG Total CO2 (19-24) mmol/L ABG O2 Saturation (94-97) % Chloride (98-107) mmol/L BUN (9-20) mg/dL Creatinine (0.66-1.25) mg/dL Glucose (74-99) mg/dL POC Glucose (mg/dL) 195 H (70-110) mg/dL Calcium (8.4-10.2) mg/dL Microbiology - Last 24 Hours (Table) 10/21/23 08:15 Gram Stain - Final Sputum Sputum Culture - Final 10/18/23 17:20 CSF Gram Stain - Final Cerebral Spinal Fluid CSF Culture - Final 10/17/23 01:05 Blood Culture - Final Blood 10/17/23 01:05 Blood Culture - Final Blood
[2023-10-23 12:23] LABS: VDRL, Qualitative CSF Nonreactive (Nonreactive)
--- NOTE | 2023-10-23 12:31 | CT ---
EXAMINATION TYPE: CT brain wo con CT DLP: 1095.4 mGycm, Automated exposure control for dose reduction was used. DATE OF EXAM: 10/23/2023 12:18 PM COMPARISON: Prior CT Brain from 10/22/2023 . CLINICAL INDICATION:Male, 72 years old with history of cerebral edema FU, cerebral edema FU TECHNIQUE: Brain: Multiple axial CT images of the brain were obtained without IV contrast. . Coronal and sagitta l reformats reviewed. FINDINGS: Brain: Extra-axial spaces: No abnormal extra-axial fluid collections. Ventricular system: Within normal limits Cerebral parenchyma: No acute intraparenchymal hemorrhage. Redemonstrated multifocal areas of cortica l and subcortical hypodensity throughout the posterior right frontal lobe, bilateral parietal lobes, and parieto-occipital junctions. Additional changes in the anterior right frontal lobe adjacent to th e frontal horn of the lateral ventricle redemonstrated. These regions demonstrate loss of jean baptiste-white differentiation. These regions demonstrate slightly increased degree of hypodensity from prior exam. No new regions identified. There is corresponding peripheral sulci effacement. Cerebellum: Unremarkable. Mass effect: Similar midline shift to the left of 3 mm. Intracranial vasculature: Atherosclerotic calcifications of the intracranial vessels. Soft tissues: Normal. Calvarium/osseous structures: No depressed skull fracture. Paranasal sinuses and mastoid air cells: Partial opacification of the bilateral mastoid air cells. Mi ld mucosal thickening of the ethmoid sinuses with complete opacification of the right sphenoid sinus and mild mucosal thickening of the left ethmoid sinus. Nasal septal deviation to the left. Visualized orbits: Orbital contents are intact. Other: Partial visualization of endotracheal tube. Debris demonstrated within the nasopharynx. IMPRESSION: 1. Multifocal areas of subacute cerebral ischemia with similar pattern to prior exam. There is sligh tly greater degree of hypodensity of the brain parenchyma from prior exam suggesting ongoing evolutio n. No acute intracranial hemorrhage. 2. Similar trace 3 mm leftward midline shift. No herniation or hydrocephalus at this time.
[2023-10-23] MEDS: HYDROmorphone 1 MG/ML 1 ML SYRINGE IVP PRN (13:48)
[2023-10-23 15:23] LABS: Diff, Total Cells Cnt, CSF 100; Mononuclear WBC,CSF 15 %; Polynuclear WBC,CSF 85 %
[2023-10-23 17:46] LABS: Glucose,Whole Blood 285 mg/dL (70-110)
[2023-10-23 23:43] LABS: Glucose,Whole Blood 294 mg/dL (70-110)
[2023-10-24 04:49] LABS: Glucose,Whole Blood 194 mg/dL (70-110)
[2023-10-24 04:58] LABS: Anisocytosis Slight; Basophils % (A) 0 %; Eosinophils % (A) 0 %; HCT 23.7 % (39.0-53.0); Hypochromasia Slight; Lymphocytes # (A) 0.2 k/uL (1.0-4.8); Lymphocytes % (A) 3 %; MCH 29.7 pg (25.0-35.0); MCHC 32.5 g/dL (31.0-37.0); MCV 91.6 fL (80.0-100.0); Mean Platelet Volume 8.7; Monocytes # (A) 0.7 k/uL (0-1.0); Monocytes % (A) 16 %; Neutrophils # (A) 3.5 k/uL (1.3-7.7); Neutrophils % (A) 80 %; Platelet Count 115 k/uL (150-450); RBC 2.58 m/uL (4.30-5.90); RDW 16.1 % (11.5-15.5); WBC 4.3 k/uL (3.8-10.6)
[2023-10-24 05:05] LABS: HGB 7.7 gm/dL (13.0-17.5)
[2023-10-24 05:21] LABS: African American GFR (CKD) >90 (>60 ml/min/1.73 sqM); Anion Gap 6 mmol/L; Blood Urea Nitrogen 27 mg/dL (9-20); Calcium 7.9 mg/dL (8.4-10.2); Carbon Dioxide 24 mmol/L (22-30); Chloride 120 mmol/L (98-107); Glucose 248 mg/dL (74-99); Non-African American GFR(CKD) >90 (>60 ml/min/1.73 sqM); Potassium 3.4 mmol/L (3.5-5.1); Sodium 150 mmol/L (137-145)
[2023-10-24 05:32] LABS: Allen Test Performed? Yes
[2023-10-24 05:33] LABS: ABG Base Excess 3.3 mmol/L; ABG HCO3 28 mmol/L (21-25); ABG Oxygen Saturation 97.3 % (94-97); ABG PCO2 42 mmHg (35-45); ABG PH 7.43 (7.35-7.45); ABG PO2 147 mmHg (83-108); ABG TCO2 29 mmol/L (19-24)
[2023-10-24] MEDS: POTASSIUM BICARBONATE/CIT AC 20 MEQ TABLET.EFF NG-TUBE SCH (05:44)
[2023-10-24 06:02] LABS: Anisocytosis Slight; Basophils % (A) 0 %; Eosinophils % (A) 0 %; HCT 34.1 % (39.0-53.0); Lymphocytes # (A) 0.2 k/uL (1.0-4.8); Lymphocytes % (A) 3 %; MCH 29.9 pg (25.0-35.0); MCHC 32.8 g/dL (31.0-37.0); MCV 91.2 fL (80.0-100.0); Mean Platelet Volume 8.2; Monocytes # (A) 0.7 k/uL (0-1.0); Monocytes % (A) 11 %; Neutrophils # (A) 5.8 k/uL (1.3-7.7); Neutrophils % (A) 86 %; Platelet Count 174 k/uL (150-450); RBC 3.74 m/uL (4.30-5.90); RDW 16.1 % (11.5-15.5); WBC 6.8 k/uL (3.8-10.6)
[2023-10-24 06:03] LABS: HGB 11.2 gm/dL (13.0-17.5)
--- NOTE | 2023-10-24 07:48 | XR ---
EXAMINATION TYPE: XR chest 1V portable DATE OF EXAM: 10/24/2023 COMPARISON: 10/23/2023 HISTORY: Mechanical ventilation TECHNIQUE: Single frontal view of the chest is obtained. FINDINGS: ET tube is approximately 4.1 cm above alexys. NG tube seen coursing in the abdomen. Diffus e bilateral pleural-parenchymal changes with pleural effusion and consolidation stable. No pneumothor ax. Arthropathy of the shoulders and degenerative change of the spine. Right-sided PICC line noted. IMPRESSION: Bilateral consolidation and small effusion stable to be in the basis of CHF or pneumonia . No significant interval change.
[2023-10-24] MEDS ORDERED: ATROPINE OPHTH SOLN 1% 5ML BTL SUBLINGUAL PRN (10:18)
[2023-10-24] MEDS ORDERED: ONDANSETRON 4 MG/2 ML VIAL IVP PRN (10:18)
[2023-10-24] MEDS ORDERED: MORPHINE SULFATE 2 MG/ML SYRINGE IV PRN (10:18)
[2023-10-24 10:31] VITALS: RESP 14
[2023-10-24] MEDS: SCOPOLAMINE 1 MG/72 HR PATCH TRANSDERM SCH (10:55)
[2023-10-24] MEDS: MORPHINE SULFATE (100 MG/2 ML) 100 MG in SODIUM CHLORIDE 0.9% 100 ML IV SCH (10:55)
--- NOTE | 2023-10-24 11:23 | P.PN ---
Subjective Progress Note Date: 10/23/23 10/23/2023: Patient was seen for a follow-up. Patient's daughter and patient's were present today. Patient has received hypertonic saline solution as well as Decadron for the last 24 hours[address] Patient had [address] scan of the head today, which revealed multifocal areas of subacute cerebral ischemia with similar pattern to prior exam. There is slightly greater degree of hypodensity of the brain parenchyma from prior exam, suggesting ongoing evolution. No acute hemorrhage. Similar trace 3 mm leftward midline shift. No herniation or hydrocephalus at this time. Patient's blood test shows normal WBC 4.6, hemoglobin 11.5, platelets 138. Patient's sodium is 145. Magnesium 2.1. Chest x-ray Showed bilateral consolidation and small effusion, stable to be in the bases of CHF or pneumonia. Patient is currently on acyclovir, Zosyn and Zyvox. I spoke to the superintendent ammunition storage in the ER to obtain the EMS flowsheet to obtain better evaluation of the vitals and the condition at the scene. She checked it, and apparently EMS flowsheet not available. 10/22/2023: Patient was seen for a follow-up. Patient is currently not on any sedatives. He is receiving Zosyn and magnesium. Patient's and patient's daughter from [place] were present. I asked him about history. It appears that on the day of arrival 10/15/2023, patient and his were talking, and he was eating soup. He mentioned that he was feeling nervous, not feeling well. He was still talking very coherent. She left him for an hour to do some errands, and when she came back, he apparently was laying down in the wheelchair, about to check his blood sugar, very shaky, complaining of dizziness like he was "wohrling", complaining like will pass out. About 5 minutes later, he leaned to the left and passed out. Patient's called 911, and when they arrived about 10 minutes later, he was in agonal respiration. EMS flowsheet not available in the chart. His blood sugar was 170 at that time. Patient was intubated, brought to the hospital. Patient also has history of severe rheumatoid arthritis, also interstitial lung disease. Recently he was started on a new medication Rinvoq. 10/20/2023: Patient was initially seen by Dr. Aba Palomo on 10/15/2023 followed up till 10/19/2023. Please refer to his notes for details. Patient is a 72-year-old male who presented with unresponsiveness. Patient had extensive workup and initial CT was normal then later, and then now possible anoxia in different brain territories. Most recent EEG showed moderate encephalopathy. Patient is on Keppra for tremors which has resolved. LP was traumatic but nucleated cells corrected is 46 but feels possible due to distribution of blood brain barrier, but still he was placed on acyclovir pending viral culture results. Patient was seen for a follow-up. Patient is intubated, not on any sedation. Patient is getting Zosyn. No obvious seizure-like activity noted. Some of the workup during this hospital visit consisted of: TSH: 0.037 and Free T4: 2.68 Ammonia 32 ESR: 61 B12: 704 2D echo is reported as severe left ventricular systolic dysfunction with ejection fraction of 25 to 30%. Severe hypokinesis involving the apex only the base of the ventricle is improving. Severe pulmonary hypertension. Cardiac cath is reported as normal coronary angiogram. Normal left sided filling pressure. Rule out intracranial bleed. Influenza A/B, RSV and SARS-CoV-2 PCR are not detected. CT of the head is reported as no acute intracranial process. I personally reviewed the CT and agree there is no acute or subacute process. CTA head and neck: Vasogenic edema in the posterior aspect of the occipital lobe and parietal a lesser extent right frontal concerning for posterior reversible encephalopathy syndrome. Not seen on prior CT. No evidence of dissection of cervical internal carotid artery or vertebral artery or any evidence of significant stenosis at the carotid bifurcation. No evidence of intracranial high-grade stenosis or intracranial aneurysm. I personally reviewed the CT and I do appreciate hypodensity predominantly over the posterior and it is also seen in the frontal and I cannot rule out stroke vs PRES. Routine EEG: Is abnormal. The background slowing is suggestive of severe encephalopathy. Otherwise there is no focal slowing, epileptiform discharges or seizure on the EEG. Repeat CT head on 10/17/2023: Increasing loss of jean baptiste-white matter differentiation in area of vasogenic edema in the posterior occipital lobes and to lesser extent the parietal lobes. Finding could be due to lack of IV contrast. CSF is red, hazy, rbc 5779, fresh rbc 100, nucleated cells are 56, glucose 111 and protein >600. CSF gram stain: No organism seen. Objective - Vital Signs Vital signs: Vital Signs Temp 100.9 F H 10/23/23 13:00 Pulse 112 H 10/23/23 14:00 Resp 22 10/23/23 14:00 BP 145/80 10/23/23 07:00 Pulse Ox 97 10/23/23 14:00 FiO2 30 10/23/23 12:00 Intake & Output 10/22/23 10/23/23 10/23/23 18:59 06:59 18:59 Intake Total 2236 2186 1331 Output Total 1665 2000 1250 Balance 571 186 81 Weight 85.4 kg 90.1 kg Intake: IV 916 1256 1021 0.9 Sodium Chloride 220 240 130 Acyclovir Sodium 850 mg 270 In Sodium Chloride 0.9% 250 ml @ 270 mls/hr IVPB Q8H COUNT INCLUDES THE [facility] Rx#:[id number] Invasive Line 4 30 30 20 Invasive Line 9 30 30 20 Linezolid 600 mg In 300 150 300 Dextrose/Water 1 300ml. bag @ 150 mls/hr IVPB Q12HR COUNT INCLUDES THE [facility] Rx#:[id number] Magnesium Sulfate-D5w Pmx 100 1 gm In Dextrose/Water 1 100ml.bag @ 100 mls/hr IVPB ONCE ONE Rx#: [id number] Piperacillin-Tazobactam 3 200 100 .375 gm In Sodium Chloride 0.9% 100 ml @ 25 mls/hr IVPB Q8H COUNT INCLUDES THE [facility] Rx#: [id number] Pressure Bag 36 36 51 Sodium Chloride 3%( 500 400 Hypertonic) 500 ml @ 50 mls/hr IV .Q10H COUNT INCLUDES THE [facility] Rx#: [id number] Intake, IV Titration 350 Amount Acyclovir Sodium 850 mg 250 In Sodium Chloride 0.9% 250 ml @ 270 mls/hr IVPB Q8H COUNT INCLUDES THE [facility] Rx#:[id number] Sodium Chloride 3%( 100 Hypertonic) 500 ml @ 50 mls/hr IV .Q10H COUNT INCLUDES THE [facility] Rx#: [id number] Tube Feeding 790 840 280 Other 180 90 30 Output: Urine 1665 1750 1250 Stool 250 Other: Voiding Method Indwelling Catheter Indwelling Catheter Indwelling Catheter ABP, PAP, CO, CI - Last Documented Arterial Blood Pressure 161/66 - Exam Patient is intubated, not on any sedation. No obvious seizure-like activity noted. Patient is keeping his eyes closed. Patient has a very good gag and cough reflex. Pupils are equal about 4 mm, round and very clearly reacting to light. Gaze is midline. Corneals are present. Oculocephalics are present. Patient is breathing over the ventilator. Patient did not respond to calling his name, or with painful stimuli. He did not wiggle his right foot as he did before. Patient has amputated left big toe. - Labs CBC & Chem 7: 10/24/23 05:35 10/24/23 04:42 Labs: Abnormal Lab Results - Last 24 Hours (Table) 10/22/23 10/22/23 10/23/23 Range/Units 17:27 23:30 03:39 RBC (4.30-5.90) m/uL Hgb (13.0-17.5) gm/dL Hct (39.0-53.0) % Plt Count (150-450) k/uL Lymphocytes # (1.0-4.8) k/uL ABG pO2 (83-108) mmHg ABG HCO3 (21-25) mmol/L ABG Total CO2 (19-24) mmol/L ABG O2 Saturation (94-97) % Chloride 112 H (98-107) mmol/L BUN 24 H (9-20) mg/dL Creatinine 0.41 L (0.66-1.25) mg/dL Glucose 299 H (74-99) mg/dL POC Glucose (mg/dL) 248 H 278 H (70-110) mg/dL Calcium 8.2 L (8.4-10.2) mg/dL 10/23/23 10/23/23 10/23/23 Range/Units 03:39 05:29 05:33 RBC 4.04 L (4.30-5.90) m/uL Hgb 11.5 L (13.0-17.5) gm/dL Hct 36.9 L (39.0-53.0) % Plt Count 138 L (150-450) k/uL Lymphocytes # 0.2 L (1.0-4.8) k/uL ABG pO2 140 H (83-108) mmHg ABG HCO3 27 H (21-25) mmol/L ABG Total CO2 28 H (19-24) mmol/L ABG O2 Saturation 97.4 H (94-97) % Chloride (98-107) mmol/L BUN (9-20) mg/dL Creatinine (0.66-1.25) mg/dL Glucose (74-99) mg/dL POC Glucose (mg/dL) 287 H (70-110) mg/dL Calcium (8.4-10.2) mg/dL 10/23/23 Range/Units 11:42 RBC (4.30-5.90) m/uL Hgb (13.0-17.5) gm/dL Hct (39.0-53.0) % Plt Count (150-450) k/uL Lymphocytes # (1.0-4.8) k/uL ABG pO2 (83-108) mmHg ABG HCO3 (21-25) mmol/L ABG Total CO2 (19-24) mmol/L ABG O2 Saturation (94-97) % Chloride (98-107) mmol/L BUN (9-20) mg/dL Creatinine (0.66-1.25) mg/dL Glucose (74-99) mg/dL POC Glucose (mg/dL) 195 H (70-110) mg/dL Calcium (8.4-10.2) mg/dL Microbiology - Last 24 Hours (Table) 10/21/23 08:15 Gram Stain - Final Sputum Sputum Culture - Final 10/18/23 17:20 CSF Gram Stain - Final Cerebral Spinal Fluid CSF Culture - Final 10/17/23 01:05 Blood Culture - Final Blood 10/17/23 01:05 Blood Culture - Final Blood Assessment and Plan Assessment: This is a 72-year-old gentleman who became unresponsive at home with agonal breathing. He was complaining of not feeling well and headache recently per the . The results EMS arrived and they intubated him because of his respiratory distress. EKG was reported as possible ST segment myocardial infarction with minimal elevated troponin. He was taken for cardiac cath and was normal. Initial CT of the head was unremarkable for any acute process. 2D echo showed severe left ventricular systolic dysfunction with ejection fraction of 25 to 30%. Severe hypokinesis involving the apex only the base of the ventricle is improving. Severe pulmonary hypertension. * Abnormal CT head, with evidence of multifocal areas of subacute cerebral ischemia, similar as compared to CT head from 10/19/2023. Exact cause is uncertain. Differential diagnosis includes multifocal embolic ischemic CVA from cardiac source, or related to prolonged hypoperfusion with watershed ischemia from hypotension. Patient has prolonged hypotension for several hours off and on, on 10/15/2023 and 10/16/2023. PRES appears very unlikely due to the extent of involvement. Inflammatory process less likely, as distribution is somewhat vascular. * Abnormal CSF, with significantly elevated white cells 46, and CSF proteins > 600. Exact cause is uncertain. Patient being treated empirically with acyclovir. * Recurrent episodes of body jerks noted initially, now seems to have resolved. EEG showed no epileptiform activity. Patient on Keppra. * Heart failure with ejection fraction of 25 to 30% * Severe pulmonary hypertension * History of pulmonary fibrosis * History of rheumatoid arthritis * History of interstitial lung disease due to RA. * History of diabetes mellitus * History of osteomyelitis and had left toe amputation Plan: Patient CSF did not have differential available. Called the lab and they checked the slides, and apparently 85% polynuclear, and 15% mononuclear cells. fisheries technician believes that this differential is probably due to traumatic tap. The guitar technician also informed me that HSV PCR will be available later at 9 PM tonight. It was a send out to [place] about 3. Continue Acylovir 10mg/kg every 8 hours. I.D. is on board. Patient is on Zosyn and Linezolid. Pending CSF viral, HSV1/2, Cryptococcal CSF. As per lab, viral cultures will be available tonight after 9 PM and cryptococcal antigen will be available on 10/28/2023 Since white cells CSF are elevated 56, whereas differential is 85% polys, and 15% mononuclear cells. Bacterial cultures are negative. Although the cerebral edema typically worsens, during the first few days and usually reaches its peak at 72 hours postevent. However as the current CT (performed 8 days after admission) still shows worsening of edema, therefore, patient was started on hypertonic saline 3% at 50 cc/h for 24 to 48 hours. Although steroids are typically indicated for vasogenic edema related to brain tumor, but because of patient's history of rheumatoid arthritis, and ILD, we will empirically start Decadron 10 mg x 1 dose, followed by 6 mg IV every [address] head performed today #5 revealed multifocal areas of subacute cerebral ischemia with similar pattern to prior exam. There is slightly greater degree of hypodensity of the brain parenchyma from prior exam suggesting ongoing evolution. No acute intracranial hemorrhage. Similar trace 3 mm leftward midline shift. No herniation or hydrocephalus at this time. I personally reviewed CT head, agree with the findings. No improvement with hypertonic saline or steroids. Clinically, there is no improvement noted either. Patient does have intact brainstem functions. Repeat EEG from 10/19/2023 revealed background slowing, suggestive of moderate encephalopathy. No focal slowing, epileptiform discharges or seizure activity was seen Resume aspirin 325 mg daily. Also on Lipitor 80mg qhs. Continue neuro checks. Cardiac monitoring Will defer the rest of the medical management to primary and other specialists. Patient was started on Keppra during this admission and currently on Keppra 1gm bid. Is on Ativan PRN. Cannot obtain MRI since vent is not MRI Compatible. Dr. Palomo has felt the patient had hypoxia due to his interstitial disease/fibrosis as a result he had the hypoattenuation seen on the CT versus is a possibility he had a stroke bilateral hemisphere at different territories as a result of a clot that showered to the brain and it is not seen on echo. 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 Dr. Palomo has discussed with the patient's and patient's sister they did not want the patient to pursue with a transesophageal echocardiogram. Overall patient's condition is very critical and overall prognosis for meaningful recovery remains poor. Patient's mentions that patient has expressed wishes for not prolonging his life, if he has significant disability from any condition. Did not prefer to undergo tracheostomy or other measures to prolong the life. Based upon the extent of cerebral ischemia, it does appear that patient will have significant residual deficits, particularly with complete left hemiplegia, some deficits in the right arm, cognitive functions involvement and perhaps involvement of the visual henson. However we will observe in the next 24 hours, if there is remarkable change in the condition with above treatment. Patient's family have decided for patient to be made comfort care perhaps in the morning. Discussed with patient's family in detail, and outcomes analyst.
[2023-10-24] MEDS: MORPHINE SULFATE 4 MG/ML SYRINGE IV PRN (11:34)
[2023-10-24] MEDS: LORazepam 2 MG/ML INJ IV PRN (12:51)
--- NOTE | 2023-10-24 13:13 | P.PN ---
Subjective Progress Note Date: 10/24/23 Hospital Course: 72-year-old male with medical history of idiopathic pulmonary fibrosis on Ofev, diabetes type 2, osteomyelitis status post recent right toe amputation on Zosyn, hypertension, hyperlipidemia presented for evaluation of altered mental status. According to ER documentation, the patient demonstrated evidence of agonal breathing and therefore was bagged for ventilation on the way to the emergency room. Upon arrival, patient was afebrile, 168/114, heart rate 131, 99% with [id number]. CBC was unremarkable. Basic metabolic panel showed chloride of 109, CO2 of 21, BUN of 26, creatinine 1.57. Liver function test were unremarkable. Troponins 0.047. Coags were unremarkable. D-dimer was elevated 2.58. EKG demonstrated atrial fibrillation with RVR as well as ST elevation in the lateral leads with reciprocal changes in the inferior leads. Based on these findings, cardiology was notified and a code STEMI was called, patient was taken emergently to the [facility] but was found to have normal coronary arteries. Subsequently was transferred to the intensive care unit, intubated. He underwent brain CT to rule out hemorrhagic stroke which was negative, p ulmonology was consulted and neurology was consulted. Patient remains intubated and mechanically ventilated. Also hypotensive, requiring vasopressors as well as broad-spectrum antibiotics. Echocardiogram showed LVEF 25 to 30% with severe hypokinesis involving the apex, severe pulmonary hypertension. CTA chest did not show any acute PE. Heparin drip discontinued. CTA head showed vasogenic edema in the posterior aspects of occipital lobes and parietal of the lesser extent right frontal lobe concerning for PRES. patient continued on IV antibiotics. Off of sedation, minimally responsive. Off of vasopressors. LP completed. Patient also started on acyclovir. Prognosis remains poor. Patient was considering comfort care. However, patient mental status slightly improved. Subjective: Patient's daughter was at bedside. She states that she just came in out of state yesterday. I discussed the case with the ICU nurse. Patient did have some pain this morning and was given some pain medications. Currently patient appears comfortable. Vitals Signs Reviewed. 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 Patient has been terminally extubated. Patient started on morphine drip. He is on IV Dilaudid as needed for pain control. Patient also on IV Ativan. Elevated troponin Paroxysmal atrial fibrillation with RVR, new onset -Cardiac cath showed normal coronary angiogram, normal left-sided filling pressures -no AC at the moment Type 2 diabetes -Hold oral antidiabetics -Continue sliding scale insulin every 6 hours, monitor for hypoglycemia -started on levemir 10 daily History of hypertension-hold antihypertensives Dyslipidemia Rheumatoid arthritis DVT ppx: lovenox Code status: DNR Anticipated discharge place: Anticipate patient will pass away in the next 3 days Anticipated discharge time: pending clinical course Objective - Vital Signs Vital signs: Vital Signs Temp 100.1 F H 10/24/23 04:00 Pulse 107 H 10/24/23 10:00 Resp 14 10/24/23 10:00 BP 145/80 10/23/23 07:00 Pulse Ox 97 10/24/23 10:00 FiO2 30 10/24/23 10:36 Intake & Output 10/23/23 10/24/23 10/24/23 18:59 06:59 18:59 Intake Total 2333 1636 211.482 Output Total 1560 1650 390 Balance 773 -14 -178.518 Weight 89.8 kg Intake: IV 1643 1466 209 0.9 Sodium Chloride 170 120 30 Acyclovir Sodium 850 mg 250 250 In Sodium Chloride 0.9% 250 ml @ 270 mls/hr IVPB Q8H [facility] Rx#:[id number] Invasive Line 4 30 30 10 Invasive Line 9 30 30 10 Linezolid 600 mg In 300 300 Dextrose/Water 1 300ml. bag @ 150 mls/hr IVPB Q12HR [facility] Rx#:[id number] Piperacillin-Tazobactam 3 200 100 .375 gm In Sodium Chloride 0.9% 100 ml @ 25 mls/hr IVPB Q8H [facility] Rx#: [id number] Pressure Bag 63 36 9 Sodium Chloride 3%( 600 600 150 Hypertonic) 500 ml @ 50 mls/hr IV .Q10H [facility] Rx#: [id number] Intake, IV Titration 2.482 Amount Morphine Sulfate (100 mg/ 2.482 2 ml) 100 mg In Sodium Chloride 0.9% 100 ml @ 1 MG/HR 1.02 mls/hr IV . Q24H [facility] Rx#:[id number] Tube Feeding 630 140 Other 60 30 Output: Urine 1560 1650 390 Other: Voiding Method Indwelling Catheter Indwelling Catheter Indwelling Catheter ABP, PAP, CO, CI - Last Documented Arterial Blood Pressure 140/63 - Labs CBC & Chem 7: 10/24/23 05:35 10/24/23 04:42 Labs: Abnormal Lab Results - Last 24 Hours (Table) 10/23/23 10/23/23 10/23/23 Range/Units 14:38 15:45 17:44 RBC (4.30-5.90) m/uL Hgb (13.0-17.5) gm/dL Hct (39.0-53.0) % RDW (11.5-15.5) % Plt Count (150-450) k/uL Lymphocytes # (1.0-4.8) k/uL ABG pO2 (83-108) mmHg ABG HCO3 (21-25) mmol/L ABG Total CO2 (19-24) mmol/L ABG O2 Saturation (94-97) % Sodium 146 H 146 H (137-145) mmol/L Potassium (3.5-5.1) mmol/L Chloride (98-107) mmol/L BUN (9-20) mg/dL Creatinine (0.66-1.25) mg/dL Glucose (74-99) mg/dL POC Glucose (mg/dL) 285 H (70-110) mg/dL Calcium (8.4-10.2) mg/dL 10/23/23 10/23/23 10/24/23 Range/Units 21:54 23:41 03:05 RBC (4.30-5.90) m/uL Hgb (13.0-17.5) gm/dL Hct (39.0-53.0) % RDW (11.5-15.5) % Plt Count (150-450) k/uL Lymphocytes # (1.0-4.8) k/uL ABG pO2 (83-108) mmHg ABG HCO3 (21-25) mmol/L ABG Total CO2 (19-24) mmol/L ABG O2 Saturation (94-97) % Sodium 146 H 149 H (137-145) mmol/L Potassium (3.5-5.1) mmol/L Chloride (98-107) mmol/L BUN (9-20) mg/dL Creatinine (0.66-1.25) mg/dL Glucose (74-99) mg/dL POC Glucose (mg/dL) 294 H (70-110) mg/dL Calcium (8.4-10.2) mg/dL 10/24/23 10/24/23 10/24/23 Range/Units 04:42 04:42 04:46 RBC 2.58 L (4.30-5.90) m/uL Hgb 7.7 L D (13.0-17.5) gm/dL Hct 23.7 L (39.0-53.0) % RDW 16.1 H (11.5-15.5) % Plt Count 115 L (150-450) k/uL Lymphocytes # 0.2 L (1.0-4.8) k/uL ABG pO2 (83-108) mmHg ABG HCO3 (21-25) mmol/L ABG Total CO2 (19-24) mmol/L ABG O2 Saturation (94-97) % Sodium 150 H (137-145) mmol/L Potassium 3.4 L (3.5-5.1) mmol/L Chloride 120 H (98-107) mmol/L BUN 27 H (9-20) mg/dL Creatinine 0.45 L (0.66-1.25) mg/dL Glucose 248 H (74-99) mg/dL POC Glucose (mg/dL) 194 H (70-110) mg/dL Calcium 7.9 L (8.4-10.2) mg/dL 24 10/24/23 Range/Units 05:30 05:35 RBC 3.74 L (4.30-5.90) m/uL Hgb 11.2 L D (13.0-17.5) gm/dL Hct 34.1 L (39.0-53.0) % RDW 16.1 H (11.5-15.5) % Plt Count (150-450) k/uL Lymphocytes # 0.2 L (1.0-4.8) k/uL ABG pO2 147 H (83-108) mmHg ABG HCO3 28 H (21-25) mmol/L ABG Total CO2 29 H (19-24) mmol/L ABG O2 Saturation 97.3 H (94-97) % Sodium (137-145) mmol/L Potassium (3.5-5.1) mmol/L Chloride (98-107) mmol/L BUN (9-20) mg/dL Creatinine (0.66-1.25) mg/dL Glucose (74-99) mg/dL POC Glucose (mg/dL) (70-110) mg/dL Calcium (8.4-10.2) mg/dL Microbiology - Last 24 Hours (Table) 10/21/23 08:15 Gram Stain - Final Sputum Sputum Culture - Final
--- NOTE | 2023-10-24 13:53 | P.PN ---
Subjective Progress Note Date: 10/24/23 This is a 72-year-old male patient with a history of pulmonary fibrosis maintained on Ofev in the outpatient setting. He was found by his earlier today to be unresponsive and agonal breathing. EMS was called and he was intubated in the field. EKG showed possible ST segment elevation myocardial i nfarction. He was brought in through the emergency room and directly to the [facility] [employer] [facility]. He was found to have normal coronary arteries. He was admitted to the intensive care unit. He is currently intubated on the mechanical ventilator and assist-control mode at a rate of 14, tidal volume 600, FiO2 50% and a PEEP of 5. Arterial blood gases revealed a PaO2 of greater than 420, pCO2 of 35 and a pH of 7.38. CT scan of the brain showed no acute abnormalities. Echocardiogram is pending. Chest x-ray revealed endotracheal tube in a high position. Being repositioned. Nasogastric tube in the esophagus. Cardiomegaly. No pleural effusion, focal consolidation or pneumothorax. White count 8.7. Hemoglobin 17.0. Platelets 215. D-dimer 2.58. Sodium 140. Potassium 3.8. Bicarb 21. BUN 26. Creatinine 0.57. Glucose 165. Troponin 0.047. The patient is seen today October 16, 2023 in follow-up on the regular medical floor. He remains intubated on the mechanical ventilator. Currently on assist- control mode with a rate of 14, tidal volume 600, FiO2 50% and a PEEP of 5. Morning blood gases revealed a PaO2 of 102, pCO2 40 and a pH of 7.24. He is on propofol at 40 mcg/kg/min. Norepinephrine at 0.09 mcg/kg/min. Heparin drip per weight-based protocol. Saline at 75 MLS per hour. He is continued on Zosyn via PICC line that he had been receiving at home following a left great toe amputa tion. Chest x-ray shows satisfactory position in the nasogastric and endotracheal tubes. There is cardiomegaly with pulmonary vascular congestion. Echocardiogram revealed severely impaired left ventricular systolic function with ejection fraction of 25 to 30%. Severe pulmonary hypertension. White count 19.2. Hemoglobin 15.7. Platelets 248. Sodium 143. Potassium 4.3. Bicarb 15. Anion gap 16. BUN 32. Creatinine 1.16. Glucose 258. His current temperature is 102.1. He is tachycardic 130s. The plan is for CT angiogram of the chest today to rule out pulmonary embolism. CT angiogram of the head and neck is pending as well. The patient is seen today October 17, 2023 in follow-up on the regular medical floor. He remains intubated on mechanical ventilator. Currently on assist-control mode at a rate of 14, tidal volume 500, FiO2 50% and a PEEP of 5. Peak pressures 37. Plateau pressure 19. Continues with some increased airway resistance. Arterial blood gases revealed a PaO2 of 195, pCO2 41 and a pH of 7.37. He is sedated on propofol at 60 mcg/kg/min. Norepinephrine 90 (anabell rograms per minute. Normal saline at KVO. He is being nourished with vital AF at 20 MLS per hour with a goal of 47 MLS per hour. He is on antibiotics in the form of Zosyn and Zyvox. CT angiogram ruled out pulmonary embolism. Procalcitonin 0.42. He is continued on bronchodilators. Chest x-ray reveals multifocal airspace opacities. Sputum culture with Ana. Blood cultures pending. White count 15.6. Hemoglobin 13.3. Platelets 181. Sodium 143. Potassium 3.7. Bicarb 21. BUN 28. Creatinine 0.74. Glucose 145. The patient is seen today October 18, 2023 in follow-up on the regular medical floor. He remains intubated on the mechanical ventilator with current settings of assist-control mode at a rate of 14, tidal volume 500, FiO2 40% and a PEEP of 5. Morning blood gases revealed a PaO2 of 176, pCO2 41 and a pH of 7.44. He is being nourished with vital AF at 47 MLS per hour which is goal. Normal saline at KVO. He has been off sedation for approximately 24 hours now. He has very minimal response. He does grimace to painful stimuli. Follow-up CT scan of the brain revealed increasing loss of jean baptiste-white matter differentiation in the area of vasogenic edema the posterior occipital lobes and to a lesser extent the parietal lobes. The plan is for a lumbar puncture today. He remains on Zosyn and Zyvox. White count 11.6. Hemoglobin 12.2. Platelets 134. Sodium 142. P otassium 3.9. Bicarb 25. BUN 24. Creatinine 0.55. Glucose 178. Chest x-ray reveals multifocal airspace opacities. No evidence of pneumothorax or pleural effusion. PICC line in place. Endotracheal and nasogastric tubes in place. Lovenox for DVT prophylaxis, on hold for lumbar puncture. The patient is seen today October 19, 2023 in the intensive care unit. He remains intubated on the mechanical ventilator on assist-control mode of 14, tidal volume 500, FiO2 30% and a PEEP of 5. Morning blood gases revealed a PaO2 of 106, pCO2 of 48 and a pH of 7.4. Yesterday he was pressure support and CPAP 5/5 for approximately 6 hours. He he is being nourished with vital AF at 30 MLS per hour. He remains off sedation. Remains unresponsive. Previous EEG revealed background slowing suggestive of severe encephalopathy. No focal slowing, epileptiform discharge or seizure on EEG. A follow-up EEG is pending from today. He did undergo a lumbar puncture yesterday. RBCs were 5778, total nucleated cells 56, glucose 111, total protein greater than 600. C. difficile screen was negative. Viral screen is negative. Count 9.1. Hemoglobin 11.7. Platelets 117. Sodium 142. Potassium 4.3. Bicarb 27. BUN 25. Creatinine 0.49. Glucose 147. He remains on acyclovir, Zyvox, Zosyn. PICC line in place. Chest x-ray reveals endotracheal and nasogastric tubes in good place. There is evidence of cardiomegaly and pulmonary vascular congestion. Cerebrospinal fluid cultures are pending. The patient is seen today October 20, 2023 in follow-up in the intensive care unit. He remains intubated on mechanical ventilator. Currently on assist-control mode at a rate of 14, tidal volume 500, FiO2 of 30% and a PEEP of 5. He has been off sedation for several days now. He remains unresponsive. He is on normal saline at KVO. He has being nourished with vital AF at 60 MLS per hour which is goal. He remains on Zyvox, Zosyn and acyclovir. Lumbar puncture cultures are pending. White count 9.1. Hemoglobin 11.9. Platelets 125. Sodium 140. Potassium 4.0. Bicarb 26. BUN 23. Creatinine 0.51. Glucose 195. Arterial blood gases revealed a PaO2 of 118, pCO2 79 and a pH of 7.49. Counseling suggestive of moderate encephalopathy. No epileptiform discharge or seizures. X-ray reveals cardiomegaly and pulmonary vascular congestion. Endotracheal tube, nasogastric tube and right-sided PICC lines are in place. CT scan of the brain revealed diffuse edema suggesting diffuse anoxic injury. The patient is seen today October 21, 2023 in follow-up in the intensive care unit. He remains intubated and on mechanical ventilator. Currently settings are assist-control mode at a rate of 14, tidal volume 450, FiO2 30% and a PEEP of 5. Morning blood gases revealed a PaO2 of 112, pCO2 46 and a pH of 7.43. He remains off sedation. He is being nourished with vital AF at 60 MLS per hour which is goal. He is continued on Zosyn, Zyvox, acyclovir. He remains unresponsive. He has some positive reflexes. Chest x-ray reveals cardiomegaly with pulmonary vascular congestion. Endotracheal tube, nasogastric tube and right-sided PICC line remain in place. Sputum positive for Ana. Blood cultures revealed no growth. Cerebrospinal fluid cultures revealed no growth. White count 9.2. Hemoglobin 11.5. Platelets 116. Sodium 139. Potassium 3.7. Bicarb 29. BUN 22. Creatinine 0.47. Glucose 203. He remains on Lovenox for DVT prophylaxis. 10/22/2023, the patient is being seen for a follow-up. The patient has been off sedation since 10/17/2023. The patient has been off propofol. On today's evaluation, responses essentially sluggish. Upon repeated stimulation, the patient was able to grimace to deep painful stimulation. Still unresponsive although some minimal response to verbal commands has been elicited by the nursing staff. Based on that, repeat CAT scan of the brain was ordered to reevaluate the previously described brain edema. The repeat CAT scan was completed today and it showed multifocal areas of subacute 3020 ischemia similar to the ones as well as noted on 10/19/2023. There is slight degree of decrease of the hypodensity of the brain parenchyma. No evidence of any intracranial bleeding. There is minimal development of a shift in the order of 3 mm leftward to the midline but there is no evidence of any herniation. The patient remains intubated on mechanical ventilator. On today's evaluation is on assist-control mode at a rate of 14, tidal volume of 450, FiO2 30% with a PEEP of 5. Blood gas showed pH of 7.45 with a pCO2 of 44 and pO2 of 123. Chest x-ray findings are essentially unchanged and it is consistent with diffuse bilateral airspace disease and background pulmonary fibrosis. The patient is on IV fluids at [facility]. The overall fluid balance over the past 24 hours has been +62 cc and the patient remains on vital AF at the rate of 67 hours as the patient receiving enteral feeding for nutritional support. The patient has a PICC line in his right upper extremity and the patient also has a arterial line in place. The patient remains on IV acyclovir. The patient remains on IV Zosyn/daptomycin.. The is CSF cultures are negative. CSF by PCR for HSV is still pending. He is having liquidy loose bowel movements. Fecal management system in place. On today's blood work, the white cell count is 7.0 with a hemoglobin 11.1 and a platelet c ount of 116. BUN is at 20 with a creatinine of 0.4 and sodium levels at 136. Potassium levels of 3.8. Patient was also started on Levemir insulin 10 units daily along with a sign scale coverage. Family is at the bedside. Family is updated on the [employer] abnormalities. Hemodynamically stable, currently on no pressors. , patient is being seen for a follow-up. Family is at the bedside and I gave them a detailed update on his condition. In summary, the patient remains off propofol. No meaningful neurologic recovery at this point in time. CAT scan of the brain from yesterday was noted and there was evidence of brain edema and the patient was started on Decadron 6 mg IV every 6 hours and the patient is on 3% saline running at a rate of 50 cc an hour. The patient is not following any commands. He does cough. He does trigger the mechanical ventilator. He is also having some occasional body twitches. Previous EEG had showed no evidence of any seizure activity and the patient remains on Keppra 1 g every 12 hours. The patient remains on mechanical ventilator assist-control mode with rate of 14, tidal volume of 450, FiO2 30% with a PEEP of 5. Blood gas showed a pH of 7. 44 with a pCO2 of 39 and a pO2 of 140. Chest x-ray from today shows adequate positioning of the orotracheal tube. The patient has evidence of basilar consolidation and small effusions that are essentially stable compared to yesterday and is back on pulmonary fibrosis. White cell count is 4.6 with a hemoglobin 11.5 and a platelet count of 138. Sodium is at 142, potassium levels at 4.3, BUN 24 with a creatinine of 0.41 and a serum bicarb is at 25. Fluid balance is +757 cc over the past 24 hours. Patient is on vital AF running at the rate of 70 cc an hour. Afebrile. Hemodynamically stable on no pressors. 10/24/2023, the patient is being seen for a follow-up. On today's evaluation, the patient remains unresponsive. I was told that he occasionally opens up his eyes. He does not follow any commands. No purposeful activity. No seizure activity. The patient remains off sedation. The patient remains on the mechanical ventilator and essentially on the same ventilator setting and the patient is currently on assist-control mode at rate of 14, tidal volume of 450, FiO2 30% with a PEEP of 5. The follow-up chest x-ray from today shows bilateral consolidation with small effusions essentially stable. There is background pulmonary fibrosis. The patient remains on Decadron and hypertonic saline, 3% at a rate of 50 cc an hour. The patient remains on a combination of Zosyn and Zyvox. Blood sugars have been controlled with Levemir 10 units twice daily plus sliding scale coverage. The patient has a sodium level of 150, potassium level 3.4, close 120 and a bicarb level is at 24. He has 26 with a creatinine of 0.45. Number because at 6.8 with a hemoglobin of 11 point benefit of count of 174. Blood gas showed a pH of 7.43 with a pCO2 of 42 and pO2 of 147. The CAT scan of the brain that was done yesterday was consistent with multifocal areas of subacute cerebral edema similar to the previous examination. There is slight greater degree of hypodensity of the brain parenchyma and there is no evidence of any intracranial hemorrhage and similarly there is a 3 mm leftward midline shift. He is afebrile for now. The enterovirus and the CSF was negative. HSV by PCR was also negative. Objective - Vital Signs Vital signs: Vital Signs Temp 100.1 F H 10/24/23 04:00 Pulse 115 H 10/24/23 07:56 Resp 17 10/24/23 07:00 BP 145/80 10/23/23 07:00 Pulse Ox 98 10/24/23 07:00 FiO2 30 10/24/23 07:17 Intake & Output 10/23/23 10/24/23 10/24/23 18:59 06:59 18:59 Intake Total 2333 1636 63 Output Total 1560 1650 125 Balance 773 -14 -62 Weight 89.8 kg Intake: IV 1643 1466 63 0.9 Sodium Chloride 170 120 10 Acyclovir Sodium 850 mg 250 250 In Sodium Chloride 0.9% 250 ml @ 270 mls/hr IVPB Q8H GERARDO Rx#:[id number] Invasive Line 4 30 30 Invasive Line 9 30 30 Linezolid 600 mg In 300 300 Dextrose/Water 1 300ml. bag @ 150 mls/hr IVPB Q12HR GERARDO Rx#:[id number] Piperacillin-Tazobactam 3 200 100 .375 gm In Sodium Chloride 0.9% 100 ml @ 25 mls/hr IVPB Q8H GERARDO Rx#: [id number] Pressure Bag 63 36 3 Sodium Chloride 3%( 600 600 50 Hypertonic) 500 ml @ 50 mls/hr IV .Q10H GERARDO Rx#: [id number] Tube Feeding 630 140 Other 60 30 Output: Urine 1560 1650 125 Other: Voiding Method Indwelling Catheter Indwelling Catheter ABP, PAP, CO, CI - Last Documented Arterial Blood Pressure 170/77 - Exam GENERAL EXAM: Intubated, 72-year-old male patient remains off sedation for several days. Unresponsive to any verbal stimulation, grimaces to deep painful stimulation at this point in time. HEAD: Normocephalic. EYES: Sluggish reaction of pupils, equal size. NOSE: Clear with pink turbinates. THROAT: No erythema or exudates. NECK: No masses, no JVD. CHEST: No chest wall deformity. LUNGS: Equal air entry with bilateral scattered rhonchi, crackles in the posterior bases. CVS: S1 and S2 normal with no audible murmur, regular rhythm. Tachycardic ABDOMEN: No hepatosplenomegaly, normal bowel sounds, no guarding or rigidity. SPINE: No scoliosis or deformity SKIN: No rashes CENTRAL NERVOUS SYSTEM: Unresponsive, tone is normal in all 4 extremities., He is able to trigger the mechanical ventilator. Has occasional body twitches. Positive cough and gag. No facial asymmetry. Pupils are symmetric and sluggishly reactive to light around 4 mm in size. No nystagmus. EXTREMITIES: Right upper extremity PICC line in place. Amputation of the left great toe, dressing in place. Peripheral pulses are intact. - Labs CBC & Chem 7: 10/24/23 05:35 10/24/23 04:42 Labs: Abnormal Lab Results - Last 24 Hours (Table) 10/23/23 10/23/23 10/23/23 Range/Units 11:42 14:38 15:45 RBC (4.30-5.90) m/uL Hgb (13.0-17.5) gm/dL Hct (39.0-53.0) % RDW (11.5-15.5) % Plt Count (150-450) k/uL Lymphocytes # (1.0-4.8) k/uL ABG pO2 (83-108) mmHg ABG HCO3 (21-25) mmol/L ABG Total CO2 (19-24) mmol/L ABG O2 Saturation (94-97) % Sodium 146 H 146 H (137-145) mmol/L Potassium (3.5-5.1) mmol/L Chloride (98-107) mmol/L BUN (9-20) mg/dL Creatinine (0.66-1.25) mg/dL Glucose (74-99) mg/dL POC Glucose (mg/dL) 195 H (70-110) mg/dL Calcium (8.4-10.2) mg/dL 10/23/23 10/23/23 10/23/23 Range/Units 17:44 21:54 23:41 RBC (4.30-5.90) m/uL Hgb (13.0-17.5) gm/dL Hct (39.0-53.0) % RDW (11.5-15.5) % Plt Count (150-450) k/uL Lymphocytes # (1.0-4.8) k/uL ABG pO2 (83-108) mmHg ABG HCO3 (21-25) mmol/L ABG Total CO2 (19-24) mmol/L ABG O2 Saturation (94-97) % Sodium 146 H (137-145) mmol/L Potassium (3.5-5.1) mmol/L Chloride (98-107) mmol/L BUN (9-20) mg/dL Creatinine (0.66-1.25) mg/dL Glucose (74-99) mg/dL POC Glucose (mg/dL) 285 H 294 H (70-110) mg/dL Calcium (8.4-10.2) mg/dL 10/24/23 10/24/23 10/24/23 Range/Units 03:05 04:42 04:42 RBC 2.58 L (4.30-5.90) m/uL Hgb 7.7 L D (13.0-17.5) gm/dL Hct 23.7 L (39.0-53.0) % RDW 16.1 H (11.5-15.5) % Plt Count 115 L (150-450) k/uL Lymphocytes # 0.2 L (1.0-4.8) k/uL ABG pO2 (83-108) mmHg ABG HCO3 (21-25) mmol/L ABG Total CO2 (19-24) mmol/L ABG O2 Saturation (94-97) % Sodium 149 H 150 H (137-145) mmol/L Potassium 3.4 L (3.5-5.1) mmol/L Chloride 120 H (98-107) mmol/L BUN 27 H (9-20) mg/dL Creatinine 0.45 L (0.66-1.25) mg/dL Glucose 248 H (74-99) mg/dL POC Glucose (mg/dL) (70-110) mg/dL Calcium 7.9 L (8.4-10.2) mg/dL 10/24/23 10/24/23 10/24/23 Range/Units 04:46 05:30 05:35 RBC 3.74 L (4.30-5.90) m/uL Hgb 11.2 L D (13.0-17.5) gm/dL Hct 34.1 L (39.0-53.0) % RDW 16.1 H (11.5-15.5) % Plt Count (150-450) k/uL Lymphocytes # 0.2 L (1.0-4.8) k/uL ABG pO2 147 H (83-108) mmHg ABG HCO3 28 H (21-25) mmol/L ABG Total CO2 29 H (19-24) mmol/L ABG O2 Saturation 97.3 H (94-97) % Sodium (137-145) mmol/L Potassium (3.5-5.1) mmol/L Chloride (98-107) mmol/L BUN (9-20) mg/dL Creatinine (0.66-1.25) mg/dL Glucose (74-99) mg/dL POC Glucose (mg/dL) 194 H (70-110) mg/dL Calcium (8.4-10.2) mg/dL Microbiology - Last 24 Hours (Table) 10/21/23 08:15 Gram Stain - Final Sputum Sputum Culture - Final Assessment and Plan Plan: Acute mental status change and the patient presented with unresponsiveness, intubated placed on mechanical ventilator. CAT scan of the brain revealed diffuse edema which obviously raises the suspicion for diffuse anoxic encephalopathy. The patient probably became hypoxic prior to his hospital admission. He was intubated in the house and he was brought into send he does r emain unresponsive over the past several days while being off propofol. Lumbar puncture was done. The CSF was slightly bloody, normal glucose, protein was also elevated at 600, nucleated white cell count was 56 and the cultures were negative pending HSV by PCR. Currently on acyclovir. LP was done on 10/18/2023. The patient is currently off sedation, propofol has been off since 10/17/2023. EEG done on 10/19/2023 revealed background slowing suggestive of moderate degree of encephalopathy without any seizure activity. Repeat CAT scan of the brain on 10/22/2023 was noted and findings are essentially similar and neurology is on the case. The patient is currently on Decadron and hypertonic saline. Neurology remains on the case. EEG showed no evidence of any seizure activity. On today's evaluation, no major interval change in the mentation and neurology remains on the case and the patient remains on a combination of Decadron and hypertonic saline solution. Acute on chronic hypoxic respiratory failure. The patient is known to have pulmonary fibrosis. Currently intubated on mechanical ventilator, assist- control mode with an FiO2 of 30% and a PEEP of 5, chest x-ray showed diffuse bilateral pulmonary filtrates, stable with ET tube being above the alexys. Chest x-ray findings remained stable. The patient has bilateral consolidations in the lung bases along with background pulmonary fibrosis. Hypotension requiring pressor support, recovered Chronic systolic heart failure the patient has severely impaired left ventricular systolic function with ejection fraction 20 to 25% Severe pulmonary hypertension, echocardiogram from 10/15/2023 showed severe pulm hypertension with an estimated PA pressure of 57. Febrile illness, suspect underlying pneumonia. Procalcitonin 0.42. Remains on Zosyn and Zyvox, currently afebrile Leukocytosis, recovered Tachycardia, sinus History of pulmonary fibrosis on Ofev in the outpatient setting Recent amputation of the left great toe, was on Zosyn/Zyvox via PICC line in the outpatient setting Diabetes mellitus type 2, maintained on a combination of Amaryl, Jardiance and metformin. History of rheumatoid arthritis maintained on a combination of Arava and Rinvoq on outpatient basis History of osteomyelitis of the left great toe post amputation of the patient has been receiving IV Zosyn on outpatient basis via PICC line in his right upper extremity. Cultures were positive for Pseudomonas Arm twitching, maintained on Keppra, EEG was negative for any seizure activity. Plan: Neurologically unchanged and the patient's family is contemplating hospice/end-of-life care. Continue hypertonic saline Continue Decadron Increase Levemir insulin to 10 units twice a day Continue Keppra Continue Zosyn and daptomycin as empiric antibiotic coverage Acyclovir can be discontinued Continue enteral feeding for nutritional support Continue ventilator support Case was discussed with the various consultants and also discussed with the family Would like to proceed with hospice/end-of-life care today. This evaluation was done more than 30 minutes. Case was discussed at length with the family members including the and the children. Time with Patient: Greater than 30
[2023-10-24 14:54] VITALS: BMI 26.8
[2023-10-24 20:46] VITALS: BP 98/59; PULSE 132; TEMP 98.7
--- NOTE | 2023-10-25 08:12 | P.PN ---
Subjective Progress Note Date: 10/23/23 Principal diagnosis: Reason for follow-up is sepsis, recent foot infection and osteomyelitis Patient is a 72-year-old male past medical history significant for pulmonary fibrosis, type 2 diabetes mellitus right big toe diabetic foot infection with underlying osteomyelitis s/p amputation at [facility] and currently has been on Zosyn patient has been brought into the hospital for evaluation of weakness unresponsiveness patient got intubated admitted to ICU ID consulted concerning for sepsis. On today's evaluation that is10/23/2023, the patient continues to be afebrile, the patient is on the vent FiO2 is currently stable at 35% and the patient is hemodynamically stable not requiring any pressor support no vomiting or any worsening diarrhea has been reported by the nursing staff. Patient did have a white count of 4.6, creatinine is 0.41 culture repeat has been negative so far Objective - Vital Signs Vital signs: Vital Signs Temp 97.9 F 10/23/23 04:00 Pulse 111 H 10/23/23 08:00 Resp 17 10/23/23 07:00 BP 145/80 10/23/23 07:00 Pulse Ox 97 10/23/23 07:00 FiO2 30 10/23/23 07:57 Intake & Output 10/22/23 10/23/23 10/23/23 18:59 06:59 18:59 Intake Total 2236 2186 143 Output Total 1665 2000 100 Balance 571 186 43 Weight 85.4 kg 90.1 kg Intake: IV 916 1256 73 0.9 Sodium Chloride 220 240 20 Acyclovir Sodium 850 mg 270 In Sodium Chloride 0.9% 250 ml @ 270 mls/hr IVPB Q8H [facility] Rx#:[id number] Invasive Line 4 30 30 Invasive Line 9 30 30 Linezolid 600 mg In 300 150 Dextrose/Water 1 300ml. bag @ 150 mls/hr IVPB Q12HR [facility] Rx#:[id number] Magnesium Sulfate-D5w Pmx 100 1 gm In Dextrose/Water 1 100ml.bag @ 100 mls/hr IVPB ONCE ONE Rx#: [id number] Piperacillin-Tazobactam 3 200 .375 gm In Sodium Chloride 0.9% 100 ml @ 25 mls/hr IVPB Q8H [facility] Rx#: [id number] Pressure Bag 36 36 3 Sodium Chloride 3%( 500 50 Hypertonic) 500 ml @ 50 mls/hr IV .Q10H [facility] Rx#: [id number] Intake, IV Titration 350 Amount Acyclovir Sodium 850 mg 250 In Sodium Chloride 0.9% 250 ml @ 270 mls/hr IVPB Q8H [facility] Rx#:[id number] Sodium Chloride 3%( 100 Hypertonic) 500 ml @ 50 mls/hr IV .Q10H [facility] Rx#: [id number] Tube Feeding 790 840 70 Other 180 90 Output: Urine 1665 1750 100 Stool 250 Other: Voiding Method Indwelling Catheter Indwelling Catheter ABP, PAP, CO, CI - Last Documented Arterial Blood Pressure 135/58 - Exam Elderly male intubated on the vent Respiratory system unlabored breathing decreased intensity breath sounds Abdominal soft no tenderness Patient is sedated Exam completed with help of [employer]NAGER [employer] - Labs CBC & Chem 7: 10/24/23 05:35 10/24/23 04:42 Labs: Abnormal Lab Results - Last 24 Hours (Table) 10/22/23 10/22/23 10/22/23 Range/Units 11:41 17:27 23:30 RBC (4.30-5.90) m/uL Hgb (13.0-17.5) gm/dL Hct (39.0-53.0) % Plt Count (150-450) k/uL Lymphocytes # (1.0-4.8) k/uL ABG pO2 (83-108) mmHg ABG HCO3 (21-25) mmol/L ABG Total CO2 (19-24) mmol/L ABG O2 Saturation (94-97) % Chloride (98-107) mmol/L BUN (9-20) mg/dL Creatinine (0.66-1.25) mg/dL Glucose (74-99) mg/dL POC Glucose (mg/dL) 218 H 248 H 278 H (70-110) mg/dL Calcium (8.4-10.2) mg/dL 10/23/23 10/23/23 10/23/23 Range/Units 03:39 03:39 05:29 RBC 4.04 L (4.30-5.90) m/uL Hgb 11.5 L (13.0-17.5) gm/dL Hct 36.9 L (39.0-53.0) % Plt Count 138 L (150-450) k/uL Lymphocytes # 0.2 L (1.0-4.8) k/uL ABG pO2 140 H (83-108) mmHg ABG HCO3 27 H (21-25) mmol/L ABG Total CO2 28 H (19-24) mmol/L ABG O2 Saturation 97.4 H (94-97) % Chloride 112 H (98-107) mmol/L BUN 24 H (9-20) mg/dL Creatinine 0.41 L (0.66-1.25) mg/dL Glucose 299 H (74-99) mg/dL POC Glucose (mg/dL) (70-110) mg/dL Calcium 8.2 L (8.4-10.2) mg/dL 10/23/23 Range/Units 05:33 RBC (4.30-5.90) m/uL Hgb (13.0-17.5) gm/dL Hct (39.0-53.0) % Plt Count (150-450) k/uL Lymphocytes # (1.0-4.8) k/uL ABG pO2 (83-108) mmHg ABG HCO3 (21-25) mmol/L ABG Total CO2 (19-24) mmol/L ABG O2 Saturation (94-97) % Chloride (98-107) mmol/L BUN (9-20) mg/dL Creatinine (0.66-1.25) mg/dL Glucose (74-99) mg/dL POC Glucose (mg/dL) 287 H (70-110) mg/dL Calcium (8.4-10.2) mg/dL Microbiology - Last 24 Hours (Table) 10/21/23 08:15 Gram Stain - Final Sputum Sputum Culture - Final 10/18/23 17:20 CSF Gram Stain - Final Cerebral Spinal Fluid CSF Culture - Final 10/17/23 01:05 Blood Culture - Final Blood 10/17/23 01:05 Blood Culture - Final Blood Assessment and Plan (1) Diarrhea Current Visit: Yes Status: Acute Code(s): R19.7 - DIARRHEA, UNSPECIFIED SNOMED Code(s): 67097338 (2) Leukocytosis Current Visit: Yes Status: Acute Code(s): D72.829 - ELEVATED WHITE BLOOD CELL COUNT, UNSPECIFIED SNOMED Code(s): 608183357 (3) Pneumonia Current Visit: Yes Status: Acute Code(s): J18.9 - PNEUMONIA, UNSPECIFIED ORGANISM SNOMED Code(s): 897544147 Plan: This is a telehealth visit 1patient presented to hospital with sepsis in this patient who did have a fever elevated white count tachycardia with concern for possible aspiration pneumonitis in this patient who currently was getting treatment for the right big toe diabetic foot infection status post amputation with the patient being on a good gram-negative coverage more likely dealing with gram-positive pathogen 2-sputum culture currently growing Ana which is more likely colonizer 3-patient did have some diarrhea stool for C. difficile has been negative, did have a fecal management system no worsening output reported patient on Questran 4patient did have LP which was traumatic clinically not behaving as encephalitis currently waiting for HSV DNA by PCR to be completed acyclovir has been added empirically by neurology currently waiting for the HSV DNA by PCR 5patient did have resolution of fever and the patient white count normalized, patient currently covered with Zosyn and Zyvox to continue will monitor clinical course closely however may benefit from hospice oriented care and review of the CT findings Dictation was produced using [employer] dictation software. please excuse any grammatical, word or spelling errors. Time with Patient: Less than 30
--- NOTE | 2023-10-25 08:13 | P.PN ---
Subjective Progress Note Date: 10/24/23 Principal diagnosis: Reason for follow-up is sepsis, recent foot infection and osteomyelitis Patient is a 72-year-old male past medical history significant for pulmonary fibrosis, type 2 diabetes mellitus right big toe diabetic foot infection with underlying osteomyelitis s/p amputation at [facility] and currently has been on Zosyn patient has been brought into the hospital for evaluation of weakness unresponsiveness patient got intubated admitted to ICU ID consulted concerning for sepsis. On today's evaluation that is 10/24/2023, Patient has been running a fever of 100.3 F this afternoon patient has been extubated and is currently on 6 L nasal cannula oxygen patient remains to be lethargic unresponsive unable to provide any history no vomiting or diarrhea has been reported. Patient white count is 6.8 creatinine 0.45 cultures have been negative Objective - Vital Signs Vital signs: Vital Signs Temp 100.1 F H 10/24/23 04:00 Pulse 107 H 10/24/23 10:00 Resp 14 10/24/23 10:00 BP 145/80 10/23/23 07:00 Pulse Ox 97 10/24/23 10:00 FiO2 30 10/24/23 10:36 Intake & Output 10/23/23 10/24/23 10/24/23 18:59 06:59 18:59 Intake Total 2333 1636 211.482 Output Total 1560 1650 390 Balance 773 -14 -178.518 Weight 89.8 kg Intake: IV 1643 1466 209 0.9 Sodium Chloride 170 120 30 Acyclovir Sodium 850 mg 250 250 In Sodium Chloride 0.9% 250 ml @ 270 mls/hr IVPB Q8H [facility] Rx#:[id number] Invasive Line 4 30 30 10 Invasive Line 9 30 30 10 Linezolid 600 mg In 300 300 Dextrose/Water 1 300ml. bag @ 150 mls/hr IVPB Q12HR [facility] Rx#:[id number] Piperacillin-Tazobactam 3 200 100 .375 gm In Sodium Chloride 0.9% 100 ml @ 25 mls/hr IVPB Q8H [facility] Rx#: [id number] Pressure Bag 63 36 9 Sodium Chloride 3%( 600 600 150 Hypertonic) 500 ml @ 50 mls/hr IV .Q10H [facility] Rx#: [id number] Intake, IV Titration 2.482 Amount Morphine Sulfate (100 mg/ 2.482 2 ml) 100 mg In Sodium Chloride 0.9% 100 ml @ 1 MG/HR 1.02 mls/hr IV . Q24H [facility] Rx#:[id number] Tube Feeding 630 140 Other 60 30 Output: Urine 1560 1650 390 Other: Voiding Method Indwelling Catheter Indwelling Catheter Indwelling Catheter ABP, PAP, CO, CI - Last Documented Arterial Blood Pressure 140/63 - Exam Elderly male lying in bed in no distress Respiratory system unlabored breathing decreased intensity breath sounds Abdominal soft no tenderness Patient is sedated Exam completed with help of [employer]ES [employer] - Labs CBC & Chem 7: 10/24/23 05:35 10/24/23 04:42 Labs: Abnormal Lab Results - Last 24 Hours (Table) 10/23/23 10/23/23 10/23/23 Range/Units 14:38 15:45 17:44 RBC (4.30-5.90) m/uL Hgb (13.0-17.5) gm/dL Hct (39.0-53.0) % RDW (11.5-15.5) % Plt Count (150-450) k/uL Lymphocytes # (1.0-4.8) k/uL ABG pO2 (83-108) mmHg ABG HCO3 (21-25) mmol/L ABG Total CO2 (19-24) mmol/L ABG O2 Saturation (94-97) % Sodium 146 H 146 H (137-145) mmol/L Potassium (3.5-5.1) mmol/L Chloride (98-107) mmol/L BUN (9-20) mg/dL Creatinine (0.66-1.25) mg/dL Glucose (74-99) mg/dL POC Glucose (mg/dL) 285 H (70-110) mg/dL Calcium (8.4-10.2) mg/dL 10/23/23 10/23/23 10/24/23 Range/Units 21:54 23:41 03:05 RBC (4.30-5.90) m/uL Hgb (13.0-17.5) gm/dL Hct (39.0-53.0) % RDW (11.5-15.5) % Plt Count (150-450) k/uL Lymphocytes # (1.0-4.8) k/uL ABG pO2 (83-108) mmHg ABG HCO3 (21-25) mmol/L ABG Total CO2 (19-24) mmol/L ABG O2 Saturation (94-97) % Sodium 146 H 149 H (137-145) mmol/L Potassium (3.5-5.1) mmol/L Chloride (98-107) mmol/L BUN (9-20) mg/dL Creatinine (0.66-1.25) mg/dL Glucose (74-99) mg/dL POC Glucose (mg/dL) 294 H (70-110) mg/dL Calcium (8.4-10.2) mg/dL 10/24/23 10/24/23 10/24/23 Range/Units 04:42 04:42 04:46 RBC 2.58 L (4.30-5.90) m/uL Hgb 7.7 L D (13.0-17.5) gm/dL Hct 23.7 L (39.0-53.0) % RDW 16.1 H (11.5-15.5) % Plt Count 115 L (150-450) k/uL Lymphocytes # 0.2 L (1.0-4.8) k/uL ABG pO2 (83-108) mmHg ABG HCO3 (21-25) mmol/L ABG Total CO2 (19-24) mmol/L ABG O2 Saturation (94-97) % Sodium 150 H (137-145) mmol/L Potassium 3.4 L (3.5-5.1) mmol/L Chloride 120 H (98-107) mmol/L BUN 27 H (9-20) mg/dL Creatinine 0.45 L (0.66-1.25) mg/dL Glucose 248 H (74-99) mg/dL POC Glucose (mg/dL) 194 H (70-110) mg/dL Calcium 7.9 L (8.4-10.2) mg/dL 10/24/23 10/24/23 Range/Units 05:30 05:35 RBC 3.74 L (4.30-5.90) m/uL Hgb 11.2 L D (13.0-17.5) gm/dL Hct 34.1 L (39.0-53.0) % RDW 16.1 H (11.5-15.5) % Plt Count (150-450) k/uL Lymphocytes # 0.2 L (1.0-4.8) k/uL ABG pO2 147 H (83-108) mmHg ABG HCO3 28 H (21-25) mmol/L ABG Total CO2 29 H (19-24) mmol/L ABG O2 Saturation 97.3 H (94-97) % Sodium (137-145) mmol/L Potassium (3.5-5.1) mmol/L Chloride (98-107) mmol/L BUN (9-20) mg/dL Creatinine (0.66-1.25) mg/dL Glucose (74-99) mg/dL POC Glucose (mg/dL) (70-110) mg/dL Calcium (8.4-10.2) mg/dL Assessment and Plan (1) Diarrhea Current Visit: Yes Status: Acute Code(s): R19.7 - DIARRHEA, UNSPECIFIED SNOMED Code(s): 04222792 (2) Leukocytosis Current Visit: Yes Status: Acute Code(s): D72.829 - ELEVATED WHITE BLOOD CELL COUNT, UNSPECIFIED SNOMED Code(s): 831272328 (3) Pneumonia Current Visit: Yes Status: Acute Code(s): J18.9 - PNEUMONIA, UNSPECIFIED ORGANISM SNOMED Code(s): 621273727 Plan: This is a telehealth visit 1patient presented to hospital with sepsis in this patient who did have a fever elevated white count tachycardia with concern for possible aspiration pneumonitis in this patient who currently was getting treatment for the right big toe diabetic foot infection status post amputation with the patient being on a good gram-negative coverage more likely dealing with gram-positive pathogen 2-sputum culture currently growing Ana which is more likely colonizer 3-patient did have some diarrhea stool for C. difficile has been negative, did have a fecal management system no worsening output reported patient on Questran 4patient did have LP which was traumatic clinically not behaving as encephalitis currently waiting for HSV DNA by PCR to be completed however patient is admitted for specific care patient will be appropriate for him antibiotics and antivirals can be discontinued at the bedside questions answered Dictation was produced using [employer] dictation software. please excuse any grammatical, word or spelling errors. Time with Patient: Less than 30
--- NOTE | 2023-10-25 13:18 | P.DS ---
Providers Date of admission: 10/15/23 12:49 Expected date of discharge: 10/25/23 Attending physician: Anthony Javier MD Consults: 10/15/23 14:23 Consult Physician Routine Consulting Provider: Aba Palomo Consult Reason/Comments: AMS Do you want consulting provider notified?: Yes 10/15/23 15:05 Consult Physician Routine Consulting Provider: Bal Palomo Consult Reason/Comments: ICU management Do you want consulting provider notified?: Yes 10/15/23 16:55 Consult Physician Routine Consulting Provider: Davidson Apodaca Consult Reason/Comments: osteomyelitis Do you want consulting provider notified?: Yes Primary care physician: Bal Coombs Hospital Course: 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%, possibly Takotsubo cardiomyopathy Acute hypoxic respiratory failure, ventilator dependent Suspected aspiration pneumonia History of pulmonary fibrosis Recent left great toe amputation secondary to osteomyelitis Metabolic acidosis, lactic acidosis, resolved Acute kidney injury, likely ATN, resolved Euthyroid sick syndrome Elevated troponin Paroxysmal atrial fibrillation with RVR, new onset Type 2 diabetes History of hypertension-hold antihypertensives Dyslipidemia Rheumatoid arthritis Hospital Course: 72-year-old male with medical history of idiopathic pulmonary fibrosis on Ofev, diabetes type 2, osteomyelitis status post recent right toe amputation on Zosyn, hypertension, hyperlipidemia presented for evaluation of altered mental status. According to ER documentation, the patient demonstrated evidence of agonal breathing and therefore was bagged for ventilation on the way to the emergency room. Upon arrival, patient was afebrile, 168/114, heart rate 131, 99% with [id number]. CBC was unremarkable. Basic metabolic panel showed chloride of 109, CO2 of 21, BUN of 26, creatinine 1.57. Liver function test were unremarkable. Troponins 0.047. Coags were unremarkable. D-dimer was elevated 2.58. EKG demonstrated atrial fibrillation with RVR as well as ST elevation in the lateral leads with reciprocal changes in the inferior leads. Based on these findings, cardiology was notified and a code STEMI was called, patient was taken emergently to the [facility] but was found to have normal coronary arteries. Subsequently was transferred to the intensive care unit, intubated. He underwent brain CT to rule out hemorrhagic stroke which was negative, pulmonology was consulted and neurology was consulted. Patient remains intuba dae and mechanically ventilated. Also hypotensive, requiring vasopressors as well as broad-spectrum antibiotics. Echocardiogram showed LVEF 25 to 30% with severe hypokinesis involving the apex, severe pulmonary hypertension. CTA chest did not show any acute PE. Heparin drip discontinued. CTA head showed vasogenic edema in the posterior aspects of occipital lobes and parietal of the lesser extent right frontal lobe concerning for PRES. patient continued on IV antibiotics. Off of sedation, minimally responsive. Off of vasopressors. LP completed. Patient also started on acyclovir. Prognosis remained poor. Patient was considering comfort care and ultimately, family pursued this option. Patient comfortably at 713 this morning prior to my evaluation. Patient Condition at Discharge: Good Plan - Discharge Summary New Discharge Prescriptions: No Action Nintedanib Esylate [Ofev] 150 mg PO BID Upadacitinib [Rinvoq] 15 mg PO DAILY metFORMIN HCL 1,000 mg PO BID Glimepiride [Amaryl] 4 mg PO DAILY Empagliflozin [Jardiance] 25 mg PO HS Leflunomide [Arava] 20 mg PO DAILY Simvastatin [Zocor] 40 mg PO HS Naproxen [Naprosyn] 500 mg PO BID Losartan [Cozaar] 50 mg PO DAILY Insulin Aspart [NovoLOG Flexpen] See Protocol SQ ACHS Piperacillin-Tazobactam [Zosyn] 4.5 gm IVPB Q8H HYDROcodone/APAP 5-325MG [[place] 5-325] 1 tab PO Q4HR PRN PRN Reason: Severe Pain (Scale 7 To 10) Acetaminophen Tab [Tylenol] 650 mg PO Q8H PRN PRN Reason: Fever And/ Or Pain Discharge Medication List Acetaminophen Tab [Tylenol] 650 mg PO Q8H PRN 10/15/23 [History] Empagliflozin [Jardiance] 25 mg PO HS 10/15/23 [History] Glimepiride [Amaryl] 4 mg PO DAILY 10/15/23 [History] HYDROcodone/APAP 5-325MG [[place] 5-325] 1 tab PO Q4HR PRN 10/15/23 [History] Insulin Aspart [NovoLOG Flexpen] See Protocol SQ ACHS 10/15/23 [History] Leflunomide [Arava] 20 mg PO DAILY 10/15/23 [History] Losartan [Cozaar] 50 mg PO DAILY 10/15/23 [History] Naproxen [Naprosyn] 500 mg PO BID 10/15/23 [History] Nintedanib Esylate [Ofev] 150 mg PO BID 10/15/23 [History] Piperacillin-Tazobactam [Zosyn] 4.5 gm IVPB Q8H 10/15/23 [History] Simvastatin [Zocor] 40 mg PO HS 10/15/23 [History] Upadacitinib [Rinvoq] 15 mg PO DAILY 10/15/23 [History] metFORMIN HCL 1,000 mg PO BID 10/15/23 [History] Follow up Appointment(s)/Referral(s): None,Stated [REFERRING] - 1-2 days Discharge Disposition: - Preliminary Cause of Preliminary Cause of : Stroke
--- NOTE | 2023-10-27 00:55 | P.PN ---
Progress Note - Text Progress Note Date: 10/24/23
--- NOTE | 2023-10-30 14:07 | CDI ---
Documentation Clarification Form Date: 10/30/2023 02:00:06 PM From: Pushpa Morataya RN, CCDS Phone: [phone] Admit Date: 10/15/2023 12:49:00 PM Patient Name: Antonio Quiroz Visit Number: [id number] Discharge Date: 10/25/2023 10:21:00 AM ATTENTION: The Clinical Documentation Specialists (CDI) and [facility] Coding Staff appreciate your assistance in clarifying documentation. Please respond to the clarification below the line at the bottom and electronically sign. The CDI & [facility] Coding staff will review the response and follow-up if needed. Please note: Queries are made part of the Legal Health Record. If you have any questions, please contact the author of this message via ITS. Dr. Anthony Javier Sepsis is documented by the ID [email or web address] operations consultant and the patient had a recent right toe amputation for underlying osteomyelitis. Additional clarification is requested regarding the relationship, if any, that exists between the diagnosis and the procedure. Patients Admitting Diagnosis: Unresponsive, shock and acute hypoxic respiratory failure History/Risk Factors: pulmonary fibrosis, DM type 2, HTN, HLD and osteomyelitis, s/p recent right toe amputation, on Zosyn at home. Patient was unresponsive with agonal breathing at home, intubated by EMS. Admitted with acute metabolic encephalopathy, shock, acute hypoxic respiratory failure and sepsis. Clinical Indicators: 10/14 H&P: "Recent left great toe amputation secondary to osteomyelitis." 10/15 IM: "Unspecified circulatory shock, sepsis versus obstructive." 10/15 ID consult: "patient presented to hospital with sepsis, did have a fever, elevated white count and tachycardia with concern for possible aspiration pneumonitis. The patient currently was getting treatment for the right big toe diabetic foot infection, status post amputation, on a good gram-negative coverage. More likely dealing with gram-positive pathogen." 10/15 Labs: WBC 19.2, lactic acid 5.8, procalcitonin 0.42 10/15 vital signs: Temp 102.1, HR 137, BP 70/57 Treatment: IV Zosyn 3.375 gm Q8H 10/14-10/23; IV Levophed titrated 10/15-10/17; IV Zyvox 600mg Q12H 10/15-10/23; IV Acyclovir 850mg Q8H 10/17-10/23 Consults: ID, see above Please clarify the etiology of Sepsis: [ ] Sepsis is due to underlying osteomyelitis of diabetic right toe area [ ] Sepsis is due to recent right big toe amputation (complication of procedure) [ ] Sepsis due to, please specify [ ] Other please specify ____ [x] Unable to determine MTDD
== END 2023-10-25 10:21 | disposition expired | DRG 870 ==
LOC: CATHCVL 12:12 → 2SICU 12:49 → 5NMEDONC 10-24 20:41
PROVIDERS: ADMIT Internal Medicine; ATTEND Internal Medicine
PROC: 009U3ZX Drainage of Spinal Canal, Percutaneous Approach, Diagnostic (ICD-10-PCS; 2023-10-15)
PROC: 009U3ZX Drainage of Spinal Canal, Percutaneous Approach, Diagnostic (ICD-10-PCS; 2023-10-15)
PROC: 4A023N7 Measurement of Cardiac Sampling and Pressure, Left Heart, Percutaneous Approach (ICD-10-PCS; 2023-10-15)
PROC: B2111ZZ Fluoroscopy of Multiple Coronary Arteries using Low Osmolar Contrast (ICD-10-PCS; 2023-10-15)
PROC: 5A1955Z Respiratory Ventilation, Greater than 96 Consecutive Hours (ICD-10-PCS; principal; 2023-10-15 12:38)
PROC: 4A10X4Z Monitoring of Central Nervous Electrical Activity, External Approach (ICD-10-PCS; 2023-10-16)
PROC: 4A133B1 Monitoring of Arterial Pressure, Peripheral, Percutaneous Approach (ICD-10-PCS; 2023-10-16)
PROC: 4A133J1 Monitoring of Arterial Pulse, Peripheral, Percutaneous Approach (ICD-10-PCS; 2023-10-16)
PROC: 3E033XZ Introduction of Vasopressor into Peripheral Vein, Percutaneous Approach (ICD-10-PCS; 2023-10-16)
PROC: 4A133B1 Monitoring of Arterial Pressure, Peripheral, Percutaneous Approach (ICD-10-PCS; 2023-10-17)
PROC: 03HY32Z Insertion of Monitoring Device into Upper Artery, Percutaneous Approach (ICD-10-PCS; 2023-10-17)
PROC: 4A133J1 Monitoring of Arterial Pulse, Peripheral, Percutaneous Approach (ICD-10-PCS; 2023-10-17)
PROC: 0BH17EZ Insertion of Endotracheal Airway into Trachea, Via Natural or Artificial Opening (ICD-10-PCS; 2023-10-18)
DX: A41.9 Sepsis, unspecified organism (principal); G93.41 Metabolic encephalopathy; J96.01 Acute respiratory failure with hypoxia; N17.0 Acute kidney failure with tubular necrosis; R65.21 Severe sepsis with septic shock; J18.9 Pneumonia, unspecified organism; J69.0 Pneumonitis due to inhalation of food and vomit; I67.83 Posterior reversible encephalopathy syndrome; G93.6 Cerebral edema; M86.9 Osteomyelitis, unspecified; I42.8 Other cardiomyopathies; G93.1 Anoxic brain damage, not elsewhere classified; E87.20 Acidosis, unspecified; Z99.11 Dependence on respirator [ventilator] status; I46.9 Cardiac arrest, cause unspecified; I27.20 Pulmonary hypertension, unspecified; Z66 Do not resuscitate; Z51.5 Encounter for palliative care; Z79.4 Long term (current) use of insulin; M06.9 Rheumatoid arthritis, unspecified; I11.0 Hypertensive heart disease with heart failure; G25.81 Restless legs syndrome; I48.0 Paroxysmal atrial fibrillation; E78.5 Hyperlipidemia, unspecified; E07.81 Sick-euthyroid syndrome; J84.112 Idiopathic pulmonary fibrosis; H51.8 Other specified disorders of binocular movement; R79.89 Other specified abnormal findings of blood chemistry; Z79.82 Long term (current) use of aspirin; Z79.84 Long term (current) use of oral hypoglycemic drugs; Z79.899 Other long term (current) drug therapy; Z89.412 Acquired absence of left great toe
CPT/HCPCS: 31500; 36415; 36600; 70450; 70470; 70496; 70498; 71045; 71275; 72127; 80048; 80053; 81001; 82140; 82607; 82805; 82945; 83605; 83735; 83873; 83880; 84132; 84145; 84157; 84295; 84439; 84443; 84484; 85025; 85379; 85610; 85652; 85730; 86403; 86592; 87040; 87070; 87205; 87324; 87327; 87496; 87498; 87529; 87636; 87798; 89050; 93005; 93306; 93458; 94002; 94003; 94640; 95822; 99291